=== PATIENT | male | born 1970 | race Hispanic/Latino ===

== ENCOUNTER 2017-08-26 13:50 | Inpatient (IN) | payer MEDICAID, OTHER ==
[2017-08-26 13:50] VITALS: BMI 36.1
--- NOTE | 2017-08-26 16:06 | ED PDOC ---
HPI: General Adult Time Seen by Provider: 08/26/17 15:09 Chief Complaint (Nursing): Flu-like Symptoms Chief Complaint (Provider): Flu-like Symptoms History Per: Patient Onset/Duration Of Symptoms: Other (X 2 weeks) Additional Complaint(s): Panfilo is a 46 year old male who presents to the Emergency Department complaining of non-productive cough for the past 2 weeks. Patient states he developed a tactile fever yesterday. Patient states over the several days, he developed right sided chest pain associated with shortness of breath. Reports worse at night. Denies radiation of pain, nausea, vomiting, diarrhea, hemoptysis , trauma, history of DVT or PE and leg pain. PMD: Harry Gutierrez Past Medical History Reviewed: Historical Data, Nursing Documentation, Vital Signs Vital Signs: Last Vital Signs Temp 98.2 F 08/26/17 20:13 Pulse 99 H 08/26/17 21:05 Resp 20 08/26/17 21:05 BP 101/62 08/26/17 21:05 Pulse Ox 96 08/26/17 22:37 - Medical History PMH: CHF, HTN Denies: Deep Vein Thrombosis, Pulmonary Embolism - Family History Family History: States: No Known Family Hx - Social History Current smoker - smoking cessation education provided: No Alcohol: None Drugs: Denies - Home Medications Home Medications: Ambulatory Orders Medication Instructions Recorded Aspirin [Aspirin EC] 81 mg PO DAILY 12/21/14 Carvedilol [Coreg] 6.25 mg PO Q12H 12/21/14 Enalapril Maleate 5 mg PO DAILY 12/21/14 Famotidine [Pepcid] 20 mg PO DAILY 12/21/14 Furosemide [Lasix] 20 mg PO BID 12/21/14 Cholecalciferol [Vitamin D 1000 IU] 1,000 unit PO DAILY 08/26/17 Multivit-Min/Folic/Vit K/Lycop 1 tab PO DAILY 08/26/17 [One-A-Day Men's Tablet] Multivitamin [Daily Mary] 1 tab PO DAILY 08/26/17 - Allergies Allergies/Adverse Reactions: Allergies Allergy/AdvReac Type Severity Reaction Status Date / Time No Known Allergies Allergy Verified 12/21/14 13:08 Review of Systems ROS Statement: Except As Marked, All Systems Reviewed And Found Negative Constitutional: Positive for: Fever Cardiovascular: Positive for: Chest Pain Respiratory: Positive for: Cough (non-productive), Shortness of Breath. Negative for: Hemoptysis Gastrointestinal: Negative for: Nausea, Vomiting, Diarrhea Musculoskeletal: Negative for: Leg Pain, Other (trauma and radiation of pain) Physical Exam - Reviewed Nursing Documentation Reviewed: Yes Vital Signs Reviewed: Yes - Physical Exam Appears: Positive for: Well, Non-toxic, No Acute Distress Head Exam: Positive for: ATRAUMATIC, NORMAL INSPECTION, NORMOCEPHALIC Skin: Positive for: Normal Color, Warm, DRY Eye Exam: Positive for: EOMI, Normal appearance, PERRL ENT: Positive for: Normal ENT Inspection Neck: Positive for: Normal, Supple Cardiovascular/Chest: Positive for: Regular Rate, Rhythm, Other (Right Sided Anterior Chest Wall Tenderness). Negative for: Chest Non Tender Respiratory: Positive for: Normal Breath Sounds. Negative for: Respiratory Distress Gastrointestinal/Abdominal: Positive for: Normal Exam, Soft. Negative for: Tenderness Back: Positive for: Normal Inspection Extremity: Positive for: Normal ROM. Negative for: Pedal Edema Neurologic/Psych: Positive for: Alert, Oriented - Laboratory Results Result Diagrams: 08/26/17 16:00 08/26/17 16:00 - ECG O2 Sat by Pulse Oximetry: 96 (RA) Pulse Ox Interpretation: Normal - Radiology X-Ray: Interpreted by Me (CXR) X-Ray Interpretation: Other (RLL infiltrate) Medical Decision Making Medical Decision Making: Time: 15:19 Plan: - EKG - B-Type Natriuretic Peptide - CMP - Troponin I - CBC - D-Dimer - Chest X-Ray - Blood Culture - Urinalysis Time: 15:47 - Urine Culture Time: 16:13 Chest X-Ray FINDINGS: LUNGS: Moderate right lower lobe opacity compatible with pleural effusion and consolidation. Mild pulmonary venous congestion. No definite pneumothorax. Please note that chest x-ray has limited sensitivity for the detection of pulmonary masses. CARDIOVASCULAR: Marked cardiomegaly. OSSEOUS STRUCTURES: Degenerative changes of the spine. VISUALIZED UPPER ABDOMEN: Unremarkable. OTHER FINDINGS: None. IMPRESSION: Moderate right lower lobe opacity compatible with pleural effusion and consolidation. Mild pulmonary venous congestion. Marked cardiomegaly. 1625 D-Dimer elevated. CTA chest w/ IV contrast ordered. 1815 Case d/w Dr. Gutierrez and arrangements made for admission. Requests pt. be given Levaquin 750mg IV daily and lasix 20mg IV daily. CTA chest w/ IV contrast: no PE, RLL infiltrate, small pleural effusion Scribe Attestation: Documented by Wilfredo Ro, acting as a scribe for Miguel Roe PA-C Provider Scribe Attestation: All medical record entries made by the Scribe were at my direction and personally dictated by me. I have reviewed the chart and agree that the record accurately reflects my personal performance of the history, physical exam, medical decision making, and the department course for this patient. I have also personally directed, reviewed, and agree with the discharge instructions and disposition. Disposition - Clinical Impression Clinical Impression: Pneumonia, CHF exacerbation - Patient ED Disposition Is Patient to be Admitted: No - Disposition Disposition Time: 18:15 Condition: STABLE
[2017-08-26 16:13] LABS: BASO # 0.1 K/uL (0.0-0.2); BASO % 0.6 % (0.0-2.0); EOS # 0.1 K/uL (0.0-0.7); EOS % 0.7 % (0.0-4.0); HEMATOCRIT 37.9 % (35.0-51.0); LYMPH # 0.9 K/uL (1.0-4.3); MEAN CELL VOLUME 82.3 fl (80.0-94.0); MEAN CORPUSCULAR HEMOGLOBIN 26.6 pg (27.0-31.0); MEAN CORPUSCULAR HGB CONC 32.3 g/dL (33.0-37.0); MEAN PLATELET VOLUME 8.8 fl (7.2-11.7); MONO # 0.9 K/uL (0.0-0.8); MONO % 8.7 % (0.0-10.0); NEUT # 8.2 K/uL (1.8-7.0); PLATELET COUNT 198 K/uL (130-400); RED CELL DISTRIBUTION WIDTH 14.6 % (11.5-14.5); WHITE BLOOD COUNT 10.1 K/uL (4.8-10.8)
[2017-08-26 16:13] LABS: RBC URINE 17 /hpf (0-3); URINE BACTERIA RARE (<OCC); URINE BILIRUBIN NEGATIVE (NEGATIVE); URINE BLOOD LARGE (NEGATIVE); URINE COLOR AMBER (YELLOW); URINE GLUCOSE (UA) NEG (Normal); URINE KETONE NEGATIVE (NEGATIVE); URINE LEUKOCYTE ESTERASE SMALL Leu/uL (Negative); URINE PROTEIN 100 mg/dL (NEGATIVE); WBC URINE 11 /hpf (0-5)
[2017-08-26 16:37] LABS: ALB/GLOB RATIO 1.1 (1.0-2.1); ALKALINE PHOSPHATASE 59 U/L (38-126); ALT/SGPT 43 U/L (21-72); AST/SGOT 32 U/L (17-59); BILIRUBIN,TOTAL 1.7 mg/dl (0.2-1.3); BLOOD UREA NITROGEN 13 mg/dl (9-20); CALCIUM 8.6 mg/dL (8.4-10.2); CARBON DIOXIDE 27 mmol/L (22-30); CHLORIDE 99 mmol/L (98-107); GFR AFRICAN-AMERICAN > 60; GLUCOSE,RANDOM 104 mg/dL (75-110); POTASSIUM 4.1 MMOL/L (3.6-5.0); SODIUM 135 mmol/l (132-148); TOTAL PROTEIN 7.3 G/DL (6.3-8.2)
[2017-08-26] MEDS ORDERED: Sodium Chloride 0.9% 50 ML IV ONE (16:37)
[2017-08-26] MEDS ORDERED: Iodixanol 320 MG/ML 100 ML BOTTLE IV ONE (16:37)
--- NOTE | 2017-08-26 16:37 | RAD ---
HISTORY: cough COMPARISON: Chest x-ray performed 12/21/14 TECHNIQUE: Chest PA and lateral FINDINGS: LUNGS: Moderate right lower lobe opacity compatible with pleural effusion and consolidation. Mild pulmonary venous congestion. No definite pneumothorax. Please note that chest x-ray has limited sensitivity for the detection of pulmonary masses. CARDIOVASCULAR: Marked cardiomegaly. OSSEOUS STRUCTURES: Degenerative changes of the spine. VISUALIZED UPPER ABDOMEN: Unremarkable. OTHER FINDINGS: None. IMPRESSION: Moderate right lower lobe opacity compatible with pleural effusion and consolidation. Mild pulmonary venous congestion. Marked cardiomegaly.
[2017-08-26] MEDS ORDERED: levoFLOXacin 500 mg in D5W 500 MG/100 ML BAG IVPB STA (16:42)
[2017-08-26 17:06] LABS: NEUTROPHIL 89 % (42-75); TOTAL CELLS COUNTED 100
--- NOTE | 2017-08-26 18:02 | CT ---
PROCEDURE: CT Chest with contrast (Pulmonary Angiogram) HISTORY: R sided chest pain, SOB, elevated D-Dimer COMPARISON: None available. TECHNIQUE: Axial computed tomography images were obtained of the chest in the pulmonary arterial phase of enhancement. Coronal and sagittal reformatted images were created and reviewed. Intravenous contrast dose: 95 cc Visipaque 320 Mean Hounsfield unit values in the main pulmonary artery: 310.32 Radiation dose: Total exam DLP = 508.10 mGy-cm. This CT exam was performed using one or more of the following dose reduction techniques: Automated exposure control, adjustment of the mA and/or kV according to patient size, and/or use of iterative reconstruction technique. FINDINGS: PULMONARY ARTERIES: Unremarkable. No pulmonary embolism. AORTA: No acute findings. No thoracic aortic aneurysm. LUNGS: Consolidative changes primarily affecting the right lower lobe including multiple segments. PLEURAL SPACES: Small, associated right pleural effusion. HEART: Cardiomegaly. No evidence of acute, significant cardiovascular disease. LYMPH NODES: Small mediastinal lymph node is of uncertain etiology and significance. BONES, CHEST WALL: Unremarkable. No fracture or destructive lesion OTHER FINDINGS: Unremarkable. IMPRESSION: No evidence of pulmonary embolism. Right lower lobe infiltrate, small right pleural effusion.
[2017-08-26] MEDS ORDERED: levoFLOXacin 500 mg in D5W 500 MG/100 ML BAG IVPB ONE (18:31)
[2017-08-27] MEDS ORDERED: Pneumococcal 23-Valent Vaccine IM ONE (09:00)
[2017-08-27] MEDS ORDERED: Patient's Own Med (Multivitamin [Daily Vite] 1 TAB) PO SCH (09:00)
[2017-08-27] MEDS: levoFLOXacin 750 mg in D5W 750 MG/150 ML BAG IVPB SCH (09:22)
[2017-08-27] MEDS: Enoxaparin 40 mg Syringe SC SCH (09:23)
--- NOTE | 2017-08-27 11:39 | CARD ---
APPROVED REPORT EKG Measurement Heart [id number] <Conclusion> Sinus rhythm with 1st degree AV block Left atrial enlargement Left bundle branch block Abnormal ECG
[2017-08-27] MEDS: Multivitamin With Minerals Tab PO SCH (13:19)
--- NOTE | 2017-08-27 13:42 | IP.NPCORE ---
Heart Failure Core Measure - Heart Failure Ejection Fraction: Less Than 40 % PRESTON Inhibitor Prescribed: Yes Beta-Adrián Prescribed: Metoprolol Succinate - Follow up Will be discharged to: Home
--- NOTE | 2017-08-27 17:47 | CARD ---
APPROVED REPORT EXAM: Two-dimensional and M-mode echocardiogram with Doppler and color Doppler. Other Information Quality : GoodRhythm : NSR INDICATION Congestive Heart Failure 2D DIMENSIONS IVSd0.75 (0.7-1.1cm)LVDd7.94 (3.9-5.9cm) LVOT Diameter2.83 (1.8-2.4cm)PWd0.99 (0.7-1.1cm) IVSs1.09 (0.8-1.2cm)LVDs7.11 (2.5-4.0cm) FS (%) 10.5 %PWs1.09 (0.8-1.2cm) M-Mode DIMENSIONS Left Atrium (MM)5.59 (2.5-4.0cm)IVSd0.56 (0.7-1.1cm) Aortic Root4.09 (2.2-3.7cm)LVDd8.24 (4.0-5.6cm) Aortic Cusp Exc.2.58 (1.5-2.0cm)PWd0.84 (0.7-1.1cm) IVSs0.94 cmFS (%) 14 % LVDs7.09 (2.0-3.8cm)PWs1.05 cm Mitral Valve E/A ratio0.0 TDI E/Lateral E'0.0E/Medial E'0.0 LEFT VENTRICLE The Left Ventricle is severely dilated. There is normal left ventricular wall thickness. Left ventricle systolic function is severely impaired. The Ejection Fraction is - 10-15%. The is global severe LV hypokinesia. Transmitral Doppler flow pattern is abnormal. No left ventricle thrombus noted on this study. There is no ventricular septal defect visualized. There is no left ventricular aneurysm. There is no mass noted in the left ventricle. RIGHT VENTRICLE The right ventricle is normal size. There is normal right ventricular wall thickness. The right ventricular systolic function is normal. ATRIA The left atrium appears - moderately dilated on the 2D study. The right atrium size is normal. The interatrial septum is intact with no evidence for an atrial septal defect. AORTIC VALVE The aortic valve is normal in structure. No aortic regurgitation is present. There is no aortic valvular stenosis. MITRAL VALVE The mitral valve is normal in structure. There is no evidence of mitral valve prolapse. There is no mitral valve stenosis. Mitral regurgitation is moderate to severe. TRICUSPID VALVE The tricuspid valve is normal in structure. There is mild tricuspid regurgitation. There is no tricuspid valve prolapse or vegetation. There is no tricuspid valve stenosis. PULMONIC VALVE The pulmonary valve is normal in structure. There is no pulmonic valvular regurgitation. GREAT VESSELS The aortic root is mildly enlarged. The IVC collapses <50% with inspiration. PERICARDIAL EFFUSION The pericardium appears normal. There is no pleural effusion. <Conclusion> The Left Ventricle is severely dilated. There is normal left ventricular wall thickness. Left ventricle systolic function is severely impaired. The Ejection Fraction is - 10-15%. The left atrium appears - moderately dilated on the 2D study. The mitral, aortic and tricuspid valves appear normal. There is moderate to severe mitral regurgitation and mild tricuspid regurgitation. Note: The left ventricular systolic function is the same as the December 2014 study.
--- NOTE | 2017-08-27 22:12 | CP.PCM.CON ---
History of Present Illness - History of Present Illness History of Present Illness: patient seen/examined. full consult to follow. Patient has acute on chronic systolic dysfunction. Has severe dilated cardiomyopathy and LBBB. Patient would benefit from BiVAICD for management of heart failure. Patient now agreeable. will schedule EP consult. Past Patient History - Past Medical History & Family History Past Medical History?: Yes - Past Social History Alcohol: None Drugs: Denies - CARDIAC Hx Congestive Heart Failure: Yes Hx Hypertension: Yes - PULMONARY Hx Pulmonary Embolism: No - NEUROLOGICAL Hx Neurological Disorder: Yes HX Cerebrovascular Accident: Yes - MUSCULOSKELETAL/RHEUMATOLOGICAL Hx Falls: No - PSYCHIATRIC Hx Substance Use: No - SURGICAL HISTORY Hx Surgeries: No - ANESTHESIA Hx Anesthesia: No Hx Anesthesia Reactions: No Meds Allergies/Adverse Reactions: Allergies Allergy/AdvReac Type Severity Reaction Status Date / Time No Known Allergies Allergy Verified 12/21/14 13:08 - Medications Medications: Current Medications Acetaminophen (Tylenol 325mg Tab) 650 mg PO Q6 PRN PRN Reason: Fever >100.4 F Last Admin: 08/27/17 17:00 Dose: 650 mg Aspirin (Ecotrin) 81 mg PO DAILY [facility] Last Admin: 08/27/17 09:21 Dose: 81 mg Carvedilol (Coreg) 6.25 mg PO Q12H [facility] Last Admin: 08/27/17 13:19 Dose: Not Given Cholecalciferol (Vitamin D) 1,000 iu PO DAILY [facility] Last Admin: 08/27/17 09:25 Dose: 1,000 iu Enalapril Maleate (Vasotec) 2.5 mg PO DAILY [facility] Last Admin: 08/27/17 09:25 Dose: 2.5 mg Enoxaparin Sodium (Lovenox) 40 mg SC DAILY [facility] PRN Reason: Protocol Last Admin: 08/27/17 09:23 Dose: 40 mg Famotidine (Pepcid) 20 mg PO DAILY [facility] Last Admin: 08/27/17 09:24 Dose: 20 mg Furosemide (Lasix) 20 mg IVP DAILY [facility] Last Admin: 08/27/17 09:21 Dose: 20 mg Levofloxacin/Dextrose (Levaquin 750mg) 750 mg in 150 mls @ 100 mls/hr IVPB DAILY [facility] PRN Reason: Protocol Last Admin: 08/27/17 09:22 Dose: 100 mls/hr Multivitamins/Minerals (Therapeutic-M Tab) 1 tab PO DAILY [facility] Last Admin: 08/27/17 13:19 Dose: 1 tab Results - Vital Signs Recent Vital Signs: Last Vital Signs Temp 100.1 F H 08/27/17 19:28 Pulse 101 H 08/27/17 20:52 Resp 20 08/27/17 19:28 BP 99/66 L 08/27/17 19:28 Pulse Ox 95 08/27/17 19:28 - Labs Result Diagrams: 08/26/17 16:00 08/26/17 16:00
--- NOTE | 2017-08-27 22:13 | CP.PCM.CON ---
Past Patient History - Past Medical History & Family History Past Medical History?: Yes - Past Social History Alcohol: None Drugs: Denies - CARDIAC Hx Congestive Heart Failure: Yes Hx Hypertension: Yes - PULMONARY Hx Pulmonary Embolism: No - NEUROLOGICAL Hx Neurological Disorder: Yes HX Cerebrovascular Accident: Yes - MUSCULOSKELETAL/RHEUMATOLOGICAL Hx Falls: No - PSYCHIATRIC Hx Substance Use: No - SURGICAL HISTORY Hx Surgeries: No - ANESTHESIA Hx Anesthesia: No Hx Anesthesia Reactions: No Meds Allergies/Adverse Reactions: Allergies Allergy/AdvReac Type Severity Reaction Status Date / Time No Known Allergies Allergy Verified 12/21/14 13:08 - Medications Medications: Current Medications Acetaminophen (Tylenol 325mg Tab) 650 mg PO Q6 PRN PRN Reason: Fever >100.4 F Last Admin: 08/27/17 17:00 Dose: 650 mg Aspirin (Ecotrin) 81 mg PO DAILY [facility] Last Admin: 08/27/17 09:21 Dose: 81 mg Carvedilol (Coreg) 6.25 mg PO Q12H [facility] Last Admin: 08/27/17 13:19 Dose: Not Given Cholecalciferol (Vitamin D) 1,000 iu PO DAILY [facility] Last Admin: 08/27/17 09:25 Dose: 1,000 iu Enalapril Maleate (Vasotec) 2.5 mg PO DAILY [facility] Last Admin: 08/27/17 09:25 Dose: 2.5 mg Enoxaparin Sodium (Lovenox) 40 mg SC DAILY [facility] PRN Reason: Protocol Last Admin: 08/27/17 09:23 Dose: 40 mg Famotidine (Pepcid) 20 mg PO DAILY [facility] Last Admin: 08/27/17 09:24 Dose: 20 mg Furosemide (Lasix) 20 mg IVP DAILY [facility] Last Admin: 08/27/17 09:21 Dose: 20 mg Levofloxacin/Dextrose (Levaquin 750mg) 750 mg in 150 mls @ 100 mls/hr IVPB DAILY [facility] PRN Reason: Protocol Last Admin: 08/27/17 09:22 Dose: 100 mls/hr Multivitamins/Minerals (Therapeutic-M Tab) 1 tab PO DAILY [facility] Last Admin: 08/27/17 13:19 Dose: 1 tab Results - Vital Signs Recent Vital Signs: Last Vital Signs Temp 100.1 F H 08/27/17 19:28 Pulse 101 H 08/27/17 20:52 Resp 20 08/27/17 19:28 BP 99/66 L 08/27/17 19:28 Pulse Ox 95 08/27/17 19:28 - Labs Result Diagrams: 08/26/17 16:00 08/26/17 16:00
[2017-08-28] MEDS: levoFLOXacin 750 mg in D5W 750 MG/150 ML BAG IVPB SCH (09:08)
[2017-08-28] MEDS: Enoxaparin 40 mg Syringe SC SCH (09:09)
[2017-08-28] MEDS: Multivitamin With Minerals Tab PO SCH (09:10)
--- NOTE | 2017-08-28 18:06 | CP.PCM.PN ---
Subjective - Date & Time of Evaluation Date of Evaluation: 08/28/17 Time of Evaluation: 17:45 - Subjective Subjective: patient has no curretn chest pain. has less dyspnea Objective - Vital Signs/Intake and Output Vital Signs (last 24 hours): Temp Pulse Resp BP Pulse Ox 99.3 F 98 H 20 97/61 L 95 08/28/17 15:51 08/28/17 15:51 08/28/17 15:51 08/28/17 15:51 08/28/17 15:51 Intake and Output: 08/28/17 08/28/17 06:59 18:59 Intake Total 1000 1200 Output Total 1800 1400 Balance -800 -200 - Medications Medications: Current Medications Acetaminophen (Tylenol 325mg Tab) 650 mg PO Q6 PRN PRN Reason: Fever >100.4 F Last Admin: 08/27/17 17:00 Dose: 650 mg Aspirin (Ecotrin) 81 mg PO DAILY [facility] Last Admin: 08/28/17 09:07 Dose: 81 mg Carvedilol (Coreg) 6.25 mg PO Q12H [facility] Last Admin: 08/28/17 11:54 Dose: 6.25 mg Cholecalciferol (Vitamin D) 1,000 iu PO DAILY [facility] Last Admin: 08/28/17 09:11 Dose: 1,000 iu Enalapril Maleate (Vasotec) 2.5 mg PO DAILY [facility] Last Admin: 08/28/17 09:11 Dose: 2.5 mg Enoxaparin Sodium (Lovenox) 40 mg SC DAILY [facility] PRN Reason: Protocol Last Admin: 08/28/17 09:09 Dose: 40 mg Furosemide (Lasix) 20 mg IVP DAILY [facility] Last Admin: 08/28/17 09:08 Dose: 20 mg Levofloxacin/Dextrose (Levaquin 750mg) 750 mg in 150 mls @ 100 mls/hr IVPB DAILY [facility] PRN Reason: Protocol Last Admin: 08/28/17 09:08 Dose: 100 mls/hr Multivitamins/Minerals (Therapeutic-M Tab) 1 tab PO DAILY [facility] Last Admin: 08/28/17 09:10 Dose: 1 tab - Labs Labs: 08/26/17 16:00 08/26/17 16:00 - Constitutional Appears: Non-toxic - Head Exam Head Exam: NORMAL INSPECTION - Eye Exam Eye Exam: Normal appearance - ENT Exam ENT Exam: Mucous Membranes Moist - Neck Exam Neck Exam: Full ROM - Respiratory Exam Respiratory Exam: Decreased Breath Sounds - Cardiovascular Exam Cardiovascular Exam: REGULAR RHYTHM - GI/Abdominal Exam GI & Abdominal Exam: Normal Bowel Sounds - Rectal Exam Rectal Exam: Deferred - Extremities Exam Extremities Exam: absent: Pedal Edema - Back Exam Back Exam: NORMAL INSPECTION - Neurological Exam Neurological Exam: Alert - Psychiatric Exam Psychiatric exam: Normal Affect - Skin Skin Exam: Normal Color Assessment and Plan (1) CHF exacerbation Assessment & Plan: acute on chronic systolic dysfunction. continue diuresis,. medical therapy Status: Acute (2) Chronic systolic dysfunction of left ventricle Assessment & Plan: I discussed BiVAICD placement with the patient. to be seen by EP. Status: Acute
--- NOTE | 2017-08-28 22:00 | PN ---
DATE: 08/28/2017 SUBJECTIVE: The patient is seen today 08/28/2017. He is less short of breath and less upper back pain. PHYSICAL EXAMINATION: VITAL SIGNS: Blood pressure 97/61, temperature 99.3, respiratory rate 20 and pulse 98. HEENT: Pupils equal and reactive to light. Normal-appearing mucosa of the conjunctivae, oropharynx and nasal membrane mucosa. NECK: Supple. No JVD. No carotid bruit. No lymph node. No thyromegaly. CHEST/LUNGS: Bilateral symmetrical expansion. Good air exchange. No rales, no rhonchi. CARDIOVASCULAR SYSTEM: PMI not localized. S1, S2. No additional sounds. ABDOMEN: Normoactive bowel sounds. No tenderness. No organomegaly. No masses. EXTREMITIES: No cyanosis, clubbing, no edema. TELEGRAPH SERVICE RATER: Alert, awake, oriented x3. No neurological deficit could be appreciated. ASSESSMENT: 1. Exacerbation of congestive heart failure, acute on top of chronic systolic heart failure. 2. Pneumonia. 3. Dilated cardiomyopathy. PLAN: Continue current antibiotics and diuretics, monitor electrolytes. [facility] MD Matt
[2017-08-29 06:29] LABS: HEMATOCRIT 35.8 % (35.0-51.0); MEAN CELL VOLUME 80.9 fl (80.0-94.0); MEAN CORPUSCULAR HGB CONC 32.2 g/dL (33.0-37.0); RED CELL DISTRIBUTION WIDTH 14.7 % (11.5-14.5); WHITE BLOOD COUNT 7.7 K/uL (4.8-10.8)
[2017-08-29 07:06] LABS: BLOOD UREA NITROGEN 14 mg/dl (9-20); CALCIUM 8.6 mg/dL (8.4-10.2); CARBON DIOXIDE 28 mmol/L (22-30); CHLORIDE 101 mmol/L (98-107); GFR AFRICAN-AMERICAN > 60; GLUCOSE,RANDOM 119 mg/dL (75-110); POTASSIUM 3.7 MMOL/L (3.6-5.0); SODIUM 138 mmol/l (132-148)
--- NOTE | 2017-08-29 08:46 | HP ---
HISTORY OF PRESENT ILLNESS: The patient is a 46-year-old male with history of dilated cardiomyopathy, rejected having an AICD. The patient presented to my office on the day of admission with symptoms of shortness of breath and back pain, increased with breathing. The patient was evaluated initially in my office and he was referred to emergency room where he was found to have proBNP of more than 3000 and also the patient had a chest x-ray and CAT scan of the chest that showed right lower lobe infiltrate with small right pleural effusion. The patient was started on Levaquin and admitted for further management of exacerbation of congestive heart failure secondary to pneumonia. OTHER REVIEW OF SYSTEM: Negative. ALLERGIES: NO KNOWN ALLERGY. HOME MEDICATIONS: Include Coreg twice a day, multivitamin once a day, furosemide 20 mg twice a day, Pepcid 20 mg daily, and enalapril 5 mg daily. PAST MEDICAL HISTORY: Dilated cardiomyopathy, congestive heart failure. SOCIAL HISTORY: No history of smoking, EtOH, or substance abuse. FAMILY HISTORY: Not contributory. PHYSICAL EXAMINATION GENERAL: The patient is in bed, in mild distress due to shortness of breath. VITAL SIGNS: Blood pressure is 99/66, temperature 100.1, respiratory rate 20, and pulse is 101. HEENT: Pupils equal, reactive to light. Normal-appearing mucosa of the conjunctivae, oropharynx, and nasal membrane mucosa. NECK: Supple. No JVD. No carotid bruit. No lymph nodes. No thyromegaly. CHEST AND LUNGS: Bilateral symmetrical expansion. Good air exchange. Bilateral basilar rales. CARDIOVASCULAR SYSTEM: PMI not localized. S1, S2. No additional sounds. ABDOMEN: Normoactive bowel sounds. No tenderness. No organomegaly. No masses. EXTREMITIES: No cyanosis. No clubbing. A +1 edema of both lower extremities. ASSESSMENT: 1. Exacerbation of congestive heart failure, both systolic and diastolic, acute on top of chronic. 2. Right lower lobe pneumonia. PLAN: Continue current antibiotics and we will do cardiology consult and echocardiogram. Continue diuretics and we will reintroduce his medications as would be tolerated by the blood pressure. Harry Gutierrez MD
[2017-08-29] MEDS: Multivitamin With Minerals Tab PO SCH (09:17)
[2017-08-29] MEDS: Enoxaparin 40 mg Syringe SC SCH (09:17)
[2017-08-29] MEDS: levoFLOXacin 750 mg in D5W 750 MG/150 ML BAG IVPB SCH (09:20)
[2017-08-29 12:29] VITALS: O2SAT 98
[2017-08-29 15:36] VITALS: BP 110/74; PULSE 91; RESP 20; TEMP 98.8
--- NOTE | 2017-08-30 08:31 | CON ---
DATE: 08/29/2017 INPATIENT ELECTROPHYSIOLOGY CONSULTATION REASON FOR EVALUATION: 1. Dilated cardiomyopathy. 2. Systolic heart failure. 3. Right lower lobe pneumonia. HISTORY OF PRESENT ILLNESS: Mr. Panfilo Kate is a 46-year-old male with past medical history significant for dilated cardiomyopathy, hypertension, obesity, who presents with worsening shortness of breath, found to be in decompensated heart failure. The patient initially had been seen at his primary's office, Dr. Gutierrez at which point he was referred for admission. On intake, the patient was found to have evidence of volume overload. Chest x-ray consistent congestive heart failure. BNP greater than 3000 as well as a right lower lobe infiltrate. The patient was initiated on antibiotics in the form of Levaquin for treatment of community-acquired pneumonia as well as optimize from a volume status standpoint. The patient was seen in consultation by Dr. Ming Martinez. I was asked to see him in regards to possible AICD implantation. The patient had undergone ischemic workup in the form of left heart catheterization some 2 to 3 years ago, at that point with documented heart failure, left bundle-branch block and nonischemic cardiomyopathy. The patient was offered an AICD in the past. I have been asked to see him in regards to rediscussing options. The patient is alert, awake and appears appropriate. He claims compliance with medications and diet and is very surprised that he had decompensated heart failure. He denies any chest pain, palpitations, dizziness or syncope. ALLERGIES: NO KNOWN DRUG ALLERGIES. HOME MEDICATIONS: Include carvedilol 6.25 mg twice a day, Lasix 20 mg b.i.d., Pepcid 20 mg daily, enalapril 5 mg daily. PAST MEDICAL HISTORY: As mentioned in the history of present illness. FAMILY HISTORY: Negative for premature coronary artery disease or sudden cardiac . SOCIAL HISTORY: Negative for tobacco, EtOH or drug abuse. Echocardiogram dictated 08/27/2017 shows left ventricle with dilated chamber size, EF of 10-15%, severe LV hypokinesia, RV is of normal size. Left atrium appears moderately dilated. Aortic valve is within normal limit. Mitral valve is normal in structure. No evidence of mitral valve prolapse. Tricuspid valve is normal in structure. There is moderate to severe mitral regurgitation. There is mild tricuspid regurgitation. PHYSICAL EXAMINATION: VITAL SIGNS: Blood pressure is 100/72, heart rate of 94, temperature of 98.1, respirations of 18. GENERAL: He is a pleasant obese male, in no acute distress, able to speak in complete sentences. HEENT: Examination of his head is normocephalic and atraumatic. There is no kai facial asymmetry. He does have poor dentition. Mucous membranes appear moist. NECK: Supple. No jugular venous distention. No carotid bruit. CHEST: Clear to auscultation bilaterally, upper and lower lung sommer. CARDIOVASCULAR: Regular rate and rhythm. S1 and S2. No S3 or S4. There is a II/ holosystolic murmur heard best at the left sternal border. ABDOMEN: Soft, obese, nontender, nondistended. Positive bowel sounds. EXTREMITIES: No cyanosis, clubbing or edema. Peripheral pulses are 2+ and symmetric again upper and lower extremities. LABORATORY DATA: On review of relevant lab work, the patient has a white count of 10.0, H and H of 12.2 and 37.9, platelets of 198. D-dimer is 734. Sodium of 135, potassium is 4.1, BUN and creatinine are 13 and 1.0. AST, ALT are 32 and 43, alk phos is 59. BNP is 3360, this was done on 08/26/2017. EKG, which was done on 08/26/2017 shows normal sinus rhythm at 86 beats per minute. Normal P-wave morphology. AL interval is 242 milliseconds. There is left axis deviation secondary to left bundle-branch block with a QRS duration of 132 milliseconds. There are nonspecific ST-T wave changes that are noted. ASSESSMENT AND PLAN: 1. Dilated cardiomyopathy, which at this point appears to be longstanding. The patient is on reasonable medical therapy use, felt to be a candidate for a biventricular automatic implantable cardioverter-defibrillator to improve heart failure type symptoms as well as possibly improve left ventricular ejection fraction. These options have been discussed with the patient in prior years. At this point, the patient would like to continue considering a biventricular automatic implantable cardioverter-defibrillator. Therefore, no plans will be made for automatic implantable cardioverter-defibrillator implantation during this hospitalization. The option of a LifeVest was also discussed with him for permanent prevention of sudden cardiac . I did tell him that the LifeVest would not provide him with pacing modalities that can improve his heart failure type symptoms. At this point, even the LifeVest he is not considering LifeVest placement at this point. 2. Systolic heart failure. The patient has significant left ventricular dysfunction and prior to being admitted had significant shortness of breath as well. We will continue to optimize heart failure type symptoms. 3. Right lower lobe pneumonia for which he is receiving antibiotic therapy. 4. Moderate to severe mitral regurgitation. It is unclear whether his valvular status is worse causing geometric changes in the left ventricle and therefore worsening heart failure. The patient is strongly advised to follow up with Dr. Martinez for routine general cardiology care. If he does change his mind and if he is agreeable for a defibrillator, certainly I can be contacted at any time. Thank you for allowing me to participate in the care of your patient. Please do not hesitate to call if you have any questions in regards to his care. Yours sincerely, Fabián Jefferson MD
--- NOTE | 2017-08-30 21:55 | DS ---
REASON FOR ADMISSION: This is a 46-year-old male who recently regained his health insurance and presented to my office since the day of admission with symptoms of upper back pain increased with breathing associated with respiratory symptoms. COURSE OF HOSPITALIZATION: The patient was admitted to medical floor and he had Dr. Martinez and Dr. Jefferson for cardiology consult. Patient's symptoms remarkably improved. There is a need to repeat the chest x-ray for any complicated pneumonia and he signed against medical advice. FINAL DIAGNOSES: Pneumonia, congestive heart failure, dilated cardiomyopathy. [facility] MD Matt
== END 2017-08-29 18:35 | disposition left against medical advice (07) | DRG 544 ==
LOC: H.ER 13:50 → H.ERHOLD 18:24 → H.TEL 21:55
PROVIDERS: ADMIT Internal Medicine; ATTEND Internal Medicine
PROC: 3E0234Z Introduction of Serum, Toxoid and Vaccine into Muscle, Percutaneous Approach (ICD-10-PCS; principal; 2017-08-27)
DX: I11.0 Hypertensive heart disease with heart failure (principal); J18.9 Pneumonia, unspecified organism; I42.0 Dilated cardiomyopathy; I08.1 Rheumatic disorders of both mitral and tricuspid valves; I50.23 Acute on chronic systolic (congestive) heart failure; I44.7 Left bundle-branch block, unspecified; Z23 Encounter for immunization; E66.9 Obesity, unspecified; Z68.36 Body mass index [BMI] 36.0-36.9, adult; Z86.73 Personal history of transient ischemic attack (TIA), and cerebral infarction without residual deficits

== ENCOUNTER 2017-10-09 13:14 | Inpatient (IN) | payer MEDICAID, OTHER ==
--- NOTE | 2017-10-09 14:39 | ED PDOC ---
HPI: SOB/CHF/COPD <Ly Medellin - Last Filed: 10/09/17 16:56> Chief Complaint (Provider): "im in pronounced heart failure" History Per: Patient History/Exam Limitations: no limitations Onset/Duration Of Symptoms: Days Current Symptoms Are (Timing): Still Present Initiating Event: Other (uncertain triggering etiology ) Exacerbating Factor(s): Exertion, Laying Flat, Coughing Current Respiratory Medications: Diuretic, PRESTON Inhibitor Severity: Mild Pain Scale Rating Of: 2 Associated Symptoms: Fever (intermittent ), Ankle/Leg Swelling. denies: Chills , Sweating, Chest Pain, Productive Cough, Heart Racing, Dizziness, Light- headedness, Anxiety, Tingling In Hands Or Face <Fox Malloy - Last Filed: 10/09/17 17:10> Time Seen by Provider: 10/09/17 13:54 Chief Complaint (Nursing): Shortness Of Breath Additional Complaint(s): 47 y/o male with hx of HTN and recent diagnosis of "severe HF" presents with a 2 day history of worsening SOB. Pt denies any triggering/inciting event, and reports he is chronically short of breath, but two days ago it got out of control. He reports episodic fever, post nasal drip, worsening exercise intolerance, orthopnea, nonproductive cough, nocturnal dyspnea, and worsening b/ l pedal edema. He reports he is compliant with his CHF meds. Denies recent illness. Reports CHF was discovered in august 2017 when he was admitted for pneumonia. He reports is to undergo implantation of Biventricular pacemaker on Saturday but does not think he would make it to the appointment. Denies any chills, headaches, changes in vision, lightheadedness, CP/Palpitations, diaphoresis, N/V/D, urinary symptoms, numbness/tingling. PMD: Matt Cardio: Juan (Fox Malloy) Supervising Attending Note - Supervising Attending Note The Documented history was done by the: Physician Scrap Drop Operator The documented physical exam was done by the: Physician Scrap Drop Operator The documented procedures were done by the: Physician Scrap Drop Operator - Attestation: I have personally seen and examined this patient.: Yes I have fully participated in the care of the patient.: Yes I have reviewed all pertinent clinical information, including history, physical exam and plan: Yes <Ly Medellin - Last Filed: 10/09/17 16:56> <Fox Malloy - Last Filed: 10/09/17 17:10> - Notes: Notes:: Case d/w Dr. Augustin regarding elevated troponin. After reviewing information, he does not feel that urgent cardiac cath is indicated in patient who is already scheduled for AICD next week. Information relayed to Dr. Boland. Patient accepted to the ICU. Dr. Gutierrez is aware and accepts care. (Ly Medellin) Past Medical History <Ly Medellin - Last Filed: 10/09/17 16:56> Reviewed: Historical Data, Nursing Documentation, Vital Signs - Medical History PMH: CHF, HTN Denies: Deep Vein Thrombosis, Pulmonary Embolism - Family History Family History: States: No Known Family Hx - Living Arrangements Living Arrangements: With Friends/Others - Social History Current smoker - smoking cessation education provided: No Ex-Smoker (has not smoked in the last 12 months): No Alcohol: None Drugs: Denies - Immunization History Hx Influenza Vaccination: No Hx Pneumococcal Vaccination: Yes <Fox Malloy - Last Filed: 10/09/17 17:10> Vital Signs: Last Vital Signs Temp 100.1 F H 10/09/17 13:29 Pulse 113 H 10/09/17 13:29 Resp 16 10/09/17 13:29 BP 121/61 10/09/17 15:37 Pulse Ox 93 L 10/09/17 16:55 - Home Medications Home Medications: Ambulatory Orders Medication Instructions Recorded Aspirin [Aspirin EC] 81 mg PO DAILY 12/21/14 Carvedilol [Coreg] 6.25 mg PO Q12H 12/21/14 Enalapril Maleate 5 mg PO DAILY 12/21/14 Famotidine [Pepcid] 20 mg PO DAILY 12/21/14 Furosemide [Lasix] 20 mg PO BID 12/21/14 Cholecalciferol [Vitamin D 1000 IU] 1,000 unit PO DAILY 08/26/17 Multivitamin [Daily Mary] 1 tab PO DAILY 08/26/17 Aspirin [Aspirin] 650 mg PO DAILY PRN 10/09/17 Spironolactone [Aldactone] 25 mg PO DAILY 10/09/17 - Allergies Allergies/Adverse Reactions: Allergies Allergy/AdvReac Type Severity Reaction Status Date / Time No Known Allergies Allergy Verified 10/09/17 13:29 Wells Criteria for PE - Wells Criteria for Pulmonary Embolism Clinical Signs and Symptoms of DVT: No Total Score: 0 <Fox Malloy - Last Filed: 10/09/17 17:10> Review of Systems ROS Statement: Except As Marked, All Systems Reviewed And Found Negative <Fox Malloy - Last Filed: 10/09/17 17:10> Physical Exam - Physical Exam Appears: Positive for: Non-toxic, Uncomfortable Head Exam: Positive for: ATRAUMATIC Skin: Positive for: Warm, Dry. Negative for: Diaphoresis, Pallor Eye Exam: Positive for: EOMI, PERRL. Negative for: Conjunctival injection Neck: Positive for: Painless ROM, Supple Cardiovascular/Chest: Positive for: Regular Rate, Rhythm, Chest Non Tender, Tachycardia. Negative for: Gallop, JVD, Murmur Respiratory: Positive for: Decreased Breath Sounds, Accessory Muscle Use, Rales (scattered b/l). Negative for: Wheezing, Respiratory Distress Pulses-Carotid (L): 2+ Pulses-Carotid (R): 2+ Pulses-Dorsalis Pedis (L): 2+ Pulses-Dorsalis Pedis (R): 2+ Pulses-Radial (L): 2+ Pulses-Radial (R): 2+ Gastrointestinal/Abdominal: Positive for: Soft, Other (truncal obesity ). Negative for: Tenderness, Distended, Guarding, Asicites Extremity: Positive for: Pedal Edema (b/l +1 pitting edema ), Capillary Refill ( <2s). Negative for: Tenderness, Calf Tenderness Neurologic/Psych: Positive for: Alert, hemodialysis technician II-XII, Oriented. Negative for: Motor/Sensory Deficits <Fox Malloy - Last Filed: 10/09/17 17:10> - Laboratory Results Result Diagrams: 10/09/17 14:50 10/09/17 15:12 - Critical Care Total Time (In Min): 30 <Ly Medellin - Last Filed: 10/09/17 16:56> - Laboratory Results Result Diagrams: 10/09/17 14:50 10/09/17 15:12 - ECG O2 Sat by Pulse Oximetry: 93 <Fox Malloy - Last Filed: 10/09/17 17:10> - Progress ED Course And Treament: suspected CHF exacerbation/pneumonia Labs: -CBC -CMP -P-BNP -Troponin -CK-MB -Blood cx -coags -VBG shock panel Imaging: -CXR -EKG -I/Os Meds: IV Lasix 20mg IVP O2 via NC 2L discussed case with Interventional cardio, Dr. Augustin, whom does not believe urgent cardiac catheterization is required at the moment. Based on history and scheduled AICD implantation, he believes elevation in troponin is noncardiac in nature. (Fox Malloy) Disposition - Patient ED Disposition Is Patient to be Admitted: Yes Doctor Will See Patient In The: Hospital - Disposition Disposition Time: 16:58 - Pt Status Changed To: Hospital Disposition Of: Inpatient - Admit Certification Admit to Inpatient:: After my assessment, the patient will require hospitalization for at least two midnights. This is because of the severity of symptoms shown, intensity of services needed, and/or the medical risk in this patient being treated as an outpatient. - POA Present On Arrival: None <Ly Medellin - Last Filed: 10/09/17 16:56> - Patient ED Disposition Is Patient to be Admitted: Yes Doctor Will See Patient In The: Hospital - Pt Status Changed To: Hospital Disposition Of: Inpatient - Admit Certification Admit to Inpatient:: After my assessment, the patient will require hospitalization for at least two midnights. This is because of the severity of symptoms shown, intensity of services needed, and/or the medical risk in this patient being treated as an outpatient. - POA Present On Arrival: None <Fox Malloy - Last Filed: 10/09/17 17:10> - Clinical Impression Clinical Impression: CHF (congestive heart failure) - Disposition Condition: STABLE Forms: [employer] (Croatian)
[2017-10-09 15:30] LABS: PARTIAL THROMBOPLASTIN TIME 37.1 Seconds (25.6-37.1); PROTHROMBIN TIME 22.6 Seconds (9.8-13.1)
[2017-10-09 15:30] LABS: BASO % 0.1 % (0.0-2.0); HEMOGLOBIN 11.8 g/dL (12.0-18.0); LYMPH # 0.7 K/uL (1.0-4.3); LYMPH % 2.9 % (20.0-40.0); MEAN CELL VOLUME 75.2 fl (80.0-94.0); MEAN CORPUSCULAR HEMOGLOBIN 23.6 pg (27.0-31.0); MEAN CORPUSCULAR HGB CONC 31.3 g/dL (33.0-37.0); MONO # 1.7 K/uL (0.0-0.8); MONO % 7.1 % (0.0-10.0); NEUT # 21.4 K/uL (1.8-7.0); NEUT % 89.9 % (50.0-75.0); NRBC % 0.1 % (0.0-0.0); PLATELET COUNT 454 K/uL (130-400); RBC 5.01 Mil/uL (4.40-5.90); RED CELL DISTRIBUTION WIDTH 17.4 % (11.5-14.5); WHITE BLOOD COUNT 23.8 K/uL (4.8-10.8)
--- NOTE | 2017-10-09 15:40 | RAD ---
HISTORY: SOB COMPARISON: 08/26/2017 TECHNIQUE: Chest PA and lateral FINDINGS: LUNGS: No definite infiltrate. Probable subsegmental atelectasis at left base. Cannot rule out consolidation at right base due to superimposed opacity of pleural effusion. PLEURA: Small right pleural effusion. No evidence of left pleural effusion. No pneumothorax. CARDIOVASCULAR: Cardiomegaly. OSSEOUS STRUCTURES: No significant abnormalities. VISUALIZED UPPER ABDOMEN: Normal. OTHER FINDINGS: None. IMPRESSION: Small right pleural effusion. Left basilar subsegmental atelectasis. Cardiomegaly.
[2017-10-09] MEDS ORDERED: Azithromycin 500 MG in Sodium Chloride 0.9% 250 ML IVPB STA (15:42)
[2017-10-09 15:43] LABS: ALB/GLOB RATIO 0.8 (1.0-2.1); ALBUMIN 3.5 g/dL (3.5-5.0); ALT/SGPT 28 U/L (21-72); AST/SGOT 34 U/L (17-59); BLOOD UREA NITROGEN 13 mg/dl (9-20); CALCIUM 9.5 mg/dL (8.4-10.2); GFR AFRICAN-AMERICAN > 60; GFR NON-AFRICAN AMERICAN > 60
[2017-10-09 16:16] LABS: B-TYPE NATRIURETIC PEPTIDE 7040 pg/ml (0-450)
[2017-10-09 17:04] LABS: ABG ALLEN TEST YES; ARTERIAL BLOOD GAS O2 SAT 96.8 % (95-98); ARTERIAL BLOOD GAS PCO2 37 mm/Hg (35-45); ARTERIAL BLOOD GAS PH 7.48 (7.35-7.45); ARTERIAL BLOOD GAS PO2 69 mm/Hg (80-100); ARTERIAL BLOOD GAS TCO2 28.7 mmol/L (22-28)
[2017-10-09] MEDS ORDERED: Azithromycin 500 MG IV IVPB ONE (17:15)
[2017-10-09 17:25] LABS: ANISOCYTOSIS SLIGHT; BANDS 4 % (0-2); HYPOCHROMIC SLIGHT; LARGE PLATELETS PRESENT; LYMPHOCYTE 5 % (20-50); MICROCYTOSIS MODERATE; MONOCYTE 7 % (0-10); NEUTROPHIL 83 % (42-75); PLATELET ESTIMATE SLIGHTLY INCREASED (NORMAL); POIKILOCYTOSIS SLIGHT; REACTIVE LYMPHOCYTES 1 % (0-0); SCHISTOCYTES SLIGHT; TEARDROP CELLS SLIGHT; TOTAL CELLS COUNTED 100
--- NOTE | 2017-10-09 18:45 | CP.CCUPN ---
CCU Subjective - Physician Review Subjective (Free Text): 47M admitted for acute on chronic CHF decompensation, c/o + AKINS, +PND, + Orthopnea, + increased leg edema, but denies CP, N/V, palpitations; states he has been compliant with meds and had been routinely scheduled for biventricular AICD at [facility] next week. He denies any cough, but had fevers, and chills, and rhinorrhea. Denies any headaches, nasal or facial pain. Has diuresed approx. 600 ml from initial Lasix 20mg IVP; + fever to 101F now, has recd dose of Azithromycin only so far as of this writing. He is awake and alert, conversant with marked labored speech and respirations, SPO2 93% on nasal 2 LPM oxygen. He is exhibiting sharp pleural pain over R mid anterior rib area. He denies any recent falls or trauma to the area. Other vitals and I/O's reviewed. Allergies: NKDA Meds: ASA, Coreg, Vit D, Enalpril, Pepcid, Lasix bid, MVI ROS: No other pertinent negs or positives on + system review obtainable. PMSFH: + CVA 2012, no residual deficits, denies smoking or chronic ETOH use, + family hx of Lymphoma. All other Nursing and physician documentation reviewed to date; no new pertinent info noted relevant to current medical problems. CXR: ( my interp): infiltrate behind left heart with air b-grams, R effusion and R basilar atelectasis. EKG: sinus tachy, LBBB, and AWMI with poor R wave progression. IMPRESSION / MAJOR PROBLEMS NOW: 1. Acute on Chronic CHF / Cardiomyopathy ( etiology of Cardiomyopathy unknown to patient, no hx of CAD as per last cath 2014), r/o ACS Acute - Subacute [facility] 2. Acute resp Insuff with LLL Pneumonia, old RLL pneumonia last treated and hospitalized Aug 2017. 3. Morbid Obesity PLAN: 1. Home meds reviewed: on ASA only with Coreg, ACEi, Aldactoner /Lasix combo, but no BB no statin, and is anticoagulated as per coag tests ( unless lab error) . Repeat serial Trops / EKG, get Interventional Cardio eval for appropriateness of Cardiac Cath. Consider Clopidogrel loading. 2. More Lasix IVP now. 3. Supplemental oxygen, will try HFNC; no apparent need for emergent assisted breathing support yet. 4. Empiric abx coverage: started with Azithro and Ceftriaxone in ER. Consider Vanco / Cefepime, and CT Chest. 5. Aware that D-dimer ordered in ER, low suspicion for acute PTE, but elevation may be 2 to his heart disease. To completely r/o other entities, may be obligated to get CT Chest Angio study and LE Venous Doppler US studies. 6. No Advance Directives, full Code, patient states I want to live! CCU Objective - Vital Signs / Intake & Output Vital Signs (Last 4 hours): Vital Signs Pulse Resp BP Pulse Ox 10/09/17 17:32 97/69 L 10/09/17 17:31 114 H 20 97/69 L 96 10/09/17 17:10 93 L 10/09/17 15:37 121/61 Intake and Output (Last 8hrs): Intake & Output 10/09/17 10/09/17 10/09/17 06:59 14:59 22:59 Weight 246 lb - Physical Exam Head: Positive for: Normocephalic Pupils: Positive for: PERRL Extroacular Muscles: Positive for: EOMI Conjunctiva: Positive for: Normal. Negative for: Icteric Mouth: Positive for: Moist Mucous Membranes Neck: Positive for: JVD. Negative for: Lymphadenopathy Respiratory/Chest: Positive for: Decreased Breath Sounds, Rales (bi basilar) Cardiovascular: Positive for: Regular Rate and Rhythm, Tachycardic Abdomen: Positive for: Normal Bowel Sounds. Negative for: Tenderness, Distention, Mass/Organomegaly Lower Extremity: Positive for: Edema (+2), NORMAL PULSES. Negative for: CALF TENDERNESS, Cyanosis, Erythema, Temperature Abnormalties Neurological: Positive for: GCS=15, Motor Func Grossly Intact, Normal Sensory Function Skin: Positive for: Warm, Dry. Negative for: Rashes Psychiatric: Positive for: Alert, Oriented x 3 - Medications Active Medications: Active Medications Generic Name Dose Route Start Last Admin Trade Name Freq PRN Reason Stop Dose Admin Acetaminophen 650 mg 10/09/17 18:07 Tylenol 325mg Tab PO Q6 PRN Fever >100.4 F Carvedilol 6.25 mg 10/09/17 21:00 Coreg PO Q12 SONJA Enalapril Maleate 5 mg 10/10/17 09:00 Vasotec PO DAILY SONJA Furosemide 40 mg 10/09/17 16:45 10/09/17 17:32 Lasix IV Not Given DAILY [facility] Cefepime HCl 1 gm/ Sodium 100 mls @ 100 mls/hr 10/09/17 18:15 Chloride IVPB Q8 SONJA Protocol Vancomycin HCl 1 gm/ Sodium 250 mls @ 125 mls/hr 10/09/17 18:15 Chloride IVPB DAILY SONJA Protocol Morphine Sulfate 2 mg 10/09/17 18:36 Morphine IVP Q4 PRN Pain, severe (8-10) Pantoprazole Sodium 40 mg 10/09/17 18:15 Protonix Ec Tab PO DAILY [facility] Spironolactone 25 mg 10/10/17 09:00 Aldactone PO DAILY [facility] - Patient Studies Lab Studies: Lab Studies 10/09/17 10/09/17 10/09/17 Range/Units 17:05 16:52 15:40 WBC (4.8-10.8) K/uL RBC (4.40-5.90) Mil/uL Hgb (12.0-18.0) g/dL Hct (35.0-51.0) % MCV (80.0-94.0) fl MCH (27.0-31.0) pg MCHC (33.0-37.0) g/dL RDW (11.5-14.5) % Plt Count (130-400) K/uL MPV (7.2-11.7) fl Neut % (Auto) (50.0-75.0) % Lymph % (Auto) (20.0-40.0) % [place] % (Auto) (0.0-10.0) % Eos % (Auto) (0.0-4.0) % Baso % (Auto) (0.0-2.0) % Neut # (1.8-7.0) K/uL Lymph # (1.0-4.3) K/uL [place] # (0.0-0.8) K/uL Eos # (0.0-0.7) K/uL Baso # (0.0-0.2) K/uL Neutrophils % (Manual) (42-75) % Band Neutrophils % (0-2) % Lymphocytes % (Manual) (20-50) % Reactive Lymphs % (0-0) % Monocytes % (Manual) (0-10) % Platelet Estimate (NORMAL) Large Platelets Hypochromasia (manual) Poikilocytosis (manual Anisocytosis (manual) Microcytosis (manual) Tear Drop Cells Schistocytes PT (9.8-13.1) Seconds INR (0.9-1.2) APTT (25.6-37.1) Seconds pCO2 37 (35-45) mm/Hg pO2 69 L (80-100) mm/Hg HCO3 28.0 (21-28) mmol/L ABG pH 7.48 H (7.35-7.45) ABG Total CO2 28.7 H (22-28) mmol/L ABG O2 Saturation 96.8 (95-98) % ABG Base Excess 4.0 H (-2.0-3.0) mmol/L Marko Test Yes ABG Potassium 4.4 (3.6-5.2) mmol/L A-a O2 Difference 113.0 mm/Hg Glucose 123 H (75-110) mg/dL Lactate 1.0 (0.7-2.1) mmol/L FiO2 32.0 % Sodium 129.0 L (132-148) mmol/l Potassium (3.6-5.0) MMOL/L Chloride 96.0 L (98-107) mmol/L Carbon Dioxide (22-30) mmol/L Anion Gap (10-20) BUN (9-20) mg/dl Creatinine (0.8-1.5) mg/dl Est GFR ( Amer) Est GFR (Non-Af Amer) Random Glucose (75-110) mg/dL Lactic Acid 1.6 (0.7-2.1) MMOL/L Calcium (8.4-10.2) mg/dL Total Bilirubin (0.2-1.3) mg/dl AST (17-59) U/L ALT (21-72) U/L Alkaline Phosphatase (38-126) U/L CK-MB (Mass) (0.0-3.38) ng/mL Troponin I (0.00-0.120) ng/mL NT-Pro-B Natriuret Pep (0-450) pg/ml Total Protein (6.3-8.2) G/DL Albumin (3.5-5.0) g/dL Globulin (2.2-3.9) gm/dL Albumin/Globulin Ratio (1.0-2.1) Arterial Blood Potassium 4.4 (3.6-5.2) mmol/L Influenza Typ A,B (EIA) Negative for flu a/b (NEGATIVE) 10/09/17 10/09/17 10/09/17 Range/Units 15:12 15:12 14:50 WBC 23.8 H D (4.8-10.8) K/uL RBC 5.01 (4.40-5.90) Mil/uL Hgb 11.8 L (12.0-18.0) g/dL Hct 37.7 (35.0-51.0) % MCV 75.2 L D (80.0-94.0) fl MCH 23.6 L (27.0-31.0) pg MCHC 31.3 L (33.0-37.0) g/dL RDW 17.4 H (11.5-14.5) % Plt Count 454 H D (130-400) K/uL MPV 8.0 (7.2-11.7) fl Neut % (Auto) 89.9 H (50.0-75.0) % Lymph % (Auto) 2.9 L (20.0-40.0) % [place] % (Auto) 7.1 (0.0-10.0) % Eos % (Auto) 0.0 (0.0-4.0) % Baso % (Auto) 0.1 (0.0-2.0) % Neut # 21.4 H (1.8-7.0) K/uL Lymph # 0.7 L (1.0-4.3) K/uL [place] # 1.7 H (0.0-0.8) K/uL Eos # 0.0 (0.0-0.7) K/uL Baso # 0.0 (0.0-0.2) K/uL Neutrophils % (Manual) 83 H (42-75) % Band Neutrophils % 4 H (0-2) % Lymphocytes % (Manual) 5 L (20-50) % Reactive Lymphs % 1 H (0-0) % Monocytes % (Manual) 7 (0-10) % Platelet Estimate Slightly increased H (NORMAL) Large Platelets Present Hypochromasia (manual) Slight Poikilocytosis (manual Slight Anisocytosis (manual) Slight Microcytosis (manual) Moderate Tear Drop Cells Slight Schistocytes Slight PT 22.6 H (9.8-13.1) Seconds INR 2.0 H (0.9-1.2) APTT 37.1 (25.6-37.1) Seconds pCO2 (35-45) mm/Hg pO2 (80-100) mm/Hg HCO3 (21-28) mmol/L ABG pH (7.35-7.45) ABG Total CO2 (22-28) mmol/L ABG O2 Saturation (95-98) % ABG Base Excess (-2.0-3.0) mmol/L Marko Test ABG Potassium (3.6-5.2) mmol/L A-a O2 Difference mm/Hg Glucose (75-110) mg/dL Lactate (0.7-2.1) mmol/L FiO2 % Sodium 133 (132-148) mmol/l Potassium 4.8 (3.6-5.0) MMOL/L Chloride 95 L (98-107) mmol/L Carbon Dioxide 28 (22-30) mmol/L Anion Gap 15 (10-20) BUN 13 (9-20) mg/dl Creatinine 1.0 (0.8-1.5) mg/dl Est GFR ( Amer) > 60 Est GFR (Non-Af Amer) > 60 Random Glucose 121 H (75-110) mg/dL Lactic Acid (0.7-2.1) MMOL/L Calcium 9.5 (8.4-10.2) mg/dL Total Bilirubin 1.4 H (0.2-1.3) mg/dl AST 34 (17-59) U/L ALT 28 (21-72) U/L Alkaline Phosphatase 74 (38-126) U/L CK-MB (Mass) 2.20 (0.0-3.38) ng/mL Troponin I 1.6700 H* (0.00-0.120) ng/mL NT-Pro-B Natriuret Pep 7040 H (0-450) pg/ml Total Protein 7.9 (6.3-8.2) G/DL Albumin 3.5 (3.5-5.0) g/dL Globulin 4.4 H (2.2-3.9) gm/dL Albumin/Globulin Ratio 0.8 L (1.0-2.1) Arterial Blood Potassium (3.6-5.2) mmol/L Influenza Typ A,B (EIA) (NEGATIVE) Laboratory Results - last 24 hr 10/09/17 10/09/17 10/09/17 14:50 15:12 15:12 WBC 23.8 H D RBC 5.01 Hgb 11.8 L Hct 37.7 MCV 75.2 L D MCH 23.6 L MCHC 31.3 L RDW 17.4 H Plt Count 454 H D MPV 8.0 Neut % (Auto) 89.9 H Lymph % (Auto) 2.9 L [place] % (Auto) 7.1 Eos % (Auto) 0.0 Baso % (Auto) 0.1 Neut # 21.4 H Lymph # 0.7 L [place] # 1.7 H Eos # 0.0 Baso # 0.0 Neutrophils % (Manual) 83 H Band Neutrophils % 4 H Lymphocytes % (Manual) 5 L Reactive Lymphs % 1 H Monocytes % (Manual) 7 Platelet Estimate Slightly increased H Large Platelets Present Hypochromasia (manual) Slight Poikilocytosis (manual Slight Anisocytosis (manual) Slight Microcytosis (manual) Moderate Tear Drop Cells Slight Schistocytes Slight PT 22.6 H INR 2.0 H APTT 37.1 pCO2 pO2 HCO3 ABG pH ABG Total CO2 ABG O2 Saturation ABG Base Excess Marko Test ABG Potassium A-a O2 Difference Glucose Lactate FiO2 Sodium 133 Potassium 4.8 Chloride 95 L Carbon Dioxide 28 Anion Gap 15 BUN 13 Creatinine 1.0 Est GFR ( Amer) > 60 Est GFR (Non-Af Amer) > 60 Random Glucose 121 H Lactic Acid Calcium 9.5 Total Bilirubin 1.4 H AST 34 ALT 28 Alkaline Phosphatase 74 CK-MB (Mass) 2.20 Troponin I 1.6700 H* NT-Pro-B Natriuret Pep 7040 H Total Protein 7.9 Albumin 3.5 Globulin 4.4 H Albumin/Globulin Ratio 0.8 L Arterial Blood Potassium Influenza Typ A,B (EIA) 10/09/17 10/09/17 10/09/17 15:40 16:52 17:05 WBC RBC Hgb Hct MCV MCH MCHC RDW Plt Count MPV Neut % (Auto) Lymph % (Auto) [place] % (Auto) Eos % (Auto) Baso % (Auto) Neut # Lymph # [place] # Eos # Baso # Neutrophils % (Manual) Band Neutrophils % Lymphocytes % (Manual) Reactive Lymphs % Monocytes % (Manual) Platelet Estimate Large Platelets Hypochromasia (manual) Poikilocytosis (manual Anisocytosis (manual) Microcytosis (manual) Tear Drop Cells Schistocytes PT INR APTT pCO2 37 pO2 69 L HCO3 28.0 ABG pH 7.48 H ABG Total CO2 28.7 H ABG O2 Saturation 96.8 ABG Base Excess 4.0 H Marko Test Yes ABG Potassium 4.4 A-a O2 Difference 113.0 Glucose 123 H Lactate 1.0 FiO2 32.0 Sodium 129.0 L Potassium Chloride 96.0 L Carbon Dioxide Anion Gap BUN Creatinine Est GFR ( Amer) Est GFR (Non-Af Amer) Random Glucose Lactic Acid 1.6 Calcium Total Bilirubin AST ALT Alkaline Phosphatase CK-MB (Mass) Troponin I NT-Pro-B Natriuret Pep Total Protein Albumin Globulin Albumin/Globulin Ratio Arterial Blood Potassium 4.4 Influenza Typ A,B (EIA) Negative for flu a/b Radiology Interpretations (Free Text): see above EKG/Cardiology Studies: see above Review of Systems - Review of Systems All systems: reviewed and no additional remarkable complaints except (as above) Critical Care Progress Note - Extremities/Vascular Does the Patient have a Central Venous Catheter?: No Does the Patient need a Central Venous Catheter?: No Does the Patient have a Vargas Catheter?: No Does the Patient need a Vargas Catheter?: No - Prophylaxis GI Prophylaxis GI: PPI - Prophylaxis DVT Prophylaxis DVT: Lovenox - Nutrition Nutrition: Nutrition Category Date Time Status Heart Healthy Diet [DIET] Diets 10/09/17 Breakfast Active
[2017-10-09] MEDS ORDERED: Enoxaparin 40 mg Syringe SC SCH (19:00)
[2017-10-09] MEDS: Cefepime 1 GM in Sodium Chloride 0.9% 100 ML IVPB SCH (19:43)
[2017-10-09] MEDS: Pantoprazole 40 mg EC Tab PO SCH (19:57)
[2017-10-10 00:03] VITALS: BMI 35.9
[2017-10-10] MEDS ORDERED: DOPamine 400mg/250ml D5W 400 MG/250 ML BAG IV ONE (00:29)
[2017-10-10] MEDS ORDERED: Heparin 25,000units in D5W 25,000 UNITS/250 ML BAG IV SCH (01:00)
[2017-10-10] MEDS: Cefepime 1 GM in Sodium Chloride 0.9% 100 ML IVPB SCH ×3 (01:18→16:10)
[2017-10-10] MEDS: Heparin 25,000units in D5W 25,000 UNITS/250 ML BAG IV SCH ×2 (01:20→23:52)
[2017-10-10 01:22] LABS: HEMOGLOBIN 10.7 g/dL (12.0-18.0); MEAN CELL VOLUME 75.4 fl (80.0-94.0); MEAN CORPUSCULAR HGB CONC 31.8 g/dL (33.0-37.0); RBC 4.47 Mil/uL (4.40-5.90); RED CELL DISTRIBUTION WIDTH 17.2 % (11.5-14.5)
[2017-10-10 05:15] LABS: HEMOGLOBIN 10.8 g/dL (12.0-18.0); MEAN CELL VOLUME 74.8 fl (80.0-94.0); MEAN CORPUSCULAR HEMOGLOBIN 23.6 pg (27.0-31.0); MEAN CORPUSCULAR HGB CONC 31.5 g/dL (33.0-37.0); RBC 4.59 Mil/uL (4.40-5.90); WHITE BLOOD COUNT 19.7 K/uL (4.8-10.8)
[2017-10-10 05:51] LABS: BLOOD UREA NITROGEN 17 mg/dl (9-20); GFR AFRICAN-AMERICAN > 60; GFR NON-AFRICAN AMERICAN > 60
[2017-10-10 06:16] LABS: BARBITURATES, UR NEGATIVE (NEGATIVE); BENZODIAZEPINES, UR NEGATIVE (NEGATIVE); OPIATES, UR NEGATIVE (NEGATIVE); PHENCYCLIDINE, UR NEGATIVE (NEGATIVE)
[2017-10-10] MEDS: Pantoprazole 40 mg EC Tab PO SCH (08:25)
[2017-10-10] MEDS: DOBUTamine 500mg/250ml D5W 500 MG/250 ML BAG IV SCH (11:30)
--- NOTE | 2017-10-10 12:38 | CP.PCM.CON ---
History of Present Illness - History of Present Illness History of Present Illness: I was asked to see patient by Dr Gutierrez. Patient is a 47 year old male with a PMH chronic systolic dysfunction, LBBB who presents with acute on chronic systolic dysfunction. Patient had a previous cardiac cath in 2016, and was found to have no significant CAD, severe LV dysfunction. The patient refused AICD at that time and was lost to follow up. He presented in August with pneumonia and CHF. Repeat echocardiogram revealed severe LV dysfunction, at which time he stated he would consider AICD. The patient was seen in the office this week and agreed for AICD. He was to be scheduled for implant next week at [facility] as outpatient, however he presents now with dyspnea and heart failure. CXR consistent with pneumonia. He was admitted to ICU, with elevated troponin. Heparin drip ws started and patient has now been started on dobutamine. He has less dyspnea. Review of Systems - Constitutional Constitutional: Weakness - EENT Eyes: absent: As Per HPI, Blind Spots, Blurred Vision, Change in Vision, Decreased Night Vision, Diplopia, Discharge, Dry Eye, Exophthalmos, Floaters, Irritation, Itchy Eyes, Loss of Peripheral Vision, Pain, Photophobia, Requires Corrective Lenses, Sees Flashes, Spots in Vision, Tunnel Vision, Other Visual Disturbances, Loss of Vision, Other Ears: absent: As Per HPI, Decreased Hearing, Ear Discharge, Ear Pain, Tinnitus, Abnormal Hearing, Disequilibrium, Dizziness, Other Nose/Mouth/Throat: absent: As Per HPI, Epistaxis, Nasal Congestion, Nasal Discharge, Nasal Obstruction, Nasal Trauma, Nose Pain, Post Nasal Drip, Sinus Pain, Sinus Pressure, Bleeding Gums, Change in Voice, Dental Pain, Dry Mouth, Dysphagia, Halitosis, Hoarsness, Lip Swelling, Mouth Lesions, Mouth Pain, Odynophagia, Sore Throat, Throat Swelling, Tongue Swelling, Facial Pain, Neck Pain, Neck Mass, Other - Cardiovascular Cardiovascular: Dyspnea, Edema, Orthopnea, Paroxysmal Nocturnal Dyspnea - Respiratory Respiratory: Dyspnea - Gastrointestinal Gastrointestinal: absent: As Per HPI, Abdominal Pain, Belching, Bloating, Change in Bowel Habits, Change in Stool Character, Coffee Ground Emesis, Constipation, Cramping, Diarrhea, Dyspepsia, Dysphagia, Early Satiety, Excessive Flatus, Fecal Incontinence, Heartburn, Hematemesis, Hematochezia, Loose Stools, Melena, Nausea, Odynophagia, Temesmus, Vomiting, Other - Genitourinary Genitourinary: absent: As Per HPI, Change in Urinary Stream, Difficulty Urinating, Dysuria, Flank Pain, Hematuria, Pyuria, Nocturia, Urinary Incontinence, Urinary Frequency, Urinary Hesitance, Urinary Urgency, Voiding Freq/Small Amts, Freq UTI, Hx Renal/Bladder Calculi, Hx /Renal Surgery, Bladder Distension, Other - Musculoskeletal Musculoskeletal: absent: As Per HPI, Abnormal Gait, Arthralgias, Atrophy, Back Pain, Deformity, Joint Swelling, Limited Range of Motion, Loss of Height, Muscle Cramps, Muscle Weakness, Myalgias, Neck Pain, Numbness, Radiating Pain into Limb, Stiffness, Tingling, Other - Integumentary Integumentary: absent: As Per HPI, Acne, Alopecia, Bleeding Lesions, Change in Hair, Change in Nails, Change in Pigmentation, Changing Lesions, Dry Skin, Erythema, Furuncle, Hirsutism, Lesions, New Lesions, Non-Healing Lesions, Photosensitivity, Pruritus, Rash, Skin Pain, Skin Ulcer, Sores, Striae, Swelling , Unusual Bruising, Wounds, Jaundice, Other - Neurological Neurological: absent: As Per HPI, Abnormal Gait, Abnormal Hearing, Abnormal Movements, Abnormal Speech, Behavioral Changes, Burning Sensations, Confusion, Convulsions, Disequilibrium, Dizziness, Numbness, Focal Weakness, Frequent Falls , Headaches, Lack of Coordination, Loss of Vision, Memory Loss, Paresthesias, Radicular Pain, Restless Legs, Sensory Deficit, Syncope, Tingling, Tremor, Vertigo, Weakness, Other Visual Disturbances, Other - Psychiatric Psychiatric: absent: As Per HPI, Abnormal Sleep Pattern, Anhedonia, Anxiety, Auditory Hallucinations, Behavioral Changes, Change in Appetite, Change in Libido, Confusion, Depression, Difficulty Concentrating, Hallucinations, Homicidal Ideation, Hopelessness, Irritability, Memory Loss, Mood Swings, Panic Attacks, Paranoia, Suicidal Ideation, Visual Hallucinations, Tactile Hallucinations, Other - Endocrine Endocrine: absent: As Per HPI, Change in Body Appearance, Change in Libido, Cold Intolorance, Deepening of Voice, Excessive Sweating, Fatigue, Flushing, Heat Intolorance, Increase in Ring/Shoe/Hat Size, Palpitations, Polydipsia, Polyphagia, Polyuria, Other - Hematologic/Lymphatic Hematologic: absent: As Per HPI, Easy Bleeding, Easy Bruising, Lymphadenopathy, Other Past Patient History - Past Medical History & Family History Past Medical History?: Yes - Past Social History Smoking Status: Never Smoked - CARDIAC Hx Congestive Heart Failure: Yes (04/2013) Hx Hypertension: Yes - PULMONARY Hx Pulmonary Embolism: No - NEUROLOGICAL Hx Neurological Disorder: Yes HX Cerebrovascular Accident: Yes (04/2012) - MUSCULOSKELETAL/RHEUMATOLOGICAL Hx Falls: No - PSYCHIATRIC Hx Substance Use: No - SURGICAL HISTORY Hx Surgeries: No Hx Cardiac Catheterization: Yes - ANESTHESIA Hx Anesthesia: No Hx Anesthesia Reactions: No Meds Allergies/Adverse Reactions: Allergies Allergy/AdvReac Type Severity Reaction Status Date / Time No Known Allergies Allergy Verified 10/09/17 13:29 - Medications Medications: Current Medications Acetaminophen (Tylenol 325mg Tab) 650 mg PO Q6 PRN PRN Reason: Fever >100.4 F Last Admin: 10/09/17 18:35 Dose: 650 mg Carvedilol (Coreg) 6.25 mg PO Q12 [facility] Last Admin: 10/10/17 08:24 Dose: 6.25 mg Clopidogrel Bisulfate (Plavix) 75 mg PO DAILY [facility] Last Admin: 10/10/17 08:25 Dose: 75 mg Enalapril Maleate (Vasotec) 5 mg PO DAILY [facility] Last Admin: 10/10/17 08:26 Dose: 5 mg Furosemide (Lasix) 40 mg IV DAILY [facility] Last Admin: 10/10/17 08:25 Dose: 40 mg Cefepime HCl 1 gm/ Sodium (Chloride) 100 mls @ 100 mls/hr IVPB Q8 [facility] PRN Reason: Protocol Last Admin: 10/10/17 08:27 Dose: 100 mls/hr Vancomycin HCl 1 gm/ Sodium (Chloride) 250 mls @ 125 mls/hr IVPB DAILY [facility] PRN Reason: Protocol Last Admin: 10/10/17 08:25 Dose: 125 mls/hr Heparin Sodium/Dextrose (Heparin 25,000 Units/250ml In D5w) 25,000 units in 250 mls @ 10 mls/hr IV .Q24H SONJA PRN Reason: Protocol Last Titration: 10/10/17 11:46 Dose: 12 mls/hr Dobutamine HCl/Dextrose (Dobutamine/Dextrose 5% 500mg/250ml) 500 mg in 250 mls @ 16.533 mls/hr IV .Q15H8M SONJA; 5 MCG/KG/MIN PRN Reason: Protocol Last Admin: 10/10/17 11:30 Dose: 2.5 mcg/kg/min, 8.267 mls/hr Ibuprofen (Motrin Tab) 600 mg PO Q6 PRN PRN Reason: Pain, moderate (4-7) Last Admin: 10/10/17 04:53 Dose: 600 mg Morphine Sulfate (Morphine) 2 mg IVP Q4 PRN PRN Reason: Pain, severe (8-10) Pantoprazole Sodium (Protonix Ec Tab) 40 mg PO DAILY [facility] Last Admin: 10/10/17 08:25 Dose: 40 mg Spironolactone (Aldactone) 25 mg PO DAILY [facility] Last Admin: 10/10/17 08:24 Dose: 25 mg Physical Exam - Constitutional Appears: Non-toxic - Head Exam Head Exam: NORMAL INSPECTION - Eye Exam Eye Exam: Normal appearance - ENT Exam ENT Exam: Mucous Membranes Moist - Neck Exam Neck exam: Positive for: Full Rom - Respiratory Exam Respiratory Exam: Decreased Breath Sounds - Cardiovascular Exam Cardiovascular Exam: REGULAR RHYTHM - GI/Abdominal Exam GI & Abdominal Exam: Normal Bowel Sounds - Rectal Exam Rectal Exam: Deferred - Extremities Exam Extremities exam: Positive for: pedal edema - Back Exam Back exam: NORMAL INSPECTION - Neurological Exam Neurological exam: Alert, Oriented x3 - Psychiatric Exam Psychiatric exam: Normal Affect - Skin Skin Exam: Normal Color Results - Vital Signs Recent Vital Signs: Last Vital Signs Temp 97.9 F 10/10/17 08:00 Pulse 95 H 10/10/17 11:00 Resp 23 10/10/17 11:00 BP 98/23 L 10/10/17 11:00 Pulse Ox 95 10/10/17 11:00 - Labs Result Diagrams: 10/10/17 05:06 10/10/17 05:06 Labs: Laboratory Results - last 24 hr 10/09/17 10/09/17 10/09/17 14:50 15:12 15:12 WBC 23.8 H D RBC 5.01 Hgb 11.8 L Hct 37.7 MCV 75.2 L D MCH 23.6 L MCHC 31.3 L RDW 17.4 H Plt Count 454 H D MPV 8.0 Neut % (Auto) 89.9 H Lymph % (Auto) 2.9 L [place] % (Auto) 7.1 Eos % (Auto) 0.0 Baso % (Auto) 0.1 Neut # 21.4 H Lymph # 0.7 L [place] # 1.7 H Eos # 0.0 Baso # 0.0 Neutrophils % (Manual) 83 H Band Neutrophils % 4 H Lymphocytes % (Manual) 5 L Reactive Lymphs % 1 H Monocytes % (Manual) 7 Platelet Estimate Slightly increased H Large Platelets Present Hypochromasia (manual) Slight Poikilocytosis (manual Slight Anisocytosis (manual) Slight Microcytosis (manual) Moderate Tear Drop Cells Slight Schistocytes Slight PT 22.6 H INR 2.0 H APTT 37.1 pCO2 pO2 HCO3 ABG pH ABG Total CO2 ABG O2 Saturation ABG Base Excess Marko Test ABG Potassium A-a O2 Difference Glucose Lactate FiO2 Sodium 133 Potassium 4.8 Chloride 95 L Carbon Dioxide 28 Anion Gap 15 BUN 13 Creatinine 1.0 Est GFR ( Amer) > 60 Est GFR (Non-Af Amer) > 60 Random Glucose 121 H Lactic Acid Calcium 9.5 Total Bilirubin 1.4 H AST 34 ALT 28 Alkaline Phosphatase 74 CK-MB (Mass) 2.20 Troponin I 1.6700 H* NT-Pro-B Natriuret Pep 7040 H Total Protein 7.9 Albumin 3.5 Globulin 4.4 H Albumin/Globulin Ratio 0.8 L Arterial Blood Potassium Urine Opiates Screen Urine Methadone Screen Ur Barbiturates Screen Ur Phencyclidine Scrn Ur Amphetamines Screen U Benzodiazepines Scrn U Oth Cocaine Metabols U Cannabinoids Screen Influenza Typ A,B (EIA) 10/09/17 10/09/17 10/09/17 15:40 16:52 17:05 WBC RBC Hgb Hct MCV MCH MCHC RDW Plt Count MPV Neut % (Auto) Lymph % (Auto) [place] % (Auto) Eos % (Auto) Baso % (Auto) Neut # Lymph # [place] # Eos # Baso # Neutrophils % (Manual) Band Neutrophils % Lymphocytes % (Manual) Reactive Lymphs % Monocytes % (Manual) Platelet Estimate Large Platelets Hypochromasia (manual) Poikilocytosis (manual Anisocytosis (manual) Microcytosis (manual) Tear Drop Cells Schistocytes PT INR APTT pCO2 37 pO2 69 L HCO3 28.0 ABG pH 7.48 H ABG Total CO2 28.7 H ABG O2 Saturation 96.8 ABG Base Excess 4.0 H Marko Test Yes ABG Potassium 4.4 A-a O2 Difference 113.0 Glucose 123 H Lactate 1.0 FiO2 32.0 Sodium 129.0 L Potassium Chloride 96.0 L Carbon Dioxide Anion Gap BUN Creatinine Est GFR ( Amer) Est GFR (Non-Af Amer) Random Glucose Lactic Acid 1.6 Calcium Total Bilirubin AST ALT Alkaline Phosphatase CK-MB (Mass) Troponin I NT-Pro-B Natriuret Pep Total Protein Albumin Globulin Albumin/Globulin Ratio Arterial Blood Potassium 4.4 Urine Opiates Screen Urine Methadone Screen Ur Barbiturates Screen Ur Phencyclidine Scrn Ur Amphetamines Screen U Benzodiazepines Scrn U Oth Cocaine Metabols U Cannabinoids Screen Influenza Typ A,B (EIA) Negative for flu a/b 10/09/17 10/10/17 10/10/17 23:45 01:00 01:00 WBC 21.0 H RBC 4.47 Hgb 10.7 L Hct 33.7 L MCV 75.4 L MCH 24.0 L MCHC 31.8 L RDW 17.2 H Plt Count 381 MPV Neut % (Auto) Lymph % (Auto) [place] % (Auto) Eos % (Auto) Baso % (Auto) Neut # Lymph # [place] # Eos # Baso # Neutrophils % (Manual) Band Neutrophils % Lymphocytes % (Manual) Reactive Lymphs % Monocytes % (Manual) Platelet Estimate Large Platelets Hypochromasia (manual) Poikilocytosis (manual Anisocytosis (manual) Microcytosis (manual) Tear Drop Cells Schistocytes PT INR APTT 38.1 H pCO2 pO2 HCO3 ABG pH ABG Total CO2 ABG O2 Saturation ABG Base Excess Marko Test ABG Potassium A-a O2 Difference Glucose Lactate FiO2 Sodium Potassium Chloride Carbon Dioxide Anion Gap BUN Creatinine Est GFR ( Amer) Est GFR (Non-Af Amer) Random Glucose Lactic Acid Calcium Total Bilirubin AST ALT Alkaline Phosphatase CK-MB (Mass) Troponin I 1.3600 H* NT-Pro-B Natriuret Pep Total Protein Albumin Globulin Albumin/Globulin Ratio Arterial Blood Potassium Urine Opiates Screen Urine Methadone Screen Ur Barbiturates Screen Ur Phencyclidine Scrn Ur Amphetamines Screen U Benzodiazepines Scrn U Oth Cocaine Metabols U Cannabinoids Screen Influenza Typ A,B (EIA) 0110/10/17 10/10/17 05:06 05:06 05:06 WBC 19.7 H RBC 4.59 Hgb 10.8 L Hct 34.4 L MCV 74.8 L MCH 23.6 L MCHC 31.5 L RDW 17.0 H Plt Count 396 MPV Neut % (Auto) Lymph % (Auto) [place] % (Auto) Eos % (Auto) Baso % (Auto) Neut # Lymph # [place] # Eos # Baso # Neutrophils % (Manual) Band Neutrophils % Lymphocytes % (Manual) Reactive Lymphs % Monocytes % (Manual) Platelet Estimate Large Platelets Hypochromasia (manual) Poikilocytosis (manual Anisocytosis (manual) Microcytosis (manual) Tear Drop Cells Schistocytes PT INR APTT pCO2 pO2 HCO3 ABG pH ABG Total CO2 ABG O2 Saturation ABG Base Excess Marko Test ABG Potassium A-a O2 Difference Glucose Lactate FiO2 Sodium 135 Potassium 4.1 Chloride 98 Carbon Dioxide 28 Anion Gap 13 BUN 17 Creatinine 1.0 Est GFR ( Amer) > 60 Est GFR (Non-Af Amer) > 60 Random Glucose 156 H Lactic Acid Calcium 9.0 Total Bilirubin AST ALT Alkaline Phosphatase CK-MB (Mass) Troponin I 1.1200 H* NT-Pro-B Natriuret Pep Total Protein Albumin Globulin Albumin/Globulin Ratio Arterial Blood Potassium Urine Opiates Screen Urine Methadone Screen Ur Barbiturates Screen Ur Phencyclidine Scrn Ur Amphetamines Screen U Benzodiazepines Scrn U Oth Cocaine Metabols U Cannabinoids Screen Influenza Typ A,B (EIA) 10/10/17 10/10/17 10/10/17 05:06 05:30 10:49 WBC RBC Hgb Hct MCV MCH MCHC RDW Plt Count MPV Neut % (Auto) Lymph % (Auto) [place] % (Auto) Eos % (Auto) Baso % (Auto) Neut # Lymph # [place] # Eos # Baso # Neutrophils % (Manual) Band Neutrophils % Lymphocytes % (Manual) Reactive Lymphs % Monocytes % (Manual) Platelet Estimate Large Platelets Hypochromasia (manual) Poikilocytosis (manual Anisocytosis (manual) Microcytosis (manual) Tear Drop Cells Schistocytes PT INR APTT 50.8 H D 42.8 H D pCO2 pO2 HCO3 ABG pH ABG Total CO2 ABG O2 Saturation ABG Base Excess Marko Test ABG Potassium A-a O2 Difference Glucose Lactate FiO2 Sodium Potassium Chloride Carbon Dioxide Anion Gap BUN Creatinine Est GFR ( Amer) Est GFR (Non-Af Amer) Random Glucose Lactic Acid Calcium Total Bilirubin AST ALT Alkaline Phosphatase CK-MB (Mass) Troponin I NT-Pro-B Natriuret Pep Total Protein Albumin Globulin Albumin/Globulin Ratio Arterial Blood Potassium Urine Opiates Screen Negative Urine Methadone Screen Negative Ur Barbiturates Screen Negative Ur Phencyclidine Scrn Negative Ur Amphetamines Screen Negative U Benzodiazepines Scrn Negative U Oth Cocaine Metabols Negative U Cannabinoids Screen Negative Influenza Typ A,B (EIA) - EKG Data EKG Interpreted by: Myself EKG shows normal: Sinus rhythm - EKG Data EKG Specific Queries Waldo/QRS: LBBB Assessment & Plan (1) Systolic dysfunction with acute on chronic heart failure Assessment and Plan: will conitnue ICU . diuresis. start dobutamine Status: Acute (2) CHF (NYHA class III, ACC/AHA stage C) Assessment and Plan: will eventually need resynchronization therapy with BiVAICD Status: Acute (3) NSTEMI (non-ST elevated myocardial infarction) Assessment and Plan: will continue heparin drip. troponin likely due to heart failure Status: Acute
--- NOTE | 2017-10-10 14:17 | CARD ---
APPROVED REPORT EKG Measurement Heart [id number] <Conclusion> Sinus rhythm with 1st degree AV block Possible Left atrial enlargement Left bundle branch block Abnormal ECG
--- NOTE | 2017-10-10 14:31 | CARD ---
APPROVED REPORT EKG Measurement Heart [id number] <Conclusion> Sinus tachycardia Left atrial enlargement Left axis deviation LBBB Abnormal ECG
--- NOTE | 2017-10-10 16:39 | CP.CCUPN ---
<DykesTamy garcia - Last Filed: 10/10/17 16:36> CCU Subjective - Physician Review Subjective (Free Text): 10/10/17 16:36 Patient sitting upright in bed, no apparent distress. Breathing comfortably on High flow O2 at 40% with O2 sat of 99%. He feels much better this morning. Able to speak in full sentences, continues to have lateral chest pain on the right side, no abdominal pain. Minimal leg edema. Last BM was days ago, but admits he has not eaten very much these past few days. Overnight, patient became hypotensive, started on dopamine and Heparin drip for NSTEMI. Vital signs reviewed. Labs reviewed: WBC: 21, H.7, MCV 75. Blood work form 10/09/17: Bands : 4 Troponins positive x 3, BNP elevated. 47 year old male with PMH of severe heart failure presented with history of worsening dyspnea with associated fevers and cough. Pt is in acute exacerbation of chronic systolic heart failure 2 to his cardiomyopathy of unknown etiology with NSTEMI. He has acute respiratory insufficiency 2 to bilateral pneumonia, currently on high flow O2. He is also morbidly obese, no lipid panel/hga1c from recent admission. Will check in AM. Likely needs statin therapy given hx of cardiomyopathy and hx of stroke. Neuro: Alert and oriented. Cardiovascular: Acute Exacerbation of Chronic CHF / Cardiomyopathy / NSTEMI : + troponins x 3. patient now hypotensive. Initially started on dopamine, however d/c and now on dobutamine. Heparin drip for NSTEMI. Cardiology is following. Follow up lipid panel in AM. start Atorvastatin Respiratory: Acute Respiratory Insufficiency 2 to bilateral lower lobe pneumonia thought to be 2 to HCAP and CHF exacerbation. Cefepime/ Vanco Day # 2. Cultures neg to date. Remains on high flow O2. repeat CXR in AM GI: Protonix Renal /: i/Os reviewed. Renal function WNL and stable. Endocrine: f/u hga1c in AM, TSH WNL Code Status: Full code Case discussed with Dr. Boland. 10/10/17 16:40 CCU Objective - Vital Signs / Intake & Output Vital Signs (Last 4 hours): Vital Signs Temp Pulse Resp BP Pulse Ox 10/10/17 16:00 99.2 F 101 H 22 79/41 L 95 10/10/17 14:53 104 H 25 H 87/45 L 96 10/10/17 14:00 102 H 24 81/49 L 96 10/10/17 12:51 103 H 35 H 90/51 L 97 Intake and Output (Last 8hrs): Intake & Output 10/10/17 10/10/17 10/10/17 06:59 14:59 22:59 Intake Total 186 1650 150 Output Total 575 800 200 Balance -389 850 -50 Weight 243 lb Intake: IV 86 0 Intake, Piggyback 100 350 Oral 1300 150 Output: Urine 575 800 200 Urine, Voided 575 800 200 - Physical Exam Head: Positive for: Normocephalic Pupils: Positive for: PERRL Extroacular Muscles: Positive for: EOMI Conjunctiva: Positive for: Normal. Negative for: Icteric Mouth: Positive for: Moist Mucous Membranes Neck: Negative for: Lymphadenopathy Respiratory/Chest: Positive for: Respiratory Distress, Decreased Breath Sounds, Rales (bilaterally up to mid lung sommer), Tachypneic. Negative for: Tender to Palpation Cardiovascular: Positive for: Regular Rate and Rhythm, Tachycardic, Other ( distant heart sounds) Abdomen: Positive for: Normal Bowel Sounds. Negative for: Tenderness, Distention, Mass/Organomegaly Upper Extremity: Positive for: Normal Inspection. Negative for: Edema Lower Extremity: Positive for: Normal Inspection, Edema (+1 right side, trace left side). Negative for: Cyanosis, Erythema, Temperature Abnormalties Neurological: Positive for: GCS=15, Motor Func Grossly Intact, Normal Sensory Function Skin: Positive for: Warm, Dry. Negative for: Rashes Psychiatric: Positive for: Alert, Oriented x 3 - Medications Active Medications: Active Medications Generic Name Dose Route Start Last Admin Trade Name Freq PRN Reason Stop Dose Admin Acetaminophen 650 mg 10/09/17 18:07 10/09/17 18:35 Tylenol 325mg Tab PO 650 mg Q6 PRN Administration Fever >100.4 F Carvedilol 6.25 mg 10/09/17 21:00 10/10/17 08:24 Coreg PO 6.25 mg Q12 SONJA Administration Clopidogrel Bisulfate 75 mg 10/10/17 09:00 10/10/17 08:25 Plavix PO 75 mg DAILY SONJA Administration Enalapril Maleate 5 mg 10/10/17 09:00 10/10/17 08:26 Vasotec PO 5 mg DAILY SONJA Administration Furosemide 40 mg 10/10/17 07:33 10/10/17 08:25 Lasix IV 40 mg DAILY SONJA Administration Cefepime HCl 1 gm/ Sodium 100 mls @ 100 mls/hr 10/09/17 18:15 10/10/17 16:10 Chloride IVPB 100 mls/hr Q8 SONJA Administration Protocol Vancomycin HCl 1 gm/ Sodium 250 mls @ 125 mls/hr 10/09/17 18:15 10/10/17 08: 25 Chloride IVPB 125 mls/hr DAILY SONJA Administration Protocol Heparin Sodium/Dextrose 25,000 units in 250 mls @ 10 mls/hr 10/10/17 01:15 11:46 Heparin 25,000 Units/250ml In D5w IV 12 mls/hr .Q24H SONJA Titration Protocol Dobutamine HCl/Dextrose 500 mg in 250 mls @ 16.533 mls/hr 10/10/17 11:00 11:30 Dobutamine/Dextrose 5% 500mg/250ml IV 2.5 mcg/kg/min .Q15H8M SONJA 8.267 mls/hr Protocol Administration 5 MCG/KG/MIN Ibuprofen 600 mg 10/09/17 21:47 10/10/17 16:11 Motrin Tab PO 600 mg Q6 PRN Administration Pain, moderate (4-7) Morphine Sulfate 2 mg 10/09/17 19:15 Morphine IVP Q4 PRN Pain, severe (8-10) Pantoprazole Sodium 40 mg 10/09/17 18:15 10/10/17 08:25 Protonix Ec Tab PO 40 mg DAILY SONJA Administration Spironolactone 25 mg 10/10/17 09:00 10/10/17 08:24 Aldactone PO 25 mg DAILY SONJA Administration - Patient Studies Lab Studies: Microbiology Studies 10/09/17 15:12 Blood Culture - Preliminary Blood-Venous NO GROWTH AFTER 24 HOURS Lab Studies 10/10/17 10/10/17 10/10/17 Range/Units 10:49 05:30 05:06 WBC (4.8-10.8) K/uL RBC (4.40-5.90) Mil/uL Hgb (12.0-18.0) g/dL Hct (35.0-51.0) % MCV (80.0-94.0) fl MCH (27.0-31.0) pg MCHC (33.0-37.0) g/dL RDW (11.5-14.5) % Plt Count (130-400) K/uL Neutrophils % (Manual) (42-75) % Band Neutrophils % (0-2) % Lymphocytes % (Manual) (20-50) % Reactive Lymphs % (0-0) % Monocytes % (Manual) (0-10) % Platelet Estimate (NORMAL) Large Platelets Hypochromasia (manual) Poikilocytosis (manual Anisocytosis (manual) Microcytosis (manual) Tear Drop Cells Schistocytes APTT 42.8 H D 50.8 H D (25.6-37.1) Seconds pCO2 (35-45) mm/Hg pO2 (80-100) mm/Hg HCO3 (21-28) mmol/L ABG pH (7.35-7.45) ABG Total CO2 (22-28) mmol/L ABG O2 Saturation (95-98) % ABG Base Excess (-2.0-3.0) mmol/L Marko Test ABG Potassium (3.6-5.2) mmol/L A-a O2 Difference mm/Hg Sodium (132-148) mmol/L Chloride (98-107) mmol/L Glucose (75-110) mg/dL Lactate (0.7-2.1) mmol/L FiO2 % Potassium (3.6-5.0) MMOL/L Carbon Dioxide (22-30) mmol/L Anion Gap (10-20) BUN (9-20) mg/dl Creatinine (0.8-1.5) mg/dl Est GFR ( Amer) Est GFR (Non-Af Amer) Random Glucose (75-110) mg/dL Lactic Acid (0.7-2.1) MMOL/L Calcium (8.4-10.2) mg/dL Troponin I (0.00-0.120) ng/mL Arterial Blood Potassium (3.6-5.2) mmol/L Urine Opiates Screen Negative (NEGATIVE) Urine Methadone Screen Negative (NEGATIVE) Ur Barbiturates Screen Negative (NEGATIVE) Ur Phencyclidine Scrn Negative (NEGATIVE) Ur Amphetamines Screen Negative (NEGATIVE) U Benzodiazepines Scrn Negative (NEGATIVE) U Oth Cocaine Metabols Negative (NEGATIVE) U Cannabinoids Screen Negative (NEGATIVE) Influenza Typ A,B (EIA) (NEGATIVE) 10/10/17 10/10/17 10/10/17 Range/Units 05:06 05:06 05:06 WBC 19.7 H (4.8-10.8) K/uL RBC 4.59 (4.40-5.90) Mil/uL Hgb 10.8 L (12.0-18.0) g/dL Hct 34.4 L (35.0-51.0) % MCV 74.8 L (80.0-94.0) fl MCH 23.6 L (27.0-31.0) pg MCHC 31.5 L (33.0-37.0) g/dL RDW 17.0 H (11.5-14.5) % Plt Count 396 (130-400) K/uL Neutrophils % (Manual) (42-75) % Band Neutrophils % (0-2) % Lymphocytes % (Manual) (20-50) % Reactive Lymphs % (0-0) % Monocytes % (Manual) (0-10) % Platelet Estimate (NORMAL) Large Platelets Hypochromasia (manual) Poikilocytosis (manual Anisocytosis (manual) Microcytosis (manual) Tear Drop Cells Schistocytes APTT (25.6-37.1) Seconds pCO2 (35-45) mm/Hg pO2 (80-100) mm/Hg HCO3 (21-28) mmol/L ABG pH (7.35-7.45) ABG Total CO2 (22-28) mmol/L ABG O2 Saturation (95-98) % ABG Base Excess (-2.0-3.0) mmol/L Marko Test ABG Potassium (3.6-5.2) mmol/L A-a O2 Difference mm/Hg Sodium 135 (132-148) mmol/L Chloride 98 (98-107) mmol/L Glucose (75-110) mg/dL Lactate (0.7-2.1) mmol/L FiO2 % Potassium 4.1 (3.6-5.0) MMOL/L Carbon Dioxide 28 (22-30) mmol/L Anion Gap 13 (10-20) BUN 17 (9-20) mg/dl Creatinine 1.0 (0.8-1.5) mg/dl Est GFR ( Amer) > 60 Est GFR (Non-Af Amer) > 60 Random Glucose 156 H (75-110) mg/dL Lactic Acid (0.7-2.1) MMOL/L Calcium 9.0 (8.4-10.2) mg/dL Troponin I 1.1200 H* (0.00-0.120) ng/mL Arterial Blood Potassium (3.6-5.2) mmol/L Urine Opiates Screen (NEGATIVE) Urine Methadone Screen (NEGATIVE) Ur Barbiturates Screen (NEGATIVE) Ur Phencyclidine Scrn (NEGATIVE) Ur Amphetamines Screen (NEGATIVE) U Benzodiazepines Scrn (NEGATIVE) U Oth Cocaine Metabols (NEGATIVE) U Cannabinoids Screen (NEGATIVE) Influenza Typ A,B (EIA) (NEGATIVE) 10/10/17 10/10/17 10/09/17 Range/Units 01:00 01:00 23:45 WBC 21.0 H (4.8-10.8) K/uL RBC 4.47 (4.40-5.90) Mil/uL Hgb 10.7 L (12.0-18.0) g/dL Hct 33.7 L (35.0-51.0) % MCV 75.4 L (80.0-94.0) fl MCH 24.0 L (27.0-31.0) pg MCHC 31.8 L (33.0-37.0) g/dL RDW 17.2 H (11.5-14.5) % Plt Count 381 (130-400) K/uL Neutrophils % (Manual) (42-75) % Band Neutrophils % (0-2) % Lymphocytes % (Manual) (20-50) % Reactive Lymphs % (0-0) % Monocytes % (Manual) (0-10) % Platelet Estimate (NORMAL) Large Platelets Hypochromasia (manual) Poikilocytosis (manual Anisocytosis (manual) Microcytosis (manual) Tear Drop Cells Schistocytes APTT 38.1 H (25.6-37.1) Seconds pCO2 (35-45) mm/Hg pO2 (80-100) mm/Hg HCO3 (21-28) mmol/L ABG pH (7.35-7.45) ABG Total CO2 (22-28) mmol/L ABG O2 Saturation (95-98) % ABG Base Excess (-2.0-3.0) mmol/L Marko Test ABG Potassium (3.6-5.2) mmol/L A-a O2 Difference mm/Hg Sodium (132-148) mmol/L Chloride (98-107) mmol/L Glucose (75-110) mg/dL Lactate (0.7-2.1) mmol/L FiO2 % Potassium (3.6-5.0) MMOL/L Carbon Dioxide (22-30) mmol/L Anion Gap (10-20) BUN (9-20) mg/dl Creatinine (0.8-1.5) mg/dl Est GFR ( Amer) Est GFR (Non-Af Amer) Random Glucose (75-110) mg/dL Lactic Acid (0.7-2.1) MMOL/L Calcium (8.4-10.2) mg/dL Troponin I 1.3600 H* (0.00-0.120) ng/mL Arterial Blood Potassium (3.6-5.2) mmol/L Urine Opiates Screen (NEGATIVE) Urine Methadone Screen (NEGATIVE) Ur Barbiturates Screen (NEGATIVE) Ur Phencyclidine Scrn (NEGATIVE) Ur Amphetamines Screen (NEGATIVE) U Benzodiazepines Scrn (NEGATIVE) U Oth Cocaine Metabols (NEGATIVE) U Cannabinoids Screen (NEGATIVE) Influenza Typ A,B (EIA) (NEGATIVE) 10/09/17 10/09/17 10/09/17 Range/Units 17:05 16:52 15:40 WBC (4.8-10.8) K/uL RBC (4.40-5.90) Mil/uL Hgb (12.0-18.0) g/dL Hct (35.0-51.0) % MCV (80.0-94.0) fl MCH (27.0-31.0) pg MCHC (33.0-37.0) g/dL RDW (11.5-14.5) % Plt Count (130-400) K/uL Neutrophils % (Manual) (42-75) % Band Neutrophils % (0-2) % Lymphocytes % (Manual) (20-50) % Reactive Lymphs % (0-0) % Monocytes % (Manual) (0-10) % Platelet Estimate (NORMAL) Large Platelets Hypochromasia (manual) Poikilocytosis (manual Anisocytosis (manual) Microcytosis (manual) Tear Drop Cells Schistocytes APTT (25.6-37.1) Seconds pCO2 37 (35-45) mm/Hg pO2 69 L (80-100) mm/Hg HCO3 28.0 (21-28) mmol/L ABG pH 7.48 H (7.35-7.45) ABG Total CO2 28.7 H (22-28) mmol/L ABG O2 Saturation 96.8 (95-98) % ABG Base Excess 4.0 H (-2.0-3.0) mmol/L Marko Test Yes ABG Potassium 4.4 (3.6-5.2) mmol/L A-a O2 Difference 113.0 mm/Hg Sodium 129.0 L (132-148) mmol/L Chloride 96.0 L (98-107) mmol/L Glucose 123 H (75-110) mg/dL Lactate 1.0 (0.7-2.1) mmol/L FiO2 32.0 % Potassium (3.6-5.0) MMOL/L Carbon Dioxide (22-30) mmol/L Anion Gap (10-20) BUN (9-20) mg/dl Creatinine (0.8-1.5) mg/dl Est GFR ( Amer) Est GFR (Non-Af Amer) Random Glucose (75-110) mg/dL Lactic Acid 1.6 (0.7-2.1) MMOL/L Calcium (8.4-10.2) mg/dL Troponin I (0.00-0.120) ng/mL Arterial Blood Potassium 4.4 (3.6-5.2) mmol/L Urine Opiates Screen (NEGATIVE) Urine Methadone Screen (NEGATIVE) Ur Barbiturates Screen (NEGATIVE) Ur Phencyclidine Scrn (NEGATIVE) Ur Amphetamines Screen (NEGATIVE) U Benzodiazepines Scrn (NEGATIVE) U Oth Cocaine Metabols (NEGATIVE) U Cannabinoids Screen (NEGATIVE) Influenza Typ A,B (EIA) Negative for flu a/b (NEGATIVE) 10/09/17 Range/Units 14:50 WBC (4.8-10.8) K/uL RBC (4.40-5.90) Mil/uL Hgb (12.0-18.0) g/dL Hct (35.0-51.0) % MCV (80.0-94.0) fl MCH (27.0-31.0) pg MCHC (33.0-37.0) g/dL RDW (11.5-14.5) % Plt Count (130-400) K/uL Neutrophils % (Manual) 83 H (42-75) % Band Neutrophils % 4 H (0-2) % Lymphocytes % (Manual) 5 L (20-50) % Reactive Lymphs % 1 H (0-0) % Monocytes % (Manual) 7 (0-10) % Platelet Estimate Slightly increased H (NORMAL) Large Platelets Present Hypochromasia (manual) Slight Poikilocytosis (manual Slight Anisocytosis (manual) Slight Microcytosis (manual) Moderate Tear Drop Cells Slight Schistocytes Slight APTT (25.6-37.1) Seconds pCO2 (35-45) mm/Hg pO2 (80-100) mm/Hg HCO3 (21-28) mmol/L ABG pH (7.35-7.45) ABG Total CO2 (22-28) mmol/L ABG O2 Saturation (95-98) % ABG Base Excess (-2.0-3.0) mmol/L Marko Test ABG Potassium (3.6-5.2) mmol/L A-a O2 Difference mm/Hg Sodium (132-148) mmol/L Chloride (98-107) mmol/L Glucose (75-110) mg/dL Lactate (0.7-2.1) mmol/L FiO2 % Potassium (3.6-5.0) MMOL/L Carbon Dioxide (22-30) mmol/L Anion Gap (10-20) BUN (9-20) mg/dl Creatinine (0.8-1.5) mg/dl Est GFR ( Amer) Est GFR (Non-Af Amer) Random Glucose (75-110) mg/dL Lactic Acid (0.7-2.1) MMOL/L Calcium (8.4-10.2) mg/dL Troponin I (0.00-0.120) ng/mL Arterial Blood Potassium (3.6-5.2) mmol/L Urine Opiates Screen (NEGATIVE) Urine Methadone Screen (NEGATIVE) Ur Barbiturates Screen (NEGATIVE) Ur Phencyclidine Scrn (NEGATIVE) Ur Amphetamines Screen (NEGATIVE) U Benzodiazepines Scrn (NEGATIVE) U Oth Cocaine Metabols (NEGATIVE) U Cannabinoids Screen (NEGATIVE) Influenza Typ A,B (EIA) (NEGATIVE) Laboratory Results - last 24 hr 10/09/17 10/09/17 10/09/17 14:50 15:40 16:52 WBC RBC Hgb Hct MCV MCH MCHC RDW Plt Count Neutrophils % (Manual) 83 H Band Neutrophils % 4 H Lymphocytes % (Manual) 5 L Reactive Lymphs % 1 H Monocytes % (Manual) 7 Platelet Estimate Slightly increased H Large Platelets Present Hypochromasia (manual) Slight Poikilocytosis (manual Slight Anisocytosis (manual) Slight Microcytosis (manual) Moderate Tear Drop Cells Slight Schistocytes Slight APTT pCO2 37 pO2 69 L HCO3 28.0 ABG pH 7.48 H ABG Total CO2 28.7 H ABG O2 Saturation 96.8 ABG Base Excess 4.0 H Marko Test Yes ABG Potassium 4.4 A-a O2 Difference 113.0 Sodium 129.0 L Chloride 96.0 L Glucose 123 H Lactate 1.0 FiO2 32.0 Potassium Carbon Dioxide Anion Gap BUN Creatinine Est GFR ( Amer) Est GFR (Non-Af Amer) Random Glucose Lactic Acid Calcium Troponin I Arterial Blood Potassium 4.4 Urine Opiates Screen Urine Methadone Screen Ur Barbiturates Screen Ur Phencyclidine Scrn Ur Amphetamines Screen U Benzodiazepines Scrn U Oth Cocaine Metabols U Cannabinoids Screen Influenza Typ A,B (EIA) Negative for flu a/b 10/09/17 10/09/17 10/10/17 17:05 23:45 01:00 WBC 21.0 H RBC 4.47 Hgb 10.7 L Hct 33.7 L MCV 75.4 L MCH 24.0 L MCHC 31.8 L RDW 17.2 H Plt Count 381 Neutrophils % (Manual) Band Neutrophils % Lymphocytes % (Manual) Reactive Lymphs % Monocytes % (Manual) Platelet Estimate Large Platelets Hypochromasia (manual) Poikilocytosis (manual Anisocytosis (manual) Microcytosis (manual) Tear Drop Cells Schistocytes APTT pCO2 pO2 HCO3 ABG pH ABG Total CO2 ABG O2 Saturation ABG Base Excess Marko Test ABG Potassium A-a O2 Difference Sodium Chloride Glucose Lactate FiO2 Potassium Carbon Dioxide Anion Gap BUN Creatinine Est GFR ( Amer) Est GFR (Non-Af Amer) Random Glucose Lactic Acid 1.6 Calcium Troponin I 1.3600 H* Arterial Blood Potassium Urine Opiates Screen Urine Methadone Screen Ur Barbiturates Screen Ur Phencyclidine Scrn Ur Amphetamines Screen U Benzodiazepines Scrn U Oth Cocaine Metabols U Cannabinoids Screen Influenza Typ A,B (EIA) 10/10/17 10/10/17 10/10/17 01:00 05:06 05:06 WBC 19.7 H RBC 4.59 Hgb 10.8 L Hct 34.4 L MCV 74.8 L MCH 23.6 L MCHC 31.5 L RDW 17.0 H Plt Count 396 Neutrophils % (Manual) Band Neutrophils % Lymphocytes % (Manual) Reactive Lymphs % Monocytes % (Manual) Platelet Estimate Large Platelets Hypochromasia (manual) Poikilocytosis (manual Anisocytosis (manual) Microcytosis (manual) Tear Drop Cells Schistocytes APTT 38.1 H pCO2 pO2 HCO3 ABG pH ABG Total CO2 ABG O2 Saturation ABG Base Excess Marko Test ABG Potassium A-a O2 Difference Sodium 135 Chloride 98 Glucose Lactate FiO2 Potassium 4.1 Carbon Dioxide 28 Anion Gap 13 BUN 17 Creatinine 1.0 Est GFR ( Amer) > 60 Est GFR (Non-Af Amer) > 60 Random Glucose 156 H Lactic Acid Calcium 9.0 Troponin I Arterial Blood Potassium Urine Opiates Screen Urine Methadone Screen Ur Barbiturates Screen Ur Phencyclidine Scrn Ur Amphetamines Screen U Benzodiazepines Scrn U Oth Cocaine Metabols U Cannabinoids Screen Influenza Typ A,B (EIA) 10/10/17 10/10/17 10/10/17 05:06 05:06 05:30 WBC RBC Hgb Hct MCV MCH MCHC RDW Plt Count Neutrophils % (Manual) Band Neutrophils % Lymphocytes % (Manual) Reactive Lymphs % Monocytes % (Manual) Platelet Estimate Large Platelets Hypochromasia (manual) Poikilocytosis (manual Anisocytosis (manual) Microcytosis (manual) Tear Drop Cells Schistocytes APTT 50.8 H D pCO2 pO2 HCO3 ABG pH ABG Total CO2 ABG O2 Saturation ABG Base Excess Marko Test ABG Potassium A-a O2 Difference Sodium Chloride Glucose Lactate FiO2 Potassium Carbon Dioxide Anion Gap BUN Creatinine Est GFR ( Amer) Est GFR (Non-Af Amer) Random Glucose Lactic Acid Calcium Troponin I 1.1200 H* Arterial Blood Potassium Urine Opiates Screen Negative Urine Methadone Screen Negative Ur Barbiturates Screen Negative Ur Phencyclidine Scrn Negative Ur Amphetamines Screen Negative U Benzodiazepines Scrn Negative U Oth Cocaine Metabols Negative U Cannabinoids Screen Negative Influenza Typ A,B (EIA) 10/10/17 10:49 WBC RBC Hgb Hct MCV MCH MCHC RDW Plt Count Neutrophils % (Manual) Band Neutrophils % Lymphocytes % (Manual) Reactive Lymphs % Monocytes % (Manual) Platelet Estimate Large Platelets Hypochromasia (manual) Poikilocytosis (manual Anisocytosis (manual) Microcytosis (manual) Tear Drop Cells Schistocytes APTT 42.8 H D pCO2 pO2 HCO3 ABG pH ABG Total CO2 ABG O2 Saturation ABG Base Excess Marko Test ABG Potassium A-a O2 Difference Sodium Chloride Glucose Lactate FiO2 Potassium Carbon Dioxide Anion Gap BUN Creatinine Est GFR ( Amer) Est GFR (Non-Af Amer) Random Glucose Lactic Acid Calcium Troponin I Arterial Blood Potassium Urine Opiates Screen Urine Methadone Screen Ur Barbiturates Screen Ur Phencyclidine Scrn Ur Amphetamines Screen U Benzodiazepines Scrn U Oth Cocaine Metabols U Cannabinoids Screen Influenza Typ A,B (EIA) EKG/Cardiology Studies: Cardiology / EKG Studies 10/10/17 07:00 EKG [ELECTROCARDIOGRAM] Routine Comment: Mode Of Transportation: PORTABLE Reason For Exam: [email or web address] Critical Care Progress Note - Nutrition Nutrition: Nutrition Category Date Time Status Heart Healthy Diet [DIET] Diets 10/09/17 Breakfast Active <Kenny Boland Hanna - Last Filed: 10/10/17 17:22> CCU Subjective - Physician Review Subjective (Free Text): Attestation: Patient seen and examined at the bedside with Resident Dr. Brendan Dykes; and I agree with her outline of plans and management documented above as discussed on AM rounds reflecting my review of all applicable clinical data, and participation in the care of the patient throughout the day in ICU; October 10, 2017.
[2017-10-10] MEDS: POLYETHYLENE GLYCOL 3350 17 GM/Dose PACKET PO SCH ×2 (19:00→23:47)
[2017-10-11] MEDS: Heparin 25,000units in D5W 25,000 UNITS/250 ML BAG IV SCH (01:53)
[2017-10-11] MEDS: Cefepime 1 GM in Sodium Chloride 0.9% 100 ML IVPB SCH ×3 (02:00→16:05)
[2017-10-11] MEDS: DOBUTamine 500mg/250ml D5W 500 MG/250 ML BAG IV SCH ×2 (02:07→17:09)
[2017-10-11 06:26] LABS: BASO % 0.2 % (0.0-2.0); EOS # 0.2 K/uL (0.0-0.7); EOS % 1.9 % (0.0-4.0); HEMOGLOBIN 10.2 g/dL (12.0-18.0); LYMPH # 0.8 K/uL (1.0-4.3); LYMPH % 6.8 % (20.0-40.0); MEAN CELL VOLUME 74.4 fl (80.0-94.0); MEAN CORPUSCULAR HEMOGLOBIN 23.7 pg (27.0-31.0); MEAN CORPUSCULAR HGB CONC 31.9 g/dL (33.0-37.0); MEAN PLATELET VOLUME 7.8 fl (7.2-11.7); MONO % 8.5 % (0.0-10.0); NEUT # 10.1 K/uL (1.8-7.0); NEUT % 82.6 % (50.0-75.0); RBC 4.3 Mil/uL (4.40-5.90); RED CELL DISTRIBUTION WIDTH 17.6 % (11.5-14.5); WHITE BLOOD COUNT 12.3 K/uL (4.8-10.8)
[2017-10-11 06:28] LABS: BLOOD UREA NITROGEN 14 mg/dl (9-20); CALCIUM 8.6 mg/dL (8.4-10.2); GFR AFRICAN-AMERICAN > 60; GFR NON-AFRICAN AMERICAN > 60; HDL CHOLESTEROL 14 MG/DL (30-70)
--- NOTE | 2017-10-11 06:36 | HP ---
HISTORY OF PRESENT ILLNESS: This is a 47-year-old male with history of congestive heart failure, both systolic and diastolic with left bundle branch block, who presents with acute on chronic systolic failure. Patient had previous cardiac catheterization in 2016 and was found to have no significant coronary artery disease with severe left ventricular dilatation and systolic dysfunction. Patient refused ICD at that time and was not compliant with cardiology followup. The patient was admitted on August for pneumonia and CHF and he signed against medical advice. Repeat echocardiogram revealed severe left ventricular dysfunction in August also. Patient was seen in the office of Dr. Alford, the week prior to this admission and he agreed for AICD. Patient presented to emergency room with severe dyspnea and heart failure and chest x-ray consistent with left lower lobe infiltration. Patient was admitted to Intensive Care Unit and since the troponin also was elevated, heparin drip was started and the patient has been started on dobutamine and his shortness of breath was less. Other review of system is negative. ALLERGIES: NO KNOWN ALLERGY. HOME MEDICATION: As per MAR. PAST MEDICAL HISTORY: As above. SOCIAL HISTORY: No history of smoking, EtOH or substance abuse. PHYSICAL EXAMINATION: GENERAL: Patient is in bed, in mild respiratory distress. VITAL SIGNS: Blood pressure 89/52, temperature 98.2, respiratory rate 24 and pulse of 100. HEENT: Pupils equal, reactive to light. Normal-appearing mucosa of the conjunctivae, oropharynx and nasal membrane mucosa. NECK: Supple. No JVD. No carotid bruit. No lymph node. No thyromegaly. CHEST AND LUNGS: Bilateral symmetrical expansion. Good air exchange. There are bilateral basilar rales, left more than right. CARDIOVASCULAR SYSTEM: PMI not localized, S1 and S2. No additional sounds. ABDOMEN: Normoactive bowel sounds. No tenderness. No organomegaly. No masses. EXTREMITIES: No cyanosis, no clubbing, no edema. CENTRAL NERVOUS SYSTEM: Alert, awake, oriented x3. No neurological deficit could be appreciated. ASSESSMENT: 1. Exacerbation of congestive heart failure, acute on chronic, systolic heart failure. 2. [id number] myocardial infarction with elevated troponins. PLAN: Continue current medications and follow recommendations of millwork estimator including heparin as well as dobutamine that was started. Continue current antibiotics, treating possible left lower lobe pneumonia. [facility] MD [facility] # [id number]
[2017-10-11 06:39] LABS: LDL CHOLESTEROL < 30 mg/dL (0-129)
[2017-10-11 06:52] LABS: INR 1.6 (0.9-1.2); PARTIAL THROMBOPLASTIN TIME 49.1 Seconds (25.6-37.1); PROTHROMBIN TIME 17.4 Seconds (9.8-13.1)
[2017-10-11 07:43] LABS: IRON 11 ug/dL (49-181)
[2017-10-11 07:53] LABS: TOTAL IRON BINDING CAPACITY 272 ug/dL (250-450)
[2017-10-11 07:59] LABS: % IRON SATURATION 4 % (20-55)
[2017-10-11] MEDS: POLYETHYLENE GLYCOL 3350 17 GM/Dose PACKET PO SCH (08:22)
[2017-10-11] MEDS: Pantoprazole 40 mg EC Tab PO SCH (08:23)
--- NOTE | 2017-10-11 10:23 | CP.CCUPN ---
<DykesTamy garcia - Last Filed: 10/11/17 10:21> CCU Subjective - Physician Review Subjective (Free Text): Patient sitting upright in bed, eating breakfast. Breathing comfortably. However continues to have some lateral chest pain on the right side. Vital signs reviewed. Sinus tachycardia 100s, BP 100s systolic. On highflow O2 , Oxygen sat: 98% Labs reviewed: WBC 12.1, Hg/Hct: 10.2/32. Lipid panel: T, Total Chol: 73, LDL: <30, HDL: 14. HGA1C: Pending. CXR reviewed by me: slightly worsened right lower lobe consolidation/effusion. Report pending. 47 year old male with PMH of severe heart failure presented with history of worsening dyspnea with associated fevers and cough. Pt is in acute exacerbation of chronic systolic heart failure 2 to his cardiomyopathy of unknown etiology with NSTEMI. He has acute respiratory insufficiency 2 to bilateral pneumonia, currently on high flow O2. He is also morbidly obese, lipid panel is within normal limits, HGa1C is pending. Increase IV Lasix. Follow up final report of CXR. Neuro: Alert and oriented. Cardiovascular: Acute Exacerbation of Chronic CHF / Cardiomyopathy / NSTEMI, Heparin drip for NSTEMI. Continues to require dobutamine to maintain his BP. Will increase Lasix to improve diuresis, monitor BP. Cardiology is following, recs appreciated. Respiratory: Acute Respiratory Insufficiency 2 to bilateral lower lobe pneumonia thought to be 2 to HCAP and CHF exacerbation. Leukocytosis has improved on Cefepime/ Vanco Day #3. Cultures neg to date. Remains on high flow O2. Pending report of CXR. Consider Pulmonary consult. GI: Protonix, miralax for constipation Renal /: i/Os reviewed. Renal function stable, monitor urine output and daily weights. Endocrine: pending HgA1c Code Status: Full code Case discussed with Dr. Boland. CCU Objective - Vital Signs / Intake & Output Vital Signs (Last 4 hours): Vital Signs Temp Pulse Resp BP Pulse Ox 10/11/17 08:22 96 H 101/60 10/11/17 08:21 20 10/11/17 08:00 99.7 F H 94 H 101/60 98 10/11/17 07:00 95 H 35 H 104/64 97 Intake and Output (Last 8hrs): Intake & Output 10/10/17 10/11/17 10/11/17 22:59 06:59 14:59 Intake Total 822 386 100 Output Total 300 550 Balance 522 -164 100 Weight 242 lb 1.6 oz Intake: IV 0 352 Intake, Piggyback 72 34 Oral 750 100 Output: Urine 300 550 Urine, Voided 300 550 - Physical Exam Head: Positive for: Normocephalic Pupils: Positive for: PERRL Extroacular Muscles: Positive for: EOMI Conjunctiva: Positive for: Normal. Negative for: Icteric Mouth: Positive for: Moist Mucous Membranes Neck: Negative for: Lymphadenopathy Respiratory/Chest: Positive for: Respiratory Distress, Decreased Breath Sounds, Rales (bilateral bases). Negative for: Tender to Palpation Cardiovascular: Positive for: Regular Rate and Rhythm, Tachycardic, Other ( distant heart sounds) Abdomen: Positive for: Normal Bowel Sounds. Negative for: Tenderness, Distention, Mass/Organomegaly Upper Extremity: Positive for: Normal Inspection. Negative for: Edema Lower Extremity: Positive for: Normal Inspection, Edema (+1 right side, trace left side). Negative for: Cyanosis, Erythema, Temperature Abnormalties Neurological: Positive for: GCS=15, Motor Func Grossly Intact, Normal Sensory Function Skin: Positive for: Warm, Dry. Negative for: Rashes Psychiatric: Positive for: Alert, Oriented x 3 - Medications Active Medications: Active Medications Generic Name Dose Route Start Last Admin Trade Name Freq PRN Reason Stop Dose Admin Acetaminophen 650 mg 10/09/17 18:07 10/09/17 18:35 Tylenol 325mg Tab PO 650 mg Q6 PRN Administration Fever >100.4 F Carvedilol 6.25 mg 10/09/17 21:00 10/11/17 08:22 Coreg PO 6.25 mg Q12 SONJA Administration Clopidogrel Bisulfate 75 mg 10/10/17 09:00 10/11/17 08:23 Plavix PO 75 mg DAILY SONJA Administration Enalapril Maleate 5 mg 10/10/17 09:00 10/11/17 08:23 Vasotec PO 5 mg DAILY SONJA Administration Ferrous Gluconate 324 mg 10/11/17 09:00 Fergon PO DAILY SONJA Furosemide 40 mg 10/11/17 09:00 10/11/17 09:08 Lasix IVP Not Given BID [facility] Cefepime HCl 1 gm/ Sodium 100 mls @ 100 mls/hr 10/09/17 18:15 10/11/17 08:24 Chloride IVPB 100 mls/hr Q8 SONJA Administration Protocol Vancomycin HCl 1 gm/ Sodium 250 mls @ 125 mls/hr 10/09/17 18:15 10/11/17 08: 24 Chloride IVPB 125 mls/hr DAILY SONJA Administration Protocol Heparin Sodium/Dextrose 25,000 units in 250 mls @ 10 mls/hr 10/10/17 01:15 01:53 Heparin 25,000 Units/250ml In D5w IV Not Given .Q24H SONJA Protocol Dobutamine HCl/Dextrose 500 mg in 250 mls @ 16.533 mls/hr 10/10/17 11:00 02:07 Dobutamine/Dextrose 5% 500mg/250ml IV Not Given .Q15H8M SONJA Protocol 5 MCG/KG/MIN Morphine Sulfate 2 mg 10/09/17 19:15 Morphine IVP Q4 PRN Pain, severe (8-10) Pantoprazole Sodium 40 mg 10/09/17 18:15 10/11/17 08:23 Protonix Ec Tab PO 40 mg DAILY SONJA Administration Polyethylene Glycol 17 gm 10/10/17 17:00 10/11/17 08:22 Miralax PO 17 gm DAILY SONJA Administration Spironolactone 25 mg 10/10/17 09:00 10/11/17 08:21 Aldactone PO 25 mg DAILY SONJA Administration - Patient Studies Lab Studies: Microbiology Studies 10/09/17 15:12 Blood Culture - Preliminary Blood-Venous NO GROWTH AFTER 24 HOURS Lab Studies 10/11/17 10/11/17 10/11/17 Range/Units 05:40 05:40 05:40 WBC (4.8-10.8) K/uL RBC (4.40-5.90) Mil/uL Hgb (12.0-18.0) g/dL Hct (35.0-51.0) % MCV (80.0-94.0) fl MCH (27.0-31.0) pg MCHC (33.0-37.0) g/dL RDW (11.5-14.5) % Plt Count (130-400) K/uL MPV (7.2-11.7) fl Neut % (Auto) (50.0-75.0) % Lymph % (Auto) (20.0-40.0) % [place] % (Auto) (0.0-10.0) % Eos % (Auto) (0.0-4.0) % Baso % (Auto) (0.0-2.0) % Neut # (1.8-7.0) K/uL Lymph # (1.0-4.3) K/uL [place] # (0.0-0.8) K/uL Eos # (0.0-0.7) K/uL Baso # (0.0-0.2) K/uL PT 17.4 H D (9.8-13.1) Seconds INR 1.6 H (0.9-1.2) APTT 49.1 H D (25.6-37.1) Seconds Sodium 137 (132-148) mmol/l Potassium 3.9 (3.6-5.0) MMOL/L Chloride 98 (98-107) mmol/L Carbon Dioxide 30 (22-30) mmol/L Anion Gap 13 (10-20) BUN 14 (9-20) mg/dl Creatinine 0.9 (0.8-1.5) mg/dl Est GFR ( Amer) > 60 Est GFR (Non-Af Amer) > 60 Random Glucose 130 H (75-110) mg/dL Calcium 8.6 (8.4-10.2) mg/dL Iron 11 L (49-181) ug/dL TIBC 272 (250-450) ug/dL % Saturation 4 L (20-55) % Ferritin 348.0 (17.9-464) ng/Ml Triglycerides 64 (0-149) mg/DL Cholesterol 73 (0-199) mg/dL LDL Cholesterol Direct < 30 (0-129) mg/dL HDL Cholesterol 14 L (30-70) MG/DL 10/11/17 10/10/17 10/10/17 Range/Units 05:40 23:39 17:00 WBC 12.3 H (4.8-10.8) K/uL RBC 4.30 L (4.40-5.90) Mil/uL Hgb 10.2 L (12.0-18.0) g/dL Hct 32.0 L (35.0-51.0) % MCV 74.4 L (80.0-94.0) fl MCH 23.7 L (27.0-31.0) pg MCHC 31.9 L (33.0-37.0) g/dL RDW 17.6 H (11.5-14.5) % Plt Count 414 H (130-400) K/uL MPV 7.8 (7.2-11.7) fl Neut % (Auto) 82.6 H (50.0-75.0) % Lymph % (Auto) 6.8 L (20.0-40.0) % [place] % (Auto) 8.5 (0.0-10.0) % Eos % (Auto) 1.9 (0.0-4.0) % Baso % (Auto) 0.2 (0.0-2.0) % Neut # 10.1 H (1.8-7.0) K/uL Lymph # 0.8 L (1.0-4.3) K/uL [place] # 1.0 H (0.0-0.8) K/uL Eos # 0.2 (0.0-0.7) K/uL Baso # 0.0 (0.0-0.2) K/uL PT (9.8-13.1) Seconds INR (0.9-1.2) APTT 65.3 H D 43.8 H (25.6-37.1) Seconds Sodium (132-148) mmol/l Potassium (3.6-5.0) MMOL/L Chloride (98-107) mmol/L Carbon Dioxide (22-30) mmol/L Anion Gap (10-20) BUN (9-20) mg/dl Creatinine (0.8-1.5) mg/dl Est GFR ( Amer) Est GFR (Non-Af Amer) Random Glucose (75-110) mg/dL Calcium (8.4-10.2) mg/dL Iron (49-181) ug/dL TIBC (250-450) ug/dL % Saturation (20-55) % Ferritin (17.9-464) ng/Ml Triglycerides (0-149) mg/DL Cholesterol (0-199) mg/dL LDL Cholesterol Direct (0-129) mg/dL HDL Cholesterol (30-70) MG/DL 10/10/17 Range/Units 10:49 WBC (4.8-10.8) K/uL RBC (4.40-5.90) Mil/uL Hgb (12.0-18.0) g/dL Hct (35.0-51.0) % MCV (80.0-94.0) fl MCH (27.0-31.0) pg MCHC (33.0-37.0) g/dL RDW (11.5-14.5) % Plt Count (130-400) K/uL MPV (7.2-11.7) fl Neut % (Auto) (50.0-75.0) % Lymph % (Auto) (20.0-40.0) % [place] % (Auto) (0.0-10.0) % Eos % (Auto) (0.0-4.0) % Baso % (Auto) (0.0-2.0) % Neut # (1.8-7.0) K/uL Lymph # (1.0-4.3) K/uL [place] # (0.0-0.8) K/uL Eos # (0.0-0.7) K/uL Baso # (0.0-0.2) K/uL PT (9.8-13.1) Seconds INR (0.9-1.2) APTT 42.8 H D (25.6-37.1) Seconds Sodium (132-148) mmol/l Potassium (3.6-5.0) MMOL/L Chloride (98-107) mmol/L Carbon Dioxide (22-30) mmol/L Anion Gap (10-20) BUN (9-20) mg/dl Creatinine (0.8-1.5) mg/dl Est GFR ( Amer) Est GFR (Non-Af Amer) Random Glucose (75-110) mg/dL Calcium (8.4-10.2) mg/dL Iron (49-181) ug/dL TIBC (250-450) ug/dL % Saturation (20-55) % Ferritin (17.9-464) ng/Ml Triglycerides (0-149) mg/DL Cholesterol (0-199) mg/dL LDL Cholesterol Direct (0-129) mg/dL HDL Cholesterol (30-70) MG/DL Laboratory Results - last 24 hr 10/10/17 10/10/17 10/10/17 10:49 17:00 23:39 WBC RBC Hgb Hct MCV MCH MCHC RDW Plt Count MPV Neut % (Auto) Lymph % (Auto) [place] % (Auto) Eos % (Auto) Baso % (Auto) Neut # Lymph # [place] # Eos # Baso # PT INR APTT 42.8 H D 43.8 H 65.3 H D Sodium Potassium Chloride Carbon Dioxide Anion Gap BUN Creatinine Est GFR ( Amer) Est GFR (Non-Af Amer) Random Glucose Calcium Iron TIBC % Saturation Ferritin Triglycerides Cholesterol LDL Cholesterol Direct HDL Cholesterol 10/11/17 10/11/17 10/11/17 05:40 05:40 05:40 WBC 12.3 H RBC 4.30 L Hgb 10.2 L Hct 32.0 L MCV 74.4 L MCH 23.7 L MCHC 31.9 L RDW 17.6 H Plt Count 414 H MPV 7.8 Neut % (Auto) 82.6 H Lymph % (Auto) 6.8 L [place] % (Auto) 8.5 Eos % (Auto) 1.9 Baso % (Auto) 0.2 Neut # 10.1 H Lymph # 0.8 L [place] # 1.0 H Eos # 0.2 Baso # 0.0 PT 17.4 H D INR 1.6 H APTT 49.1 H D Sodium 137 Potassium 3.9 Chloride 98 Carbon Dioxide 30 Anion Gap 13 BUN 14 Creatinine 0.9 Est GFR ( Amer) > 60 Est GFR (Non-Af Amer) > 60 Random Glucose 130 H Calcium 8.6 Iron TIBC % Saturation Ferritin 348.0 Triglycerides 64 Cholesterol 73 LDL Cholesterol Direct < 30 HDL Cholesterol 14 L 10/11/17 05:40 WBC RBC Hgb Hct MCV MCH MCHC RDW Plt Count MPV Neut % (Auto) Lymph % (Auto) [place] % (Auto) Eos % (Auto) Baso % (Auto) Neut # Lymph # [place] # Eos # Baso # PT INR APTT Sodium Potassium Chloride Carbon Dioxide Anion Gap BUN Creatinine Est GFR ( Amer) Est GFR (Non-Af Amer) Random Glucose Calcium Iron 11 L TIBC 272 % Saturation 4 L Ferritin Triglycerides Cholesterol LDL Cholesterol Direct HDL Cholesterol Critical Care Progress Note - Nutrition Nutrition: Nutrition Category Date Time Status Heart Healthy Diet [DIET] Diets 10/09/17 Breakfast Active <KrystianKenny Hanna - Last Filed: 10/11/17 17:42> CCU Subjective - Physician Review Subjective (Free Text): Attestation: Patient seen and examined at the bedside with Resident Dr. Brendan Dykes; and I agree with her outline of plans and management documented above as discussed on AM rounds reflecting my review of all applicable clinical data, and participation in the care of the patient throughout the day in ICU; October 11, 2017.
--- NOTE | 2017-10-11 11:14 | RAD ---
HISTORY: assess b/l effusions/PNA COMPARISON: 10/09/2017 FINDINGS: LUNGS: Increasing opacity at right lung base. Possible developing pneumonia versus increasing pleural effusion. . Probable subsegmental atelectasis at left base. PLEURA: Small right pleural effusion, possibly mildly increased from prior. . No left pleural effusion. No pneumothorax. CARDIOVASCULAR: Mild cardiomegaly. OSSEOUS STRUCTURES: No significant abnormalities. VISUALIZED UPPER ABDOMEN: Normal. OTHER FINDINGS: None. IMPRESSION: Increasing opacity at right base may be due to possible developing pneumonia or increasing pleural effusion. Left basilar subsegmental atelectasis.
--- NOTE | 2017-10-11 14:45 | US ---
PROCEDURE: Bilateral lower extremity venous duplex Doppler. HISTORY: bilat edema, Dimer; r/o DVT COMPARISON: None available. TECHNIQUE: Bilateral common femoral, superficial femoral, popliteal and posterior tibial veins were evaluated. Flow was assessed with color Doppler, compressibility, assessment of phasic flow and augmentation response. FINDINGS: COMMON FEMORAL VEIN: Right CFV: Unremarkable. Left CFV: Unremarkable. SUPERFICIAL FEMORAL VEIN: Right SFV: Unremarkable. Left SFV: Unremarkable. POPLITEAL VEIN: Right Popliteal: Unremarkable. Left Popliteal: Unremarkable. POSTERIOR TIBIAL VEIN: Right PTV: Unremarkable. Left PTV: Unremarkable. OTHER FINDINGS: None. IMPRESSION: No evidence of deep venous thrombosis.
--- NOTE | 2017-10-11 19:04 | CP.PCM.PN ---
Subjective - Date & Time of Evaluation Date of Evaluation: 10/11/17 Time of Evaluation: 18:45 - Subjective Subjective: patient had fever today. He still has cough. Objective - Vital Signs/Intake and Output Vital Signs (last 24 hours): Temp Pulse Resp BP Pulse Ox 99.7 F H 104 H 26 H 111/76 96 10/11/17 16:00 10/11/17 18:00 10/11/17 18:00 10/11/17 18:00 10/11/17 18:00 Intake and Output: 10/11/17 10/12/17 18:59 06:59 Intake Total 2450 Output Total 1200 Balance 1250 - Medications Medications: Current Medications Acetaminophen (Tylenol 325mg Tab) 650 mg PO Q6 PRN PRN Reason: Fever >100.4 F Last Admin: 10/11/17 11:50 Dose: 650 mg Carvedilol (Coreg) 6.25 mg PO Q12 [facility] Last Admin: 10/11/17 08:22 Dose: 6.25 mg Clopidogrel Bisulfate (Plavix) 75 mg PO DAILY [facility] Last Admin: 10/11/17 08:23 Dose: 75 mg Enalapril Maleate (Vasotec) 5 mg PO DAILY [facility] Last Admin: 10/11/17 08:23 Dose: 5 mg Ferrous Gluconate (Fergon) 324 mg PO DAILY [facility] Last Admin: 10/11/17 16:04 Dose: 324 mg Furosemide (Lasix) 40 mg IVP BID [facility] Last Admin: 10/11/17 16:04 Dose: 40 mg Cefepime HCl 1 gm/ Sodium (Chloride) 100 mls @ 100 mls/hr IVPB Q8 [facility] PRN Reason: Protocol Last Admin: 10/11/17 16:05 Dose: 100 mls/hr Vancomycin HCl 1 gm/ Sodium (Chloride) 250 mls @ 125 mls/hr IVPB DAILY [facility] PRN Reason: Protocol Last Admin: 10/11/17 08:24 Dose: 125 mls/hr Heparin Sodium/Dextrose (Heparin 25,000 Units/250ml In D5w) 25,000 units in 250 mls @ 10 mls/hr IV .Q24H SONJA PRN Reason: Protocol Last Titration: 10/11/17 13:26 Dose: 14 mls/hr Dobutamine HCl/Dextrose (Dobutamine/Dextrose 5% 500mg/250ml) 500 mg in 250 mls @ 16.533 mls/hr IV .Q15H8M SONJA; 5 MCG/KG/MIN PRN Reason: Protocol Last Admin: 10/11/17 17:09 Dose: 2.5 mcg/kg/min, 8.267 mls/hr Morphine Sulfate (Morphine) 2 mg IVP Q4 PRN PRN Reason: Pain, severe (8-10) Pantoprazole Sodium (Protonix Ec Tab) 40 mg PO DAILY [facility] Last Admin: 10/11/17 08:23 Dose: 40 mg Polyethylene Glycol (Miralax) 17 gm PO DAILY [facility] Last Admin: 10/11/17 08:22 Dose: 17 gm Spironolactone (Aldactone) 25 mg PO DAILY [facility] Last Admin: 10/11/17 08:21 Dose: 25 mg - Labs Labs: 10/11/17 05:40 10/11/17 05:40 PT 17.4 Seconds (9.8-13.1) H D 10/11/17 05:40 INR 1.6 (0.9-1.2) H 10/11/17 05:40 APTT 42.5 Seconds (25.6-37.1) H D 10/11/17 12:20 - Constitutional Appears: Toxic - Head Exam Head Exam: NORMAL INSPECTION - Eye Exam Eye Exam: Normal appearance - ENT Exam ENT Exam: Mucous Membranes Moist - Neck Exam Neck Exam: Full ROM. absent: Lymphadenopathy - Respiratory Exam Respiratory Exam: Decreased Breath Sounds, Rales, Rhonchi - Cardiovascular Exam Cardiovascular Exam: Tachycardia, REGULAR RHYTHM - GI/Abdominal Exam GI & Abdominal Exam: Normal Bowel Sounds - Rectal Exam Rectal Exam: Deferred - Extremities Exam Extremities Exam: Pedal Edema - Back Exam Back Exam: NORMAL INSPECTION - Neurological Exam Neurological Exam: Alert - Psychiatric Exam Psychiatric exam: Normal Affect - Skin Skin Exam: Normal Color Assessment and Plan (1) Systolic dysfunction with acute on chronic heart failure Assessment & Plan: will maintain dobutamine at 2.5 mcg. continue lasix Status: Acute (2) CHF (NYHA class III, ACC/AHA stage C) Assessment & Plan: as above Status: Acute (3) NSTEMI (non-ST elevated myocardial infarction) Assessment & Plan: likely due to CHF. will d/c heparin Status: Acute
[2017-10-12] MEDS: Cefepime 1 GM in Sodium Chloride 0.9% 100 ML IVPB SCH ×2 (01:00→08:37)
[2017-10-12] MEDS: Morphine 4 MG/ML VIAL IVP PRN ×3 (02:35→23:10)
[2017-10-12 05:53] LABS: BASO # 0.1 K/uL (0.0-0.2); BASO % 0.8 % (0.0-2.0); EOS # 0.2 K/uL (0.0-0.7); EOS % 2.2 % (0.0-4.0); HEMOGLOBIN 10.2 g/dL (12.0-18.0); LYMPH # 0.9 K/uL (1.0-4.3); LYMPH % 9.5 % (20.0-40.0); MEAN CELL VOLUME 73.8 fl (80.0-94.0); MEAN CORPUSCULAR HEMOGLOBIN 23.7 pg (27.0-31.0); MEAN CORPUSCULAR HGB CONC 32.1 g/dL (33.0-37.0); MEAN PLATELET VOLUME 7.2 fl (7.2-11.7); MONO # 1.2 K/uL (0.0-0.8); MONO % 12.6 % (0.0-10.0); NEUT # 7.1 K/uL (1.8-7.0); NEUT % 74.9 % (50.0-75.0); NRBC % 0.1 % (0.0-0.0); RBC 4.31 Mil/uL (4.40-5.90); RED CELL DISTRIBUTION WIDTH 17.5 % (11.5-14.5); WHITE BLOOD COUNT 9.5 K/uL (4.8-10.8)
[2017-10-12 06:11] LABS: BLOOD UREA NITROGEN 11 mg/dl (9-20); CALCIUM 8.7 mg/dL (8.4-10.2); GFR AFRICAN-AMERICAN > 60; GFR NON-AFRICAN AMERICAN > 60
--- NOTE | 2017-10-12 08:08 | CP.CCUPN ---
CCU Subjective - Physician Review Events Since Last Encounter (Free Text): 10/12/17 08:05 Sitting on chair, looks comfortable, not in any distress but says he continue to have rt lower chest discomfort, he has this since admission. BP is stable, 116/67 on low dose dobutamine , Diuresisng well , on lasix. CCU Objective - Vital Signs / Intake & Output Vital Signs (Last 4 hours): Vital Signs Temp Pulse Resp BP Pulse Ox 10/12/17 07:06 26 H 10/12/17 07:00 116/74 10/12/17 06:00 99.9 F H 98 H 24 113/53 L 96 10/12/17 05:02 28 H 10/12/17 05:00 89 26 H 106/79 97 Intake and Output (Last 8hrs): Intake & Output 10/11/17 10/12/17 10/12/17 22:59 06:59 14:59 Intake Total 1102 164 16 Output Total 500 400 100 Balance 602 -236 -84 Weight 241 lb Intake: IV 282 64 16 Intake, Piggyback 100 100 Oral 720 Output: Urine 500 400 100 Urine, Voided 500 400 100 Other: # Voids Urine, Voided 1 1 - Physical Exam Narrative Physical Exam (Free Text): 10/12/17 08:07 P/E Neck: No JVD Lungs: decreased breath sound, rt base Heart: N gallop Ext: +2 edema Neuro: no focal signs Head: Positive for: Normocephalic Pupils: Positive for: PERRL Extroacular Muscles: Positive for: EOMI Conjunctiva: Positive for: Normal. Negative for: Icteric Mouth: Positive for: Moist Mucous Membranes Neck: Negative for: Lymphadenopathy Respiratory/Chest: Positive for: Respiratory Distress, Decreased Breath Sounds, Rales (bilateral bases). Negative for: Tender to Palpation Cardiovascular: Positive for: Regular Rate and Rhythm, Tachycardic, Other ( distant heart sounds) Abdomen: Positive for: Normal Bowel Sounds. Negative for: Tenderness, Distention, Mass/Organomegaly Upper Extremity: Positive for: Normal Inspection. Negative for: Edema Lower Extremity: Positive for: Normal Inspection, Edema (+1 right side, trace left side). Negative for: Cyanosis, Erythema, Temperature Abnormalties Neurological: Positive for: GCS=15, Motor Func Grossly Intact, Normal Sensory Function Skin: Positive for: Warm, Dry. Negative for: Rashes Psychiatric: Positive for: Alert, Oriented x 3 - Medications Active Medications: Active Medications Generic Name Dose Route Start Last Admin Trade Name Freq PRN Reason Stop Dose Admin Acetaminophen 650 mg 10/09/17 18:07 10/11/17 21:26 Tylenol 325mg Tab PO 650 mg Q6 PRN Administration Fever >100.4 F Carvedilol 6.25 mg 10/09/17 21:00 10/11/17 21:26 Coreg PO 6.25 mg Q12 SONJA Administration Clopidogrel Bisulfate 75 mg 10/10/17 09:00 10/11/17 08:23 Plavix PO 75 mg DAILY SONJA Administration Enalapril Maleate 5 mg 10/10/17 09:00 10/11/17 08:23 Vasotec PO 5 mg DAILY SONJA Administration Ferrous Gluconate 324 mg 10/11/17 09:00 10/11/17 16:04 Fergon PO 324 mg DAILY SONJA Administration Furosemide 40 mg 10/11/17 09:00 10/11/17 16:04 Lasix IVP 40 mg BID SONJA Administration Cefepime HCl 1 gm/ Sodium 100 mls @ 100 mls/hr 10/09/17 18:15 10/12/17 01:00 Chloride IVPB 100 mls/hr Q8 SONJA Administration Protocol Vancomycin HCl 1 gm/ Sodium 250 mls @ 125 mls/hr 10/09/17 18:15 10/11/17 08: 24 Chloride IVPB 125 mls/hr DAILY SONJA Administration Protocol Dobutamine HCl/Dextrose 500 mg in 250 mls @ 16.533 mls/hr 10/10/17 11:00 17:09 Dobutamine/Dextrose 5% 500mg/250ml IV 2.5 mcg/kg/min .Q15H8M SONJA 8.267 mls/hr Protocol Administration 5 MCG/KG/MIN Morphine Sulfate 2 mg 10/09/17 19:15 10/12/17 02:35 Morphine IVP 2 mg Q4 PRN Administration Pain, severe (8-10) Pantoprazole Sodium 40 mg 10/09/17 18:15 10/11/17 08:23 Protonix Ec Tab PO 40 mg DAILY SONJA Administration Polyethylene Glycol 17 gm 10/10/17 17:00 10/11/17 08:22 Miralax PO 17 gm DAILY SONJA Administration Spironolactone 25 mg 10/10/17 09:00 10/11/17 08:21 Aldactone PO 25 mg DAILY SONJA Administration - Patient Studies Lab Studies: Microbiology Studies 10/09/17 15:12 Blood Culture - Preliminary Blood-Venous NO GROWTH AFTER 48 HOURS 10/09/17 03:00 MRSA Culture (Admit) - Final Naris MRSA NOT DETECTED Lab Studies 10/12/17 10/12/17 10/11/17 Range/Units 05:38 05:38 18:55 WBC 9.5 (4.8-10.8) K/uL RBC 4.31 L (4.40-5.90) Mil/uL Hgb 10.2 L (12.0-18.0) g/dL Hct 31.8 L (35.0-51.0) % MCV 73.8 L (80.0-94.0) fl MCH 23.7 L (27.0-31.0) pg MCHC 32.1 L (33.0-37.0) g/dL RDW 17.5 H (11.5-14.5) % Plt Count 439 H (130-400) K/uL MPV 7.2 (7.2-11.7) fl Neut % (Auto) 74.9 (50.0-75.0) % Lymph % (Auto) 9.5 L (20.0-40.0) % [place] % (Auto) 12.6 H (0.0-10.0) % Eos % (Auto) 2.2 (0.0-4.0) % Baso % (Auto) 0.8 (0.0-2.0) % Neut # 7.1 H (1.8-7.0) K/uL Lymph # 0.9 L (1.0-4.3) K/uL [place] # 1.2 H (0.0-0.8) K/uL Eos # 0.2 (0.0-0.7) K/uL Baso # 0.1 (0.0-0.2) K/uL APTT 52.6 H D (25.6-37.1) Seconds Sodium 138 (132-148) mmol/l Potassium 4.1 (3.6-5.0) MMOL/L Chloride 97 L (98-107) mmol/L Carbon Dioxide 33 H (22-30) mmol/L Anion Gap 12 (10-20) BUN 11 (9-20) mg/dl Creatinine 0.8 (0.8-1.5) mg/dl Est GFR ( Amer) > 60 Est GFR (Non-Af Amer) > 60 Random Glucose 141 H (75-110) mg/dL Hemoglobin A1c (4.2-6.5) % Calcium 8.7 (8.4-10.2) mg/dL 10/11/17 10/11/17 Range/Units 12:20 05:40 WBC (4.8-10.8) K/uL RBC (4.40-5.90) Mil/uL Hgb (12.0-18.0) g/dL Hct (35.0-51.0) % MCV (80.0-94.0) fl MCH (27.0-31.0) pg MCHC (33.0-37.0) g/dL RDW (11.5-14.5) % Plt Count (130-400) K/uL MPV (7.2-11.7) fl Neut % (Auto) (50.0-75.0) % Lymph % (Auto) (20.0-40.0) % [place] % (Auto) (0.0-10.0) % Eos % (Auto) (0.0-4.0) % Baso % (Auto) (0.0-2.0) % Neut # (1.8-7.0) K/uL Lymph # (1.0-4.3) K/uL [place] # (0.0-0.8) K/uL Eos # (0.0-0.7) K/uL Baso # (0.0-0.2) K/uL APTT 42.5 H D (25.6-37.1) Seconds Sodium (132-148) mmol/l Potassium (3.6-5.0) MMOL/L Chloride (98-107) mmol/L Carbon Dioxide (22-30) mmol/L Anion Gap (10-20) BUN (9-20) mg/dl Creatinine (0.8-1.5) mg/dl Est GFR ( Amer) Est GFR (Non-Af Amer) Random Glucose (75-110) mg/dL Hemoglobin A1c 7.1 H D (4.2-6.5) % Calcium (8.4-10.2) mg/dL Laboratory Results - last 24 hr 10/11/17 10/11/17 10/11/17 05:40 12:20 18:55 WBC RBC Hgb Hct MCV MCH MCHC RDW Plt Count MPV Neut % (Auto) Lymph % (Auto) [place] % (Auto) Eos % (Auto) Baso % (Auto) Neut # Lymph # [place] # Eos # Baso # APTT 42.5 H D 52.6 H D Sodium Potassium Chloride Carbon Dioxide Anion Gap BUN Creatinine Est GFR ( Amer) Est GFR (Non-Af Amer) Random Glucose Hemoglobin A1c 7.1 H D Calcium 10/12/17 10/12/17 05:38 05:38 WBC 9.5 RBC 4.31 L Hgb 10.2 L Hct 31.8 L MCV 73.8 L MCH 23.7 L MCHC 32.1 L RDW 17.5 H Plt Count 439 H MPV 7.2 Neut % (Auto) 74.9 Lymph % (Auto) 9.5 L [place] % (Auto) 12.6 H Eos % (Auto) 2.2 Baso % (Auto) 0.8 Neut # 7.1 H Lymph # 0.9 L [place] # 1.2 H Eos # 0.2 Baso # 0.1 APTT Sodium 138 Potassium 4.1 Chloride 97 L Carbon Dioxide 33 H Anion Gap 12 BUN 11 Creatinine 0.8 Est GFR ( Amer) > 60 Est GFR (Non-Af Amer) > 60 Random Glucose 141 H Hemoglobin A1c Calcium 8.7 Critical Care Progress Note - Nutrition Nutrition: Nutrition Category Date Time Status Heart Healthy Diet [DIET] Diets 10/09/17 Breakfast Active Assessment/Plan - Assessment and Plan (Free Text) Assessment: 47 year old male with PMH of severe heart failure admitted with SOB with associated fevers and cough. Pt is in acute exacerbation of chronic systolic heart failure 2 to his cardiomyopathy of unknown etiology with NSTEMI. He has acute respiratory insufficiency 2 to bilateral pneumonia, currently on high flow O2. CHF exacerbation: On dobuatmine and Lasix 40 mg IV q 12H: continue PNA: On cefipime and Vanco Hypotension: had episode yesterday: now stable Metabolic alalosis: mild , due to diuretics, if worsened , will as acetozolamide GI: Protonix, miralax for constipation Renal /: i/Os reviewed. Renal function stable, monitor urine output and daily weights. Endocrine: Hb A1c 7.1, will start metformin Code Status: Full code
[2017-10-12] MEDS: Pantoprazole 40 mg EC Tab PO SCH (08:38)
[2017-10-12] MEDS: guaiFENesin DM 200 mg-20 mg/10 ml UD PO PRN ×2 (14:21→20:48)
--- NOTE | 2017-10-12 14:41 | PN ---
DATE: 10/11/2017 DAILY PROGRESS NOTE SUBJECTIVE: The patient was seen on 10/11/2017. He was still in mild respiratory distress and he was on high-flow oxygen. PHYSICAL EXAMINATION: VITAL SIGNS: Blood pressure was 111/76, temperature 100.8, respiratory rate 26 and pulse 104. HEENT: Pupils equal, reactive to light. Normal-appearing mucosa of the conjunctivae, oropharyngeal and nasal membrane mucosa. NECK: Supple. No JVD. No carotid bruit. No lymph node. No thyromegaly. CHEST AND LUNGS: Bilateral basal rales. CARDIOVASCULAR SYSTEM: PMI not localized. S1 and S2. No additional sounds. ABDOMEN: Normoactive bowel sounds. No tenderness. No organomegaly. No masses. EXTREMITIES: No cyanosis. No clubbing. No edema. CENTRAL NERVOUS SYSTEM: Alert, awake, oriented x3. No neurological deficit could be appreciated. ASSESSMENT: 1. Exacerbation of congestive heart failure, acute on chronic systolic heart failure. 2. Bilateral lower lobe pneumonia. PLAN: Continue current antibiotics as well as high-flow oxygen, diuretics and dobutamine. Discussed the patient's condition with Dr. Martinez. Harry Gutierrez MD
--- NOTE | 2017-10-12 14:45 | PN ---
DATE: 10/12/2017 DAILY PROGRESS NOTE SUBJECTIVE: The patient is seen today, 10/12/2017. He is still in mild respiratory distress with high-flow oxygen. PHYSICAL EXAMINATION: VITAL SIGNS: Respiratory rate 38, temperature 99.8, pulse 103, blood pressure 116/74. HEENT: Pupils equal, reactive to light. Normal-appearing mucosa of the conjunctivae, oropharyngeal and nasal membrane mucosa. NECK: Supple. Positive JVD. CHEST AND LUNGS: Bilateral symmetrical expansion. Bilateral basal rales. CARDIOVASCULAR SYSTEM: PMI not localized. S1 and S2. No additional sounds. ABDOMEN: Normoactive bowel sounds. No tenderness. No organomegaly. No masses. EXTREMITIES: No cyanosis. No clubbing. No edema. CENTRAL NERVOUS SYSTEM: Alert, awake, oriented x2. No neurological deficits could be appreciated. ASSESSMENT: Bilateral pneumonia, exacerbation of congestive heart failure, acute on chronic systolic heart failure. PLAN: Continue current antibiotics as well as dobutamine and diuretics. We will do also Pulmonary consult. Harry Gutierrez MD
[2017-10-12] MEDS: Cefepime 1 GM in Sodium Chloride 0.9% 50 ML IVPB SCH (16:09)
--- NOTE | 2017-10-12 16:18 | CP.PCM.PN ---
Subjective - Date & Time of Evaluation Date of Evaluation: 10/12/17 Time of Evaluation: 16:15 - Subjective Subjective: patient feels a bit better today. breathing is improved. Objective - Vital Signs/Intake and Output Vital Signs (last 24 hours): Temp Pulse Resp BP Pulse Ox 102 F H 108 H 17 105/71 95 10/12/17 16:00 10/12/17 16:00 10/12/17 16:00 10/12/17 16:00 10/12/17 16:00 Intake and Output: 10/12/17 10/12/17 06:59 18:59 Intake Total 316 1134 Output Total 600 1850 Balance -284 -716 - Medications Medications: Current Medications Acetaminophen (Tylenol 325mg Tab) 650 mg PO Q6 PRN PRN Reason: Fever >100.4 F Last Admin: 10/11/17 21:26 Dose: 650 mg Acetaminophen (Tylenol 325mg Tab) 650 mg PO Q6 PRN PRN Reason: Fever >100.4 F Carvedilol (Coreg) 6.25 mg PO Q12 [facility] Last Admin: 10/12/17 08:36 Dose: 6.25 mg Clopidogrel Bisulfate (Plavix) 75 mg PO DAILY [facility] Last Admin: 10/12/17 09:33 Dose: 75 mg Enalapril Maleate (Vasotec) 5 mg PO DAILY [facility] Last Admin: 10/12/17 08:39 Dose: 5 mg Ferrous Gluconate (Fergon) 324 mg PO DAILY [facility] Last Admin: 10/12/17 08:36 Dose: 324 mg Furosemide (Lasix) 40 mg IVP BID [facility] Last Admin: 10/12/17 08:37 Dose: 40 mg Guaifenesin/Dextromethorphan (Robitussin Dm) 10 ml PO Q4 PRN PRN Reason: Cough Last Admin: 10/12/17 14:21 Dose: 10 ml Vancomycin HCl 1 gm/ Sodium (Chloride) 250 mls @ 125 mls/hr IVPB DAILY [facility] PRN Reason: Protocol Last Admin: 10/12/17 08:38 Dose: 125 mls/hr Dobutamine HCl/Dextrose (Dobutamine/Dextrose 5% 500mg/250ml) 500 mg in 250 mls @ 16.533 mls/hr IV .Q15H8M SONJA; 5 MCG/KG/MIN PRN Reason: Protocol Last Admin: 10/11/17 17:09 Dose: 2.5 mcg/kg/min, 8.267 mls/hr Cefepime HCl 1 gm/ Sodium (Chloride) 50 mls @ 50 mls/hr IVPB Q8 SONJA PRN Reason: Protocol Azithromycin 500 mg/ Sodium (Chloride) 250 mls @ 250 mls/hr IVPB DAILY SONJA PRN Reason: Protocol Stop: 10/17/17 16:01 Morphine Sulfate (Morphine) 2 mg IVP Q4 PRN PRN Reason: Pain, severe (8-10) Last Admin: 10/12/17 10:42 Dose: 2 mg Pantoprazole Sodium (Protonix Ec Tab) 40 mg PO DAILY [facility] Last Admin: 10/12/17 08:38 Dose: 40 mg Polyethylene Glycol (Miralax) 17 gm PO DAILY [facility] Last Admin: 10/11/17 08:22 Dose: 17 gm Spironolactone (Aldactone) 25 mg PO DAILY [facility] Last Admin: 10/12/17 08:36 Dose: 25 mg - Labs Labs: 10/12/17 05:38 10/12/17 05:38 PT 17.4 Seconds (9.8-13.1) H D 10/11/17 05:40 INR 1.6 (0.9-1.2) H 10/11/17 05:40 APTT 52.6 Seconds (25.6-37.1) H D 10/11/17 18:55 - Constitutional Appears: Non-toxic - Head Exam Head Exam: NORMAL INSPECTION - Eye Exam Eye Exam: Normal appearance - ENT Exam ENT Exam: Mucous Membranes Moist - Neck Exam Neck Exam: Full ROM - Respiratory Exam Respiratory Exam: Decreased Breath Sounds - Cardiovascular Exam Cardiovascular Exam: REGULAR RHYTHM - GI/Abdominal Exam GI & Abdominal Exam: Normal Bowel Sounds - Rectal Exam Rectal Exam: Deferred - Extremities Exam Extremities Exam: Pedal Edema - Back Exam Back Exam: NORMAL INSPECTION - Neurological Exam Neurological Exam: Alert - Psychiatric Exam Psychiatric exam: Normal Affect - Skin Skin Exam: Normal Color Assessment and Plan (1) Systolic dysfunction with acute on chronic heart failure Assessment & Plan: slow improvement. maintain dobutamine at current dose Status: Acute (2) CHF (NYHA class III, ACC/AHA stage C) Assessment & Plan: continue dobutamine, lasix Status: Acute (3) NSTEMI (non-ST elevated myocardial infarction) Assessment & Plan: off heparin. recommend aspirin 81 mg daily Status: Acute
[2017-10-12] MEDS: POLYETHYLENE GLYCOL 3350 17 GM/Dose PACKET PO SCH (18:00)
[2017-10-12] MEDS: Azithromycin 500 MG in Sodium Chloride 0.9% 250 ML IVPB SCH (18:31)
[2017-10-13] MEDS: Cefepime 1 GM in Sodium Chloride 0.9% 50 ML IVPB SCH ×4 (00:14→16:23)
[2017-10-13] MEDS: guaiFENesin DM 200 mg-20 mg/10 ml UD PO PRN ×4 (01:21→21:51)
[2017-10-13 05:53] LABS: HEMOGLOBIN 10.3 g/dL (12.0-18.0); MEAN CELL VOLUME 74.5 fl (80.0-94.0); MEAN CORPUSCULAR HEMOGLOBIN 23.3 pg (27.0-31.0); MEAN CORPUSCULAR HGB CONC 31.3 g/dL (33.0-37.0); RBC 4.41 Mil/uL (4.40-5.90); RED CELL DISTRIBUTION WIDTH 17.9 % (11.5-14.5); WHITE BLOOD COUNT 8.3 K/uL (4.8-10.8)
[2017-10-13 06:08] LABS: BLOOD UREA NITROGEN 10 mg/dl (9-20); CALCIUM 8.9 mg/dL (8.4-10.2); GFR AFRICAN-AMERICAN > 60; GFR NON-AFRICAN AMERICAN > 60
[2017-10-13] MEDS: POLYETHYLENE GLYCOL 3350 17 GM/Dose PACKET PO SCH ×2 (08:50→13:21)
[2017-10-13] MEDS: Pantoprazole 40 mg EC Tab PO SCH (08:51)
[2017-10-13] MEDS: Azithromycin 500 MG in Sodium Chloride 0.9% 250 ML IVPB SCH (08:52)
--- NOTE | 2017-10-13 09:23 | CP.CCUPN ---
CCU Subjective - Physician Review Events Since Last Encounter (Free Text): 10/13/17 09:20 alert and oriented, no sob, but still spikes fever at times, Azithromycin was added yesterday, BP has been stable and good urine output, on lasix and on low dose dobutamine. Renal function and electrolytes stable, except mild metabolic alkalosis, due to lasix. CCU Objective - Vital Signs / Intake & Output Vital Signs (Last 4 hours): Vital Signs Temp Pulse Resp BP Pulse Ox 10/13/17 08:48 104 H 137/78 10/13/17 08:39 99.7 F H 106 H 22 137/88 98 10/13/17 08:26 99.7 F H 10/13/17 08:00 100.1 F H 111 H 97 H 126/73 16 L 10/13/17 07:53 99 H 22 126/73 99 10/13/17 07:26 101.2 F H 10/13/17 06:00 94 H 28 H 101/67 99 Intake and Output (Last 8hrs): Intake & Output 10/12/17 10/13/17 10/13/17 22:59 06:59 14:59 Intake Total 824 200 17 Output Total 750 450 Balance 74 -250 17 Weight 241 lb Intake: IV 34 17 Intake, Piggyback 350 100 Oral 440 100 Output: Urine 750 450 Urine, Voided 750 450 Other: # Bowel Movements 0 - Physical Exam Narrative Physical Exam (Free Text): 10/13/17 09:23 P/E Neck: No javd Lungs bilateral coarse crackles Abdomen: soft, no tender Ext:+1 edema Heart: No gallop Head: Positive for: Normocephalic Pupils: Positive for: PERRL Extroacular Muscles: Positive for: EOMI Conjunctiva: Positive for: Normal. Negative for: Icteric Mouth: Positive for: Moist Mucous Membranes Neck: Negative for: Lymphadenopathy Respiratory/Chest: Positive for: Respiratory Distress, Decreased Breath Sounds, Rales (bilateral bases). Negative for: Tender to Palpation Cardiovascular: Positive for: Regular Rate and Rhythm, Tachycardic, Other ( distant heart sounds) Abdomen: Positive for: Normal Bowel Sounds. Negative for: Tenderness, Distention, Mass/Organomegaly Upper Extremity: Positive for: Normal Inspection. Negative for: Edema Lower Extremity: Positive for: Normal Inspection, Edema (+1 right side, trace left side). Negative for: Cyanosis, Erythema, Temperature Abnormalties Neurological: Positive for: GCS=15, Motor Func Grossly Intact, Normal Sensory Function Skin: Positive for: Warm, Dry. Negative for: Rashes Psychiatric: Positive for: Alert, Oriented x 3 - Medications Active Medications: Active Medications Generic Name Dose Route Start Last Admin Trade Name Freq PRN Reason Stop Dose Admin Acetaminophen 650 mg 10/09/17 18:07 10/13/17 07:26 Tylenol 325mg Tab PO 650 mg Q6 PRN Administration Fever >100.4 F Acetaminophen 650 mg 10/12/17 15:47 Tylenol 325mg Tab PO Q6 PRN Fever >100.4 F Carvedilol 6.25 mg 10/09/17 21:00 10/13/17 08:48 Coreg PO 6.25 mg Q12 SONJA Administration Clopidogrel Bisulfate 75 mg 10/10/17 09:00 10/13/17 08:51 Plavix PO 75 mg DAILY SONJA Administration Enalapril Maleate 5 mg 10/10/17 09:00 10/12/17 08:39 Vasotec PO 5 mg DAILY SONJA Administration Ferrous Gluconate 324 mg 10/11/17 09:00 10/13/17 08:48 Fergon PO 324 mg DAILY SONJA Administration Furosemide 40 mg 10/11/17 09:00 10/13/17 08:48 Lasix IVP 40 mg BID SONJA Administration Guaifenesin/Dextromethorphan 10 ml 10/12/17 14:07 10/13/17 05:35 Robitussin Dm PO 10 ml Q4 PRN Administration Cough Vancomycin HCl 1 gm/ Sodium 250 mls @ 125 mls/hr 10/09/17 18:15 10/12/17 08: 38 Chloride IVPB 125 mls/hr DAILY SONJA Administration Protocol Dobutamine HCl/Dextrose 500 mg in 250 mls @ 16.533 mls/hr 10/10/17 11:00 17:09 Dobutamine/Dextrose 5% 500mg/250ml IV 2.5 mcg/kg/min .Q15H8M SONJA 8.267 mls/hr Protocol Administration 5 MCG/KG/MIN Cefepime HCl 1 gm/ Sodium 50 mls @ 50 mls/hr 10/12/17 17:00 10/13/17 08:49 Chloride IVPB Not Given Q8 SONJA Protocol Azithromycin 500 mg/ Sodium 250 mls @ 250 mls/hr 10/12/17 16:00 10/13/17 08: 52 Chloride IVPB 10/17/17 16:01 250 mls/hr DAILY SONJA Administration Protocol Morphine Sulfate 2 mg 10/09/17 19:15 10/12/17 23:10 Morphine IVP 2 mg Q4 PRN Administration Pain, severe (8-10) Pantoprazole Sodium 40 mg 10/09/17 18:15 10/13/17 08:51 Protonix Ec Tab PO 40 mg DAILY SONJA Administration Polyethylene Glycol 17 gm 10/10/17 17:00 10/13/17 08:50 Miralax PO 17 gm DAILY SONJA Administration Spironolactone 25 mg 10/10/17 09:00 10/13/17 08:47 Aldactone PO 25 mg DAILY SONJA Administration - Patient Studies Lab Studies: Microbiology Studies 10/09/17 15:12 Blood Culture - Preliminary Blood-Venous NO GROWTH AFTER 3 DAYS Lab Studies 10/13/17 10/13/17 Range/Units 05:31 05:31 WBC 8.3 (4.8-10.8) K/uL RBC 4.41 (4.40-5.90) Mil/uL Hgb 10.3 L (12.0-18.0) g/dL Hct 32.8 L (35.0-51.0) % MCV 74.5 L (80.0-94.0) fl MCH 23.3 L (27.0-31.0) pg MCHC 31.3 L (33.0-37.0) g/dL RDW 17.9 H (11.5-14.5) % Plt Count 421 H (130-400) K/uL Sodium 136 (132-148) mmol/l Potassium 3.9 (3.6-5.0) MMOL/L Chloride 93 L (98-107) mmol/L Carbon Dioxide 35 H (22-30) mmol/L Anion Gap 12 (10-20) BUN 10 (9-20) mg/dl Creatinine 0.8 (0.8-1.5) mg/dl Est GFR ( Amer) > 60 Est GFR (Non-Af Amer) > 60 Random Glucose 159 H (75-110) mg/dL Calcium 8.9 (8.4-10.2) mg/dL Laboratory Results - last 24 hr 10/13/17 10/13/17 05:31 05:31 WBC 8.3 RBC 4.41 Hgb 10.3 L Hct 32.8 L MCV 74.5 L MCH 23.3 L MCHC 31.3 L RDW 17.9 H Plt Count 421 H Sodium 136 Potassium 3.9 Chloride 93 L Carbon Dioxide 35 H Anion Gap 12 BUN 10 Creatinine 0.8 Est GFR ( Amer) > 60 Est GFR (Non-Af Amer) > 60 Random Glucose 159 H Calcium 8.9 Critical Care Progress Note - Nutrition Nutrition: Nutrition Category Date Time Status Heart Healthy Diet [DIET] Diets 10/09/17 Breakfast Active Assessment/Plan - Assessment and Plan (Free Text) Assessment: 47 year old male with PMH of severe heart failure admitted with SOB with associated fevers and cough. Pt is in acute exacerbation of chronic systolic heart failure 2 to his cardiomyopathy of unknown etiology with NSTEMI. He has acute respiratory insufficiency 2 to bilateral pneumonia, currently on high flow O2. CHF exacerbation: On dobuatmine and Lasix 40 mg IV q 12H: continue PNA: On cefipime and Vanco, azithromycin was added yesterday Hypotension: had episode yesterday: now stable Metabolic alkalosis: mild , due to diuretics, if worsened , will as acetozolamide GI: Protonix, miralax for constipation Renal /: i/Os reviewed. Renal function stable, monitor urine output and daily weights. Code Status: Full code
[2017-10-14] MEDS: Cefepime 1 GM in Sodium Chloride 0.9% 50 ML IVPB SCH ×3 (00:30→16:19)
--- NOTE | 2017-10-14 01:38 | PN ---
DATE: 10/13/2017 SUBJECTIVE: Patient is seen today, 10/13/2017.. He is still having mild shortness of breath. PHYSIAL EXAMINATION: VITAL SIGNS: Blood pressure 118/75, temperature is 99.7, respiratory rate 20, and pulse of 100. HEENT: Pupils equal, reactive to light. Normal-appearing mucosa of the conjunctivae, oropharynx, and nasal membrane mucosa. NECK: Supple. No JVD. No carotid bruit. No lymph node. No thyromegaly. CHEST AND LUNGS: Bilateral symmetrical expansion. Good air exchange. Bilateral basilar rales. CARDIOVASCULAR SYSTEM: PMI not localized. S1, S2. No additional sounds. ABDOMEN: Normoactive bowel sounds. No tenderness. No organomegaly. No masses. EXTREMITIES: No cyanosis, no clubbing, no edema. CENTRAL NERVOUS SYSTEM: Alert, awake, oriented x3. No neurological deficit could be appreciated. ASSESSMENT: 1. Acute exacerbation of systolic heart failure. 2. Bilateral pneumonia. 3. Ischemic cardiomyopathy. 4. Type 2 diabetes mellitus. PLAN: Continue current medications and follow Cardiology recommendations. Continue current antibiotics. Guarded prognosis. [facility] MD Matt
[2017-10-14 05:27] LABS: HEMOGLOBIN 10.3 g/dL (12.0-18.0); MEAN CELL VOLUME 73.9 fl (80.0-94.0); MEAN CORPUSCULAR HEMOGLOBIN 23.5 pg (27.0-31.0); MEAN CORPUSCULAR HGB CONC 31.8 g/dL (33.0-37.0); RBC 4.37 Mil/uL (4.40-5.90); WHITE BLOOD COUNT 8.3 K/uL (4.8-10.8)
[2017-10-14 05:34] LABS: BLOOD UREA NITROGEN 11 mg/dl (9-20); GFR AFRICAN-AMERICAN > 60; GFR NON-AFRICAN AMERICAN > 60
[2017-10-14] MEDS ORDERED: DOBUTamine 500mg/250ml D5W 500 MG/250 ML BAG IV SCH (06:00)
[2017-10-14] MEDS: POLYETHYLENE GLYCOL 3350 17 GM/Dose PACKET PO SCH (08:52)
[2017-10-14] MEDS: Pantoprazole 40 mg EC Tab PO SCH (08:53)
[2017-10-14] MEDS: Azithromycin 500 MG in Sodium Chloride 0.9% 250 ML IVPB SCH (10:13)
--- NOTE | 2017-10-14 10:29 | CP.CCUPN ---
CCU Subjective - Physician Review Events Since Last Encounter (Free Text): 10/14/17 17:55 The patient was Seen/interviewed and examined by me at the bedside during ICU round, Medical records reviewed and Management issues were discussed and formulated with the house staff. Events reviewed 47 Years old Male with PMHx of severe heart failure and Sleep apnea presenting with worsening SOB with associated fevers and cough. admitted to ICU with acute exacerbation of chronic systolic heart failure sec to NSTEMI and pneumonia. This morning he feels well and denies any chest pain, SOB or Palpitations Afebrile, NSR on the monitor Afebrile, azithromycin was added to IV Vanco and Cefapime BP has been stable and good urine output, on lasix, Aldactone and low dose dobutamine. This morning labs revewed, Renal function and electrolytes stable, except mild metabolic alkalosis due to lasix. CCU Objective - Vital Signs / Intake & Output Vital Signs (Last 4 hours): Vital Signs Temp Pulse Resp BP Pulse Ox 10/14/17 08:51 103 H 110/73 10/14/17 08:00 99.5 F 95 H 17 97/74 L 99 10/14/17 07:28 22 Intake and Output (Last 8hrs): Intake & Output 10/13/17 10/14/17 10/14/17 22:59 06:59 14:59 Intake Total 458 100 Output Total 700 350 Balance -242 -250 Intake: IV 8 Intake, Piggyback 50 Oral 400 100 Output: Urine 700 350 Urine, Voided 700 350 - Physical Exam Head: Positive for: Normocephalic Pupils: Positive for: PERRL Extroacular Muscles: Positive for: EOMI Conjunctiva: Positive for: Normal. Negative for: Icteric Mouth: Positive for: Moist Mucous Membranes Neck: Negative for: Lymphadenopathy Respiratory/Chest: Positive for: Respiratory Distress, Decreased Breath Sounds, Rales (bilateral bases). Negative for: Tender to Palpation Cardiovascular: Positive for: Regular Rate and Rhythm, Tachycardic, Other ( distant heart sounds) Abdomen: Positive for: Normal Bowel Sounds. Negative for: Tenderness, Distention, Mass/Organomegaly Upper Extremity: Positive for: Normal Inspection. Negative for: Edema Lower Extremity: Positive for: Normal Inspection, Edema (+1 right side, trace left side). Negative for: Cyanosis, Erythema, Temperature Abnormalties Neurological: Positive for: GCS=15, Motor Func Grossly Intact, Normal Sensory Function Skin: Positive for: Warm, Dry. Negative for: Rashes Psychiatric: Positive for: Alert, Oriented x 3 - Medications Active Medications: Active Medications Generic Name Dose Route Start Last Admin Trade Name Freq PRN Reason Stop Dose Admin Acetaminophen 650 mg 10/09/17 18:07 10/13/17 07:26 Tylenol 325mg Tab PO 650 mg Q6 PRN Administration Fever >100.4 F Acetaminophen 650 mg 10/12/17 15:47 Tylenol 325mg Tab PO Q6 PRN Fever >100.4 F Carvedilol 6.25 mg 10/09/17 21:00 10/14/17 08:51 Coreg PO 6.25 mg Q12 SONJA Administration Clopidogrel Bisulfate 75 mg 10/10/17 09:00 10/14/17 08:53 Plavix PO 75 mg DAILY SONJA Administration Enalapril Maleate 5 mg 10/10/17 09:00 10/14/17 08:54 Vasotec PO 5 mg DAILY SONJA Administration Ferrous Gluconate 324 mg 10/11/17 09:00 10/14/17 08:51 Fergon PO 324 mg DAILY SONJA Administration Furosemide 40 mg 10/11/17 09:00 10/14/17 08:51 Lasix IVP 40 mg BID SONJA Administration Guaifenesin/Dextromethorphan 10 ml 10/12/17 14:07 10/13/17 21:51 Robitussin Dm PO 10 ml Q4 PRN Administration Cough Cefepime HCl 1 gm/ Sodium 50 mls @ 50 mls/hr 10/12/17 17:00 10/14/17 08:51 Chloride IVPB 50 mls/hr Q8 SONJA Administration Protocol Azithromycin 500 mg/ Sodium 250 mls @ 250 mls/hr 10/12/17 16:00 10/14/17 10: 13 Chloride IVPB 10/17/17 16:01 250 mls/hr DAILY SONJA Administration Protocol Vancomycin HCl 1 gm/ Sodium 250 mls @ 125 mls/hr 10/13/17 13:00 10/13/17 16: 25 Chloride IVPB 125 mls/hr DAILY@1200 SONJA Administration Protocol Dobutamine HCl/Dextrose 500 mg in 250 mls @ 8.199 mls/hr 10/14/17 06:16 Dobutamine/Dextrose 5% 500mg/250ml IV .Q24H SONJA Protocol 2.5 MCG/KG/MIN Pantoprazole Sodium 40 mg 10/09/17 18:15 10/14/17 08:53 Protonix Ec Tab PO 40 mg DAILY SONJA Administration Polyethylene Glycol 17 gm 10/10/17 17:00 10/14/17 08:52 Miralax PO 17 gm DAILY SONJA Administration Spironolactone 25 mg 10/10/17 09:00 10/14/17 08:51 Aldactone PO 25 mg DAILY SONJA Administration - Patient Studies Lab Studies: Microbiology Studies 10/09/17 15:12 Blood Culture - Preliminary Blood-Venous NO GROWTH AFTER 4 DAYS Lab Studies 10/14/17 10/14/17 Range/Units 04:40 04:40 WBC 8.3 (4.8-10.8) K/uL RBC 4.37 L (4.40-5.90) Mil/uL Hgb 10.3 L (12.0-18.0) g/dL Hct 32.3 L (35.0-51.0) % MCV 73.9 L (80.0-94.0) fl MCH 23.5 L (27.0-31.0) pg MCHC 31.8 L (33.0-37.0) g/dL RDW 18.0 H (11.5-14.5) % Plt Count 447 H (130-400) K/uL Sodium 137 (132-148) mmol/l Potassium 3.9 (3.6-5.0) MMOL/L Chloride 94 L (98-107) mmol/L Carbon Dioxide 33 H (22-30) mmol/L Anion Gap 14 (10-20) BUN 11 (9-20) mg/dl Creatinine 0.8 (0.8-1.5) mg/dl Est GFR ( Amer) > 60 Est GFR (Non-Af Amer) > 60 Random Glucose 142 H (75-110) mg/dL Calcium 9.0 (8.4-10.2) mg/dL Laboratory Results - last 24 hr 10/14/17 10/14/17 04:40 04:40 WBC 8.3 RBC 4.37 L Hgb 10.3 L Hct 32.3 L MCV 73.9 L MCH 23.5 L MCHC 31.8 L RDW 18.0 H Plt Count 447 H Sodium 137 Potassium 3.9 Chloride 94 L Carbon Dioxide 33 H Anion Gap 14 BUN 11 Creatinine 0.8 Est GFR ( Amer) > 60 Est GFR (Non-Af Amer) > 60 Random Glucose 142 H Calcium 9.0 Critical Care Progress Note - Nutrition Nutrition: Nutrition Category Date Time Status Heart Healthy Diet [DIET] Diets 10/09/17 Breakfast Active Assessment/Plan (1) Systolic dysfunction with acute on chronic heart failure Current Visit: No Status: Acute Comment: Continue with dobuatmine, Aldactone, Plavix and Lasix 40 mg IV q 12H Strict I&Os Monitor urine output and daily weights. (2) CHF (NYHA class III, ACC/AHA stage C) Current Visit: Yes Status: Acute (3) NSTEMI (non-ST elevated myocardial infarction) Current Visit: Yes Status: Acute (4) Pneumonia Current Visit: No Status: Acute Comment: Continue cefipime and Vanco, azithromycin was added (5) Ventricular dysfunction of heart Current Visit: No Status: Acute Comment: Pt will follow up with Dr. Martinez for defribrilator inplantation as outpatient (6) Metabolic alkalosis Current Visit: Yes Status: Acute Comment: Metabolic alkalosis: mild, due to diuretics, if worsened, will as acetozolamide (7) Sleep apnea Current Visit: No Status: Chronic Priority: Medium
[2017-10-14] MEDS: guaiFENesin DM 200 mg-20 mg/10 ml UD PO PRN ×2 (12:02→23:46)
--- NOTE | 2017-10-14 12:46 | CP.PCM.CON ---
History of Present Illness - History of Present Illness History of Present Illness: Infectious Disease Consultation Note- asked to see this patient at the request of for persistent fever and pneumonia. HPI- patient is a 47 year old male with decompensated CHF with low EF of 10% who was supposed to have biventricular AICD palcment next week but since his symptoms of dyspnea, sob were worsening he came to ED for further evaluation and treatment. He states he was recently d/c from here for pneumonia and was inpatient 3 days and received iv antibiotics and d/c on home oral antibiotics. He states he has been complaint with ll his meds including his CHF meds but continues to be very sob and also states since this admission he has also been febrile almost once a day . pt. has been in ICu this admission and remains on oxygen and has been on iv cefepime and vanco for pneumonis and zithromax was just added today as per med records. I'm asked to evaluate the patient because he continues to have fever spikes despite being on antibiotics. Allergies: NKDA Meds: ASA, Coreg, Vit D, Enalpril, Pepcid, Lasix bid, MVI ROS: No other pertinent negs or positives on system review obtainable. PMSFH: + CVA 2012, no residual deficits, denies smoking or chronic ETOH use, + family hx of Lymphoma. All other Nursing and physician documentation reviewed to date; no new pertinent info noted relevant to current medical problems. CXR: ( my interp): infiltrate behind left heart with air b-grams, R effusion and R basilar atelectasis. Review of Systems - Review of Systems Review of Systems: ROS- + fever since admission, + cough but dry , + sob and orhtopnea and dyspnea, denies anyc hest pain, denies any abd. pain, denies any n/v, denies any dysurea , denies any diarrhea denies any recent travel denies any sick contacts Past Patient History - Past Medical History & Family History Past Medical History?: Yes - Past Social History Smoking Status: Never Smoked Alcohol: None Drugs: Denies Home Situation {Lives}: Alone - CARDIAC Hx Congestive Heart Failure: Yes (04/2013) Hx Hypertension: Yes - NEUROLOGICAL Hx Neurological Disorder: Yes HX Cerebrovascular Accident: Yes (04/2012) - MUSCULOSKELETAL/RHEUMATOLOGICAL Hx Falls: No - PSYCHIATRIC Hx Substance Use: No - SURGICAL HISTORY Hx Surgeries: No Hx Cardiac Catheterization: Yes - ANESTHESIA Hx Anesthesia: No Hx Anesthesia Reactions: No Meds Allergies/Adverse Reactions: Allergies Allergy/AdvReac Type Severity Reaction Status Date / Time No Known Allergies Allergy Verified 10/09/17 13:29 - Medications Medications: Current Medications Acetaminophen (Tylenol 325mg Tab) 650 mg PO Q6 PRN PRN Reason: Fever >100.4 F Last Admin: 10/14/17 12:01 Dose: 650 mg Acetaminophen (Tylenol 325mg Tab) 650 mg PO Q6 PRN PRN Reason: Fever >100.4 F Carvedilol (Coreg) 6.25 mg PO Q12 [facility] Last Admin: 10/14/17 08:51 Dose: 6.25 mg Clopidogrel Bisulfate (Plavix) 75 mg PO DAILY [facility] Last Admin: 10/14/17 08:53 Dose: 75 mg Enalapril Maleate (Vasotec) 5 mg PO DAILY [facility] Last Admin: 10/14/17 08:54 Dose: 5 mg Ferrous Gluconate (Fergon) 324 mg PO DAILY [facility] Last Admin: 10/14/17 08:51 Dose: 324 mg Furosemide (Lasix) 40 mg IVP BID [facility] Last Admin: 10/14/17 08:51 Dose: 40 mg Guaifenesin/Dextromethorphan (Robitussin Dm) 10 ml PO Q4 PRN PRN Reason: Cough Last Admin: 10/14/17 12:02 Dose: 10 ml Cefepime HCl 1 gm/ Sodium (Chloride) 50 mls @ 50 mls/hr IVPB Q8 [facility] PRN Reason: Protocol Last Admin: 10/14/17 08:51 Dose: 50 mls/hr Azithromycin 500 mg/ Sodium (Chloride) 250 mls @ 250 mls/hr IVPB DAILY [facility] PRN Reason: Protocol Stop: 10/17/17 16:01 Last Admin: 10/14/17 10:13 Dose: 250 mls/hr Vancomycin HCl 1 gm/ Sodium (Chloride) 250 mls @ 125 mls/hr IVPB DAILY@1200 [facility] PRN Reason: Protocol Last Admin: 10/13/17 16:25 Dose: 125 mls/hr Dobutamine HCl/Dextrose (Dobutamine/Dextrose 5% 500mg/250ml) 500 mg in 250 mls @ 8.199 mls/hr IV .Q24H SONJA; 2.5 MCG/KG/MIN PRN Reason: Protocol Pantoprazole Sodium (Protonix Ec Tab) 40 mg PO DAILY [facility] Last Admin: 10/14/17 08:53 Dose: 40 mg Polyethylene Glycol (Miralax) 17 gm PO DAILY [facility] Last Admin: 10/14/17 08:52 Dose: 17 gm Spironolactone (Aldactone) 25 mg PO DAILY [facility] Last Admin: 10/14/17 08:51 Dose: 25 mg Physical Exam - Constitutional Appears: No Acute Distress, Chronically Ill - Head Exam Head Exam: ATRAUMATIC - Eye Exam Eye Exam: EOMI - ENT Exam ENT Exam: Normal Oropharynx - Neck Exam Neck exam: Positive for: Full Rom - Respiratory Exam Additional comments: slightly tachypneic no wheezing bibasilar crackles heard 1/3 way up - Cardiovascular Exam Cardiovascular Exam: Tachycardia, +S1, +S2 - GI/Abdominal Exam GI & Abdominal Exam: Normal Bowel Sounds, Soft Additional comments: NT, ND - Extremities Exam Additional comments: trace LE edema B/L - Neurological Exam Neurological exam: Alert, Oriented x3 Results - Vital Signs Recent Vital Signs: Last Vital Signs Temp 100.4 F H 10/14/17 12:01 Pulse 107 H 10/14/17 12:00 Resp 16 10/14/17 12:00 BP 89/52 L 10/14/17 12:00 Pulse Ox 98 10/14/17 12:00 - Labs Result Diagrams: 10/14/17 04:40 10/14/17 04:40 Labs: Laboratory Results - last 24 hr 10/14/17 10/14/17 04:40 04:40 WBC 8.3 RBC 4.37 L Hgb 10.3 L Hct 32.3 L MCV 73.9 L MCH 23.5 L MCHC 31.8 L RDW 18.0 H Plt Count 447 H Sodium 137 Potassium 3.9 Chloride 94 L Carbon Dioxide 33 H Anion Gap 14 BUN 11 Creatinine 0.8 Est GFR ( Amer) > 60 Est GFR (Non-Af Amer) > 60 Random Glucose 142 H Calcium 9.0 Laboratory Results - last 72 hr 10/11/17 10/12/17 10/12/17 18:55 05:38 05:38 WBC 9.5 RBC 4.31 L Hgb 10.2 L Hct 31.8 L MCV 73.8 L MCH 23.7 L MCHC 32.1 L RDW 17.5 H Plt Count 439 H MPV 7.2 Neut % (Auto) 74.9 Lymph % (Auto) 9.5 L [place] % (Auto) 12.6 H Eos % (Auto) 2.2 Baso % (Auto) 0.8 Neut # 7.1 H Lymph # 0.9 L [place] # 1.2 H Eos # 0.2 Baso # 0.1 APTT 52.6 H D Sodium 138 Potassium 4.1 Chloride 97 L Carbon Dioxide 33 H Anion Gap 12 BUN 11 Creatinine 0.8 Est GFR ( Amer) > 60 Est GFR (Non-Af Amer) > 60 Random Glucose 141 H Calcium 8.7 HIV 1&2 Ag/Ab, 4th Gen 10/12/17 10/13/17 10/13/17 10:02 05:31 05:31 WBC 8.3 RBC 4.41 Hgb 10.3 L Hct 32.8 L MCV 74.5 L MCH 23.3 L MCHC 31.3 L RDW 17.9 H Plt Count 421 H MPV Neut % (Auto) Lymph % (Auto) [place] % (Auto) Eos % (Auto) Baso % (Auto) Neut # Lymph # [place] # Eos # Baso # APTT Sodium 136 Potassium 3.9 Chloride 93 L Carbon Dioxide 35 H Anion Gap 12 BUN 10 Creatinine 0.8 Est GFR ( Amer) > 60 Est GFR (Non-Af Amer) > 60 Random Glucose 159 H Calcium 8.9 HIV 1&2 Ag/Ab, 4th Gen Nonreactive 10/14/17 10/14/17 04:40 04:40 WBC 8.3 RBC 4.37 L Hgb 10.3 L Hct 32.3 L MCV 73.9 L MCH 23.5 L MCHC 31.8 L RDW 18.0 H Plt Count 447 H MPV Neut % (Auto) Lymph % (Auto) [place] % (Auto) Eos % (Auto) Baso % (Auto) Neut # Lymph # [place] # Eos # Baso # APTT Sodium 137 Potassium 3.9 Chloride 94 L Carbon Dioxide 33 H Anion Gap 14 BUN 11 Creatinine 0.8 Est GFR ( Amer) > 60 Est GFR (Non-Af Amer) > 60 Random Glucose 142 H Calcium 9.0 HIV 1&2 Ag/Ab, 4th Gen Microbiology 10/09/17 15:12 Blood-Venous Blood Culture - Final NO GROWTH AFTER 5 DAYS 10/09/17 15:12 Blood-Venous Gram Stain - Final TEST NOT PERFORMED 10/09/17 03:00 Naris MRSA Culture (Admit) - Final MRSA NOT DETECTED Accession No. : [id number] Patient Name / ID : JACOB WONG / [id number] Exam Date : 10/11/2017 04:41:22 ( Approved ) Study Comment : Sex / Age : M / 47Y Creator : Wagner Whiteside MD Dictator : Wagner Whiteside MD Commercial Litigation Associate : Can Dryer : Wagner Whiteside MD Approver2 : Report Date : 10/11/2017 11:07:47 My Comment : HISTORY: assess b/l effusions/PNA COMPARISON: 10/09/2017 FINDINGS: LUNGS: Increasing opacity at right lung base. Possible developing pneumonia versus increasing pleural effusion. . Probable subsegmental atelectasis at left base. PLEURA: Small right pleural effusion, possibly mildly increased from prior. . No left pleural effusion. No pneumothorax. CARDIOVASCULAR: Mild cardiomegaly. OSSEOUS STRUCTURES: No significant abnormalities. VISUALIZED UPPER ABDOMEN: Normal. OTHER FINDINGS: None. IMPRESSION: Increasing opacity at right base may be due to possible developing pneumonia or increasing pleural effusion. Left basilar subsegmental atelectasis. Assessment & Plan (1) CHF (NYHA class III, ACC/AHA stage C) Status: Acute (2) CHF (congestive heart failure) Status: Acute (3) CHF exacerbation Status: Acute (4) Pneumonia Status: Acute (5) Fever Status: Acute (6) Pleural effusion Status: Acute - Assessment and Plan (Free Text) Assessment: A/P- 47 year old male with decompensated CHF admitted with worsening sob and found to have pneumonia and Right pleural effiosn and fever. febrile daily cxr report noted blood cx- neg x 1 influenza- neg HIV ab- neg leukocytosis has resolved. plan- check 2 more blood cx. check UA and urine cx. check urine legionella AG. check mycoplasma serology. check sputum cx. if no resolution of fever on abx may need CT of chest with perhaps thoracentheis if needed. advise to continue with curernt antibiotics of zithromax and cefepime and vanco to cover for both HAP and atypical pathogens. await cx results. All above d/w patient at length and all his questions were answered and he verbalizes full understadning of all above. thank you for allowing me to take part in the care of this patient. ICU time 60 minutes.
--- NOTE | 2017-10-14 17:20 | CP.PCM.PN ---
Subjective - Date & Time of Evaluation Date of Evaluation: 10/14/17 Time of Evaluation: 17:15 - Subjective Subjective: patient had fever, but feels better. He has less dyspnea. Objective - Vital Signs/Intake and Output Vital Signs (last 24 hours): Temp Pulse Resp BP Pulse Ox 99.3 F 98 H 13 103/73 100 10/14/17 16:00 10/14/17 17:00 10/14/17 17:00 10/14/17 17:00 10/14/17 17:00 Intake and Output: 10/14/17 10/14/17 06:59 18:59 Intake Total 150 1300 Output Total 550 1100 Balance -400 200 - Medications Medications: Current Medications Acetaminophen (Tylenol 325mg Tab) 650 mg PO Q6 PRN PRN Reason: Fever >100.4 F Last Admin: 10/14/17 12:01 Dose: 650 mg Acetaminophen (Tylenol 325mg Tab) 650 mg PO Q6 PRN PRN Reason: Fever >100.4 F Carvedilol (Coreg) 6.25 mg PO Q12 [facility] Last Admin: 10/14/17 08:51 Dose: 6.25 mg Clopidogrel Bisulfate (Plavix) 75 mg PO DAILY [facility] Last Admin: 10/14/17 08:53 Dose: 75 mg Enalapril Maleate (Vasotec) 5 mg PO DAILY [facility] Last Admin: 10/14/17 08:54 Dose: 5 mg Ferrous Gluconate (Fergon) 324 mg PO DAILY [facility] Last Admin: 10/14/17 08:51 Dose: 324 mg Furosemide (Lasix) 40 mg IVP BID [facility] Last Admin: 10/14/17 16:18 Dose: 40 mg Guaifenesin/Dextromethorphan (Robitussin Dm) 10 ml PO Q4 PRN PRN Reason: Cough Last Admin: 10/14/17 12:02 Dose: 10 ml Cefepime HCl 1 gm/ Sodium (Chloride) 50 mls @ 50 mls/hr IVPB Q8 [facility] PRN Reason: Protocol Last Admin: 10/14/17 16:19 Dose: 50 mls/hr Azithromycin 500 mg/ Sodium (Chloride) 250 mls @ 250 mls/hr IVPB DAILY [facility] PRN Reason: Protocol Stop: 10/17/17 16:01 Last Admin: 10/14/17 10:13 Dose: 250 mls/hr Vancomycin HCl 1 gm/ Sodium (Chloride) 250 mls @ 125 mls/hr IVPB DAILY@1200 [facility] PRN Reason: Protocol Last Admin: 10/14/17 14:15 Dose: 125 mls/hr Dobutamine HCl/Dextrose (Dobutamine/Dextrose 5% 500mg/250ml) 500 mg in 250 mls @ 8.199 mls/hr IV .Q24H [facility]; 2.5 MCG/KG/MIN PRN Reason: Protocol Pantoprazole Sodium (Protonix Ec Tab) 40 mg PO DAILY [facility] Last Admin: 10/14/17 08:53 Dose: 40 mg Polyethylene Glycol (Miralax) 17 gm PO DAILY [facility] Last Admin: 10/14/17 08:52 Dose: 17 gm Spironolactone (Aldactone) 25 mg PO DAILY [facility] Last Admin: 10/14/17 08:51 Dose: 25 mg - Labs Labs: 10/14/17 04:40 10/14/17 04:40 PT 17.4 Seconds (9.8-13.1) H D 10/11/17 05:40 INR 1.6 (0.9-1.2) H 10/11/17 05:40 APTT 52.6 Seconds (25.6-37.1) H D 10/11/17 18:55 - Constitutional Appears: Non-toxic - Head Exam Head Exam: NORMAL INSPECTION - Eye Exam Eye Exam: Normal appearance - ENT Exam ENT Exam: Mucous Membranes Moist - Neck Exam Neck Exam: Full ROM - Respiratory Exam Respiratory Exam: Decreased Breath Sounds - Cardiovascular Exam Cardiovascular Exam: REGULAR RHYTHM - GI/Abdominal Exam GI & Abdominal Exam: Normal Bowel Sounds - Rectal Exam Rectal Exam: Deferred - Back Exam Back Exam: NORMAL INSPECTION - Neurological Exam Neurological Exam: Alert - Psychiatric Exam Psychiatric exam: Normal Affect - Skin Skin Exam: Normal Color Assessment and Plan (1) Systolic dysfunction with acute on chronic heart failure Assessment & Plan: imrpoving. I will maintain dobutamine. diuresisng well. Status: Acute (2) CHF (NYHA class III, ACC/AHA stage C) Assessment & Plan: as above. Status: Acute
[2017-10-14 22:17] LABS: SQUAMOUS EPITHIAL < 1 /hpf (0-5); URINE BACTERIA RARE (<OCC); URINE BILIRUBIN NEGATIVE (NEGATIVE); URINE BLOOD MODERATE (NEGATIVE); URINE CLARITY SLIGHTY-CLOUDY (Clear); URINE COLOR YELLOW (YELLOW); URINE GLUCOSE (UA) NEG (Normal); URINE LEUKOCYTE ESTERASE NEG Leu/uL (Negative); URINE NITRATE NEGATIVE (NEGATIVE); URINE PROTEIN 30 mg/dL (NEGATIVE); URINE UROBILINOGEN 0.2-1.0 mg/dL (0.2-1.0)
--- NOTE | 2017-10-15 00:44 | PN ---
DATE: 10/14/2017 SUBJECTIVE: He still has shortness of breath. OBJECTIVE: VITAL SIGNS: Blood pressure is 105/67, temperature 99.3, respiratory rate 20, and pulse 90. HEENT: Pupils equal, reactive to light. Normal-appearing mucosa of the conjunctivae, oropharynx and nasal membrane mucosa. NECK: Supple. No JVD. No carotid bruit. No lymph node. No thyromegaly. CHEST/LUNGS: Bilateral symmetrical expansion. Good air exchange. Bilateral basilar rales. CARDIOVASCULAR: PMI not localized. S1, S2. No additional sounds. ABDOMEN: Normoactive bowel sounds. No tenderness. No organomegaly. No masses. EXTREMITIES: No cyanosis, no clubbing, no edema. W[employer] MILL ROVER: Alert, awake, oriented x3. No neurological deficit could be appreciated. ASSESSMENT: 1. Exacerbation of congestive heart failure, acute on top of chronic systolic heart failure. 2. Pneumonia. 3. Anemia of chronic disease. PLAN: Continue current antibiotics, dobutamine, IV diuretics. Due to persistent fever in spite of the current antibiotics, we will also consult Infectious Disease. We will follow Cardiology recommendations. Harry Gutierrez MD
[2017-10-15] MEDS: Cefepime 1 GM in Sodium Chloride 0.9% 50 ML IVPB SCH ×3 (01:00→17:35)
[2017-10-15 05:53] LABS: HEMOGLOBIN 10.4 g/dL (12.0-18.0); MEAN CELL VOLUME 73.3 fl (80.0-94.0); MEAN CORPUSCULAR HEMOGLOBIN 23.1 pg (27.0-31.0); MEAN CORPUSCULAR HGB CONC 31.6 g/dL (33.0-37.0); RBC 4.5 Mil/uL (4.40-5.90); RED CELL DISTRIBUTION WIDTH 18.1 % (11.5-14.5); WHITE BLOOD COUNT 7.5 K/uL (4.8-10.8)
[2017-10-15 06:20] LABS: ALB/GLOB RATIO 0.7 (1.0-2.1); ALBUMIN 3.2 g/dL (3.5-5.0); ALT/SGPT 43 U/L (21-72); AST/SGOT 52 U/L (17-59); BLOOD UREA NITROGEN 12 mg/dl (9-20); CALCIUM 9.2 mg/dL (8.4-10.2); GFR AFRICAN-AMERICAN > 60; GFR NON-AFRICAN AMERICAN > 60
[2017-10-15] MEDS: POLYETHYLENE GLYCOL 3350 17 GM/Dose PACKET PO SCH (09:02)
[2017-10-15] MEDS: Pantoprazole 40 mg EC Tab PO SCH (09:02)
[2017-10-15] MEDS: Azithromycin 500 MG in Sodium Chloride 0.9% 250 ML IVPB SCH (09:06)
--- NOTE | 2017-10-15 11:38 | CP.PCM.PN ---
Subjective - Date & Time of Evaluation Date of Evaluation: 10/15/17 Time of Evaluation: 14:00 - Subjective Subjective: ID note- Pt. seen and examined today in ICU. Patient states earlier this morning he was not feeling well but is feeling somewhat betetr now. sitting in chair. states felt fever this am. denies any diarrhea. Objective - Vital Signs/Intake and Output Vital Signs (last 24 hours): Temp Pulse Resp BP Pulse Ox 98.8 F 101 H 20 103/72 98 10/15/17 08:00 10/15/17 10:00 10/15/17 11:10 10/15/17 10:00 10/15/17 10:00 Intake and Output: 10/15/17 10/15/17 06:59 18:59 Intake Total 316 450 Output Total 600 1500 Balance -284 -1050 - Medications Medications: Current Medications Acetaminophen (Tylenol 325mg Tab) 650 mg PO Q6 PRN PRN Reason: Fever >100.4 F Last Admin: 10/15/17 07:01 Dose: 650 mg Acetaminophen (Tylenol 325mg Tab) 650 mg PO Q6 PRN PRN Reason: Fever >100.4 F Carvedilol (Coreg) 6.25 mg PO Q12 [facility] Last Admin: 10/15/17 09:02 Dose: 6.25 mg Clopidogrel Bisulfate (Plavix) 75 mg PO DAILY [facility] Last Admin: 10/15/17 09:02 Dose: 75 mg Enalapril Maleate (Vasotec) 5 mg PO DAILY [facility] Last Admin: 10/15/17 09:03 Dose: 5 mg Ferrous Gluconate (Fergon) 324 mg PO DAILY [facility] Last Admin: 10/15/17 09:02 Dose: 324 mg Furosemide (Lasix) 40 mg IVP BID [facility] Last Admin: 10/15/17 09:02 Dose: 40 mg Guaifenesin/Dextromethorphan (Robitussin Dm) 10 ml PO Q4 PRN PRN Reason: Cough Last Admin: 10/14/17 23:46 Dose: 10 ml Cefepime HCl 1 gm/ Sodium (Chloride) 50 mls @ 50 mls/hr IVPB Q8 [facility] PRN Reason: Protocol Last Admin: 10/15/17 11:31 Dose: 50 mls/hr Azithromycin 500 mg/ Sodium (Chloride) 250 mls @ 250 mls/hr IVPB DAILY [facility] PRN Reason: Protocol Stop: 10/17/17 16:01 Last Admin: 10/15/17 09:06 Dose: 250 mls/hr Vancomycin HCl 1 gm/ Sodium (Chloride) 250 mls @ 125 mls/hr IVPB DAILY@1200 [facility] PRN Reason: Protocol Last Admin: 10/14/17 14:15 Dose: 125 mls/hr Dobutamine HCl/Dextrose (Dobutamine/Dextrose 5% 500mg/250ml) 500 mg in 250 mls @ 8.199 mls/hr IV .Q24H [facility]; 2.5 MCG/KG/MIN PRN Reason: Protocol Pantoprazole Sodium (Protonix Ec Tab) 40 mg PO DAILY [facility] Last Admin: 10/15/17 09:02 Dose: 40 mg Polyethylene Glycol (Miralax) 17 gm PO DAILY [facility] Last Admin: 10/14/17 08:52 Dose: 17 gm Spironolactone (Aldactone) 25 mg PO DAILY [facility] Last Admin: 10/15/17 09:01 Dose: 25 mg - Labs Labs: - Additional Findings Additional findings: - Constitutional Appears: No Acute Distress, Chronically Ill - Head Exam Head Exam: ATRAUMATIC - Eye Exam Eye Exam: EOMI - ENT Exam ENT Exam: Normal Oropharynx - Neck Exam Neck exam: Positive for: Full Rom - Respiratory Exam Additional comments: slightly tachypneic no wheezing bibasilar crackles heard 1/[address] up - Cardiovascular Exam Cardiovascular Exam: Tachycardia, +S1, +S2 - GI/Abdominal Exam GI & Abdominal Exam: Normal Bowel Sounds, Soft Additional comments: NT, ND - Extremities Exam Additional comments: trace LE edema B/L - Neurological Exam Neurological exam: Alert, Oriented x 3 Laboratory Results - last 72 hr 10/12/17 10/13/17 10/13/17 10:02 05:31 05:31 WBC 8.3 RBC 4.41 Hgb 10.3 L Hct 32.8 L MCV 74.5 L MCH 23.3 L MCHC 31.3 L RDW 17.9 H Plt Count 421 H Sodium 136 Potassium 3.9 Chloride 93 L Carbon Dioxide 35 H Anion Gap 12 BUN 10 Creatinine 0.8 Est GFR ( Amer) > 60 Est GFR (Non-Af Amer) > 60 Random Glucose 159 H Calcium 8.9 Total Bilirubin AST ALT Alkaline Phosphatase Total Protein Albumin Globulin Albumin/Globulin Ratio Urine Color Urine Clarity Urine pH Ur Specific [place] Urine Protein Urine Glucose (UA) Urine Ketones Urine Blood Urine Nitrate Urine Bilirubin Urine Urobilinogen Ur Leukocyte Esterase Urine RBC (Auto) Urine Microscopic WBC Ur Squamous Epith Cells Urine Bacteria HIV 1&2 Ag/Ab, 4th Gen Nonreactive Influenza Typ A,B (EIA) 10/14/17 10/14/17 10/14/17 04:40 04:40 21:23 WBC 8.3 RBC 4.37 L Hgb 10.3 L Hct 32.3 L MCV 73.9 L MCH 23.5 L MCHC 31.8 L RDW 18.0 H Plt Count 447 H Sodium 137 Potassium 3.9 Chloride 94 L Carbon Dioxide 33 H Anion Gap 14 BUN 11 Creatinine 0.8 Est GFR ( Amer) > 60 Est GFR (Non-Af Amer) > 60 Random Glucose 142 H Calcium 9.0 Total Bilirubin AST ALT Alkaline Phosphatase Total Protein Albumin Globulin Albumin/Globulin Ratio Urine Color Yellow Urine Clarity Slighty-cloudy Urine pH 5.0 Ur Specific [place] 1.026 Urine Protein 30 Urine Glucose (UA) Neg Urine Ketones Negative Urine Blood Moderate Urine Nitrate Negative Urine Bilirubin Negative Urine Urobilinogen 0.2-1.0 Ur Leukocyte Esterase Neg Urine RBC (Auto) 44 H Urine Microscopic WBC 4 Ur Squamous Epith Cells < 1 Urine Bacteria Rare HIV 1&2 Ag/Ab, 4th Gen Influenza Typ A,B (EIA) 10/15/17 10/15/17 10/15/17 04:55 04:55 18:50 WBC 7.5 RBC 4.50 Hgb 10.4 L Hct 33.0 L MCV 73.3 L MCH 23.1 L MCHC 31.6 L RDW 18.1 H Plt Count 492 H Sodium 137 Potassium 3.8 Chloride 94 L Carbon Dioxide 33 H Anion Gap 14 BUN 12 Creatinine 0.8 Est GFR ( Amer) > 60 Est GFR (Non-Af Amer) > 60 Random Glucose 147 H Calcium 9.2 Total Bilirubin 0.7 AST 52 ALT 43 Alkaline Phosphatase 76 Total Protein 7.8 Albumin 3.2 L Globulin 4.6 H Albumin/Globulin Ratio 0.7 L Urine Color Urine Clarity Urine pH Ur Specific [place] Urine Protein Urine Glucose (UA) Urine Ketones Urine Blood Urine Nitrate Urine Bilirubin Urine Urobilinogen Ur Leukocyte Esterase Urine RBC (Auto) Urine Microscopic WBC Ur Squamous Epith Cells Urine Bacteria HIV 1&2 Ag/Ab, 4th Gen Influenza Typ A,B (EIA) Negative for flu a/b Microbiology 10/14/17 09:09 Sputum Gram Stain - Preliminary 10/09/17 15:12 Blood-Venous Blood Culture - Final NO GROWTH AFTER 5 DAYS 10/09/17 15:12 Blood-Venous Gram Stain - Final TEST NOT PERFORMED 10/09/17 03:00 Naris MRSA Culture (Admit) - Final MRSA NOT DETECTED Accession No. : [id number] Patient Name / ID : JACOB WONG / [id number] Exam Date : 10/15/2017 16:11:00 ( Approved ) Study Comment : Sex / Age : M / 47Y Creator : Chano Logan MD Dictator : Chano Logan MD Aviation Support Equipment Repairer : [employer] Panels Deburrer : Chano Logan MD Approver2 : Report Date : 10/15/2017 16:55:41 My Comment : PROCEDURE: CT Chest without contrast HISTORY: Assess effusions and pneumonia. COMPARISON: 08/26/2017 CT thorax TECHNIQUE: Contiguous axial images were obtained through the chest without intravenous contrast enhancement. Sagittal and coronal reconstructions were performed. Radiation dose (DLP): 346.78 mGy-cm. This CT exam was performed using one or more of the following dose reduction techniques: Automated exposure control, adjustment of the mA and/or kV according to patient size, and/or use of iterative reconstruction technique. FINDINGS: LUNGS: Greater degree of confluence of infiltrates in the right lower lobe with virtual absence of normal aerated right lower lobe. Consolidative changes also progressive in the right middle lobe. Progressive consolidative changes primarily affecting left lower lobe. MEDIASTINUM: Unremarkable thoracic aorta. No aneurysm. Cardiomegaly. No evidence of acute, significant cardiovascular disease. Trace pericardial effusion persistent, stable mediastinal lymphadenopathy. PLEURA: Approximately stable right pleural effusion. BONES: No fracture. No destructive lesion. UPPER ABDOMEN: Grossly unremarkable. OTHER FINDINGS: None. IMPRESSION: Progressive consolidative changes right lower lobe, right middle lobe without endobronchial or extrinsic abnormality. Progressive consolidative changes left lower lobe. Assessment and Plan (1) CHF (NYHA class III, ACC/AHA stage C) Status: Acute (2) CHF (congestive heart failure) Status: Acute (3) CHF exacerbation Status: Acute (4) Pneumonia Status: Acute (5) Fever Status: Acute (6) Pleural effusion Status: Acute - Assessment and Plan (Free Text) Assessment: A/P- 47 year old male with decompensated CHF admitted with worsening sob and found to have pneumonia and Right pleural effusion and fever. febrile today but temp trending down cxr report noted blood cx- neg x 2 influenza- neg x 2 HIV ab- neg leukocytosis has resolved. chest ct report noted. plan- await urine legionella AG. await mycoplasma serology. check sputum cx advise to continue with current antibiotics of zithromax and and vanco to cover for both HAP and atypical pathogens. will d/c cefepime and start meropnem for broader coverage. check LE dopplers r/o DVT as part fever work up. ICU time spent 45 minutes.
--- NOTE | 2017-10-15 14:27 | PQF GENQUE ---
Dr. Gutierrez, 1. Please specify type of pneumonia in the progress notes: i.e. (Note: CAP, HAP, and HCAP indicate where the pneumonia was acquired, not a specific type) Aspiration pneumonia Please document specific aspirate (food, liquids, etc.) Please indicate if this is postprocedural Bacterial (specify organism) Bronchopneumonia (specify organism) Interstitual pneumonia Organizing pneumonia/BOOP Pneumonia with influenza, edwige flu, or H1N1 flu RSV pneumonia Tuberculosis, pulmonary Viral pneumonia Other pneumonia (specify organism or type) OR Clinically unable to determine OR Unknown 2. . Please specify the organism causing the pneumonia: if known after the work up is completed 10/11 CXR: Impression: Increasing opacity at right base may be due to possible developing pneumonia or increasing pleural effusion. Left basilar subsegmental atelectasis. Influenza A,B: negative Sputum culture: pending Blood culture: negative CT Chest: ordered on 10/15 IVAB'S: Zithromax, Vancomycin, Rocephin, Maxipime H and P: The patient was admitted on August for pneumonia and CHF and he signed against medical advice. Assessment: 1. Exacerbation of congestive heart failure, acute on chronic, systolic heart failure. 2. [id number] myocardial infarction with elevated troponins. 10/11 Critical Care Note: Acute Respiratory Insufficiency 2 to bilateral lower lobe pneumonia thought to be 2 to HCAP and CHF exacerbation; on high flow O2. 10/14 ID note: asked to see this patient for persistent fever and pneumonia. He states he was recently d/c from here for pneumonia and was inpatient 3 days and received iv antibiotics and d/c on home oral antibiotics. This form is a permanent part of the medical record Clarification of your documentation is requested to better reflect the severity of illness and intensity of treatment of your patient. Indicators present [] Specify: [] [] Specify: [] [] Specify: [] [] Specify: [] Location in the medical record that reflects the above clinical findings: [] Treatment Provided: [] PHYSICIAN'S RESPONSE Based on your medical judgment of the clinical indicators outlined above please clarify the following: [] Practitioner response [] If unable to determine, please check the box, sign and date. Present On Admission (POA) Indicator: [] Present at the time of admission [] Not present at the time of admission [] Clinically Undetermined In responding to this query, please exercise your independent professional judgment. The fact that a question is asked does not imply that any particular answer is desired or expected. Thank you for your clarification on this documentation. If you have any questions please call. * Thank you, Rhiannon Rodriguez RN ext. #[phone] MTDD
[2017-10-15] MEDS: DOBUTamine 500mg/250ml D5W 500 MG/250 ML BAG IV SCH (15:26)
--- NOTE | 2017-10-15 16:57 | CT ---
PROCEDURE: CT Chest without contrast HISTORY: Assess effusions and pneumonia. COMPARISON: 08/26/2017 CT thorax TECHNIQUE: Contiguous axial images were obtained through the chest without intravenous contrast enhancement. Sagittal and coronal reconstructions were performed. Radiation dose (DLP): 346.78 mGy-cm. This CT exam was performed using one or more of the following dose reduction techniques: Automated exposure control, adjustment of the mA and/or kV according to patient size, and/or use of iterative reconstruction technique. FINDINGS: LUNGS: Greater degree of confluence of infiltrates in the right lower lobe with virtual absence of normal aerated right lower lobe. Consolidative changes also progressive in the right middle lobe. Progressive consolidative changes primarily affecting left lower lobe. MEDIASTINUM: Unremarkable thoracic aorta. No aneurysm. Cardiomegaly. No evidence of acute, significant cardiovascular disease. Trace pericardial effusion persistent, stable mediastinal lymphadenopathy. PLEURA: Approximately stable right pleural effusion. BONES: No fracture. No destructive lesion. UPPER ABDOMEN: Grossly unremarkable. OTHER FINDINGS: None. IMPRESSION: Progressive consolidative changes right lower lobe, right middle lobe without endobronchial or extrinsic abnormality. Progressive consolidative changes left lower lobe.
--- NOTE | 2017-10-15 18:52 | CP.CCUPN ---
CCU Subjective - Physician Review Events Since Last Encounter (Free Text): 10/15/17 The patient was Seen/interviewed and examined by me at the bedside, Medical records reviewed and Management issues were discussed and formulated with the house staff. Events reviewed 47 Years old Male with PMHx of severe heart failure and Sleep apnea presenting with worsening SOB with associated fevers and cough. admitted to ICU with acute exacerbation of chronic systolic heart failure sec to NSTEMI and pneumonia. This morning he feels well and denies any chest pain, SOB or Palpitations Only complaint of mild dyspnea on exertion and intermittent dry cough Afebrile, NSR on the monitor Good O2 Saturation on HFNC 20L/M, 40% FiO2. Last 24H I&O 1835/1880 Afebrile, azithromycin was added to IV Vanco and Cefapime BP has been stable and good urine output, on lasix, Aldactone and low dose dobutamine. This morning labs reviewed, Renal function (12/0.8) and electrolytes stable Scheduled for Chest CT scan to evaluate Lung parnchyma and pleural effusion ( then will possible need thoracocentesis Vs chest tube) CCU Objective - Vital Signs / Intake & Output Vital Signs (Last 4 hours): Vital Signs Temp Pulse Resp BP Pulse Ox 10/15/17 18:00 105 H 21 118/76 96 10/15/17 17:35 118/76 10/15/17 17:00 106 H 15 104/45 L 97 10/15/17 16:00 99.7 F H 107 H 25 H 104/45 L 95 10/15/17 14:59 20 Intake and Output (Last 8hrs): Intake & Output 10/15/17 10/15/17 10/15/17 06:59 14:59 22:59 Intake Total 284 900 340 Output Total 350 2200 1000 Balance -66 -1300 -660 Intake: IV 64 Intake, Piggyback 100 500 100 Oral 120 400 240 Output: Urine 350 2200 1000 Urine, Voided 350 2200 1000 Other: # Voids Urine, Voided 1 - Physical Exam Head: Positive for: Normocephalic Pupils: Positive for: PERRL Extroacular Muscles: Positive for: EOMI Conjunctiva: Positive for: Normal. Negative for: Icteric Mouth: Positive for: Moist Mucous Membranes Neck: Positive for: Normal Range of Motion, Trachea Midline Respiratory/Chest: Positive for: Respiratory Distress, Decreased Breath Sounds, Rales (bilateral bases). Negative for: Tender to Palpation Cardiovascular: Positive for: Regular Rate and Rhythm, Tachycardic, Other ( distant heart sounds) Abdomen: Positive for: Normal Bowel Sounds. Negative for: Tenderness, Distention, Mass/Organomegaly Upper Extremity: Positive for: Normal Inspection. Negative for: Edema Lower Extremity: Positive for: Normal Inspection, Edema (+1 right side, trace left side). Negative for: Cyanosis, Erythema, Temperature Abnormalties Neurological: Positive for: GCS=15, CN II-XII Intact, Speech Normal, Motor Func Grossly Intact, Normal Sensory Function Skin: Positive for: Warm, Dry. Negative for: Rashes Psychiatric: Positive for: Alert, Oriented x 3 - Medications Active Medications: Active Medications Generic Name Dose Route Start Last Admin Trade Name Freq PRN Reason Stop Dose Admin Acetaminophen 650 mg 10/09/17 18:07 10/15/17 07:01 Tylenol 325mg Tab PO 650 mg Q6 PRN Administration Fever >100.4 F Acetaminophen 650 mg 10/12/17 15:47 Tylenol 325mg Tab PO Q6 PRN Fever >100.4 F Carvedilol 6.25 mg 10/09/17 21:00 10/15/17 09:02 Coreg PO 6.25 mg Q12 SONJA Administration Clopidogrel Bisulfate 75 mg 10/10/17 09:00 10/15/17 09:02 Plavix PO 75 mg DAILY SONJA Administration Enalapril Maleate 5 mg 10/10/17 09:00 10/15/17 09:03 Vasotec PO 5 mg DAILY SONJA Administration Ferrous Gluconate 324 mg 10/11/17 09:00 10/15/17 09:02 Fergon PO 324 mg DAILY SONJA Administration Furosemide 40 mg 10/11/17 09:00 10/15/17 17:35 Lasix IVP 40 mg BID SONJA Administration Guaifenesin/Dextromethorphan 10 ml 10/12/17 14:07 10/14/17 23:46 Robitussin Dm PO 10 ml Q4 PRN Administration Cough Cefepime HCl 1 gm/ Sodium 50 mls @ 50 mls/hr 10/12/17 17:00 10/15/17 17:35 Chloride IVPB 50 mls/hr Q8 SONJA Administration Protocol Azithromycin 500 mg/ Sodium 250 mls @ 250 mls/hr 10/12/17 16:00 10/15/17 09: 06 Chloride IVPB 10/17/17 16:01 250 mls/hr DAILY SONJA Administration Protocol Vancomycin HCl 1 gm/ Sodium 250 mls @ 125 mls/hr 10/13/17 13:00 10/15/17 13: 00 Chloride IVPB 125 mls/hr DAILY@1200 SONJA Administration Protocol Dobutamine HCl/Dextrose 500 mg in 250 mls @ 8.199 mls/hr 10/14/17 06:16 10/15 15:26 Dobutamine/Dextrose 5% 500mg/250ml IV 2.5 mcg/kg/min .Q24H SONJA 8.199 mls/hr Protocol Administration 2.5 MCG/KG/MIN Pantoprazole Sodium 40 mg 10/09/17 18:15 10/15/17 09:02 Protonix Ec Tab PO 40 mg DAILY SONJA Administration Polyethylene Glycol 17 gm 10/10/17 17:00 10/15/17 09:02 Miralax PO Not Given DAILY SONJA Spironolactone 25 mg 10/10/17 09:00 10/15/17 09:01 Aldactone PO 25 mg DAILY SONJA Administration - Patient Studies Lab Studies: Microbiology Studies 10/14/17 09:09 Gram Stain - Preliminary Sputum 10/09/17 15:12 Blood Culture - Final Blood-Venous NO GROWTH AFTER 5 DAYS Gram Stain - Final TEST NOT PERFORMED Lab Studies 10/15/17 10/15/17 10/14/17 Range/Units 04:55 04:55 21:23 WBC 7.5 (4.8-10.8) K/uL RBC 4.50 (4.40-5.90) Mil/uL Hgb 10.4 L (12.0-18.0) g/dL Hct 33.0 L (35.0-51.0) % MCV 73.3 L (80.0-94.0) fl MCH 23.1 L (27.0-31.0) pg MCHC 31.6 L (33.0-37.0) g/dL RDW 18.1 H (11.5-14.5) % Plt Count 492 H (130-400) K/uL Sodium 137 (132-148) mmol/l Potassium 3.8 (3.6-5.0) MMOL/L Chloride 94 L (98-107) mmol/L Carbon Dioxide 33 H (22-30) mmol/L Anion Gap 14 (10-20) BUN 12 (9-20) mg/dl Creatinine 0.8 (0.8-1.5) mg/dl Est GFR ( Amer) > 60 Est GFR (Non-Af Amer) > 60 Random Glucose 147 H (75-110) mg/dL Calcium 9.2 (8.4-10.2) mg/dL Total Bilirubin 0.7 (0.2-1.3) mg/dl AST 52 (17-59) U/L ALT 43 (21-72) U/L Alkaline Phosphatase 76 (38-126) U/L Total Protein 7.8 (6.3-8.2) G/DL Albumin 3.2 L (3.5-5.0) g/dL Globulin 4.6 H (2.2-3.9) gm/dL Albumin/Globulin Ratio 0.7 L (1.0-2.1) Urine Color Yellow (YELLOW) Urine Clarity Slighty-cloudy (Clear) Urine pH 5.0 (5.0-8.0) Ur Specific [place] 1.026 (1.003-1.030) Urine Protein 30 (NEGATIVE) mg/dL Urine Glucose (UA) Neg (Normal) mg/dL Urine Ketones Negative (NEGATIVE) mg/dL Urine Blood Moderate (NEGATIVE) Urine Nitrate Negative (NEGATIVE) Urine Bilirubin Negative (NEGATIVE) Urine Urobilinogen 0.2-1.0 (0.2-1.0) mg/dL Ur Leukocyte Esterase Neg (Negative) Efrem/uL Urine RBC (Auto) 44 H (0-3) /hpf Urine Microscopic WBC 4 (0-5) /hpf Ur Squamous Epith Cells < 1 (0-5) /hpf Urine Bacteria Rare (<OCC) Laboratory Results - last 24 hr 10/14/17 10/15/17 10/15/17 21:23 04:55 04:55 WBC 7.5 RBC 4.50 Hgb 10.4 L Hct 33.0 L MCV 73.3 L MCH 23.1 L MCHC 31.6 L RDW 18.1 H Plt Count 492 H Sodium 137 Potassium 3.8 Chloride 94 L Carbon Dioxide 33 H Anion Gap 14 BUN 12 Creatinine 0.8 Est GFR ( Amer) > 60 Est GFR (Non-Af Amer) > 60 Random Glucose 147 H Calcium 9.2 Total Bilirubin 0.7 AST 52 ALT 43 Alkaline Phosphatase 76 Total Protein 7.8 Albumin 3.2 L Globulin 4.6 H Albumin/Globulin Ratio 0.7 L Urine Color Yellow Urine Clarity Slighty-cloudy Urine pH 5.0 Ur Specific [place] 1.026 Urine Protein 30 Urine Glucose (UA) Neg Urine Ketones Negative Urine Blood Moderate Urine Nitrate Negative Urine Bilirubin Negative Urine Urobilinogen 0.2-1.0 Ur Leukocyte Esterase Neg Urine RBC (Auto) 44 H Urine Microscopic WBC 4 Ur Squamous Epith Cells < 1 Urine Bacteria Rare Review of Systems - Cardiovascular Cardiovascular: absent: Chest Pain, Chest Pain at Rest, Chest Pain with Activity , Claudication, Diaphoresis - Respiratory Respiratory: Dyspnea on Exertion. absent: Cough, Dyspnea, Wheezing, Snoring Critical Care Progress Note - Extremities/Vascular Does the Patient have a Central Venous Catheter?: No Does the Patient need a Central Venous Catheter?: No Does the Patient have a Vargas Catheter?: No Does the Patient need a Vargas Catheter?: No - Nutrition Nutrition: Nutrition Category Date Time Status Heart Healthy Diet [DIET] Diets 10/09/17 Breakfast Active Assessment/Plan (1) Systolic dysfunction with acute on chronic heart failure Current Visit: No Status: Acute Comment: Continue with dobuatmine, Aldactone, Plavix and Lasix 40 mg IV q 12H Strict I&Os Monitor urine output and daily weights. (2) CHF (NYHA class III, ACC/AHA stage C) Current Visit: Yes Status: Acute (3) NSTEMI (non-ST elevated myocardial infarction) Current Visit: Yes Status: Acute (4) Pneumonia Current Visit: No Status: Acute Comment: Continue cefipime and Vanco, azithromycin was added Scheduled for Chest CT scan to evaluate Lung parnchyma and pleural effusion ( then will possible need thoracocentesis Vs chest tube) (5) Ventricular dysfunction of heart Current Visit: No Status: Acute Comment: Pt will follow up with Dr. Martinez for defribrilator inplantation as outpatient (6) Metabolic alkalosis Current Visit: Yes Status: Acute Comment: Metabolic alkalosis: mild, due to diuretics, if worsened, will as acetozolamide (7) Sleep apnea Current Visit: No Status: Chronic Priority: Medium
[2017-10-15] MEDS: guaiFENesin DM 200 mg-20 mg/10 ml UD PO PRN (20:38)
--- NOTE | 2017-10-15 22:14 | PN ---
DATE: 10/15/2017 SUBJECTIVE: The patient is seen today, 10/15/2017. He still has low-grade fever. PHYSICAL EXAMINATION: VITAL SIGNS: Blood pressure is 115/62, temperature 100.8, respiratory rate 24, pulse 103. HEENT: Pupils equal, reactive to light. Normal-appearing mucosa of the conjunctivae, oropharynx, and nasal membrane mucosa. NECK: Supple. No JVD. No carotid bruit. No lymph node. No thyromegaly. CHEST AND LUNGS: Bilateral symmetrical expansion. Good air exchange. No rales. No rhonchi. CARDIOVASCULAR SYSTEM: PMI not localized. S1, S2. No additional sounds. ABDOMEN: Normoactive bowel sounds. No tenderness. No organomegaly. No masses. EXTREMITIES: No cyanosis. No clubbing. No edema. CENTRAL NERVOUS SYSTEM: Alert, awake, oriented x2. No neurological deficits could be appreciated. DIAGNOSTIC DATA: CAT scan of the chest was done and showed progressive consolidative changes, right lower lobe and right middle lobe without endobronchial or extrinsic abnormality. ASSESSMENT: 1. Acute exacerbation of congestive heart failure, acute on chronic. 2. Bilateral pneumonia, which are not resolving in spite of multiple IV antibiotics. PLAN: We will do pulmonary consult. Continue current diuretics and ionotropic agents. Discussed the patient's condition with shoulder boner. Harry Gutierrez MD
[2017-10-16] MEDS: Meropenem 1 GM in Sodium Chloride 0.9% 100 ML IVPB SCH ×3 (00:48→16:10)
[2017-10-16 05:40] LABS: HEMOGLOBIN 10.7 g/dL (12.0-18.0); MEAN CELL VOLUME 73.2 fl (80.0-94.0); MEAN CORPUSCULAR HEMOGLOBIN 23.2 pg (27.0-31.0); MEAN CORPUSCULAR HGB CONC 31.7 g/dL (33.0-37.0); RBC 4.59 Mil/uL (4.40-5.90); RED CELL DISTRIBUTION WIDTH 17.7 % (11.5-14.5); WHITE BLOOD COUNT 5.3 K/uL (4.8-10.8)
[2017-10-16 06:01] LABS: BLOOD UREA NITROGEN 13 mg/dl (9-20); CALCIUM 9.2 mg/dL (8.4-10.2); GFR AFRICAN-AMERICAN > 60; GFR NON-AFRICAN AMERICAN > 60
[2017-10-16 06:07] LABS: B-TYPE NATRIURETIC PEPTIDE 3660 pg/ml (0-450)
[2017-10-16] MEDS: Pantoprazole 40 mg EC Tab PO SCH (08:43)
[2017-10-16] MEDS: Azithromycin 500 MG in Sodium Chloride 0.9% 250 ML IVPB SCH (09:17)
[2017-10-16] MEDS: POLYETHYLENE GLYCOL 3350 17 GM/Dose PACKET PO SCH (10:27)
--- NOTE | 2017-10-16 15:27 | CP.CCUPN ---
CCU Subjective - Physician Review Subjective (Free Text): Less dyspnea on exertion, has been sitting OOB, remains on HFNC 40% at 20 LPM. Other vitals and I/O's reviewed. Systolic BPs remain 90-109, HR 90-100 in sinus rhythm, on fixed dose Dobutamine therapy. Coughing less, denies any chills, no increase in R-sided achy chest discomfort, diaphoresis, [id number], dizziness, nor any increase in generalized weakness. ROS: No other pertinent negs or positives on 10+ system review obtainable. PMSFH: + CVA 2012, no residual deficits, denies smoking or chronic ETOH use, + family hx of Lymphoma. All other Nursing and physician documentation reviewed to date; no new pertinent info noted relevant to current medical problems. CXR: ( my interp): CT chest reviewed- small R effusion with underlying infiltrate and compressive atelectasis. IMPRESSION / MAJOR PROBLEMS NOW: 1. Acute on Chronic CHF / Cardiomyopathy ( etiology of Cardiomyopathy unknown to patient, no hx of CAD as per last cath 2014), r/o ACS Acute - Subacute ID 2. Acute resp Insuff with LLL Pneumonia, old RLL pneumonia last treated and hospitalized Aug 2017. 3. Chronic Disease Anemia PLAN: 1. Off Heparin Drip. 2. Monitor resp status for any need for MV support beyond current support on HFNC. 3. Pulm eval / IR eval for consensus opinion of need for thoracentesis. 4. Empiric Abx coverage on Jarad / Vanco/ Azithro. So far, all cultures negative. CCU Objective - Vital Signs / Intake & Output Vital Signs (Last 4 hours): Vital Signs Temp Pulse Resp BP Pulse Ox 10/16/17 15:00 109 H 28 H 90/65 L 98 10/16/17 14:00 98 H 16 109/65 98 10/16/17 13:00 102 H 28 H 96/61 L 98 10/16/17 12:30 98.9 F 100 H 20 93/64 L 99 10/16/17 11:47 22 Intake and Output (Last 8hrs): Intake & Output 10/16/17 10/16/17 10/16/17 06:59 14:59 22:59 Intake Total 192 1440 Output Total 450 1200 Balance -258 240 Weight 232 lb Intake: IV 192 Intake, Piggyback 600 Oral 840 Output: Urine 450 1200 Urine, Voided 450 1200 - Physical Exam Head: Positive for: Normocephalic Pupils: Positive for: PERRL Extroacular Muscles: Positive for: EOMI Conjunctiva: Positive for: Normal. Negative for: Icteric Mouth: Positive for: Moist Mucous Membranes Neck: Positive for: Normal Range of Motion, Trachea Midline Respiratory/Chest: Positive for: Decreased Breath Sounds, Rales (bilateral bases ). Negative for: Accessory Muscle Use, Wheezes, Tender to Palpation Cardiovascular: Positive for: Regular Rate and Rhythm, Tachycardic, Other ( distant heart sounds) Abdomen: Positive for: Normal Bowel Sounds. Negative for: Tenderness, Distention, Mass/Organomegaly Upper Extremity: Positive for: Normal Inspection. Negative for: Edema Lower Extremity: Positive for: Normal Inspection, Edema (+1 right side, trace left side). Negative for: Cyanosis, Erythema, Temperature Abnormalties Neurological: Positive for: GCS=15, CN II-XII Intact, Motor Func Grossly Intact Skin: Positive for: Warm, Dry. Negative for: Rashes Psychiatric: Positive for: Alert, Oriented x 3 - Medications Active Medications: Active Medications Generic Name Dose Route Start Last Admin Trade Name Freq PRN Reason Stop Dose Admin Acetaminophen 650 mg 10/09/17 18:07 10/15/17 07:01 Tylenol 325mg Tab PO 650 mg Q6 PRN Administration Fever >100.4 F Acetaminophen 650 mg 10/12/17 15:47 10/15/17 20:42 Tylenol 325mg Tab PO 650 mg Q6 PRN Administration Fever >100.4 F Carvedilol 6.25 mg 10/09/17 21:00 10/16/17 08:39 Coreg PO 6.25 mg Q12 SONJA Administration Clopidogrel Bisulfate 75 mg 10/10/17 09:00 10/16/17 08:43 Plavix PO 75 mg DAILY SONJA Administration Enalapril Maleate 5 mg 10/10/17 09:00 10/16/17 08:39 Vasotec PO 5 mg DAILY SONJA Administration Ferrous Gluconate 324 mg 10/11/17 09:00 10/16/17 08:39 Fergon PO 324 mg DAILY SONJA Administration Furosemide 40 mg 10/11/17 09:00 10/16/17 09:17 Lasix IVP 40 mg BID SONJA Administration Guaifenesin/Dextromethorphan 10 ml 10/12/17 14:07 10/15/17 20:38 Robitussin Dm PO 10 ml Q4 PRN Administration Cough Azithromycin 500 mg/ Sodium 250 mls @ 250 mls/hr 10/12/17 16:00 10/16/17 09: 17 Chloride IVPB 10/17/17 16:01 250 mls/hr DAILY SONJA Administration Protocol Vancomycin HCl 1 gm/ Sodium 250 mls @ 125 mls/hr 10/13/17 13:00 10/16/17 11: 56 Chloride IVPB 125 mls/hr DAILY@1200 SONJA Administration Protocol Dobutamine HCl/Dextrose 500 mg in 250 mls @ 8.199 mls/hr 10/14/17 06:16 10/15 19:51 Dobutamine/Dextrose 5% 500mg/250ml IV 2.5 mcg/kg/min .Q24H SONJA 8.199 mls/hr Protocol Titration 2.5 MCG/KG/MIN Meropenem 1 gm/ Sodium 100 mls @ 100 mls/hr 10/16/17 01:00 10/16/17 08:41 Chloride IVPB 100 mls/hr Q8 SONJA Administration Protocol Pantoprazole Sodium 40 mg 10/09/17 18:15 10/16/17 08:43 Protonix Ec Tab PO 40 mg DAILY SONJA Administration Polyethylene Glycol 17 gm 10/10/17 17:00 10/16/17 10:27 Miralax PO Not Given DAILY SONJA Spironolactone 25 mg 10/10/17 09:00 10/16/17 08:41 Aldactone PO 25 mg DAILY SNOJA Administration - Patient Studies Lab Studies: Microbiology Studies 10/14/17 21:23 Urine Culture - Final Urine No Growth (<1,000 CFU/ML) 10/14/17 09:09 Gram Stain - Preliminary Sputum Lab Studies 10/16/17 10/16/17 10/16/17 Range/Units 07:16 04:40 04:40 WBC 5.3 (4.8-10.8) K/uL RBC 4.59 (4.40-5.90) Mil/uL Hgb 10.7 L (12.0-18.0) g/dL Hct 33.6 L (35.0-51.0) % MCV 73.2 L (80.0-94.0) fl MCH 23.2 L (27.0-31.0) pg MCHC 31.7 L (33.0-37.0) g/dL RDW 17.7 H (11.5-14.5) % Plt Count 477 H (130-400) K/uL Sodium 138 (132-148) mmol/l Potassium 3.9 (3.6-5.0) MMOL/L Chloride 93 L (98-107) mmol/L Carbon Dioxide 35 H (22-30) mmol/L Anion Gap 14 (10-20) BUN 13 (9-20) mg/dl Creatinine 0.8 (0.8-1.5) mg/dl Est GFR ( Amer) > 60 Est GFR (Non-Af Amer) > 60 Random Glucose 138 H (75-110) mg/dL Calcium 9.2 (8.4-10.2) mg/dL Troponin I 0.0830 (0.00-0.120) ng/mL NT-Pro-B Natriuret Pep 3660 H (0-450) pg/ml HIV-1 Ab Rapid Screen Non reactive (NON REAC) Influenza Typ A,B (EIA) (NEGATIVE) Mycoplasma pneumon IgG (<=0.90) 10/15/17 10/14/17 Range/Units 18:50 17:07 WBC (4.8-10.8) K/uL RBC (4.40-5.90) Mil/uL Hgb (12.0-18.0) g/dL Hct (35.0-51.0) % MCV (80.0-94.0) fl MCH (27.0-31.0) pg MCHC (33.0-37.0) g/dL RDW (11.5-14.5) % Plt Count (130-400) K/uL Sodium (132-148) mmol/l Potassium (3.6-5.0) MMOL/L Chloride (98-107) mmol/L Carbon Dioxide (22-30) mmol/L Anion Gap (10-20) BUN (9-20) mg/dl Creatinine (0.8-1.5) mg/dl Est GFR ( Amer) Est GFR (Non-Af Amer) Random Glucose (75-110) mg/dL Calcium (8.4-10.2) mg/dL Troponin I (0.00-0.120) ng/mL NT-Pro-B Natriuret Pep (0-450) pg/ml HIV-1 Ab Rapid Screen (NON REAC) Influenza Typ A,B (EIA) Negative for flu a/b (NEGATIVE) Mycoplasma pneumon IgG 3.50 H (<=0.90) Laboratory Results - last 24 hr 10/14/17 10/15/17 10/16/17 17:07 18:50 04:40 WBC 5.3 RBC 4.59 Hgb 10.7 L Hct 33.6 L MCV 73.2 L MCH 23.2 L MCHC 31.7 L RDW 17.7 H Plt Count 477 H Sodium Potassium Chloride Carbon Dioxide Anion Gap BUN Creatinine Est GFR ( Amer) Est GFR (Non-Af Amer) Random Glucose Calcium Troponin I NT-Pro-B Natriuret Pep HIV-1 Ab Rapid Screen Influenza Typ A,B (EIA) Negative for flu a/b Mycoplasma pneumon IgG 3.50 H 10/16/17 10/16/17 04:40 07:16 WBC RBC Hgb Hct MCV MCH MCHC RDW Plt Count Sodium 138 Potassium 3.9 Chloride 93 L Carbon Dioxide 35 H Anion Gap 14 BUN 13 Creatinine 0.8 Est GFR ( Amer) > 60 Est GFR (Non-Af Amer) > 60 Random Glucose 138 H Calcium 9.2 Troponin I 0.0830 NT-Pro-B Natriuret Pep 3660 H HIV-1 Ab Rapid Screen Non reactive Influenza Typ A,B (EIA) Mycoplasma pneumon IgG
--- NOTE | 2017-10-16 18:48 | CP.PCM.PN ---
Subjective - Date & Time of Evaluation Date of Evaluation: 10/16/17 Time of Evaluation: 18:40 - Subjective Subjective: patient is still coughing, but improved. Objective - Vital Signs/Intake and Output Vital Signs (last 24 hours): Temp Pulse Resp BP Pulse Ox 99.5 F 105 H 15 117/74 98 10/16/17 16:00 10/16/17 18:00 10/16/17 18:00 10/16/17 18:00 10/16/17 18:00 Intake and Output: 10/16/17 10/16/17 06:59 18:59 Intake Total 538 1900 Output Total 950 2100 Balance -412 -200 - Medications Medications: Current Medications Acetaminophen (Tylenol 325mg Tab) 650 mg PO Q6 PRN PRN Reason: Fever >100.4 F Last Admin: 10/15/17 07:01 Dose: 650 mg Acetaminophen (Tylenol 325mg Tab) 650 mg PO Q6 PRN PRN Reason: Fever >100.4 F Last Admin: 10/15/17 20:42 Dose: 650 mg Carvedilol (Coreg) 6.25 mg PO Q12 [facility] Last Admin: 10/16/17 08:39 Dose: 6.25 mg Clopidogrel Bisulfate (Plavix) 75 mg PO DAILY [facility] Last Admin: 10/16/17 08:43 Dose: 75 mg Enalapril Maleate (Vasotec) 5 mg PO DAILY [facility] Last Admin: 10/16/17 08:39 Dose: 5 mg Ferrous Gluconate (Fergon) 324 mg PO DAILY [facility] Last Admin: 10/16/17 08:39 Dose: 324 mg Furosemide (Lasix) 40 mg IVP BID [facility] Last Admin: 10/16/17 16:12 Dose: 40 mg Guaifenesin/Dextromethorphan (Robitussin Dm) 10 ml PO Q4 PRN PRN Reason: Cough Last Admin: 10/15/17 20:38 Dose: 10 ml Azithromycin 500 mg/ Sodium (Chloride) 250 mls @ 250 mls/hr IVPB DAILY [facility] PRN Reason: Protocol Stop: 10/17/17 16:01 Last Admin: 10/16/17 09:17 Dose: 250 mls/hr Vancomycin HCl 1 gm/ Sodium (Chloride) 250 mls @ 125 mls/hr IVPB DAILY@1200 SONJA PRN Reason: Protocol Last Admin: 10/16/17 11:56 Dose: 125 mls/hr Dobutamine HCl/Dextrose (Dobutamine/Dextrose 5% 500mg/250ml) 500 mg in 250 mls @ 8.199 mls/hr IV .Q24H SONJA; 2.5 MCG/KG/MIN PRN Reason: Protocol Last Titration: 10/15/17 19:51 Dose: 2.5 mcg/kg/min, 8.199 mls/hr Meropenem 1 gm/ Sodium (Chloride) 100 mls @ 100 mls/hr IVPB Q8 [facility] PRN Reason: Protocol Last Admin: 10/16/17 16:10 Dose: 100 mls/hr Pantoprazole Sodium (Protonix Ec Tab) 40 mg PO DAILY [facility] Last Admin: 10/16/17 08:43 Dose: 40 mg Polyethylene Glycol (Miralax) 17 gm PO DAILY [facility] Last Admin: 10/16/17 10:27 Dose: Not Given Spironolactone (Aldactone) 25 mg PO DAILY [facility] Last Admin: 10/16/17 08:41 Dose: 25 mg - Labs Labs: 10/16/17 04:40 10/16/17 04:40 PT 17.4 Seconds (9.8-13.1) H D 10/11/17 05:40 INR 1.6 (0.9-1.2) H 10/11/17 05:40 APTT 52.6 Seconds (25.6-37.1) H D 10/11/17 18:55 - Constitutional Appears: Non-toxic - Head Exam Head Exam: NORMAL INSPECTION - Eye Exam Eye Exam: Normal appearance - ENT Exam ENT Exam: Mucous Membranes Moist - Neck Exam Neck Exam: Full ROM - Respiratory Exam Respiratory Exam: Decreased Breath Sounds - Cardiovascular Exam Cardiovascular Exam: REGULAR RHYTHM - GI/Abdominal Exam GI & Abdominal Exam: Normal Bowel Sounds - Rectal Exam Rectal Exam: Deferred - Extremities Exam Extremities Exam: absent: Pedal Edema - Back Exam Back Exam: NORMAL INSPECTION - Neurological Exam Neurological Exam: Alert - Psychiatric Exam Psychiatric exam: Normal Affect - Skin Skin Exam: Normal Color Assessment and Plan (1) Systolic dysfunction with acute on chronic heart failure Assessment & Plan: will maintain dobutamine Status: Acute (2) CHF (NYHA class III, ACC/AHA stage C) Assessment & Plan: will eventually need BiVAICD, will schedule outpatient. Status: Acute
[2017-10-17] MEDS: DOBUTamine 500mg/250ml D5W 500 MG/250 ML BAG IV SCH (00:03)
[2017-10-17] MEDS: guaiFENesin DM 200 mg-20 mg/10 ml UD PO PRN (00:08)
[2017-10-17] MEDS: Meropenem 1 GM in Sodium Chloride 0.9% 100 ML IVPB SCH ×3 (01:38→17:20)
--- NOTE | 2017-10-17 02:16 | PN ---
DATE: 10/16/2017 SUBJECTIVE: The patient is seen today, October 16, 2017. He is still running fever and he suffers exertional shortness of breath. OBJECTIVE: VITAL SIGNS: Blood pressure 105/65, respiratory rate 18, pulse 99, and temperature 98.8. HEENT: Pupils equal, reactive to light. Normal-appearing mucosa of the conjunctivae, oropharynx and nasal membrane mucosa. NECK: Supple. No JVD. No carotid bruit. No lymph node. No thyromegaly. CHEST/LUNGS: Bilateral symmetrical expansion. Good air exchange. No rales, no rhonchi. CARDIOVASCULAR: PMI not localized. S1, S2. No additional sounds. ABDOMEN: Normoactive bowel sounds. No tenderness. No organomegaly. No masses. EXTREMITIES: No cyanosis, no clubbing, no edema. SHEET ROCK LAYER: Alert, awake, oriented x2. No neurological deficit could be appreciated. ASSESSMENT: 1. Bilateral pneumonia. 2. Exacerbation of congestive heart failure - acute on chronic, systolic. 3. Type-2 diabetes mellitus. PLAN: Pulmonary consult. Follow up recommendations of Infectious Disease and Cardiology. Continue current medications. Harry Gutierrez MD
[2017-10-17 06:00] LABS: BASO # 0.2 K/uL (0.0-0.2); BASO % 2.2 % (0.0-2.0); EOS # 0.3 K/uL (0.0-0.7); EOS % 4.1 % (0.0-4.0); LYMPH # 1.1 K/uL (1.0-4.3); LYMPH % 14.6 % (20.0-40.0); MEAN CELL VOLUME 73.2 fl (80.0-94.0); MEAN CORPUSCULAR HEMOGLOBIN 23.4 pg (27.0-31.0); MEAN PLATELET VOLUME 7.1 fl (7.2-11.7); MONO # 0.7 K/uL (0.0-0.8); MONO % 9.6 % (0.0-10.0); NEUT # 5.3 K/uL (1.8-7.0); NEUT % 69.5 % (50.0-75.0); RBC 4.71 Mil/uL (4.40-5.90); RED CELL DISTRIBUTION WIDTH 18.3 % (11.5-14.5); WHITE BLOOD COUNT 7.7 K/uL (4.8-10.8)
[2017-10-17 06:14] LABS: BLOOD UREA NITROGEN 17 mg/dl (9-20); CALCIUM 9.5 mg/dL (8.4-10.2); GFR AFRICAN-AMERICAN > 60; GFR NON-AFRICAN AMERICAN > 60
[2017-10-17] MEDS: Pantoprazole 40 mg EC Tab PO SCH (08:20)
[2017-10-17] MEDS: POLYETHYLENE GLYCOL 3350 17 GM/Dose PACKET PO SCH (08:21)
--- NOTE | 2017-10-17 09:21 | CON ---
DATE: HISTORY OF PRESENT ILLNESS: Mr. Kate is a 47-year-old male who is referred for pulmonary evaluation by Dr. Gutierrez because of shortness of breath, exercise intolerance and requiring high-flow oxygen for adequate oxygenation. The patient has been in the hospital for the past several days because of shortness of breath and what appears to be the compensated congestive heart failure with superimposed pneumonia. He indicated that symptoms started since August and he has a past medical history of congestive heart failure, status post cardiac catheterization in 2016 and status post cerebrovascular accident. He denies drug or alcohol use, but admits to questionable compliance issues with medications because of lack of insurance in the beginning, but indicates that he has been pretty compliant with medications recently. FAMILY HISTORY: Unrevealing. PHYSICAL EXAMINATION: GENERAL: The patient is alert, oriented, still has shortness of breath at rest and with mild exertion. VITAL SIGNS: Blood pressure 105/42 with a pulse of 109, respiratory rate between 18 and 20 per minute, up to 25. He is afebrile and is presently on well put high-flow oxygen with O2 saturation 98%. SKIN: Shows fair turgor. HEENT: Pupils equal, reactive to light and accommodation. Mouth shows fair hygiene. NECK: JVP flat. LUNGS: Fair aeration with bilateral coarse rales. HEART: S1 and S2. ABDOMEN: Soft, nontender. No organomegaly. EXTREMITIES: Show no edema or cyanosis. CENTRAL NERVOUS SYSTEM: Grossly intact. LABORATORY DATA: Remarkable for WBC of 7.7, hemoglobin 11.0, platelet count 523,000. Sodium 136, potassium 4.5, BUN 17, creatinine 0.9, proBNP 3660, troponin 0.083. Chest x-ray and CT scan of the chest compatible with congestive heart failure with consolidative changes in the right lower lobe, right middle lobe. EKG sinus rhythm with first-degree AV block. Possible left atrial enlargement, left bundle-branch block. Sputum culture so far no growth. IMPRESSION: In this 47-year-old male with respiratory distress and abnormal chest x-ray is compatible with congestive cardiomyopathy with superimposed pneumonia. PLAN: The patient is presently on antibiotic therapy and there is cardiology evaluation in progress. Sputum has already been sent for cultures. I agree with present therapy. Continue high-flow oxygen. Monitor serial ABGs and serial chest x-rays. We will continue therapy as ordered. We will follow with you. Ward Salinas MD
--- NOTE | 2017-10-17 09:52 | RAD ---
PROCEDURE: CHEST RADIOGRAPH, 1 VIEW HISTORY: chf/pneumonia COMPARISON: 10/11/2017 FINDINGS: LUNGS: No definite infiltrate. Opacity at right base likely pleural effusion cannot rule out superimposed consolidation. PLEURA: Small right pleural effusion. No left pleural effusion. No pneumothorax. CARDIOVASCULAR: Mild cardiomegaly. No congestive change. OSSEOUS STRUCTURES: No significant abnormalities. VISUALIZED UPPER ABDOMEN: Normal. OTHER FINDINGS: None. IMPRESSION: Small right pleural effusion, grossly unchanged. No left pleural effusion. Cannot rule out right basilar consolidation.
[2017-10-17] MEDS: Azithromycin 500 MG in Sodium Chloride 0.9% 250 ML IVPB SCH (10:09)
--- NOTE | 2017-10-17 12:27 | CP.CCUPN ---
CCU Subjective - Physician Review Subjective (Free Text): Awake, alert, nondistressed, sitting up at the side of the bed and using laptop , on HFNC 40% at 20 LPM. No fever spikes seen since last one at 100.8F yesterday evening, denies any chills then or now, coughing spells have nearly resolved and he is subjectively admits AKINS has lessened significantly. Systolic BPs remain 90-109, HR 100 in sinus rhythm, on fixed dose Dobutamine therapy. ROS: No other pertinent negs or positives on 10+ system review obtainable. PMSFH: + CVA 2012, no residual deficits, denies smoking or chronic ETOH use, + family hx of Lymphoma. All other Nursing and physician documentation reviewed to date; no new pertinent info noted relevant to current medical problems. CXR: ( my interp): R effusion slightly less, as compared to 10/11 film. IMPRESSION / MAJOR PROBLEMS NOW: 1. Acute on Chronic CHF / Cardiomyopathy ( etiology of Cardiomyopathy unknown to patient, no hx of CAD as per last cath 2014), r/o ACS Acute - Subacute TN 2. Acute resp Insuff with LLL Pneumonia, old RLL pneumonia last treated and hospitalized Aug 2017. 3. Chronic Disease Anemia PLAN: 1. Ongoing Dobutamine support unless directed otherwise by Cardio. 2. Empiric abx coverage, no new organism isolates. 3. Taper fiO2 as tolerated, try regular flow nasal cannula. 4. Stable for further mgmt. on Telemetry floor bed, despite fixed dose Dobutamine. CCU Objective - Vital Signs / Intake & Output Vital Signs (Last 4 hours): Vital Signs Pulse Resp BP Pulse Ox 10/17/17 11:31 24 10/17/17 11:00 102 H 23 99/60 L 100 10/17/17 10:00 99 H 24 108/66 100 10/17/17 09:00 103 H 22 97/73 L 100 Intake and Output (Last 8hrs): Intake & Output 10/16/17 10/17/17 10/17/17 22:59 06:59 14:59 Intake Total 706 164 272 Output Total 1400 150 300 Balance -694 14 -28 Weight 231 lb 8 oz 231 lb 8 oz Intake: IV 246 64 Intake, Piggyback 100 100 32 Oral 360 240 Output: Urine 1400 150 300 Urine, Voided 1400 150 300 - Physical Exam Head: Positive for: Normocephalic Pupils: Positive for: PERRL Extroacular Muscles: Positive for: EOMI Conjunctiva: Positive for: Normal. Negative for: Icteric Mouth: Positive for: Moist Mucous Membranes Neck: Positive for: Normal Range of Motion, Trachea Midline Respiratory/Chest: Positive for: Decreased Breath Sounds, Rales (bilateral bases ). Negative for: Accessory Muscle Use, Wheezes, Tender to Palpation Cardiovascular: Positive for: Regular Rate and Rhythm, Tachycardic, Other ( distant heart sounds) Abdomen: Positive for: Normal Bowel Sounds. Negative for: Tenderness, Distention, Mass/Organomegaly Upper Extremity: Positive for: Normal Inspection. Negative for: Edema Lower Extremity: Positive for: Normal Inspection, Edema (+1 right side, trace left side). Negative for: Cyanosis, Erythema, Temperature Abnormalties Neurological: Positive for: GCS=15, CN II-XII Intact, Motor Func Grossly Intact Skin: Positive for: Warm, Dry. Negative for: Rashes Psychiatric: Positive for: Alert, Oriented x 3 - Medications Active Medications: Active Medications Generic Name Dose Route Start Last Admin Trade Name Freq PRN Reason Stop Dose Admin Acetaminophen 650 mg 10/09/17 18:07 10/15/17 07:01 Tylenol 325mg Tab PO 650 mg Q6 PRN Administration Fever >100.4 F Acetaminophen 650 mg 10/12/17 15:47 10/15/17 20:42 Tylenol 325mg Tab PO 650 mg Q6 PRN Administration Fever >100.4 F Carvedilol 6.25 mg 10/09/17 21:00 10/17/17 08:19 Coreg PO 6.25 mg Q12 SONJA Administration Clopidogrel Bisulfate 75 mg 10/10/17 09:00 10/17/17 08:20 Plavix PO 75 mg DAILY [facility] Administration Enalapril Maleate 5 mg 10/10/17 09:00 10/17/17 08:20 Vasotec PO 5 mg DAILY [facility] Administration Ferrous Gluconate 324 mg 10/11/17 09:00 10/17/17 08:19 Fergon PO 324 mg DAILY [facility] Administration Furosemide 40 mg 10/11/17 09:00 10/17/17 08:19 Lasix IVP 40 mg BID [facility]ON[facility] Administration Guaifenesin/Dextromethorphan 10 ml 10/12/17 14:07 10/17/17 00:08 Robitussin Dm PO 10 ml Q4 PRN Administration Cough Azithromycin 500 mg/ Sodium 250 mls @ 250 mls/hr 10/12/17 16:00 10/17/17 10: 09 Chloride IVPB 10/17/17 16:01 250 mls/hr DAILY SONJA Administration Protocol Vancomycin HCl 1 gm/ Sodium 250 mls @ 125 mls/hr 10/13/17 13:00 10/16/17 11: 56 Chloride IVPB 125 mls/hr DAILY@1200 SONJA Administration Protocol Dobutamine HCl/Dextrose 500 mg in 250 mls @ 8.199 mls/hr 10/14/17 06:16 10/17 00:03 Dobutamine/Dextrose 5% 500mg/250ml IV 2.5 mcg/kg/min .Q24H SONJA 8.199 mls/hr Protocol Administration 2.5 MCG/KG/MIN Meropenem 1 gm/ Sodium 100 mls @ 100 mls/hr 10/16/17 01:00 10/17/17 08:20 Chloride IVPB 100 mls/hr Q8 SONJA Administration Protocol Pantoprazole Sodium 40 mg 10/09/17 18:15 10/17/17 08:20 Protonix Ec Tab PO 40 mg DAILY [facility] Administration Polyethylene Glycol 17 gm 10/10/17 17:00 10/17/17 08:21 Miralax PO Not Given DAILY [facility] Spironolactone 25 mg 10/10/17 09:00 10/17/17 08:19 Aldactone PO 25 mg DAILY [facility] Administration - Patient Studies Lab Studies: Microbiology Studies 10/14/17 09:09 Gram Stain - Final Sputum Sputum Culture - Final NORMAL ORAL CALLUM 10/14/17 21:23 Urine Culture - Final Urine No Growth (<1,000 CFU/ML) Lab Studies 10/17/17 10/17/17 10/14/17 Range/Units 04:50 04:50 17:07 WBC 7.7 (4.8-10.8) K/uL RBC 4.71 (4.40-5.90) Mil/uL Hgb 11.0 L (12.0-18.0) g/dL Hct 34.5 L (35.0-51.0) % MCV 73.2 L (80.0-94.0) fl MCH 23.4 L (27.0-31.0) pg MCHC 32.0 L (33.0-37.0) g/dL RDW 18.3 H (11.5-14.5) % Plt Count 523 H (130-400) K/uL MPV 7.1 L (7.2-11.7) fl Neut % (Auto) 69.5 (50.0-75.0) % Lymph % (Auto) 14.6 L (20.0-40.0) % Sampson % (Auto) 9.6 (0.0-10.0) % Eos % (Auto) 4.1 H (0.0-4.0) % Baso % (Auto) 2.2 H (0.0-2.0) % Neut # 5.3 (1.8-7.0) K/uL Lymph # 1.1 (1.0-4.3) K/uL Sampson # 0.7 (0.0-0.8) K/uL Eos # 0.3 (0.0-0.7) K/uL Baso # 0.2 (0.0-0.2) K/uL Sodium 136 (132-148) mmol/l Potassium 4.5 (3.6-5.0) MMOL/L Chloride 93 L (98-107) mmol/L Carbon Dioxide 35 H (22-30) mmol/L Anion Gap 13 (10-20) BUN 17 (9-20) mg/dl Creatinine 0.9 (0.8-1.5) mg/dl Est GFR ( Amer) > 60 Est GFR (Non-Af Amer) > 60 Random Glucose 177 H (75-110) mg/dL Calcium 9.5 (8.4-10.2) mg/dL Mycoplasma pneumon IgG 3.50 H (<=0.90) Mycoplasma pneumon IgM 490 (<770) U/mL Laboratory Results - last 24 hr 10/14/17 10/17/17 10/17/17 17:07 04:50 04:50 WBC 7.7 RBC 4.71 Hgb 11.0 L Hct 34.5 L MCV 73.2 L MCH 23.4 L MCHC 32.0 L RDW 18.3 H Plt Count 523 H MPV 7.1 L Neut % (Auto) 69.5 Lymph % (Auto) 14.6 L Sampson % (Auto) 9.6 Eos % (Auto) 4.1 H Baso % (Auto) 2.2 H Neut # 5.3 Lymph # 1.1 Sampson # 0.7 Eos # 0.3 Baso # 0.2 Sodium 136 Potassium 4.5 Chloride 93 L Carbon Dioxide 35 H Anion Gap 13 BUN 17 Creatinine 0.9 Est GFR ( Amer) > 60 Est GFR (Non-Af Amer) > 60 Random Glucose 177 H Calcium 9.5 Mycoplasma pneumon IgG 3.50 H Mycoplasma pneumon IgM 490 Review of Systems - Review of Systems All systems: reviewed and no additional remarkable complaints except (as above) Critical Care Progress Note - Nutrition Nutrition: Nutrition Category Date Time Status Heart Healthy Diet [DIET] Diets 10/09/17 Breakfast Active
--- NOTE | 2017-10-17 16:02 | CP.PCM.PN ---
Subjective - Date & Time of Evaluation Date of Evaluation: 10/17/17 Time of Evaluation: 16:02 - Subjective Subjective: ID Note- Pt. seen and examined today in ICU. pt. states he feels better today and has been w/o fever for 24 hours. Objective - Vital Signs/Intake and Output Vital Signs (last 24 hours): Temp Pulse Resp BP Pulse Ox 98.9 F 101 H 29 H 92/59 L 100 10/17/17 12:00 10/17/17 12:00 10/17/17 12:00 10/17/17 12:00 10/17/17 12:00 Intake and Output: 10/17/17 10/17/17 06:59 18:59 Intake Total 410 1322 Output Total 650 300 Balance -240 1022 - Medications Medications: Current Medications Acetaminophen (Tylenol 325mg Tab) 650 mg PO Q6 PRN PRN Reason: Fever >100.4 F Last Admin: 10/15/17 07:01 Dose: 650 mg Acetaminophen (Tylenol 325mg Tab) 650 mg PO Q6 PRN PRN Reason: Fever >100.4 F Last Admin: 10/15/17 20:42 Dose: 650 mg Carvedilol (Coreg) 6.25 mg PO Q12 [facility] Last Admin: 10/17/17 08:19 Dose: 6.25 mg Clopidogrel Bisulfate (Plavix) 75 mg PO DAILY [facility] Last Admin: 10/17/17 08:20 Dose: 75 mg Enalapril Maleate (Vasotec) 5 mg PO DAILY [facility] Last Admin: 10/17/17 08:20 Dose: 5 mg Ferrous Gluconate (Fergon) 324 mg PO DAILY [facility] Last Admin: 10/17/17 08:19 Dose: 324 mg Furosemide (Lasix) 40 mg IVP BID [facility] Last Admin: 10/17/17 08:19 Dose: 40 mg Guaifenesin/Dextromethorphan (Robitussin Dm) 10 ml PO Q4 PRN PRN Reason: Cough Last Admin: 10/17/17 00:08 Dose: 10 ml Vancomycin HCl 1 gm/ Sodium (Chloride) 250 mls @ 125 mls/hr IVPB DAILY@1200 [facility] PRN Reason: Protocol Last Admin: 10/17/17 12:35 Dose: 125 mls/hr Dobutamine HCl/Dextrose (Dobutamine/Dextrose 5% 500mg/250ml) 500 mg in 250 mls @ 8.199 mls/hr IV .Q24H SONJA; 2.5 MCG/KG/MIN PRN Reason: Protocol Last Admin: 10/17/17 00:03 Dose: 2.5 mcg/kg/min, 8.199 mls/hr Meropenem 1 gm/ Sodium (Chloride) 100 mls @ 100 mls/hr IVPB Q8 [facility] PRN Reason: Protocol Last Admin: 10/17/17 08:20 Dose: 100 mls/hr Pantoprazole Sodium (Protonix Ec Tab) 40 mg PO DAILY [facility] Last Admin: 10/17/17 08:20 Dose: 40 mg Polyethylene Glycol (Miralax) 17 gm PO DAILY [facility] Last Admin: 10/17/17 08:21 Dose: Not Given Spironolactone (Aldactone) 25 mg PO DAILY [facility] Last Admin: 10/17/17 08:19 Dose: 25 mg - Labs Labs: - Additional Findings Additional findings: - Constitutional Appears: No Acute Distress, Chronically Ill - Head Exam Head Exam: ATRAUMATIC - Eye Exam Eye Exam: EOMI - ENT Exam ENT Exam: Normal Oropharynx - Neck Exam Neck exam: Positive for: Full Rom - Respiratory Exam Additional comments: slightly tachypneic but less than before no wheezing - Cardiovascular Exam Cardiovascular Exam: Tachycardia, +S1, +S2 - GI/Abdominal Exam GI & Abdominal Exam: Normal Bowel Sounds, Soft Additional comments: NT, ND - Extremities Exam Additional comments: trace LE edema B/L - Neurological Exam Neurological exam: Alert, Oriented x 3 Laboratory Results - last 72 hr 10/14/17 10/14/17 10/15/17 17:07 21:23 04:55 WBC 7.5 RBC 4.50 Hgb 10.4 L Hct 33.0 L MCV 73.3 L MCH 23.1 L MCHC 31.6 L RDW 18.1 H Plt Count 492 H MPV Neut % (Auto) Lymph % (Auto) [place] % (Auto) Eos % (Auto) Baso % (Auto) Neut # Lymph # [place] # Eos # Baso # Sodium Potassium Chloride Carbon Dioxide Anion Gap BUN Creatinine Est GFR ( Amer) Est GFR (Non-Af Amer) Random Glucose Calcium Total Bilirubin AST ALT Alkaline Phosphatase Troponin I NT-Pro-B Natriuret Pep Total Protein Albumin Globulin Albumin/Globulin Ratio Urine Color Yellow Urine Clarity Slighty-cloudy Urine pH 5.0 Ur Specific Comstock 1.026 Urine Protein 30 Urine Glucose (UA) Neg Urine Ketones Negative Urine Blood Moderate Urine Nitrate Negative Urine Bilirubin Negative Urine Urobilinogen 0.2-1.0 Ur Leukocyte Esterase Neg Urine RBC (Auto) 44 H Urine Microscopic WBC 4 Ur Squamous Epith Cells < 1 Urine Bacteria Rare HIV-1 Ab Rapid Screen Influenza Typ A,B (EIA) Mycoplasma pneumon IgG 3.50 H Mycoplasma pneumon IgM 490 10/15/17 10/15/17 10/16/17 04:55 18:50 04:40 WBC 5.3 RBC 4.59 Hgb 10.7 L Hct 33.6 L MCV 73.2 L MCH 23.2 L MCHC 31.7 L RDW 17.7 H Plt Count 477 H MPV Neut % (Auto) Lymph % (Auto) [place] % (Auto) Eos % (Auto) Baso % (Auto) Neut # Lymph # [place] # Eos # Baso # Sodium 137 Potassium 3.8 Chloride 94 L Carbon Dioxide 33 H Anion Gap 14 BUN 12 Creatinine 0.8 Est GFR ( Amer) > 60 Est GFR (Non-Af Amer) > 60 Random Glucose 147 H Calcium 9.2 Total Bilirubin 0.7 AST 52 ALT 43 Alkaline Phosphatase 76 Troponin I NT-Pro-B Natriuret Pep Total Protein 7.8 Albumin 3.2 L Globulin 4.6 H Albumin/Globulin Ratio 0.7 L Urine Color Urine Clarity Urine pH Ur Specific [place] Urine Protein Urine Glucose (UA) Urine Ketones Urine Blood Urine Nitrate Urine Bilirubin Urine Urobilinogen Ur Leukocyte Esterase Urine RBC (Auto) Urine Microscopic WBC Ur Squamous Epith Cells Urine Bacteria HIV-1 Ab Rapid Screen Influenza Typ A,B (EIA) Negative for flu a/b Mycoplasma pneumon IgG Mycoplasma pneumon IgM 10/16/17 10/16/17 10/17/17 04:40 07:16 04:50 WBC 7.7 RBC 4.71 Hgb 11.0 L Hct 34.5 L MCV 73.2 L MCH 23.4 L MCHC 32.0 L RDW 18.3 H Plt Count 523 H MPV 7.1 L Neut % (Auto) 69.5 Lymph % (Auto) 14.6 L [place] % (Auto) 9.6 Eos % (Auto) 4.1 H Baso % (Auto) 2.2 H Neut # 5.3 Lymph # 1.1 Fulton # 0.7 Eos # 0.3 Baso # 0.2 Sodium 138 Potassium 3.9 Chloride 93 L Carbon Dioxide 35 H Anion Gap 14 BUN 13 Creatinine 0.8 Est GFR ( Amer) > 60 Est GFR (Non-Af Amer) > 60 Random Glucose 138 H Calcium 9.2 Total Bilirubin AST ALT Alkaline Phosphatase Troponin I 0.0830 NT-Pro-B Natriuret Pep 3660 H Total Protein Albumin Globulin Albumin/Globulin Ratio Urine Color Urine Clarity Urine pH Ur Specific Comstock Urine Protein Urine Glucose (UA) Urine Ketones Urine Blood Urine Nitrate Urine Bilirubin Urine Urobilinogen Ur Leukocyte Esterase Urine RBC (Auto) Urine Microscopic WBC Ur Squamous Epith Cells Urine Bacteria HIV-1 Ab Rapid Screen Non reactive Influenza Typ A,B (EIA) Mycoplasma pneumon IgG Mycoplasma pneumon IgM 10/17/17 04:50 WBC RBC Hgb Hct MCV MCH MCHC RDW Plt Count MPV Neut % (Auto) Lymph % (Auto) [place] % (Auto) Eos % (Auto) Baso % (Auto) Neut # Lymph # [place] # Eos # Baso # Sodium 136 Potassium 4.5 Chloride 93 L Carbon Dioxide 35 H Anion Gap 13 BUN 17 Creatinine 0.9 Est GFR ( Amer) > 60 Est GFR (Non-Af Amer) > 60 Random Glucose 177 H Calcium 9.5 Total Bilirubin AST ALT Alkaline Phosphatase Troponin I NT-Pro-B Natriuret Pep Total Protein Albumin Globulin Albumin/Globulin Ratio Urine Color Urine Clarity Urine pH Ur Specific Comstock Urine Protein Urine Glucose (UA) Urine Ketones Urine Blood Urine Nitrate Urine Bilirubin Urine Urobilinogen Ur Leukocyte Esterase Urine RBC (Auto) Urine Microscopic WBC Ur Squamous Epith Cells Urine Bacteria HIV-1 Ab Rapid Screen Influenza Typ A,B (EIA) Mycoplasma pneumon IgG Mycoplasma pneumon IgM Microbiology 10/14/17 09:09 Sputum Gram Stain - Final 10/14/17 09:09 Sputum Sputum Culture - Final NORMAL ORAL CALLUM 10/14/17 21:23 Urine Urine Culture - Final No Growth (<1,000 CFU/ML) 10/09/17 15:12 Blood-Venous Blood Culture - Final NO GROWTH AFTER 5 DAYS 10/09/17 15:12 Blood-Venous Gram Stain - Final TEST NOT PERFORMED 10/09/17 03:00 Naris MRSA Culture (Admit) - Final MRSA NOT DETECTED Accession No. : [id number] Patient Name / ID : JACOB WONG / [id number] Exam Date : 10/17/2017 08:35:22 ( Approved ) Study Comment : Sex / Age : M / 47Y Creator : Wagner Whiteside MD Dictator : Wagner Whiteside MD Screen Tender : Production Or Plant Engineer : Wagner Whiteside MD Approver2 : Report Date : 10/17/2017 09:46:01 My Comment : PROCEDURE: CHEST RADIOGRAPH, 1 VIEW HISTORY: chf/pneumonia COMPARISON: 10/11/2017 FINDINGS: LUNGS: No definite infiltrate. Opacity at right base likely pleural effusion cannot rule out superimposed consolidation. PLEURA: Small right pleural effusion. No left pleural effusion. No pneumothorax. CARDIOVASCULAR: Mild cardiomegaly. No congestive change. OSSEOUS STRUCTURES: No significant abnormalities. VISUALIZED UPPER ABDOMEN: Normal. OTHER FINDINGS: None. IMPRESSION: Small right pleural effusion, grossly unchanged. No left pleural effusion. Cannot rule out right basilar consolidation. Assessment and Plan (1) CHF (NYHA class III, ACC/AHA stage C) Status: Acute (2) CHF (congestive heart failure) Status: Acute (3) CHF exacerbation Status: Acute (4) Pneumonia Status: Acute (5) Fever Status: Acute (6) Pleural effusion Status: Acute - Assessment and Plan (Free Text) Assessment: A/P- 47 year old male with decompensated CHF admitted with worsening sob and found to have pneumonia and Right pleural effusion and fever. afebrile past 24 hours. cxr report noted blood cx- neg influenza- neg x 2 HIV ab- neg leukocytosis has resolved. chest ct report noted. sputum cx- neg urine cx- neg plan- advise to continue with current antibiotics of zithromax and and vanco to cover for both HAP and atypical pathogens. keep vanco trough <15. continue with IV meropnem for broader coverage. ICU time spent 45 minutes.
[2017-10-18] MEDS: Meropenem 1 GM in Sodium Chloride 0.9% 100 ML IVPB SCH ×3 (01:00→17:01)
--- NOTE | 2017-10-18 02:48 | PN ---
DATE: 10/17/2017 SUBJECTIVE: The patient is seen today, 10/17/2017. He is in mild shortness of breath. The patient is afebrile today. OBJECTIVE: VITAL SIGNS: Blood pressure 102/68, temperature 99.6, respiratory rate 29, and heart rate is 100. HEENT: Pupils are equal and reactive to light. Normal-appearing mucosa of the conjunctivae, oropharynx, and nasal membrane mucosa. NECK: Supple. No JVD. No carotid bruit. No lymph node. No thyromegaly. CHEST AND LUNGS: Bilateral symmetrical expansion. Good air exchange. There are bilateral basilar rales. CARDIOVASCULAR SYSTEM: PMI not localized. S1 and S2. No additional sounds. ABDOMEN: Normoactive bowel sounds. No tenderness. No organomegaly. No masses. EXTREMITIES: No cyanosis. No clubbing. No edema. CENTRAL NERVOUS SYSTEM: Alert, awake, and oriented x3. No neurological deficit could be appreciated. ASSESSMENT: 1. Exacerbation of congestive heart failure, [id number]. 2. Bilateral pneumonia. 3. Dilated cardiomyopathy. PLAN: Continue current antibiotics as per Infectious Disease. Follow up Pulmonary edi consultant's recommendations and science consultant's recommendations. Harry Gutierrez MD
[2017-10-18 05:23] LABS: HEMOGLOBIN 11.2 g/dL (12.0-18.0); MEAN CELL VOLUME 73.6 fl (80.0-94.0); MEAN CORPUSCULAR HEMOGLOBIN 23.3 pg (27.0-31.0); MEAN CORPUSCULAR HGB CONC 31.7 g/dL (33.0-37.0); RBC 4.78 Mil/uL (4.40-5.90); RED CELL DISTRIBUTION WIDTH 18.4 % (11.5-14.5); WHITE BLOOD COUNT 7.1 K/uL (4.8-10.8)
[2017-10-18 05:46] LABS: ALB/GLOB RATIO 0.7 (1.0-2.1); ALBUMIN 3.5 g/dL (3.5-5.0); ALT/SGPT 65 U/L (21-72); AST/SGOT 75 U/L (17-59); BLOOD UREA NITROGEN 18 mg/dl (9-20); CALCIUM 9.5 mg/dL (8.4-10.2); GFR AFRICAN-AMERICAN > 60; GFR NON-AFRICAN AMERICAN > 60
[2017-10-18] MEDS: Pantoprazole 40 mg EC Tab PO SCH (08:10)
[2017-10-18] MEDS: POLYETHYLENE GLYCOL 3350 17 GM/Dose PACKET PO SCH (08:10)
--- NOTE | 2017-10-18 12:27 | CP.CCUPN ---
CCU Subjective - Physician Review Subjective (Free Text): Has been able to ambulate within the room without AKINS and ambulated around the entire ICU with minimal assistance. Systolic BPs remain 90-low 100's, HR 100 in sinus rhythm, on fixed dose Dobutamine therapy. ROS: No other pertinent negs or positives on 10+ system review obtainable. PMSFH: + CVA 2012, no residual deficits, denies smoking or chronic ETOH use, + family hx of Lymphoma. All other Nursing and physician documentation reviewed to date; no new pertinent info noted relevant to current medical problems. IMPRESSION / MAJOR PROBLEMS NOW: 1. Acute on Chronic CHF / Cardiomyopathy ( etiology of Cardiomyopathy unknown to patient, no hx of CAD as per last cath 2014), r/o ACS Acute - Subacute OK 2. Acute resp Insuff with LLL Pneumonia, old RLL pneumonia last treated and hospitalized Aug 2017. 3. Chronic Disease Anemia PLAN: 1. Ongoing Dobutamine support unless directed otherwise by Cardio. Consider discontinuation. 2. Empiric abx coverage, no new organism isolates. 3. Taper fiO2 as tolerated, OK so far on regular flow nasal cannula t 3 LPM. 4. Stable for further mgmt. on Telemetry floor bed, despite fixed dose Dobutamine. CCU Objective - Vital Signs / Intake & Output Vital Signs (Last 4 hours): Vital Signs Pulse Resp BP Pulse Ox 10/18/17 11:50 14 10/18/17 10:00 96 H 100 H 95/76 L 26 L Intake and Output (Last 8hrs): Intake & Output 10/17/17 10/18/17 10/18/17 22:59 06:59 14:59 Intake Total 404 164 492 Output Total 1200 200 750 Balance -796 -36 -258 Weight 231 lb Intake: IV 32 64 32 Intake, Piggyback 32 100 100 Oral 340 360 Output: Urine 1200 200 750 Urine, Voided 1200 200 750 Other: # Voids Urine, Voided 1 - Physical Exam Head: Positive for: Normocephalic Pupils: Positive for: PERRL Extroacular Muscles: Positive for: EOMI Conjunctiva: Positive for: Normal. Negative for: Icteric Mouth: Positive for: Moist Mucous Membranes Neck: Positive for: Normal Range of Motion, Trachea Midline Respiratory/Chest: Positive for: Decreased Breath Sounds, Rales (bilateral bases ). Negative for: Accessory Muscle Use, Wheezes, Tender to Palpation Cardiovascular: Positive for: Regular Rate and Rhythm, Tachycardic, Other ( distant heart sounds) Abdomen: Positive for: Normal Bowel Sounds. Negative for: Tenderness, Distention, Mass/Organomegaly Upper Extremity: Positive for: Normal Inspection. Negative for: Edema Lower Extremity: Positive for: Normal Inspection, Edema (+1 right side, trace left side). Negative for: Cyanosis, Erythema, Temperature Abnormalties Neurological: Positive for: GCS=15, CN II-XII Intact, Motor Func Grossly Intact Skin: Positive for: Warm, Dry. Negative for: Rashes Psychiatric: Positive for: Alert, Oriented x 3 - Medications Active Medications: Active Medications Generic Name Dose Route Start Last Admin Trade Name Freq PRN Reason Stop Dose Admin Acetaminophen 650 mg 10/09/17 18:07 10/15/17 07:01 Tylenol 325mg Tab PO 650 mg Q6 PRN Administration Fever >100.4 F Acetaminophen 650 mg 10/12/17 15:47 10/15/17 20:42 Tylenol 325mg Tab PO 650 mg Q6 PRN Administration Fever >100.4 F Carvedilol 6.25 mg 10/09/17 21:00 10/18/17 08:08 Coreg PO 6.25 mg Q12 SONJA Administration Clopidogrel Bisulfate 75 mg 10/10/17 09:00 10/18/17 08:10 Plavix PO 75 mg DAILY SONJA Administration Enalapril Maleate 5 mg 10/10/17 09:00 10/18/17 08:10 Vasotec PO 5 mg DAILY SONJA Administration Ferrous Gluconate 324 mg 10/11/17 09:00 10/18/17 08:09 Fergon PO 324 mg DAILY SONJA Administration Furosemide 40 mg 10/11/17 09:00 10/18/17 08:09 Lasix IVP 40 mg BID SONJA Administration Guaifenesin/Dextromethorphan 10 ml 10/12/17 14:07 10/17/17 00:08 Robitussin Dm PO 10 ml Q4 PRN Administration Cough Vancomycin HCl 1 gm/ Sodium 250 mls @ 125 mls/hr 10/13/17 13:00 10/18/17 11: 55 Chloride IVPB 125 mls/hr DAILY@1200 SONJA Administration Protocol Dobutamine HCl/Dextrose 500 mg in 250 mls @ 8.199 mls/hr 10/14/17 06:16 10/17 00:03 Dobutamine/Dextrose 5% 500mg/250ml IV 2.5 mcg/kg/min .Q24H SONJA 8.199 mls/hr Protocol Administration 2.5 MCG/KG/MIN Meropenem 1 gm/ Sodium 100 mls @ 100 mls/hr 10/16/17 01:00 10/18/17 08:09 Chloride IVPB 100 mls/hr Q8 SONJA Administration Protocol Pantoprazole Sodium 40 mg 10/09/17 18:15 10/18/17 08:10 Protonix Ec Tab PO 40 mg DAILY SNOJA Administration Polyethylene Glycol 17 gm 10/10/17 17:00 10/18/17 08:10 Miralax PO Not Given DAILY SONJA Spironolactone 25 mg 10/10/17 09:00 10/18/17 08:08 Aldactone PO 25 mg DAILY SONJA Administration - Patient Studies Lab Studies: Microbiology Studies 10/14/17 09:09 Gram Stain - Final Sputum Sputum Culture - Final NORMAL ORAL CALLUM Lab Studies 10/18/17 10/18/17 10/18/17 Range/Units 04:45 04:45 04:45 WBC 7.1 (4.8-10.8) K/uL RBC 4.78 (4.40-5.90) Mil/uL Hgb 11.2 L (12.0-18.0) g/dL Hct 35.2 (35.0-51.0) % MCV 73.6 L (80.0-94.0) fl MCH 23.3 L (27.0-31.0) pg MCHC 31.7 L (33.0-37.0) g/dL RDW 18.4 H (11.5-14.5) % Plt Count 482 H (130-400) K/uL Sodium 138 (132-148) mmol/l Potassium 4.5 (3.6-5.0) MMOL/L Chloride 92 L (98-107) mmol/L Carbon Dioxide 36 H (22-30) mmol/L Anion Gap 15 (10-20) BUN 18 (9-20) mg/dl Creatinine 0.9 (0.8-1.5) mg/dl Est GFR ( Amer) > 60 Est GFR (Non-Af Amer) > 60 Random Glucose 142 H (75-110) mg/dL Calcium 9.5 (8.4-10.2) mg/dL Total Bilirubin 0.7 (0.2-1.3) mg/dl AST 75 H D (17-59) U/L ALT 65 (21-72) U/L Alkaline Phosphatase 77 (38-126) U/L Total Protein 8.3 H (6.3-8.2) G/DL Albumin 3.5 (3.5-5.0) g/dL Globulin 4.8 H (2.2-3.9) gm/dL Albumin/Globulin Ratio 0.7 L (1.0-2.1) Vancomycin Trough 8.0 (5.0-10.0) ug/mL Laboratory Results - last 24 hr 10/18/17 10/18/17 10/18/17 04:45 04:45 04:45 WBC 7.1 RBC 4.78 Hgb 11.2 L Hct 35.2 MCV 73.6 L MCH 23.3 L MCHC 31.7 L RDW 18.4 H Plt Count 482 H Sodium 138 Potassium 4.5 Chloride 92 L Carbon Dioxide 36 H Anion Gap 15 BUN 18 Creatinine 0.9 Est GFR ( Amer) > 60 Est GFR (Non-Af Amer) > 60 Random Glucose 142 H Calcium 9.5 Total Bilirubin 0.7 AST 75 H D ALT 65 Alkaline Phosphatase 77 Total Protein 8.3 H Albumin 3.5 Globulin 4.8 H Albumin/Globulin Ratio 0.7 L Vancomycin Trough 8.0
[2017-10-18] MEDS: DOBUTamine 500mg/250ml D5W 500 MG/250 ML BAG IV SCH (12:39)
--- NOTE | 2017-10-18 13:20 | CP.PCM.PN ---
Subjective - Date & Time of Evaluation Date of Evaluation: 10/18/17 Time of Evaluation: 13:20 - Subjective Subjective: SOB IMPROVED NO COUGH/CHEST PAINS ON NC O2 NO APPARENT DISTRESS Objective - Vital Signs/Intake and Output Vital Signs (last 24 hours): Temp Pulse Resp BP Pulse Ox 98.8 F 97 H 33 H 96/62 L 99 10/18/17 12:00 10/18/17 12:00 10/18/17 12:00 10/18/17 12:00 10/18/17 12:00 Intake and Output: 10/18/17 10/18/17 06:59 18:59 Intake Total 446 558 Output Total 200 1050 Balance 246 -492 - Medications Medications: Current Medications Acetaminophen (Tylenol 325mg Tab) 650 mg PO Q6 PRN PRN Reason: Fever >100.4 F Last Admin: 10/15/17 07:01 Dose: 650 mg Acetaminophen (Tylenol 325mg Tab) 650 mg PO Q6 PRN PRN Reason: Fever >100.4 F Last Admin: 10/15/17 20:42 Dose: 650 mg Carvedilol (Coreg) 6.25 mg PO Q12 [facility] Last Admin: 10/18/17 08:08 Dose: 6.25 mg Clopidogrel Bisulfate (Plavix) 75 mg PO DAILY [facility] Last Admin: 10/18/17 08:10 Dose: 75 mg Enalapril Maleate (Vasotec) 5 mg PO DAILY [facility] Last Admin: 10/18/17 08:10 Dose: 5 mg Ferrous Gluconate (Fergon) 324 mg PO DAILY [facility] Last Admin: 10/18/17 08:09 Dose: 324 mg Furosemide (Lasix) 40 mg IVP BID [facility] Last Admin: 10/18/17 08:09 Dose: 40 mg Guaifenesin/Dextromethorphan (Robitussin Dm) 10 ml PO Q4 PRN PRN Reason: Cough Last Admin: 10/17/17 00:08 Dose: 10 ml Vancomycin HCl 1 gm/ Sodium (Chloride) 250 mls @ 125 mls/hr IVPB DAILY@1200 SONJA PRN Reason: Protocol Last Admin: 10/18/17 11:55 Dose: 125 mls/hr Dobutamine HCl/Dextrose (Dobutamine/Dextrose 5% 500mg/250ml) 500 mg in 250 mls @ 8.199 mls/hr IV .Q24H SONJA; 2.5 MCG/KG/MIN PRN Reason: Protocol Last Admin: 10/18/17 12:39 Dose: 2.5 mcg/kg/min, 8.199 mls/hr Meropenem 1 gm/ Sodium (Chloride) 100 mls @ 100 mls/hr IVPB Q8 SONJA PRN Reason: Protocol Last Admin: 10/18/17 08:09 Dose: 100 mls/hr Pantoprazole Sodium (Protonix Ec Tab) 40 mg PO DAILY SONJA Last Admin: 10/18/17 08:10 Dose: 40 mg Polyethylene Glycol (Miralax) 17 gm PO DAILY SONJA Last Admin: 10/18/17 08:10 Dose: Not Given Spironolactone (Aldactone) 25 mg PO DAILY [facility] Last Admin: 10/18/17 08:08 Dose: 25 mg - Labs Labs: 10/18/17 04:45 10/18/17 04:45 PT 17.4 Seconds (9.8-13.1) H D 10/11/17 05:40 INR 1.6 (0.9-1.2) H 10/11/17 05:40 APTT 52.6 Seconds (25.6-37.1) H D 10/11/17 18:55 - Constitutional Appears: No Acute Distress - Head Exam Head Exam: ATRAUMATIC, NORMAL INSPECTION, NORMOCEPHALIC - Eye Exam Eye Exam: EOMI, Normal appearance, PERRL Pupil Exam: NORMAL ACCOMODATION, PERRL - ENT Exam ENT Exam: Mucous Membranes Moist, Normal Exam - Neck Exam Neck Exam: Full ROM, Normal Inspection. absent: Lymphadenopathy - Respiratory Exam Respiratory Exam: Decreased Breath Sounds, NORMAL BREATHING PATTERN - Cardiovascular Exam Cardiovascular Exam: REGULAR RHYTHM, +S1, +S2. absent: Murmur - GI/Abdominal Exam GI & Abdominal Exam: Soft, Normal Bowel Sounds. absent: Tenderness - Rectal Exam Rectal Exam: NORMAL INSPECTION - Extremities Exam Extremities Exam: Full ROM, Normal Capillary Refill, Normal Inspection. absent : Joint Swelling, Pedal Edema - Back Exam Back Exam: NORMAL INSPECTION - Neurological Exam Neurological Exam: Alert, Awake, CN II-XII Intact, Normal Gait, Oriented x3 - Psychiatric Exam Psychiatric exam: Normal Affect, Normal Mood - Skin Skin Exam: Dry, Intact, Normal Color, Warm Assessment and Plan - Assessment and Plan (Free Text) Assessment: CARDIOMYOPATHY WITH CHF-IMPROVED PNEUMONIA-CLINICALLY IMPROVED Plan: CONTINUE ANTIBIOTIC AND O2 RX
--- NOTE | 2017-10-18 18:28 | CP.PCM.PN ---
Subjective - Date & Time of Evaluation Date of Evaluation: 10/18/17 Time of Evaluation: 18:00 - Subjective Subjective: patient is doing better. no chest pain or dyspnea. Objective - Vital Signs/Intake and Output Vital Signs (last 24 hours): Temp Pulse Resp BP Pulse Ox 99.3 F 101 H 26 H 124/78 100 10/18/17 16:00 10/18/17 18:00 10/18/17 18:00 10/18/17 18:00 10/18/17 18:00 Intake and Output: 10/18/17 10/18/17 06:59 18:59 Intake Total 446 1436 Output Total 200 1400 Balance 246 36 - Medications Medications: Current Medications Acetaminophen (Tylenol 325mg Tab) 650 mg PO Q6 PRN PRN Reason: Fever >100.4 F Last Admin: 10/15/17 07:01 Dose: 650 mg Acetaminophen (Tylenol 325mg Tab) 650 mg PO Q6 PRN PRN Reason: Fever >100.4 F Last Admin: 10/15/17 20:42 Dose: 650 mg Carvedilol (Coreg) 6.25 mg PO Q12 [facility] Last Admin: 10/18/17 08:08 Dose: 6.25 mg Clopidogrel Bisulfate (Plavix) 75 mg PO DAILY [facility] Last Admin: 10/18/17 08:10 Dose: 75 mg Enalapril Maleate (Vasotec) 5 mg PO DAILY [facility] Last Admin: 10/18/17 08:10 Dose: 5 mg Ferrous Gluconate (Fergon) 324 mg PO DAILY [facility] Last Admin: 10/18/17 08:09 Dose: 324 mg Furosemide (Lasix) 40 mg IV DAILY [facility] Guaifenesin/Dextromethorphan (Robitussin Dm) 10 ml PO Q4 PRN PRN Reason: Cough Last Admin: 10/17/17 00:08 Dose: 10 ml Vancomycin HCl 1 gm/ Sodium (Chloride) 250 mls @ 125 mls/hr IVPB DAILY@1200 SONJA PRN Reason: Protocol Last Admin: 10/18/17 11:55 Dose: 125 mls/hr Meropenem 1 gm/ Sodium (Chloride) 100 mls @ 100 mls/hr IVPB Q8 SONJA PRN Reason: Protocol Last Admin: 10/18/17 17:01 Dose: 100 mls/hr Pantoprazole Sodium (Protonix Ec Tab) 40 mg PO DAILY [facility] Last Admin: 10/18/17 08:10 Dose: 40 mg Polyethylene Glycol (Miralax) 17 gm PO DAILY [facility] Last Admin: 10/18/17 08:10 Dose: Not Given Spironolactone (Aldactone) 25 mg PO DAILY [facility] Last Admin: 10/18/17 08:08 Dose: 25 mg - Labs Labs: 10/18/17 04:45 10/18/17 04:45 PT 17.4 Seconds (9.8-13.1) H D 10/11/17 05:40 INR 1.6 (0.9-1.2) H 10/11/17 05:40 APTT 52.6 Seconds (25.6-37.1) H D 10/11/17 18:55 - Constitutional Appears: Non-toxic - Head Exam Head Exam: NORMAL INSPECTION - Eye Exam Eye Exam: Normal appearance - ENT Exam ENT Exam: Mucous Membranes Moist - Neck Exam Neck Exam: Full ROM - Respiratory Exam Respiratory Exam: NORMAL BREATHING PATTERN - Cardiovascular Exam Cardiovascular Exam: REGULAR RHYTHM - GI/Abdominal Exam GI & Abdominal Exam: Normal Bowel Sounds - Rectal Exam Rectal Exam: Deferred - Extremities Exam Extremities Exam: Normal Inspection - Back Exam Back Exam: NORMAL INSPECTION - Neurological Exam Neurological Exam: Alert - Psychiatric Exam Psychiatric exam: Normal Affect - Skin Skin Exam: Normal Color Assessment and Plan (1) Systolic dysfunction with acute on chronic heart failure Assessment & Plan: will d/c dobutamine. follow volume status Status: Acute (2) CHF (NYHA class III, ACC/AHA stage C) Status: Acute
[2017-10-19] MEDS: Meropenem 1 GM in Sodium Chloride 0.9% 100 ML IVPB SCH ×3 (00:40→16:36)
[2017-10-19 06:27] LABS: HEMOGLOBIN 10.9 g/dL (12.0-18.0); MEAN CELL VOLUME 73.2 fl (80.0-94.0); MEAN CORPUSCULAR HEMOGLOBIN 23.1 pg (27.0-31.0); MEAN CORPUSCULAR HGB CONC 31.6 g/dL (33.0-37.0); RBC 4.73 Mil/uL (4.40-5.90); RED CELL DISTRIBUTION WIDTH 18.3 % (11.5-14.5); WHITE BLOOD COUNT 6.9 K/uL (4.8-10.8)
[2017-10-19 07:04] LABS: ALB/GLOB RATIO 0.7 (1.0-2.1); ALBUMIN 3.4 g/dL (3.5-5.0); ALT/SGPT 66 U/L (21-72); AST/SGOT 74 U/L (17-59); BLOOD UREA NITROGEN 23 mg/dl (9-20); CALCIUM 9.5 mg/dL (8.4-10.2); GFR AFRICAN-AMERICAN > 60; GFR NON-AFRICAN AMERICAN > 60
--- NOTE | 2017-10-19 08:06 | CP.CCUPN ---
CCU Subjective - Physician Review Events Since Last Encounter (Free Text): 10/19/17 08:01 Patient awake, no distress, no fever, on O2 supplement by nasal canula, follow commands, events reviewed CCU Objective - Vital Signs / Intake & Output Vital Signs (Last 4 hours): Vital Signs Pulse Resp BP Pulse Ox 10/19/17 06:00 87 21 91/56 L 93 L Intake and Output (Last 8hrs): Intake & Output 10/18/17 10/19/17 10/19/17 22:59 06:59 14:59 Intake Total 522 100 Output Total 225 Balance 297 100 Intake: IV 32 100 Intake, Piggyback 100 Oral 390 Output: Urine 225 Urine, Voided 225 Other: # Voids Urine, Voided 1 # Bowel Movements 1 - Physical Exam Head: Positive for: Normocephalic Pupils: Positive for: PERRL Extroacular Muscles: Positive for: EOMI Conjunctiva: Positive for: Normal. Negative for: Icteric Mouth: Positive for: Moist Mucous Membranes Neck: Positive for: Normal Range of Motion, Trachea Midline Respiratory/Chest: Positive for: Decreased Breath Sounds, Rales (bilateral bases ). Negative for: Accessory Muscle Use, Wheezes, Tender to Palpation Cardiovascular: Positive for: Regular Rate and Rhythm, Tachycardic, Other ( distant heart sounds) Abdomen: Positive for: Normal Bowel Sounds. Negative for: Tenderness, Distention, Mass/Organomegaly Upper Extremity: Positive for: Normal Inspection. Negative for: Edema Lower Extremity: Positive for: Normal Inspection, Edema (+1 right side, trace left side). Negative for: Cyanosis, Erythema, Temperature Abnormalties Neurological: Positive for: GCS=15, CN II-XII Intact, Motor Func Grossly Intact Skin: Positive for: Warm, Dry. Negative for: Rashes Psychiatric: Positive for: Alert, Oriented x 3 - Medications Active Medications: Active Medications Generic Name Dose Route Start Last Admin Trade Name Freq PRN Reason Stop Dose Admin Acetaminophen 650 mg 10/09/17 18:07 10/15/17 07:01 Tylenol 325mg Tab PO 650 mg Q6 PRN Administration Fever >100.4 F Acetaminophen 650 mg 10/12/17 15:47 10/15/17 20:42 Tylenol 325mg Tab PO 650 mg Q6 PRN Administration Fever >100.4 F Carvedilol 6.25 mg 10/09/17 21:00 10/18/17 20:26 Coreg PO 6.25 mg Q12 SONJA Administration Clopidogrel Bisulfate 75 mg 10/10/17 09:00 10/18/17 08:10 Plavix PO 75 mg DAILY SONJA Administration Enalapril Maleate 5 mg 10/10/17 09:00 10/18/17 08:10 Vasotec PO 5 mg DAILY SONJA Administration Ferrous Gluconate 324 mg 10/11/17 09:00 10/18/17 08:09 Fergon PO 324 mg DAILY SONJA Administration Furosemide 40 mg 10/19/17 09:00 Lasix IV DAILY SONJA Guaifenesin/Dextromethorphan 10 ml 10/12/17 14:07 10/17/17 00:08 Robitussin Dm PO 10 ml Q4 PRN Administration Cough Vancomycin HCl 1 gm/ Sodium 250 mls @ 125 mls/hr 10/13/17 13:00 10/18/17 11: 55 Chloride IVPB 125 mls/hr DAILY@1200 SONJA Administration Protocol Meropenem 1 gm/ Sodium 100 mls @ 100 mls/hr 10/16/17 01:00 10/19/17 00:40 Chloride IVPB 100 mls/hr Q8 SONJA Administration Protocol Pantoprazole Sodium 40 mg 10/09/17 18:15 10/18/17 08:10 Protonix Ec Tab PO 40 mg DAILY SONJA Administration Polyethylene Glycol 17 gm 10/10/17 17:00 10/18/17 08:10 Miralax PO Not Given DAILY SONJA Spironolactone 25 mg 10/10/17 09:00 10/18/17 08:08 Aldactone PO 25 mg DAILY SONJA Administration Tramadol HCl 50 mg 10/19/17 01:48 10/19/17 01:53 Ultram PO 50 mg Q6 PRN Administration MODERATE PAIN (SCALE 4-7) - Patient Studies Lab Studies: Lab Studies 10/19/17 10/19/17 10/16/17 Range/Units 05:30 05:30 08:25 WBC 6.9 (4.8-10.8) K/uL RBC 4.73 (4.40-5.90) Mil/uL Hgb 10.9 L (12.0-18.0) g/dL Hct 34.6 L (35.0-51.0) % MCV 73.2 L (80.0-94.0) fl MCH 23.1 L (27.0-31.0) pg MCHC 31.6 L (33.0-37.0) g/dL RDW 18.3 H (11.5-14.5) % Plt Count 462 H (130-400) K/uL Sodium 138 (132-148) mmol/l Potassium 4.4 (3.6-5.0) MMOL/L Chloride 94 L (98-107) mmol/L Carbon Dioxide 35 H (22-30) mmol/L Anion Gap 13 (10-20) BUN 23 H (9-20) mg/dl Creatinine 1.0 (0.8-1.5) mg/dl Est GFR ( Amer) > 60 Est GFR (Non-Af Amer) > 60 Random Glucose 139 H (75-110) mg/dL Calcium 9.5 (8.4-10.2) mg/dL Total Bilirubin 0.6 (0.2-1.3) mg/dl AST 74 H (17-59) U/L ALT 66 (21-72) U/L Alkaline Phosphatase 75 (38-126) U/L Total Protein 8.3 H (6.3-8.2) G/DL Albumin 3.4 L (3.5-5.0) g/dL Globulin 4.9 H (2.2-3.9) gm/dL Albumin/Globulin Ratio 0.7 L (1.0-2.1) HIV-1 RNA Qnt (RT-PCR) <1.30 not detected (<1.30) Laboratory Results - last 24 hr 10/16/17 10/19/17 10/19/17 08:25 05:30 05:30 WBC 6.9 RBC 4.73 Hgb 10.9 L Hct 34.6 L MCV 73.2 L MCH 23.1 L MCHC 31.6 L RDW 18.3 H Plt Count 462 H Sodium 138 Potassium 4.4 Chloride 94 L Carbon Dioxide 35 H Anion Gap 13 BUN 23 H Creatinine 1.0 Est GFR ( Amer) > 60 Est GFR (Non-Af Amer) > 60 Random Glucose 139 H Calcium 9.5 Total Bilirubin 0.6 AST 74 H ALT 66 Alkaline Phosphatase 75 Total Protein 8.3 H Albumin 3.4 L Globulin 4.9 H Albumin/Globulin Ratio 0.7 L HIV-1 RNA Qnt (RT-PCR) <1.30 not detected Critical Care Progress Note - Nutrition Nutrition: Nutrition Category Date Time Status Heart Healthy Diet [DIET] Diets 10/09/17 Breakfast Active Assessment/Plan - Assessment and Plan (Free Text) Assessment: A/P Respiratory insufficiency, CHF/Cardiomyopathy, pneumonia, NSTEMI, anemia, h/o CVA - Continue meds - O2 supplement - Cardiology follow up - Pulmonary toilets
[2017-10-19] MEDS: Pantoprazole 40 mg EC Tab PO SCH (08:33)
[2017-10-19] MEDS: POLYETHYLENE GLYCOL 3350 17 GM/Dose PACKET PO SCH (12:06)
[2017-10-20] MEDS: Meropenem 1 GM in Sodium Chloride 0.9% 100 ML IVPB SCH ×3 (00:56→16:48)
--- NOTE | 2017-10-20 04:05 | PN ---
DATE: 10/19/2017 SUBJECTIVE: He has less shortness of breath and less cough. OBJECTIVE: VITAL SIGNS: Blood pressure is 99/40, temperature 98.2, respiratory rate 25, pulse 100. HEENT: Pupils equal, reactive to light. Normal-appearing mucosa of the conjunctivae, oropharynx, and nasal membrane mucosa. NECK: Supple. No JVD. No carotid bruit. No lymph node. No thyromegaly. CHEST AND LUNGS: Bilateral symmetrical expansion. Good air exchange. No rales, no rhonchi. CARDIOVASCULAR SYSTEM: PMI not localized. S1, S2. No additional sounds. ABDOMEN: Normoactive bowel sounds. No tenderness, no organomegaly, no masses. EXTREMITIES: No cyanosis, no clubbing, no edema. CENTRAL NERVOUS SYSTEM: Alert, awake, oriented x2. No neurological deficit could be appreciated. ASSESSMENT: 1. Bilateral pneumonia. 2. Exacerbation of congestive heart failure. 3. Acute on chronic systolic heart failure. PLAN: Continue current antibiotics. Follow Pulmonary, Cardiology, and Infectious Diseases recommendations. We will downgrade patient to the telemetry floor as he is off drips. [facility] MD Matt
[2017-10-20] MEDS: POLYETHYLENE GLYCOL 3350 17 GM/Dose PACKET PO SCH (09:33)
[2017-10-20] MEDS: Pantoprazole 40 mg EC Tab PO SCH (09:35)
--- NOTE | 2017-10-20 11:21 | CP.PCM.PN ---
Subjective - Date & Time of Evaluation Date of Evaluation: 10/20/17 Time of Evaluation: 11:21 - Subjective Subjective: TRANSFERRED OUT OF ICU FEELS BETTER SOB IMPROVED NO CHEST PAINS/COUGH ACTIVITY INCREASED Objective - Vital Signs/Intake and Output Vital Signs (last 24 hours): Temp Pulse Resp BP Pulse Ox 98.8 F 102 H 18 105/68 98 10/20/17 08:34 10/20/17 09:34 10/20/17 08:34 10/20/17 09:36 10/20/17 08:34 Intake and Output: 10/20/17 10/20/17 06:59 18:59 Intake Total 300 Output Total 650 Balance -350 - Medications Medications: Current Medications Acetaminophen (Tylenol 325mg Tab) 650 mg PO Q6 PRN PRN Reason: Fever >100.4 F Last Admin: 10/15/17 07:01 Dose: 650 mg Acetaminophen (Tylenol 325mg Tab) 650 mg PO Q6 PRN PRN Reason: Fever >100.4 F Last Admin: 10/15/17 20:42 Dose: 650 mg Carvedilol (Coreg) 6.25 mg PO Q12 [facility] Last Admin: 10/20/17 09:34 Dose: 6.25 mg Clopidogrel Bisulfate (Plavix) 75 mg PO DAILY [facility] Last Admin: 10/20/17 09:33 Dose: 75 mg Enalapril Maleate (Vasotec) 5 mg PO DAILY [facility] Last Admin: 10/20/17 09:35 Dose: 5 mg Ferrous Gluconate (Fergon) 324 mg PO DAILY [facility] Last Admin: 10/20/17 09:34 Dose: 324 mg Furosemide (Lasix) 40 mg IV DAILY [facility] Last Admin: 10/20/17 09:36 Dose: 40 mg Guaifenesin/Dextromethorphan (Robitussin Dm) 10 ml PO Q4 PRN PRN Reason: Cough Last Admin: 10/17/17 00:08 Dose: 10 ml Meropenem 1 gm/ Sodium (Chloride) 100 mls @ 100 mls/hr IVPB Q8 [facility] PRN Reason: Protocol Last Admin: 10/20/17 10:58 Dose: 100 mls/hr Pantoprazole Sodium (Protonix Ec Tab) 40 mg PO DAILY [facility] Last Admin: 10/20/17 09:35 Dose: 40 mg Polyethylene Glycol (Miralax) 17 gm PO DAILY [facility] Last Admin: 10/20/17 09:33 Dose: Not Given Spironolactone (Aldactone) 25 mg PO DAILY [facility] Last Admin: 10/20/17 09:34 Dose: 25 mg Tramadol HCl (Ultram) 50 mg PO Q6 PRN PRN Reason: MODERATE PAIN (SCALE 4-7) Last Admin: 10/19/17 01:53 Dose: 50 mg - Labs Labs: 10/19/17 05:30 10/19/17 05:30 PT 17.4 Seconds (9.8-13.1) H D 10/11/17 05:40 INR 1.6 (0.9-1.2) H 10/11/17 05:40 APTT 52.6 Seconds (25.6-37.1) H D 10/11/17 18:55 - Constitutional Appears: No Acute Distress - Head Exam Head Exam: ATRAUMATIC, NORMAL INSPECTION, NORMOCEPHALIC - Eye Exam Eye Exam: EOMI, Normal appearance, PERRL Pupil Exam: NORMAL ACCOMODATION, PERRL - ENT Exam ENT Exam: Mucous Membranes Moist, Normal Exam - Neck Exam Neck Exam: Full ROM, Normal Inspection. absent: Lymphadenopathy - Respiratory Exam Respiratory Exam: Prolonged Expiratory Phase, NORMAL BREATHING PATTERN - Cardiovascular Exam Cardiovascular Exam: REGULAR RHYTHM, +S1, +S2. absent: Murmur - GI/Abdominal Exam GI & Abdominal Exam: Soft, Normal Bowel Sounds. absent: Tenderness - Rectal Exam Rectal Exam: NORMAL INSPECTION - Extremities Exam Extremities Exam: Full ROM, Normal Capillary Refill, Normal Inspection. absent : Joint Swelling, Pedal Edema - Back Exam Back Exam: NORMAL INSPECTION - Neurological Exam Neurological Exam: Alert, Awake, CN II-XII Intact, Normal Gait, Oriented x3 - Psychiatric Exam Psychiatric exam: Normal Affect, Normal Mood - Skin Skin Exam: Dry, Intact, Normal Color, Warm Assessment and Plan - Assessment and Plan (Free Text) Assessment: CARDIOMYOPATHY WITH CHF--IMPROVED PNEUMONIA-CLINICALLY IMPROVED Plan: REPEAT CXR TODAY CONTINUE CURRENT RX
--- NOTE | 2017-10-20 13:29 | CP.PCM.PN ---
Subjective - Date & Time of Evaluation Date of Evaluation: 10/20/17 Time of Evaluation: 13:15 - Subjective Subjective: patient feels better. no dyspnea. Objective - Vital Signs/Intake and Output Vital Signs (last 24 hours): Temp Pulse Resp BP Pulse Ox 98.7 F 92 H 18 95/64 L 97 10/20/17 12:27 10/20/17 12:27 10/20/17 12:27 10/20/17 12:27 10/20/17 12:27 Intake and Output: 10/20/17 10/20/17 06:59 18:59 Intake Total 300 Output Total 650 Balance -350 - Medications Medications: Current Medications Acetaminophen (Tylenol 325mg Tab) 650 mg PO Q6 PRN PRN Reason: Fever >100.4 F Last Admin: 10/15/17 07:01 Dose: 650 mg Acetaminophen (Tylenol 325mg Tab) 650 mg PO Q6 PRN PRN Reason: Fever >100.4 F Last Admin: 10/15/17 20:42 Dose: 650 mg Carvedilol (Coreg) 6.25 mg PO Q12 [facility] Last Admin: 10/20/17 09:34 Dose: 6.25 mg Clopidogrel Bisulfate (Plavix) 75 mg PO DAILY [facility] Last Admin: 10/20/17 09:33 Dose: 75 mg Enalapril Maleate (Vasotec) 5 mg PO DAILY [facility] Last Admin: 10/20/17 09:35 Dose: 5 mg Ferrous Gluconate (Fergon) 324 mg PO DAILY [facility] Last Admin: 10/20/17 09:34 Dose: 324 mg Furosemide (Lasix) 40 mg IV DAILY [facility] Last Admin: 10/20/17 09:36 Dose: 40 mg Guaifenesin/Dextromethorphan (Robitussin Dm) 10 ml PO Q4 PRN PRN Reason: Cough Last Admin: 10/17/17 00:08 Dose: 10 ml Meropenem 1 gm/ Sodium (Chloride) 100 mls @ 100 mls/hr IVPB Q8 [facility] PRN Reason: Protocol Last Admin: 10/20/17 10:58 Dose: 100 mls/hr Pantoprazole Sodium (Protonix Ec Tab) 40 mg PO DAILY [facility] Last Admin: 10/20/17 09:35 Dose: 40 mg Polyethylene Glycol (Miralax) 17 gm PO DAILY [facility] Last Admin: 10/20/17 09:33 Dose: Not Given Spironolactone (Aldactone) 25 mg PO DAILY [facility] Last Admin: 10/20/17 09:34 Dose: 25 mg Tramadol HCl (Ultram) 50 mg PO Q6 PRN PRN Reason: MODERATE PAIN (SCALE 4-7) Last Admin: 10/19/17 01:53 Dose: 50 mg - Labs Labs: 10/19/17 05:30 10/19/17 05:30 PT 17.4 Seconds (9.8-13.1) H D 10/11/17 05:40 INR 1.6 (0.9-1.2) H 10/11/17 05:40 APTT 52.6 Seconds (25.6-37.1) H D 10/11/17 18:55 - Constitutional Appears: Non-toxic - Head Exam Head Exam: NORMAL INSPECTION - Eye Exam Eye Exam: Normal appearance - ENT Exam ENT Exam: Mucous Membranes Moist - Neck Exam Neck Exam: Full ROM - Respiratory Exam Respiratory Exam: Decreased Breath Sounds - Cardiovascular Exam Cardiovascular Exam: REGULAR RHYTHM - GI/Abdominal Exam GI & Abdominal Exam: Normal Bowel Sounds - Rectal Exam Rectal Exam: Deferred - Extremities Exam Extremities Exam: Pedal Edema - Back Exam Back Exam: NORMAL INSPECTION - Neurological Exam Neurological Exam: Alert - Psychiatric Exam Psychiatric exam: Normal Affect - Skin Skin Exam: Normal Color Assessment and Plan (1) Systolic dysfunction with acute on chronic heart failure Assessment & Plan: improved volume status. currently off dobutamine. Status: Acute (2) CHF (NYHA class III, ACC/AHA stage C) Assessment & Plan: will treat medically. eventual AICD as outpatient Status: Acute
--- NOTE | 2017-10-20 14:17 | RAD ---
HISTORY: CHF/PNEUMONIA COMPARISON: Comparison made with chest radiograph 10/17/2017 TECHNIQUE: Chest PA and lateral FINDINGS: LUNGS: Re- demonstrated is right lower lobe on opacification that probably represent some combination of atelectasis/ infiltrate and moderately large effusion. Suspect mild left basilar atelectasis and vague patchy opacity right anterior upper lung field best seen on lateral projection. PLEURA: No significant pleural effusion identified. No pneumothorax apparent. CARDIOVASCULAR: Marked cardiomegaly. OSSEOUS STRUCTURES: No significant abnormalities. VISUALIZED UPPER ABDOMEN: Normal. OTHER FINDINGS: None. IMPRESSION: Re- demonstrated is right lower lobe on opacification that probably represent some combination of atelectasis/ infiltrate and moderately large effusion. Suspect mild left basilar atelectasis and vague patchy opacity right anterior upper lung field best seen on lateral projection. . Marked cardiomegaly.
[2017-10-21] MEDS: Meropenem 1 GM in Sodium Chloride 0.9% 100 ML IVPB SCH ×3 (00:20→16:12)
--- NOTE | 2017-10-21 09:45 | CP.PCM.PN ---
Subjective - Date & Time of Evaluation Date of Evaluation: 10/21/17 Time of Evaluation: 09:46 - Subjective Subjective: DENIES CHEST PAINS/SOB Objective - Vital Signs/Intake and Output Vital Signs (last 24 hours): Temp Pulse Resp BP Pulse Ox 98.4 F 91 H 18 98/68 L 99 10/21/17 08:08 10/21/17 08:08 10/21/17 08:08 10/21/17 08:08 10/21/17 08:08 - Medications Medications: Current Medications Acetaminophen (Tylenol 325mg Tab) 650 mg PO Q6 PRN PRN Reason: Fever >100.4 F Last Admin: 10/15/17 07:01 Dose: 650 mg Acetaminophen (Tylenol 325mg Tab) 650 mg PO Q6 PRN PRN Reason: Fever >100.4 F Last Admin: 10/15/17 20:42 Dose: 650 mg Carvedilol (Coreg) 6.25 mg PO Q12 [facility] Last Admin: 10/20/17 20:40 Dose: Not Given Clopidogrel Bisulfate (Plavix) 75 mg PO DAILY [facility] Last Admin: 10/20/17 09:33 Dose: 75 mg Enalapril Maleate (Vasotec) 5 mg PO DAILY [facility] Last Admin: 10/20/17 09:35 Dose: 5 mg Ferrous Gluconate (Fergon) 324 mg PO DAILY [facility] Last Admin: 10/20/17 09:34 Dose: 324 mg Furosemide (Lasix) 40 mg IV DAILY [facility] Last Admin: 10/20/17 09:36 Dose: 40 mg Guaifenesin/Dextromethorphan (Robitussin Dm) 10 ml PO Q4 PRN PRN Reason: Cough Last Admin: 10/17/17 00:08 Dose: 10 ml Meropenem 1 gm/ Sodium (Chloride) 100 mls @ 100 mls/hr IVPB Q8 [facility] PRN Reason: Protocol Pantoprazole Sodium (Protonix Ec Tab) 40 mg PO DAILY [facility] Last Admin: 10/20/17 09:35 Dose: 40 mg Polyethylene Glycol (Miralax) 17 gm PO DAILY [facility] Last Admin: 10/20/17 09:33 Dose: Not Given Spironolactone (Aldactone) 25 mg PO DAILY [facility] Last Admin: 10/20/17 09:34 Dose: 25 mg Tramadol HCl (Ultram) 50 mg PO Q6 PRN PRN Reason: MODERATE PAIN (SCALE 4-7) Last Admin: 10/19/17 01:53 Dose: 50 mg - Labs Labs: 10/19/17 05:30 10/19/17 05:30 PT 17.4 Seconds (9.8-13.1) H D 10/11/17 05:40 INR 1.6 (0.9-1.2) H 10/11/17 05:40 APTT 52.6 Seconds (25.6-37.1) H D 10/11/17 18:55 - Constitutional Appears: No Acute Distress - Head Exam Head Exam: ATRAUMATIC, NORMAL INSPECTION, NORMOCEPHALIC - Eye Exam Eye Exam: EOMI, Normal appearance, PERRL Pupil Exam: NORMAL ACCOMODATION, PERRL - ENT Exam ENT Exam: Mucous Membranes Moist, Normal Exam - Neck Exam Neck Exam: Full ROM, Normal Inspection. absent: Lymphadenopathy - Respiratory Exam Respiratory Exam: Decreased Breath Sounds, NORMAL BREATHING PATTERN - Cardiovascular Exam Cardiovascular Exam: REGULAR RHYTHM, +S1, +S2. absent: Murmur - GI/Abdominal Exam GI & Abdominal Exam: Soft, Normal Bowel Sounds. absent: Tenderness - Rectal Exam Rectal Exam: NORMAL INSPECTION - Extremities Exam Extremities Exam: Full ROM, Normal Capillary Refill, Normal Inspection. absent : Joint Swelling, Pedal Edema - Back Exam Back Exam: NORMAL INSPECTION - Neurological Exam Neurological Exam: Alert, Awake, CN II-XII Intact, Normal Gait, Oriented x3 - Psychiatric Exam Psychiatric exam: Normal Affect, Normal Mood - Skin Skin Exam: Dry, Intact, Normal Color, Warm Assessment and Plan - Assessment and Plan (Free Text) Assessment: CARDIOMYOPATHY WITH RESIDUAL EFFUSION/PNEUMONIA Plan: OK TO CONTINUE ANTIBIOTIC RX MAY GO TO SUBACUTE CARE SERIAL WEEKLY CXRS UNTIL PNEUMONIA/EFFUSION IMPROVES OR RESOLVES
[2017-10-21] MEDS: Pantoprazole 40 mg EC Tab PO SCH (09:50)
[2017-10-21] MEDS: POLYETHYLENE GLYCOL 3350 17 GM/Dose PACKET PO SCH (10:01)
--- NOTE | 2017-10-21 12:26 | CP.PCM.PCO ---
Assessment & Plan - Assessment and Plan (Free Text) Assessment: patient doing well this morning- ambulating in room. denies sob, cp, fever chills or cough pt. agreed to NELI for iv abx- pt's labs, xray, vital, antibiotic length discussed with As per , continue Merrem iv for one more day and discontinue vanco and zithromax as per her recommendations Discussed with who plans for discharge to Home tomorrow after Merrem dose
[2017-10-21 12:52] LABS: HEMOGLOBIN 12.2 g/dL (12.0-18.0); MEAN CELL VOLUME 73.2 fl (80.0-94.0); MEAN CORPUSCULAR HEMOGLOBIN 23.6 pg (27.0-31.0); MEAN CORPUSCULAR HGB CONC 32.3 g/dL (33.0-37.0); RBC 5.15 Mil/uL (4.40-5.90); RED CELL DISTRIBUTION WIDTH 18.4 % (11.5-14.5); WHITE BLOOD COUNT 6.7 K/uL (4.8-10.8)
[2017-10-21 13:10] LABS: BLOOD UREA NITROGEN 20 mg/dl (9-20); CALCIUM 9.7 mg/dL (8.4-10.2); GFR AFRICAN-AMERICAN > 60; GFR NON-AFRICAN AMERICAN > 60
--- NOTE | 2017-10-21 14:35 | US ---
PROCEDURE: Bilateral lower extremity venous duplex Doppler. HISTORY: fever COMPARISON: None available. TECHNIQUE: Bilateral common femoral, superficial femoral, popliteal and posterior tibial veins were evaluated. Flow was assessed with color Doppler, compressibility, assessment of phasic flow and augmentation response. FINDINGS: COMMON FEMORAL VEIN: Right CFV: Unremarkable. Left CFV: Unremarkable. SUPERFICIAL FEMORAL VEIN: Right SFV: Unremarkable. Left SFV: Unremarkable. POPLITEAL VEIN: Right Popliteal: Unremarkable. Left Popliteal: Unremarkable. POSTERIOR TIBIAL VEIN: Right PTV: Unremarkable. Left PTV: Unremarkable. OTHER FINDINGS: None. IMPRESSION: No evidence of deep venous thrombosis.
[2017-10-21] MEDS: Azithromycin 500 MG in Sodium Chloride 0.9% 250 ML IVPB SCH (17:12)
[2017-10-22] MEDS: Meropenem 1 GM in Sodium Chloride 0.9% 100 ML IVPB SCH ×2 (00:55→09:54)
[2017-10-22 08:21] VITALS: RESP 20
[2017-10-22] MEDS: Pantoprazole 40 mg EC Tab PO SCH (09:55)
[2017-10-22] MEDS: Azithromycin 500 MG in Sodium Chloride 0.9% 250 ML IVPB SCH (09:56)
[2017-10-22 12:44] VITALS: BP 89/63; PULSE 96; TEMP 98.7; O2SAT 97
--- NOTE | 2017-10-23 02:10 | PN ---
DATE: 10/21/2017 SUBJECTIVE: Patient was seen on 10/21/2017. He was able to ambulate without shortness of breath. Patient was started on IV antibiotics. PHYSICAL EXAMINATION: VITAL SIGNS: Blood pressure was 102/68, temperature 98.3, respiratory rate 20, and pulse 102. HEENT: Pupils equal, reactive to light. Normal-appearing mucosa of the conjunctivae, oropharynx, and nasal membrane mucosa. NECK: Supple. No JVD. No carotid bruit. No lymph node. No thyromegaly. CHEST AND LUNGS: Bilateral symmetrical expansion. Good air exchange. There are bilateral basilar rales. CARDIOVASCULAR SYSTEM: PMI not localized. S1 and S2. No additional sounds. ABDOMEN: Normoactive bowel sounds. No tenderness. No organomegaly. No masses. EXTREMITIES: No cyanosis. No clubbing. No edema. CENTRAL NERVOUS SYSTEM: Alert, awake, oriented x2. No neurological deficit could be appreciated. ASSESSMENT: 1. Exacerbation of congestive heart failure. 2. [id number]-[id number] systolic heart failure. 3. Bilateral pneumonia, which is improving. PLAN: Continue current IV antibiotics and follow IV recommendations and continue anti-failure treatment. Harry Gutierrez MD
--- NOTE | 2017-10-23 18:42 | DS ---
REASON FOR ADMISSION: This is a 47 years old male with history of multiple medical problems, was admitted for exacerbation of congestive heart failure with bilateral pneumonia. COURSE OF HOSPITALIZATION: Patient was initially admitted to Intensive Care Unit and he had a Cardiology consult done by Dr. Martinez, an ID consult done by Dr. Villareal, and a Pulmonary consult done by Dr. Salinas. Patient's symptoms remarkably improved and he was transferred to the floor where he had started physical therapy, and patient was discharged home in a stable condition to continue anti-failure measures and to continue the followup with Cardiology as well as with Electrophysiology for ICD placement. FINAL DIAGNOSES: Exacerbation of congestive heart failure, [id number]; dilated cardiomyopathy; bilateral pneumonia. Debra MD Matt
== END 2017-10-22 21:16 | disposition home health service (06) | DRG 121 ==
LOC: H.ER 13:14 → H.ERHOLD 16:53 → H.ICU/CCU 18:25 → H.TEL 10-20 00:35
PROVIDERS: ADMIT Internal Medicine; ATTEND Internal Medicine
DX: I21.4 Non-ST elevation (NSTEMI) myocardial infarction (principal); I11.0 Hypertensive heart disease with heart failure; I50.43 Acute on chronic combined systolic (congestive) and diastolic (congestive) heart failure; J18.8 Other pneumonia, unspecified organism; E87.3 Alkalosis; I95.9 Hypotension, unspecified; I42.0 Dilated cardiomyopathy; J98.11 Atelectasis; E66.01 Morbid (severe) obesity due to excess calories; E11.9 Type 2 diabetes mellitus without complications; D63.8 Anemia in other chronic diseases classified elsewhere; G47.30 Sleep apnea, unspecified; I25.5 Ischemic cardiomyopathy; I44.7 Left bundle-branch block, unspecified; K59.00 Constipation, unspecified; Z86.73 Personal history of transient ischemic attack (TIA), and cerebral infarction without residual deficits; Z91.14 Patient's other noncompliance with medication regimen; Z95.810 Presence of automatic (implantable) cardiac defibrillator; Z68.32 Body mass index [BMI] 32.0-32.9, adult; Z79.82 Long term (current) use of aspirin

== ENCOUNTER 2018-10-31 15:40 | Inpatient (IN) | payer MEDICAID, OTHER ==
[2018-10-31 15:40] VITALS: BMI 35.9
--- NOTE | 2018-10-31 17:42 | ED PDOC ---
HPI: SOB/CHF/COPD Time Seen by Provider: 10/31/18 17:31 Chief Complaint (Nursing): Shortness Of Breath History Per: Patient Onset/Duration Of Symptoms: Days (3) Current Symptoms Are (Timing): Still Present Exacerbating Factor(s): Exertion Current Respiratory Medications: See Home Med List, Diuretic Severity: Moderate Associated Symptoms: Ankle/Leg Swelling. denies: Chest Pain, Productive Cough, Leg/Calf Pain Additional Complaint(s): Progressive SOB and leg swelling, worse over past 3 days. Denies chest pain, cough or fever. Was able to walk multiple blocks, now less than 1 block. Has also noted 5 lb weight gain over past 3 days. Has taken addl lasix x 2 at home with no improvement. Past Medical History Vital Signs: Last Vital Signs Temp 98.4 F 10/31/18 17:05 Pulse 95 H 10/31/18 17:05 Resp 18 10/31/18 17:05 BP 90/62 L 10/31/18 17:05 Pulse Ox 99 10/31/18 17:05 - Medical History PMH: CHF (04/2013), HTN Denies: Deep Vein Thrombosis, Pulmonary Embolism - Family History Family History: States: Unknown Family Hx - Immunization History Hx Influenza Vaccination: No Hx Pneumococcal Vaccination: Yes - Home Medications Home Medications: Ambulatory Orders Medication Instructions Recorded Aspirin [Aspirin EC] 81 mg PO DAILY 12/21/14 Carvedilol [Coreg] 6.25 mg PO Q12H 12/21/14 Enalapril Maleate 5 mg PO DAILY 12/21/14 Famotidine [Pepcid] 20 mg PO DAILY 12/21/14 Furosemide [Lasix] 20 mg PO BID 12/21/14 Cholecalciferol [Vitamin D 1000 IU] 1,000 unit PO DAILY 08/26/17 Multivitamin [Daily Mary] 1 tab PO DAILY 08/26/17 Aspirin 650 mg PO DAILY PRN 10/09/17 Spironolactone [Aldactone] 25 mg PO DAILY 10/09/17 Clopidogrel [Plavix] 75 mg PO DAILY #30 tab 10/22/17 Ferrous Gluconate [Fergon] 324 mg PO DAILY #30 tab 10/22/17 guaiFENesin/Dextromethorphan 10 ml PO Q4 PRN #20 [facility] 10/22/17 [Robitussin DM] - Allergies Allergies/Adverse Reactions: Allergies Allergy/AdvReac Type Severity Reaction Status Date / Time No Known Allergies Allergy Verified 10/09/17 13:29 Review of Systems ROS Statement: Except As Marked, All Systems Reviewed And Found Negative Respiratory: Positive for: Shortness of Breath, SOB with Exertion. Negative for: Cough, Sputum Musculoskeletal: Negative for: Leg Pain Physical Exam - Reviewed Nursing Documentation Reviewed: Yes Vital Signs Reviewed: Yes - Physical Exam Appears: Positive for: Non-toxic, No Acute Distress Head Exam: Positive for: ATRAUMATIC, NORMAL INSPECTION, NORMOCEPHALIC Skin: Positive for: Normal Color, Warm, DRY Eye Exam: Positive for: EOMI, Normal appearance, PERRL ENT: Positive for: Normal ENT Inspection Neck: Positive for: Normal, Painless ROM Cardiovascular/Chest: Positive for: Regular Rate, Rhythm Respiratory: Positive for: Rales (bases bilat). Negative for: Respiratory Distress Gastrointestinal/Abdominal: Positive for: Normal Exam, Soft Back: Positive for: Normal Inspection Extremity: Positive for: Swelling (2+ pitting edema lower ext bilat. No calf tenderness.) Neurologic/Psych: Positive for: Alert, Oriented - Laboratory Results Result Diagrams: 10/31/18 17:56 10/31/18 17:56 - ECG O2 Sat by Pulse Oximetry: 99 Medical Decision Making Medical Decision Making: Pt appears fluid overloaded and will need diuresis. Blood pressure is low so will diuresis cautiously. Discussed with Disposition - Clinical Impression Clinical Impression: CHF exacerbation - Patient ED Disposition Is Patient to be Admitted: Yes - Disposition Disposition Time: 19:04 Condition: FAIR Forms: [facility] (French) - Pt Status Changed To: Hospital Disposition Of: Observation - POA Present On Arrival: None
[2018-10-31 18:05] LABS: BASO # 0.1 K/uL (0.0-0.2); EOS # 0.2 K/uL (0.0-0.7); EOS % 3.3 % (0.0-4.0); HEMOGLOBIN 12.1 g/dL (12.0-18.0); LYMPH % 19.9 % (20.0-40.0); MEAN CELL VOLUME 76.5 fl (80.0-94.0); MEAN CORPUSCULAR HEMOGLOBIN 23.9 pg (27.0-31.0); MEAN CORPUSCULAR HGB CONC 31.3 g/dL (33.0-37.0); MONO # 0.4 K/uL (0.0-0.8); NEUT # 3.2 K/uL (1.8-7.0); NEUT % 65.8 % (50.0-75.0); RBC 5.05 Mil/uL (4.40-5.90); WHITE BLOOD COUNT 4.9 K/uL (4.8-10.8)
[2018-10-31 18:21] LABS: ALB/GLOB RATIO 0.9 (1.0-2.1); ALBUMIN 3.8 g/dL (3.5-5.0); ALT/SGPT 23 U/L (21-72); AST/SGOT 22 U/L (17-59); BLOOD UREA NITROGEN 26 mg/dl (9-20); CALCIUM 9.3 mg/dL (8.4-10.2); GFR NON-AFRICAN AMERICAN 54
--- NOTE | 2018-10-31 18:27 | RAD ---
Date of service: 10/31/2018 HISTORY: cough COMPARISON: 10/20/2017 FINDINGS: LUNGS: No active pulmonary disease. PLEURA: No significant pleural effusion identified, no pneumothorax apparent. CARDIOVASCULAR: No aortic atherosclerotic calcification present. Cardiomegaly. AICD. No congestive change peer OSSEOUS STRUCTURES: No significant abnormalities. VISUALIZED UPPER ABDOMEN: Normal. OTHER FINDINGS: None. IMPRESSION: Cardiomegaly. No infiltrate. AICD noted.
[2018-10-31 18:32] LABS: B-TYPE NATRIURETIC PEPTIDE 8790 pg/ml (0-450)
[2018-11-01] MEDS ORDERED: Patient's Own Med (Multivitamin [Daily Vite] 1 TAB) PO SCH (09:00)
[2018-11-01] MEDS: Multivitamin With Minerals Tab PO SCH (10:29)
[2018-11-01] MEDS: Cholecalciferol 1,000 INTLU TAB PO SCH (10:30)
--- NOTE | 2018-11-01 21:48 | CARD ---
APPROVED REPORT Date of service: 10/31/2018 EKG Measurement Heart [id number] <Conclusion> AV sequential pacemaker with 1:1 capture. Atrial sensed , Ventricular paced Abnormal ECG
[2018-11-02] MEDS: Multivitamin With Minerals Tab PO SCH (10:04)
[2018-11-02] MEDS: Cholecalciferol 1,000 INTLU TAB PO SCH (10:04)
[2018-11-02] MEDS: guaiFENesin DM 200 mg-20 mg/10 ml UD PO PRN (21:17)
--- NOTE | 2018-11-03 01:09 | HP ---
HISTORY OF PRESENT ILLNESS: This is a 48-year-old male with history of multiple medical problems including dilated cardiomyopathy, status post ICD placement. The patient presented to emergency room with symptoms of progressive shortness of breath over the last 1 week. The patient was using Lasix at home but failed to cause improvement. The patient was evaluated in the emergency room and he was found to have bilateral basilar rales as well as proBNP of 8790. The patient was started on Lasix and admitted for further management. The patient denied to have any cough, fever or expectoration. Other review of systems is negative. ALLERGIES: NO KNOWN ALLERGY. MEDICATIONS: Reviewed as per MAR and ordered. SOCIAL HISTORY: No history of smoking, EtOH or substance abuse. FAMILY HISTORY: Not contributory. PAST MEDICAL HISTORY: Dilated cardiomyopathy, type 2 diabetes mellitus, status post ICD placement. PHYSICAL EXAMINATION: GENERAL: The patient is in bed, not in any cardiopulmonary distress at the time of this examination. VITAL SIGNS: Blood pressure 113/69, temperature 97.9, respiratory rate 18, and pulse 102. HEENT: Pupils equal, reactive to light. Normal-appearing mucosa of the conjunctivae, oropharynx and nasal membrane mucosa. NECK: Supple. No JVD. No carotid bruit. No lymph node. No thyromegaly. CHEST AND LUNGS: Bilateral symmetrical expansion. Good air exchange. No rales, no rhonchi. CARDIOVASCULAR SYSTEM: PMI not localized. S1, S2. No additional sounds. ABDOMEN: Normoactive bowel sounds. No tenderness. No organomegaly. No masses. EXTREMITIES: No cyanosis, no clubbing, no edema. CENTRAL NERVOUS SYSTEM: Alert, awake, oriented x2. No neurological deficit could be appreciated. ASSESSMENT: 1. Acute exacerbation of systolic congestive heart failure. 2. Dilated cardiomyopathy. 3. Status post implantable cardioverter-defibrillator placement. PLAN: Continue Lasix IV every 12 hours, fluid restriction, monitor basic metabolic panel, continue Aldactone 25 mg daily. Harry Gutierrez MD
--- NOTE | 2018-11-03 02:21 | CP.PCM.PCO ---
Addendum Addendum: 11/03/18 02:14 Called by RN at 1254- pt c/o mild shortness of breath; O2 started via NC at 2L. O2 sat was 95%. Reviewed chart- pt here for CHF exacerbation, has been getting diuresed since admission on 10/31; received 20 mg IVP 2x on 11/02/18. Came to assess pt - pt sitting up in bed, with NC on, no acute distress. States that he felt mild SOB while laying down, O2 is helping him, relates that he did not have SOB at the time I was speaking with him and feels the best he has had since coming to ED at this time. PE: Gen: pleasant male, no acute distress, speaking in full sentences without difficulty, wearing NC CV: S1S2, RRR Resp: clear lung sounds bilaterally, no rales auscultated Ext: 1+ pitting edema bilaterally to mid-calves; no calf tenderness, no increased warmth or erythema Advised pt to keep head of bed elevated, keep O2 on and to notify RN if he starts to feel short of breath again. Called back unit at 0210 am - as per RN no further complaints and pt is comfortable. 11/03/18 02:22
[2018-11-03 05:31] LABS: CALCIUM 9.6 mg/dL (8.4-10.2)
[2018-11-03] MEDS: Multivitamin With Minerals Tab PO SCH (08:59)
[2018-11-03] MEDS: Cholecalciferol 1,000 INTLU TAB PO SCH (08:59)
[2018-11-03 11:46] LABS: HEMOGLOBIN 12.1 g/dL (12.0-18.0); MEAN CORPUSCULAR HEMOGLOBIN 23.9 pg (27.0-31.0); MEAN CORPUSCULAR HGB CONC 31.5 g/dL (33.0-37.0); RBC 5.07 Mil/uL (4.40-5.90); RED CELL DISTRIBUTION WIDTH 17.1 % (11.5-14.5); WHITE BLOOD COUNT 5.5 K/uL (4.8-10.8)
--- NOTE | 2018-11-03 18:12 | CP.PCM.CON ---
History of Present Illness - History of Present Illness History of Present Illness: I was asked to see patient by Dr Gutierrez. Patient seen 11/03/181809 Patient is a 48 year old male with dialted cardiomyopathy s/p BiVAICD, chronci systolic dysfunction, who presents with dyspnea. Patient states symptoms began 2 weeks ago, and are described as progressive and occuring with walking one block. The patient has noted progressive LE edema. Review of Systems - Constitutional Constitutional: absent: As Per HPI, Anorexia, Chills, Daytime Sleepiness, E xcessive Sweating, Fatigue, Fever, Frequent Falls, Headache, Increased Appetite, Lethargy, Malaise, Night Sweats, Snoring, Sleep Apnea, Weight Gain, Weight Loss, Weakness, Other - EENT Eyes: absent: As Per HPI, Blind Spots, Blurred Vision, Change in Vision, Dec reased Night Vision, Diplopia, Discharge, Dry Eye, Exophthalmos, Floaters, Irritation, Itchy Eyes, Loss of Peripheral Vision, Pain, Photophobia, Requires Corrective Lenses, Sees Flashes, Spots in Vision, Tunnel Vision, Other Visual Disturbances, Loss of Vision, Other Ears: absent: As Per HPI, Decreased Hearing, Ear Discharge, Ear Pain, Tinnitus, Abnormal Hearing, Disequilibrium, Dizziness, Other Nose/Mouth/Throat: absent: As Per HPI, Epistaxis, Nasal Congestion, Nasal Discharge, Nasal Obstruction, Nasal Trauma, Nose Pain, Post Nasal Drip, Sinus Pain, Sinus Pressure, Bleeding Gums, Change in Voice, Dental Pain, Dry Mouth, Dysphagia, Halitosis, Hoarsness, Lip Swelling, Mouth Lesions, Mouth Pain, Odynophagia, Sore Throat, Throat Swelling, Tongue Swelling, Facial Pain, Neck Pain, Neck Mass, Other - Cardiovascular Cardiovascular: Dyspnea, Orthopnea, Paroxysmal Nocturnal Dyspnea, Pedal Edema - Respiratory Respiratory: Dyspnea - Gastrointestinal Gastrointestinal: absent: As Per HPI, Abdominal Pain, Belching, Bloating, Change in Bowel Habits, Change in Stool Character, Coffee Ground Emesis, Constipation, Cramping, Diarrhea, Dyspepsia, Dysphagia, Early Satiety, Excessive Flatus, Fecal Incontinence, Heartburn, Hematemesis, Hematochezia, Loose Stools, Melena, Nausea, Odynophagia, Temesmus, Vomiting, Other - Genitourinary Genitourinary: absent: As Per HPI, Change in Urinary Stream, Difficulty Urinating, Dysuria, Flank Pain, Hematuria, Pyuria, Nocturia, Urinary Incontinence, Urinary Frequency, Urinary Hesitance, Urinary Urgency, Voiding Freq/Small Amts, Freq UTI, Hx Renal/Bladder Calculi, Hx /Renal Surgery, Bladder Distension, Other - Musculoskeletal Musculoskeletal: absent: As Per HPI, Abnormal Gait, Arthralgias, Atrophy, Back Pain, Deformity, Joint Swelling, Limited Range of Motion, Loss of Height, Muscle Cramps, Muscle Weakness, Myalgias, Neck Pain, Numbness, Radiating Pain into Limb, Stiffness, Tingling, Other - Integumentary Integumentary: absent: As Per HPI, Acne, Alopecia, Bleeding Lesions, Change in Hair, Change in Nails, Change in Pigmentation, Changing Lesions, Dry Skin, Erythema, Furuncle, Hirsutism, Lesions, New Lesions, Non-Healing Lesions, Photosensitivity, Pruritus, Rash, Skin Pain, Skin Ulcer, Sores, Striae, Swelling, Unusual Bruising, Wounds, Jaundice, Other - Neurological Neurological: absent: As Per HPI, Abnormal Gait, Abnormal Hearing, Abnormal Movements, Abnormal Speech, Behavioral Changes, Burning Sensations, Confusion, Convulsions, Disequilibrium, Dizziness, Numbness, Focal Weakness, Frequent Falls, Headaches, Lack of Coordination, Loss of Vision, Memory Loss, Paresthesias, Radicular Pain, Restless Legs, Sensory Deficit, Syncope, Tingling, Tremor, Vertigo, Weakness, Other Visual Disturbances, Other - Psychiatric Psychiatric: absent: As Per HPI, Abnormal Sleep Pattern, Anhedonia, Anxiety, Auditory Hallucinations, Behavioral Changes, Change in Appetite, Change in Libido, Confusion, Depression, Difficulty Concentrating, Hallucinations, Homicidal Ideation, Hopelessness, Irritability, Memory Loss, Mood Swings, Panic Attacks, Paranoia, Suicidal Ideation, Visual Hallucinations, Tactile Hallucinations, Other - Endocrine Endocrine: absent: As Per HPI, Change in Body Appearance, Change in Libido, Cold Intolorance, Deepening of Voice, Excessive Sweating, Fatigue, Flushing, Heat Intolorance, Increase in Ring/Shoe/Hat Size, Palpitations, Polydipsia, Polyphagia, Polyuria, Other - Hematologic/Lymphatic Hematologic: absent: As Per HPI, Easy Bleeding, Easy Bruising, Lymphadenopathy, Other Past Patient History - Past Medical History & Family History Past Medical History?: Yes - Past Social History Smoking Status: Never Smoked - CARDIAC Hx Cardiac Disorders: Yes Hx Congestive Heart Failure: Yes - PULMONARY Hx Respiratory Disorders: No - NEUROLOGICAL Hx Neurological Disorder: Yes HX Cerebrovascular Accident: Yes (2011) - HEENT Hx HEENT Problems: No - RENAL Hx Chronic Kidney Disease: No - ENDOCRINE/METABOLIC Hx Endocrine Disorders: No - HEMATOLOGICAL/ONCOLOGICAL Hx Blood Disorders: No Hx AIDS: No Hx Human Immunodeficiency Virus (HIV): No - INTEGUMENTARY Hx Dermatological Problems: No - MUSCULOSKELETAL/RHEUMATOLOGICAL Hx Musculoskeletal Disorders: No Hx Falls: No - GASTROINTESTINAL Hx Gastrointestinal Disorders: No - GENITOURINARY/GYNECOLOGICAL Hx Genitourinary Disorders: No - PSYCHIATRIC Hx Psychophysiologic Disorder: No Hx Substance Use: No - SURGICAL HISTORY Hx Surgeries: Yes Hx Cardiac Catheterization: Yes - ANESTHESIA Hx Anesthesia: Yes Meds Allergies/Adverse Reactions: Allergies Allergy/AdvReac Type Severity Reaction Status Date / Time No Known Allergies Allergy Verified 10/09/17 13:29 - Medications Medications: Current Medications Acetaminophen (Tylenol 325mg Tab) 650 mg PO Q6 PRN PRN Reason: Pain, Mild (1-3) Last Admin: 11/02/18 21:56 Dose: 650 mg Aspirin (Ecotrin) 81 mg PO DAILY [facility] Last Admin: 11/03/18 08:59 Dose: 81 mg Carvedilol (Coreg) 6.25 mg PO Q12H [facility] Last Admin: 11/03/18 08:59 Dose: 6.25 mg Cholecalciferol (Vitamin D) 1,000 intlu PO DAILY [facility] Last Admin: 11/03/18 08:59 Dose: 1,000 intlu Clopidogrel Bisulfate (Plavix) 75 mg PO DAILY [facility] Last Admin: 11/03/18 08:59 Dose: 75 mg Clotrimazole (Lotrimin 1% Cream) 1 applic TOP BID [facility] Enalapril Maleate (Vasotec) 5 mg PO DAILY [facility] Last Admin: 11/03/18 08:59 Dose: 5 mg Famotidine (Pepcid) 20 mg PO DAILY [facility] Last Admin: 11/03/18 08:59 Dose: 20 mg Furosemide (Lasix) 20 mg IVP DAILY [facility] Last Admin: 11/03/18 09:02 Dose: 20 mg Guaifenesin/Dextromethorphan (Robitussin Dm) 10 ml PO Q4 PRN PRN Reason: Cough Last Admin: 11/02/18 21:17 Dose: 10 ml Multivitamins/Minerals (Therapeutic-M Tab) 1 tab PO DAILY [facility] Last Admin: 11/03/18 08:59 Dose: 1 tab Sitagliptin Phosphate (Januvia) 50 mg PO DAILY [facility] Last Admin: 11/03/18 08:59 Dose: 50 mg Spironolactone (Aldactone) 25 mg PO DAILY [facility] Last Admin: 11/03/18 08:59 Dose: 25 mg Physical Exam - Constitutional Appears: Non-toxic - Head Exam Head Exam: NORMAL INSPECTION - Eye Exam Eye Exam: Normal appearance - ENT Exam ENT Exam: Mucous Membranes Moist - Neck Exam Neck exam: Positive for: Full Rom - Respiratory Exam Respiratory Exam: Decreased Breath Sounds - Cardiovascular Exam Cardiovascular Exam: REGULAR RHYTHM, JVD - GI/Abdominal Exam GI & Abdominal Exam: Normal Bowel Sounds - Rectal Exam Rectal Exam: Deferred - Extremities Exam Extremities exam: Positive for: pedal edema - Back Exam Back exam: NORMAL INSPECTION - Neurological Exam Neurological exam: Alert, Oriented x3 - Psychiatric Exam Psychiatric exam: Normal Affect - Skin Skin Exam: Normal Color Results - Vital Signs Recent Vital Signs: Last Vital Signs Temp 98.8 F 11/03/18 16:00 Pulse 123 H 11/03/18 16:00 Resp 20 11/03/18 16:00 BP 102/69 11/03/18 16:00 Pulse Ox 95 11/03/18 16:00 - Labs Result Diagrams: 11/03/18 11:42 11/03/18 04:35 Labs: Laboratory Results - last 24 hr 11/02/18 11/03/18 11/03/18 21:49 04:35 05:21 WBC RBC Hgb Hct MCV MCH MCHC RDW Plt Count Sodium 133 Potassium 5.4 H Chloride 92 L Carbon Dioxide 28 Anion Gap 18 BUN 31 H Creatinine 1.6 H Est GFR ( Amer) 56 Est GFR (Non-Af Amer) 46 POC Glucose (mg/dL) 125 H 126 H Random Glucose 124 H Calcium 9.6 Phosphorus Magnesium 11/03/18 11/03/18 11/03/18 11:21 11:42 11:42 WBC 5.5 RBC 5.07 Hgb 12.1 Hct 38.6 MCV 76.0 L MCH 23.9 L MCHC 31.5 L RDW 17.1 H Plt Count 215 Sodium Potassium Chloride Carbon Dioxide Anion Gap BUN Creatinine Est GFR ( Amer) Est GFR (Non-Af Amer) POC Glucose (mg/dL) 149 H Random Glucose Calcium Phosphorus 4.0 Magnesium 2.0 11/03/18 15:47 WBC RBC Hgb Hct MCV MCH MCHC RDW Plt Count Sodium Potassium Chloride Carbon Dioxide Anion Gap BUN Creatinine Est GFR ( Amer) Est GFR (Non-Af Amer) POC Glucose (mg/dL) 101 Random Glucose Calcium Phosphorus Magnesium - EKG Data EKG Interpreted by: Myself EKG shows normal: Sinus rhythm Assessment & Plan (1) Systolic dysfunction with acute on chronic heart failure Assessment and Plan: patient will need imrpoved diuresis. recommend d/c aldactone. increase lasizx to 40 mg IV daily. will hole coreg and enalapril for now. recommend Entresto as has proven morality benefit in heart failure patients. Status: Acute (2) AICD (automatic cardioverter/defibrillator) present Assessment and Plan: normal function Status: Acute
--- NOTE | 2018-11-04 00:56 | PN ---
DATE: 11/03/2018 SUBJECTIVE: The patient is seen today, 11/03/2018. He still has exertional shortness of breath and bilateral lower extremity swelling. PHYSICAL EXAMINATION: VITAL SIGNS: Blood pressure is 98/64, temperature 98.5, respiratory rate 20 and pulse 89. HEENT: Pupils equal, reactive to light. Normal-appearing mucosa of the conjunctivae, oropharynx and nasal membrane mucosa. NECK: Supple. No JVD. No carotid bruit. No lymph node. No thyromegaly. CHEST AND LUNGS: Bilateral symmetrical expansion. Good air exchange. Few basilar rales. CARDIOVASCULAR SYSTEM: PMI not localized. S1, S2. No additional sounds. ABDOMEN: Normoactive bowel sounds. No tenderness. No organomegaly or masses. EXTREMITIES: No cyanosis, no clubbing, +2 edema in both lower extremities. CARDIAC REHABILITATION SPECIALIST: Alert, awake, oriented x3. No neurological deficit could be appreciated. ASSESSMENT: 1. Dilated cardiomyopathy with pulmonary hypertension and right-sided failure. 2. Type 2 diabetes mellitus. PLAN: Continue Lasix and hold on Aldactone as serum potassium is elevated, and we will give also the patient one dose of Kayexalate and monitor electrolytes. Harry Gutierrez MD
[2018-11-04 06:05] LABS: ALB/GLOB RATIO 0.9 (1.0-2.1); ALBUMIN 3.8 g/dL (3.5-5.0); ALT/SGPT 33 U/L (21-72); AST/SGOT 28 U/L (17-59); BLOOD UREA NITROGEN 33 mg/dl (9-20); CALCIUM 9.2 mg/dL (8.4-10.2); GFR NON-AFRICAN AMERICAN 50
[2018-11-04] MEDS: Cholecalciferol 1,000 INTLU TAB PO SCH (09:33)
[2018-11-04] MEDS: Multivitamin With Minerals Tab PO SCH (09:33)
--- NOTE | 2018-11-04 13:03 | CP.PCM.PN ---
Subjective - Date & Time of Evaluation Date of Evaluation: 11/04/18 Time of Evaluation: 11:40 - Subjective Subjective: patient feels better. no chest pain Objective - Vital Signs/Intake and Output Vital Signs (last 24 hours): Temp Pulse Resp BP Pulse Ox 97.9 F 100 H 18 98/66 L 93 L 11/04/18 12:36 11/04/18 12:36 11/04/18 12:36 11/04/18 12:36 11/04/18 12:36 Intake and Output: 11/04/18 11/04/18 06:59 18:59 Intake Total 500 Output Total 600 Balance -100 - Medications Medications: Current Medications Acetaminophen (Tylenol 325mg Tab) 650 mg PO Q6 PRN PRN Reason: Pain, Mild (1-3) Last Admin: 11/02/18 21:56 Dose: 650 mg Aspirin (Ecotrin) 81 mg PO DAILY [facility] Last Admin: 11/04/18 09:30 Dose: 81 mg Carvedilol (Coreg) 6.25 mg PO Q12H [facility] Last Admin: 11/04/18 09:27 Dose: Not Given Cholecalciferol (Vitamin D) 1,000 intlu PO DAILY [facility] Last Admin: 11/04/18 09:33 Dose: 1,000 intlu Clopidogrel Bisulfate (Plavix) 75 mg PO DAILY [facility] Last Admin: 11/04/18 09:33 Dose: 75 mg Clotrimazole (Lotrimin Af 1%) 1 applic TOP BID [facility] Last Admin: 11/04/18 09:32 Dose: 1 applic Enalapril Maleate (Vasotec) 5 mg PO DAILY [facility] Last Admin: 11/03/18 08:59 Dose: 5 mg Famotidine (Pepcid) 20 mg PO DAILY [facility] Last Admin: 11/04/18 09:33 Dose: 20 mg Furosemide (Lasix) 40 mg IVP DAILY [facility] Last Admin: 11/04/18 09:32 Dose: Not Given Guaifenesin/Dextromethorphan (Robitussin Dm) 10 ml PO Q4 PRN PRN Reason: Cough Last Admin: 11/02/18 21:17 Dose: 10 ml Multivitamins/Minerals (Therapeutic-M Tab) 1 tab PO DAILY [facility] Last Admin: 11/04/18 09:33 Dose: 1 tab Sitagliptin Phosphate (Januvia) 50 mg PO DAILY [facility] Last Admin: 11/04/18 09:31 Dose: 50 mg - Labs Labs: 11/03/18 11:42 11/04/18 04:25 - Constitutional Appears: Non-toxic - Head Exam Head Exam: NORMAL INSPECTION - Eye Exam Eye Exam: Normal appearance - ENT Exam ENT Exam: Mucous Membranes Moist - Neck Exam Neck Exam: Full ROM - Respiratory Exam Respiratory Exam: Decreased Breath Sounds - Cardiovascular Exam Cardiovascular Exam: REGULAR RHYTHM - GI/Abdominal Exam GI & Abdominal Exam: Normal Bowel Sounds - Rectal Exam Rectal Exam: Deferred - Extremities Exam Extremities Exam: absent: Pedal Edema - Back Exam Back Exam: NORMAL INSPECTION - Neurological Exam Neurological Exam: Alert - Psychiatric Exam Psychiatric exam: Normal Affect - Skin Skin Exam: Normal Color Assessment and Plan (1) Systolic dysfunction with acute on chronic heart failure Assessment & Plan: improving with increased diuresis Status: Acute (2) AICD (automatic cardioverter/defibrillator) present Assessment & Plan: normal function. Status: Acute
--- NOTE | 2018-11-04 14:51 | CP.PCM.PCO ---
Assessment & Plan - Assessment and Plan (Free Text) Assessment: pt. fells better today, reports decreased sob, orthopnea, denies cp, dizziness, c/o LE rash worsening for past few days pt. examined, Bilateral LE and B/L hip with multiple areas of petechia, purpura Denies any hematuria, cbc wnl notified, Held ASA Plavix for heme consult
--- NOTE | 2018-11-04 16:41 | US ---
Date of service: 11/04/2018 PROCEDURE: Bilateral lower extremity venous duplex Doppler. HISTORY: LE edema; r/o dvt COMPARISON: Bilateral lower extremity venous ultrasound 10/21/2017. TECHNIQUE: Bilateral common femoral, superficial femoral, popliteal and posterior tibial veins were evaluated. Flow was assessed with color Doppler, compressibility, assessment of phasic flow and augmentation response. FINDINGS: COMMON FEMORAL VEIN: Right CFV: Unremarkable. Left CFV: Unremarkable. SUPERFICIAL FEMORAL VEIN: Right SFV: Unremarkable. Left SFV: Unremarkable. POPLITEAL VEIN: Right Popliteal: Unremarkable. Left Popliteal: Unremarkable. POSTERIOR TIBIAL VEIN: Right PTV: Unremarkable. Left PTV: Unremarkable. OTHER FINDINGS: None. IMPRESSION: No sonographic evidence of deep venous thrombosis bilateral lower extremities. No definitive significant interval change. Prior bilateral lower extremity venous ultrasound 10/21/2017.
--- NOTE | 2018-11-04 20:01 | PQF ---
PROVIDER RESPONSE TEXT: Hyperkalemia likely secondary to spironolactone REVIEWER QUERY TEXT: Medication Correlation for Diagnosis PN 11/03/18: Serum potassium is elevated will give Kayexalate and monitor electrolytes. I am unable to code " Serum potassium is elevated ". Please document the associated diagnosis for shola vated potassium. Your help is needed in capturing diagnoses for the corresponding medications ordered. Please clarify in the documentation diagnoses for the following medication(s). Medications: Kayexalate The patient's Clinical Indicators include: K 5.4 Kayexalate given Query created by: An Pham on 11/04/2018 11:11 AM Electronically signed by: Harry Gutierrez MD 11/04/2018 7:58 PM
[2018-11-05 05:30] LABS: BASO # 0.2 K/uL (0.0-0.2); BASO % 3.5 % (0.0-2.0); EOS # 0.1 K/uL (0.0-0.7); EOS % 2.4 % (0.0-4.0); HEMOGLOBIN 11.8 g/dL (12.0-18.0); LYMPH # 1.1 K/uL (1.0-4.3); LYMPH % 18.5 % (20.0-40.0); MEAN CELL VOLUME 75.5 fl (80.0-94.0); MEAN CORPUSCULAR HEMOGLOBIN 23.6 pg (27.0-31.0); MEAN CORPUSCULAR HGB CONC 31.2 g/dL (33.0-37.0); MEAN PLATELET VOLUME 8.2 fl (7.2-11.7); MONO # 0.4 K/uL (0.0-0.8); MONO % 7.5 % (0.0-10.0); NEUT # 3.9 K/uL (1.8-7.0); NEUT % 68.1 % (50.0-75.0); NRBC % 0.1 % (0.0-0.0); PLATELET COUNT 186 K/uL (130-400); RED CELL DISTRIBUTION WIDTH 17.3 % (11.5-14.5); WHITE BLOOD COUNT 5.7 K/uL (4.8-10.8)
[2018-11-05 05:46] LABS: BLOOD UREA NITROGEN 32 mg/dl (9-20); CALCIUM 9.4 mg/dL (8.4-10.2); GFR NON-AFRICAN AMERICAN 54
[2018-11-05 05:50] LABS: T4 8.94 ug/dl (5.5-11.0)
[2018-11-05 05:51] LABS: INR 1.7
[2018-11-05 08:05] LABS: ANISOCYTOSIS SLIGHT; BASOPHIL 2 % (0-2); GIANT PLATELETS PRESENT; HYPOCHROMIC SLIGHT; LARGE PLATELETS PRESENT; LYMPHOCYTE 18 % (20-50); METAMYELOCYTE 1 % (0-0); MICROCYTOSIS SLIGHT; MONOCYTE 9 % (0-10); NEUTROPHIL 70 % (42-75); OVALOCYTES SLIGHT; PLATELET ESTIMATE NORMAL (NORMAL); SCHISTOCYTES SLIGHT; TEARDROP CELLS SLIGHT; TOTAL CELLS COUNTED 100
[2018-11-05] MEDS: Cholecalciferol 1,000 INTLU TAB PO SCH (08:52)
[2018-11-05] MEDS: Multivitamin With Minerals Tab PO SCH (08:52)
[2018-11-05] MEDS ORDERED: Enoxaparin 40 mg Syringe SC SCH (09:00)
--- NOTE | 2018-11-05 11:48 | CP.PCM.CON ---
History of Present Illness - History of Present Illness History of Present Illness: This is a 48 yrs old male who was admitted with c/o shortness of breath and swelling of the feet. He was admitted and found to have CHF, was first given Lasix , then he was on aspirin and plavix. He is a diabetic and was started on medications for the same. CBC has been stable as has the platelet count, but he developed a rash part of which was peticheal and a hematologiy consult was called. The rash is raised and not very itchy. A fungal and cortisone cream was given for local application and is better, The rash is only on The only new medication is the diabetic drug.the lower extremity and the buttocks. Past Patient History - Past Medical History & Family History Past Medical History?: Yes - Past Social History Smoking Status: Never Smoked - CARDIAC Hx Cardiac Disorders: Yes Hx Congestive Heart Failure: Yes - PULMONARY Hx Respiratory Disorders: No - NEUROLOGICAL Hx Neurological Disorder: Yes HX Cerebrovascular Accident: Yes (2011) - HEENT Hx HEENT Problems: No - RENAL Hx Chronic Kidney Disease: No - ENDOCRINE/METABOLIC Hx Endocrine Disorders: No - HEMATOLOGICAL/ONCOLOGICAL Hx Blood Disorders: No Hx AIDS: No Hx Human Immunodeficiency Virus (HIV): No - INTEGUMENTARY Hx Dermatological Problems: No - MUSCULOSKELETAL/RHEUMATOLOGICAL Hx Musculoskeletal Disorders: No Hx Falls: No - GASTROINTESTINAL Hx Gastrointestinal Disorders: No - GENITOURINARY/GYNECOLOGICAL Hx Genitourinary Disorders: No - PSYCHIATRIC Hx Psychophysiologic Disorder: No Hx Substance Use: No - SURGICAL HISTORY Hx Surgeries: Yes Hx Cardiac Catheterization: Yes - ANESTHESIA Hx Anesthesia: Yes Meds Allergies/Adverse Reactions: Allergies Allergy/AdvReac Type Severity Reaction Status Date / Time No Known Allergies Allergy Verified 10/09/17 13:29 - Medications Medications: Current Medications Acetaminophen (Tylenol 325mg Tab) 650 mg PO Q6 PRN PRN Reason: Pain, Mild (1-3) Last Admin: 11/02/18 21:56 Dose: 650 mg Aspirin (Ecotrin) 81 mg PO DAILY [facility] Last Admin: 11/04/18 09:30 Dose: 81 mg Carvedilol (Coreg) 6.25 mg PO Q12H [facility] Last Admin: 11/04/18 09:27 Dose: Not Given Cholecalciferol (Vitamin D) 1,000 intlu PO DAILY [facility] Last Admin: 11/05/18 08:52 Dose: 1,000 intlu Clopidogrel Bisulfate (Plavix) 75 mg PO DAILY [facility] Last Admin: 11/04/18 09:33 Dose: 75 mg Clotrimazole (Lotrimin 1% Cream) 1 applic TOP BID [facility] Last Admin: 11/05/18 08:51 Dose: 1 applic Enalapril Maleate (Vasotec) 5 mg PO DAILY [facility] Last Admin: 11/03/18 08:59 Dose: 5 mg Famotidine (Pepcid) 20 mg PO DAILY [facility] Last Admin: 11/05/18 08:51 Dose: 20 mg Furosemide (Lasix) 40 mg IVP DAILY [facility] Last Admin: 11/05/18 09:17 Dose: 40 mg Guaifenesin/Dextromethorphan (Robitussin Dm) 10 ml PO Q4 PRN PRN Reason: Cough Last Admin: 11/02/18 21:17 Dose: 10 ml Hydrocortisone (Cortizone 1% Cream) 1 applic TOP BID [facility] Multivitamins/Minerals (Therapeutic-M Tab) 1 tab PO DAILY [facility] Last Admin: 11/05/18 08:52 Dose: 1 tab Physical Exam - Additional Findings Additional findings: Physical exam; alert,well oriented , in no acute distress. neck supple, in no adenopathy Heart; RSR, Chest; Clear, no rales or rhonchi Abd; soft, no mass, no h/s megaly. Lower extremity;; RAISED peticheal rash on the lower extremity and back of the buttocks only, no ecchymosis Results - Vital Signs Recent Vital Signs: Last Vital Signs Temp 98.8 F 11/05/18 07:44 Pulse 118 H 11/05/18 09:51 Resp 18 11/05/18 07:44 BP 98/68 L 11/05/18 09:17 Pulse Ox 94 L 11/05/18 09:51 - Labs Result Diagrams: 11/05/18 05:05 11/05/18 05:05 Labs: Laboratory Results - last 24 hr 11/04/18 11/05/18 11/05/18 16:11 05:05 05:05 WBC RBC Hgb Hct MCV MCH MCHC RDW Plt Count MPV Neut % (Auto) Lymph % (Auto) [place] % (Auto) Eos % (Auto) Baso % (Auto) Neut # (Auto) Lymph # (Auto) [place] # (Auto) Eos # (Auto) Baso # (Auto) Neutrophils % (Manual) Lymphocytes % (Manual) Monocytes % (Manual) Basophils % (Manual) Metamyelocytes % Platelet Estimate Large Platelets Giant Platelets Hypochromasia (manual) Anisocytosis (manual) Microcytosis (manual) Tear Drop Cells Ovalocytes Schistocytes PT 19.0 H INR 1.7 Sodium 133 Potassium 4.4 Chloride 92 L Carbon Dioxide 28 Anion Gap 17 BUN 32 H Creatinine 1.4 Est GFR ( Amer) > 60 Est GFR (Non-Af Amer) 54 POC Glucose (mg/dL) 96 Random Glucose 116 H Calcium 9.4 Phosphorus 4.1 Magnesium 1.9 Thyroxine (T4) 8.94 T3 Uptake 41.0 TSH 3rd Generation 6.51 H 11/05/18 11/05/18 11/05/18 05:05 05:25 11:27 WBC 5.7 RBC 5.00 Hgb 11.8 L Hct 37.7 MCV 75.5 L MCH 23.6 L MCHC 31.2 L RDW 17.3 H Plt Count 186 MPV 8.2 Neut % (Auto) 68.1 Lymph % (Auto) 18.5 L [place] % (Auto) 7.5 Eos % (Auto) 2.4 Baso % (Auto) 3.5 H Neut # (Auto) 3.9 Lymph # (Auto) 1.1 [place] # (Auto) 0.4 Eos # (Auto) 0.1 Baso # (Auto) 0.2 Neutrophils % (Manual) 70 Lymphocytes % (Manual) 18 L Monocytes % (Manual) 9 Basophils % (Manual) 2 Metamyelocytes % 1 H Platelet Estimate Normal Large Platelets Present Giant Platelets Present Hypochromasia (manual) Slight Anisocytosis (manual) Slight Microcytosis (manual) Slight Tear Drop Cells Slight Ovalocytes Slight Schistocytes Slight PT INR Sodium Potassium Chloride Carbon Dioxide Anion Gap BUN Creatinine Est GFR ( Amer) Est GFR (Non-Af Amer) POC Glucose (mg/dL) 114 H 162 H Random Glucose Calcium Phosphorus Magnesium Thyroxine (T4) T3 Uptake TSH 3rd Generation Assessment & Plan - Assessment and Plan (Free Text) Assessment: Imp; .Raised peticheal rash on the lower extremity and the back of the buttocks. This does not look like a rash from thrombocytopenia. There is no ecchymosis or bleeding. ? urticarial, / autoimmune disease Plan: plan; He is on local steroids and is doing beter will monitor CBC. I do not feel this is a raised petichyal rash is due to platelets. - Date & Time Date: 11/05/18 Time: 12:10
--- NOTE | 2018-11-05 18:34 | CP.PCM.PN ---
Subjective - Date & Time of Evaluation Date of Evaluation: 11/05/18 Time of Evaluation: 17:55 - Subjective Subjective: patient has less dyspnea. Objective - Vital Signs/Intake and Output Vital Signs (last 24 hours): Temp Pulse Resp BP Pulse Ox 98.1 F 115 H 16 117/90 97 11/05/18 16:25 11/05/18 16:25 11/05/18 16:25 11/05/18 16:25 11/05/18 16:25 Intake and Output: 11/05/18 11/05/18 06:59 18:59 Output Total 300 Balance -300 - Medications Medications: Current Medications Acetaminophen (Tylenol 325mg Tab) 650 mg PO Q6 PRN PRN Reason: Pain, Mild (1-3) Last Admin: 11/02/18 21:56 Dose: 650 mg Aspirin (Ecotrin) 81 mg PO DAILY [facility] Last Admin: 11/04/18 09:30 Dose: 81 mg Carvedilol (Coreg) 6.25 mg PO Q12H [facility] Last Admin: 11/04/18 09:27 Dose: Not Given Cholecalciferol (Vitamin D) 1,000 intlu PO DAILY [facility] Last Admin: 11/05/18 08:52 Dose: 1,000 intlu Clopidogrel Bisulfate (Plavix) 75 mg PO DAILY [facility] Last Admin: 11/04/18 09:33 Dose: 75 mg Clotrimazole (Lotrimin 1% Cream) 1 applic TOP BID [facility] Last Admin: 11/05/18 16:52 Dose: Not Given Enalapril Maleate (Vasotec) 5 mg PO DAILY [facility] Last Admin: 11/03/18 08:59 Dose: 5 mg Famotidine (Pepcid) 20 mg PO DAILY [facility] Last Admin: 11/05/18 08:51 Dose: 20 mg Furosemide (Lasix) 40 mg IVP DAILY [facility] Last Admin: 11/05/18 09:17 Dose: 40 mg Guaifenesin/Dextromethorphan (Robitussin Dm) 10 ml PO Q4 PRN PRN Reason: Cough Last Admin: 11/02/18 21:17 Dose: 10 ml Hydrocortisone (Cortizone 1% Cream) 1 applic TOP BID [facility] Last Admin: 11/05/18 16:53 Dose: 1 applic Multivitamins/Minerals (Therapeutic-M Tab) 1 tab PO DAILY [facility] Last Admin: 11/05/18 08:52 Dose: 1 tab - Labs Labs: 11/05/18 05:05 11/05/18 05:05 PT 19.0 Seconds (9.8-13.1) H 11/05/18 05:05 INR 1.7 11/05/18 05:05 - Constitutional Appears: Non-toxic - Head Exam Head Exam: NORMAL INSPECTION - Eye Exam Eye Exam: Normal appearance - ENT Exam ENT Exam: Mucous Membranes Moist - Neck Exam Neck Exam: Full ROM - Respiratory Exam Respiratory Exam: Decreased Breath Sounds - Cardiovascular Exam Cardiovascular Exam: Tachycardia, REGULAR RHYTHM - GI/Abdominal Exam GI & Abdominal Exam: Normal Bowel Sounds - Rectal Exam Rectal Exam: Deferred - Extremities Exam Extremities Exam: Pedal Edema - Back Exam Back Exam: NORMAL INSPECTION - Neurological Exam Neurological Exam: Alert - Psychiatric Exam Psychiatric exam: Normal Affect - Skin Skin Exam: Normal Color Assessment and Plan (1) Systolic dysfunction with acute on chronic heart failure Assessment & Plan: improving. restart Coreg 6.25 mg BID Status: Acute (2) AICD (automatic cardioverter/defibrillator) present Status: Acute
--- NOTE | 2018-11-06 07:46 | PN ---
DATE: 11/05/2018 SUBJECTIVE: The patient was seen on 11/05/2018. He was not in any cardiopulmonary distress, but he still has exertional dyspnea. The patient also developed erythematous rashes in both lower extremities as well as in the back. ALLERGIES: NO KNOWN ALLERGIES. PHYSICAL EXAMINATION: VITAL SIGNS: Blood pressure was 106/76, temperature 98.9, respiratory rate 18, pulse 115. HEENT: Pupils equal and reactive to light. Normal-appearing mucosa of the conjunctivae, oropharynx and nasal membrane mucosa. NECK: Supple. No JVD. No carotid bruit. No lymph node. No thyromegaly. CHEST AND LUNGS: Bilateral symmetrical expansion. Good air exchange. No rales. No rhonchi. CARDIOVASCULAR: PMI not localized. S1, S2. No additional sounds. ABDOMEN: Normoactive bowel sounds. No tenderness. No organomegaly. No masses. EXTREMITIES: Bilateral lower extremity erythematous maculopapular rashes on the back of both lower extremities. BUS BOY: Alert, awake, and oriented x3. No neurological deficits could be appreciated. ASSESSMENT: 1. Acute exacerbation of congestive heart failure, systolic. 2. Type 2 diabetes mellitus. 3. Possible allergic reaction. Only new medication that patient was started on was Januvia. PLAN: 1. We will stop the Januvia and give hydrocortisone cream and continue Lasix. 2. We will resume the Coreg. Harry Gutierrez MD
[2018-11-06] MEDS: Multivitamin With Minerals Tab PO SCH (08:40)
[2018-11-06] MEDS: Cholecalciferol 1,000 INTLU TAB PO SCH (08:40)
--- NOTE | 2018-11-06 09:32 | CP.PCM.PN ---
Subjective - Date & Time of Evaluation Date of Evaluation: 11/06/18 Time of Evaluation: 09:26 - Subjective Subjective: Pt is less short of breath. Is able to walk around the whole floor, without getting short of breath. The rash behind the legs is a little better, but still raised, He is on local steroids cream. Would suggest a small dose of po stgeroid s, to see if he responds to it.The platelet count is still good. Objective - Vital Signs/Intake and Output Vital Signs (last 24 hours): Temp Pulse Resp BP Pulse Ox 98.5 F 117 H 18 113/85 97 11/06/18 08:02 11/06/18 08:02 11/06/18 08:02 11/06/18 08:40 11/06/18 08:02 - Medications Medications: Current Medications Acetaminophen (Tylenol 325mg Tab) 650 mg PO Q6 PRN PRN Reason: Pain, Mild (1-3) Last Admin: 11/02/18 21:56 Dose: 650 mg Aspirin (Ecotrin) 81 mg PO DAILY [facility] Last Admin: 11/04/18 09:30 Dose: 81 mg Carvedilol (Coreg) 6.25 mg PO Q12H [facility] Last Admin: 11/04/18 09:27 Dose: Not Given Cholecalciferol (Vitamin D) 1,000 intlu PO DAILY [facility] Last Admin: 11/06/18 08:40 Dose: 1,000 intlu Clopidogrel Bisulfate (Plavix) 75 mg PO DAILY [facility] Last Admin: 11/04/18 09:33 Dose: 75 mg Clotrimazole (Lotrimin 1% Cream) 1 applic TOP BID [facility] Last Admin: 11/06/18 08:42 Dose: 1 applic Enalapril Maleate (Vasotec) 5 mg PO DAILY [facility] Last Admin: 11/03/18 08:59 Dose: 5 mg Famotidine (Pepcid) 20 mg PO DAILY [facility] Last Admin: 11/06/18 08:40 Dose: 20 mg Furosemide (Lasix) 40 mg IVP DAILY [facility] Last Admin: 11/06/18 08:40 Dose: 40 mg Guaifenesin/Dextromethorphan (Robitussin Dm) 10 ml PO Q4 PRN PRN Reason: Cough Last Admin: 11/02/18 21:17 Dose: 10 ml Hydrocortisone (Cortizone 1% Cream) 1 applic TOP BID [facility] Last Admin: 11/06/18 08:41 Dose: 1 applic Multivitamins/Minerals (Therapeutic-M Tab) 1 tab PO DAILY [facility] Last Admin: 11/06/18 08:40 Dose: 1 tab - Labs Labs: 11/05/18 05:05 11/05/18 05:05 PT 19.0 Seconds (9.8-13.1) H 11/05/18 05:05 INR 1.7 11/05/18 05:05
--- NOTE | 2018-11-06 11:16 | CP.PCM.PN ---
Subjective - Date & Time of Evaluation Date of Evaluation: 11/06/18 Time of Evaluation: 11:00 - Subjective Subjective: patient has less dyspnea Objective - Vital Signs/Intake and Output Vital Signs (last 24 hours): Temp Pulse Resp BP Pulse Ox 98.5 F 117 H 18 113/85 97 11/06/18 08:02 11/06/18 10:08 11/06/18 08:02 11/06/18 10:08 11/06/18 08:02 - Medications Medications: Current Medications Acetaminophen (Tylenol 325mg Tab) 650 mg PO Q6 PRN PRN Reason: Pain, Mild (1-3) Last Admin: 11/02/18 21:56 Dose: 650 mg Aspirin (Ecotrin) 81 mg PO DAILY [facility] Last Admin: 11/04/18 09:30 Dose: 81 mg Carvedilol (Coreg) 6.25 mg PO Q12H [facility] Last Admin: 11/06/18 10:08 Dose: 6.25 mg Cholecalciferol (Vitamin D) 1,000 intlu PO DAILY [facility] Last Admin: 11/06/18 08:40 Dose: 1,000 intlu Clopidogrel Bisulfate (Plavix) 75 mg PO DAILY [facility] Last Admin: 11/04/18 09:33 Dose: 75 mg Clotrimazole (Lotrimin 1% Cream) 1 applic TOP BID [facility] Last Admin: 11/06/18 08:42 Dose: 1 applic Enalapril Maleate (Vasotec) 5 mg PO DAILY [facility] Last Admin: 11/03/18 08:59 Dose: 5 mg Famotidine (Pepcid) 20 mg PO DAILY [facility] Last Admin: 11/06/18 08:40 Dose: 20 mg Furosemide (Lasix) 40 mg IVP DAILY [facility] Last Admin: 11/06/18 08:40 Dose: 40 mg Guaifenesin/Dextromethorphan (Robitussin Dm) 10 ml PO Q4 PRN PRN Reason: Cough Last Admin: 11/02/18 21:17 Dose: 10 ml Hydrocortisone (Cortizone 1% Cream) 1 applic TOP BID [facility] Last Admin: 11/06/18 08:41 Dose: 1 applic Multivitamins/Minerals (Therapeutic-M Tab) 1 tab PO DAILY [facility] Last Admin: 11/06/18 08:40 Dose: 1 tab - Labs Labs: 11/05/18 05:05 11/05/18 05:05 PT 19.0 Seconds (9.8-13.1) H 11/05/18 05:05 INR 1.7 11/05/18 05:05 - Constitutional Appears: Non-toxic - Head Exam Head Exam: NORMAL INSPECTION - Eye Exam Eye Exam: Normal appearance - ENT Exam ENT Exam: Mucous Membranes Moist - Neck Exam Neck Exam: Full ROM - Respiratory Exam Respiratory Exam: Decreased Breath Sounds - Cardiovascular Exam Cardiovascular Exam: Tachycardia, REGULAR RHYTHM - GI/Abdominal Exam GI & Abdominal Exam: Normal Bowel Sounds - Rectal Exam Rectal Exam: Deferred - Extremities Exam Extremities Exam: absent: Pedal Edema - Back Exam Back Exam: NORMAL INSPECTION - Neurological Exam Neurological Exam: Alert - Psychiatric Exam Psychiatric exam: Normal Affect - Skin Skin Exam: Normal Color Assessment and Plan (1) Systolic dysfunction with acute on chronic heart failure Assessment & Plan: imrpoving. restart Coreg. maintain lasix. D/c Aldactone as patient is not benefitting. ideally will attempt to add Entresto as outpatient. Status: Acute (2) AICD (automatic cardioverter/defibrillator) present Assessment & Plan: normal function Status: Acute
--- NOTE | 2018-11-06 12:12 | CP.PCM.PCO ---
Assessment & Plan - Assessment and Plan (Free Text) Assessment: pt. seen and examined, sitting up in bed; reports intermittent cough, + mild sob lungs fine bibasilar crackles, no jvd +2 edema b/l LE urticaria, purpura noted b/L LE d/w , Solumderol 40 mg iv daily started and will switch to po upon d/c ASA/ Plavix resumed, no s/s bleeding, hematuria cont. Lasix IV, will f/u in am
[2018-11-06] MEDS ORDERED: methylPREDNISolone 40 MG in Sodium Chloride 0.9% 50 ML IVPB SCH (12:15)
[2018-11-06] MEDS: guaiFENesin DM 200 mg-20 mg/10 ml UD PO PRN ×2 (13:27→21:01)
[2018-11-06] MEDS: MethylPREDNISolone 40 mg Vial IVP SCH (13:27)
[2018-11-06 14:12] LABS: HEMOGLOBIN 12.3 g/dL (12.0-18.0); MEAN CELL VOLUME 75.3 fl (80.0-94.0); MEAN CORPUSCULAR HEMOGLOBIN 23.6 pg (27.0-31.0); MEAN CORPUSCULAR HGB CONC 31.4 g/dL (33.0-37.0); RBC 5.21 Mil/uL (4.40-5.90); RED CELL DISTRIBUTION WIDTH 17.7 % (11.5-14.5); WHITE BLOOD COUNT 5.5 K/uL (4.8-10.8)
[2018-11-06 14:24] LABS: ALT/SGPT 34 U/L (21-72); AST/SGOT 35 U/L (17-59); BLOOD UREA NITROGEN 28 mg/dl (9-20); CALCIUM 9.6 mg/dL (8.4-10.2); GFR NON-AFRICAN AMERICAN 59
--- NOTE | 2018-11-06 23:32 | PN ---
DATE: 11/06/2018 DAILY PROGRESS NOTE SUBJECTIVE: The patient is seen today, 11/06/2018. He still has bilateral lower extremity rashes. PHYSICAL EXAMINATION: VITAL SIGNS: Blood pressure 112/76, temperature 97.9, respiratory rate 20, and pulse 110. HEENT: Pupils equal and reactive to light. Normal-appearing mucosa of the conjunctivae, oropharynx, and nasal membrane mucosa. NECK: Supple. No JVD. No carotid bruit. No lymph node. No thyromegaly. CHEST AND LUNGS: Bilateral symmetrical expansion. Good air exchange. No rales. No rhonchi. CARDIOVASCULAR SYSTEM: PMI not localized. S1 and S2. No additional sounds. ABDOMEN: Normoactive bowel sounds. No tenderness. No organomegaly. No masses. EXTREMITIES: No cyanosis, no clubbing, no edema. CENTRAL NERVOUS SYSTEM: Alert, awake, oriented x2. No neurological deficit could be appreciated. ASSESSMENT: 1. Exacerbation of systolic congestive heart failure. 2. Generalized maculopapular erythematous rashes, likely drug eruptions. The only medicine that was started new was Januvia. PLAN: Continue current medications. Resume carvedilol as the patient is becoming tachycardic after we stopped it. Start Solu-Medrol 40 mg daily. Harry Gutierrez MD
[2018-11-07 05:54] VITALS: RESP 18
--- NOTE | 2018-11-07 08:53 | CP.PCM.PN ---
Subjective - Date & Time of Evaluation Date of Evaluation: 11/07/18 Time of Evaluation: 08:49 - Subjective Subjective: Patient is feeling much better today. the rash seems to be fainter.(I had started him on some solumedrol yesterday). If he is discharged I have asked him to take the steroids only as long as he has a rash,but no more than 1 week. If it is not better, he should go to his PMD ans get a biopsy of the rash. Objective - Vital Signs/Intake and Output Vital Signs (last 24 hours): Temp Pulse Resp BP Pulse Ox 98.2 F 79 18 108/76 98 11/07/18 08:06 11/07/18 08:06 11/07/18 08:06 11/07/18 08:06 11/07/18 08:06 - Medications Medications: Current Medications Acetaminophen (Tylenol 325mg Tab) 650 mg PO Q6 PRN PRN Reason: Pain, Mild (1-3) Last Admin: 11/02/18 21:56 Dose: 650 mg Aspirin (Ecotrin) 81 mg PO DAILY [facility] Last Admin: 11/04/18 09:30 Dose: 81 mg Carvedilol (Coreg) 6.25 mg PO Q12H [facility] Last Admin: 11/06/18 20:57 Dose: 6.25 mg Cholecalciferol (Vitamin D) 1,000 intlu PO DAILY [facility] Last Admin: 11/06/18 08:40 Dose: 1,000 intlu Clopidogrel Bisulfate (Plavix) 75 mg PO DAILY [facility] Last Admin: 11/04/18 09:33 Dose: 75 mg Clotrimazole (Lotrimin 1% Cream) 1 applic TOP BID [facility] Last Admin: 11/06/18 16:36 Dose: Not Given Enalapril Maleate (Vasotec) 5 mg PO DAILY [facility] Last Admin: 11/03/18 08:59 Dose: 5 mg Famotidine (Pepcid) 20 mg PO DAILY [facility] Last Admin: 11/06/18 08:40 Dose: 20 mg Furosemide (Lasix) 40 mg IVP DAILY [facility] Last Admin: 11/06/18 08:40 Dose: 40 mg Guaifenesin/Dextromethorphan (Robitussin Dm) 10 ml PO Q4 PRN PRN Reason: Cough Last Admin: 02/14/19 21:01 Dose: 10 ml Hydrocortisone (Cortizone 1% Cream) 1 applic TOP BID [facility] Last Admin: 11/06/18 17:26 Dose: 1 applic Methylprednisolone (Solu-Medrol) 40 mg IVP DAILY [facility] Last Admin: 11/06/18 13:27 Dose: 40 mg Multivitamins/Minerals (Therapeutic-M Tab) 1 tab PO DAILY [facility] Last Admin: 11/06/18 08:40 Dose: 1 tab - Labs Labs: 11/06/18 12:55 11/06/18 12:55 PT 19.0 Seconds (9.8-13.1) H 11/05/18 05:05 INR 1.7 11/05/18 05:05
[2018-11-07] MEDS: Multivitamin With Minerals Tab PO SCH (09:02)
[2018-11-07] MEDS: Cholecalciferol 1,000 INTLU TAB PO SCH (09:04)
[2018-11-07] MEDS: MethylPREDNISolone 40 mg Vial IVP SCH (09:04)
--- NOTE | 2018-11-07 11:20 | CP.PCM.PCO ---
Assessment & Plan - Assessment and Plan (Free Text) Assessment: pt. sitting up in bed, feels well this morning, reports decreased LE edema/ sob vss, labs reviewed pt. cleared for d/c to home today by and Med reconciliation completed; pt. instructed to d/c PRESTON enalapril as will start Entresto upon next f/u visit 11/14 in the office pt. to cont. lasix, coreg, asa, plavix Prednisone 5mg po daily rx as per recommendation f/u with PMD in 1 week
[2018-11-07 12:37] VITALS: BP 99/60; PULSE 99; TEMP 98.1; O2SAT 94
--- NOTE | 2018-11-09 03:31 | DS ---
REASON FOR ADMISSION: This is a 48-year-old male with history of dilated cardiomyopathy, status post ICD placement, was admitted for exacerbation of congestive heart failure secondary to noncompliance of fluid and salt restriction. COURSE OF HOSPITALIZATION: The patient was admitted to the telemetry floor and he was started on aggressive diuresis. The patient had a cardiology consultation done by Dr. Martinez. The patient was continued on his medications. The patent was found to have hyperglycemia during this hospitalization and the patient was given Januvia. The patient started to develop bilateral lower extremity rashes, maculopapular, that extended from the lower extremity up to the trunk. These rashes were thought to be due to drug eruption secondary to a newly administered Januvia. The patient was started on both Solu-Medrol as well as topical hydrocortisone cream. The patient was discharged on a Medrol Dosepak and blood pressure medication Coreg was resumed as well as the patient was continued on Lasix and he will follow with Dr. Gutierrez on 11/10/2018 for monitoring electrolytes and repeating blood work and following the skin rashes. Harry Gutierrez MD
== END 2018-11-07 14:50 | disposition home or self-care (01) | DRG 127 ==
LOC: H.ER 15:40 → H.ERHOLD 19:03 → H.TEL 11-01 01:26 → OBSVTOIN 11-02 15:34
PROVIDERS: ADMIT Internal Medicine; ATTEND Internal Medicine
DX: I11.0 Hypertensive heart disease with heart failure (principal); I42.0 Dilated cardiomyopathy; E87.5 Hyperkalemia; E11.65 Type 2 diabetes mellitus with hyperglycemia; I50.23 Acute on chronic systolic (congestive) heart failure; I27.20 Pulmonary hypertension, unspecified; L50.0 Allergic urticaria; L27.1 Localized skin eruption due to drugs and medicaments taken internally; T38.3X5A Adverse effect of insulin and oral hypoglycemic [antidiabetic] drugs, initial encounter; Z91.19 Patient's noncompliance with other medical treatment and regimen; Z95.810 Presence of automatic (implantable) cardiac defibrillator; Z79.84 Long term (current) use of oral hypoglycemic drugs; Z79.02 Long term (current) use of antithrombotics/antiplatelets; Z79.82 Long term (current) use of aspirin; Z86.73 Personal history of transient ischemic attack (TIA), and cerebral infarction without residual deficits

== ENCOUNTER 2018-11-14 13:29 | Inpatient (IN) | payer MEDICAID ==
[2018-11-14 13:30] VITALS: BMI 35.9
--- NOTE | 2018-11-14 14:26 | ED PDOC ---
HPI: SOB/CHF/COPD Chief Complaint (Provider): shortness of breath History Per: Patient History/Exam Limitations: no limitations Onset/Duration Of Symptoms: Persistent Current Symptoms Are (Timing): Still Present Exacerbating Factor(s): Exertion Associated Symptoms: Ankle/Leg Swelling Recently: Hospitalized Additional Complaint(s): 48 yo M with history of dilated cardiomyopathy (EF 10-15%), with AICD in place, diabetes, presenting to ED due to shortness of breath on exertion. Pt saw his shopfitter today who told him he is in advanced heart failure. Pt was recently d/c from hosp on Tuesday 11/07; states that for 2-3 days he felt okay but Saturday started experiencing increased shortness of breath that has been worsening over the past few days; cannot walk 1.5 blocks without stopping 5 times. Does not sleep with more than 2 pillows over the last few years; sleeps on right side. PMD: Dr. Gutierrez Drawer In: Dr. Kandy Martinez <Benita Gonzalez - Last Filed: 11/14/18 16:41> <Lewis Toney - Last Filed: 11/15/18 10:56> Time Seen by Provider: 11/14/18 13:44 Chief Complaint (Nursing): Shortness Of Breath Supervising Attending Note - Supervising Attending Note The Documented history was done by the: Physician Biology Teacher, Attending Physician The documented physical exam was done by the: Physician Biology Teacher, Attending Physician The documented procedures were done by the: Physician Biology Teacher, Attending Physician - Attestation: I have personally seen and examined this patient.: Yes I have fully participated in the care of the patient.: Yes I have reviewed all pertinent clinical information, including history, physical exam and plan: Yes <Lewis Toney - Last Filed: 11/15/18 10:56> Past Medical History Vital Signs: Last Vital Signs Temp 97.4 F L 11/14/18 13:41 Pulse 112 H 11/14/18 14:05 Resp 16 11/14/18 14:05 BP 120/93 H 11/14/18 14:05 Pulse Ox 98 11/14/18 14:05 - Medical History PMH: CHF, HTN Denies: Deep Vein Thrombosis, HIV, Pulmonary Embolism, Chronic Kidney Disease - Surgical History Other surgeries: AICD - Family History Family History: States: Unknown Family Hx - Social History Alcohol: Occasional Drugs: Denies - Immunization History Hx Influenza Vaccination: No Hx Pneumococcal Vaccination: Yes <Benita Gonzalez - Last Filed: 11/14/18 16:41> Reviewed: Historical Data, Nursing Documentation, Vital Signs Vital Signs: Last Vital Signs Temp 98.0 F 11/15/18 08:49 Pulse 98 H 11/15/18 09:00 Resp 18 11/15/18 08:49 BP 109/81 11/15/18 08:49 Pulse Ox 95 11/15/18 08:49 <Lewis Toney - Last Filed: 11/15/18 10:56> - Home Medications Home Medications: Ambulatory Orders Medication Instructions Recorded RX: Aspirin [Aspirin EC] 81 mg PO DAILY 12/21/14 RX: Carvedilol [Coreg] 6.25 mg PO Q12H 12/21/14 RX: Cholecalciferol [Vitamin D 1,000 unit PO DAILY 08/26/17 1000 IU] RX: Multivitamin [Daily Mary] 1 tab PO DAILY 08/26/17 RX: Clopidogrel [Plavix] 75 mg PO DAILY #30 tab 10/22/17 RX: Furosemide [Lasix] 20 mg PO BID #60 tab 11/07/18 RX: Hydrocortisone 1% Cream 1 applic TOP BID #1 tube 11/07/18 [Cortizone 1% Cream] Alogliptin Benzoate [Alogliptin] 12.5 mg PO DAILY 11/14/18 Zolpidem [Ambien] 5 mg PO HS PRN 11/14/18 - Allergies Allergies/Adverse Reactions: Allergies Allergy/AdvReac Type Severity Reaction Status Date / Time No Known Allergies Allergy Verified 11/14/18 13:41 Wells Criteria for PE - Wells Criteria for Pulmonary Embolism Clinical Signs and Symptoms of DVT: No P.E is #1 Diagnosis, or Equally Likely: No Heart Rate >100: Yes Immobilization at least 3 days;Surgery previous 4 weeks: No Previous, objectively diagnosed PE or DVT: No Hemoptysis: No Malignancy w/treatment within 6 months, or palliative: No Total Score: 1.5 <Benita Gonzalez - Last Filed: 11/14/18 16:41> Review of Systems Constitutional: Negative for: Fever, Chills Cardiovascular: Negative for: Chest Pain, Palpitations Respiratory: Positive for: Shortness of Breath, SOB with Exertion Gastrointestinal: Positive for: Constipation. Negative for: Nausea, Vomiting Genitourinary Male: Negative for: Dysuria <Benita Gonzalez - Last Filed: 11/14/18 16:41> ROS Statement: Except As Marked, All Systems Reviewed And Found Negative <Lewis Toney - Last Filed: 11/15/18 10:56> Physical Exam - Reviewed Vital Signs Reviewed: Yes - Physical Exam Head Exam: Positive for: NORMAL INSPECTION Skin: Positive for: Warm, Dry, Rash (legs, abdomen; allergic rxn from last admission) Neck: Positive for: Painless ROM, Supple Cardiovascular/Chest: Positive for: Regular Rate, Rhythm Respiratory: Positive for: Other (good breath sounds bilaterally). Negative fo r: Respiratory Distress Gastrointestinal/Abdominal: Positive for: Bowel Sounds, Soft. Negative for: Tenderness, Distended Back: Positive for: Normal Inspection Extremity: Positive for: Pedal Edema (2+ to knees bilaterally), Swelling. Negative for: Calf Tenderness, Deformity Neurologic/Psych: Positive for: Alert, Oriented <Benita Gonzalez - Last Filed: 11/14/18 16:41> - Reviewed Nursing Documentation Reviewed: Yes - Physical Exam Appears: Positive for: No Acute Distress Head Exam: Positive for: ATRAUMATIC Eye Exam: Positive for: EOMI <Lewis Toney A - Last Filed: 11/15/18 10:56> - Laboratory Results Result Diagrams: 11/14/18 16:18 11/14/18 15:08 - ECG O2 Sat by Pulse Oximetry: 98 <Benita Gonzalez - Last Filed: 11/14/18 16:41> - Laboratory Results Result Diagrams: 11/14/18 16:18 11/14/18 15:08 Lab Results: Troponin I < 0.0120 ng/mL (0.00-0.120) 11/14/18 15:08 NT-Pro-B Natriuret Pep 08100 pg/ml (0-450) H 11/14/18 15:08 <DawnaOllienick Michael - Last Filed: 11/15/18 10:56> Medical Decision Making Medical Decision Makin yo M with advanced congestive heart failure. 1420 -- EKG -- CXR -- BMP -- proBNP - Troponin 1600 - CXR with congestion - proBNP 35046 - Trop neg 1615 20 mg Lasix IVP [address] Gutierrez by Dr. Toney; will admit. Call made to Dr. Martinez by Dr. Toney, agrees with lasmag for now. Recommend ed dobutamine if hypotensive; however pt not hypotensive at this time. All above discussed w/ Dr. Toney. <Benita Gonzalez - Last Filed: 11/14/18 16:41> Disposition - Patient ED Disposition Is Patient to be Admitted: Yes - Disposition Disposition Time: 16:40 <Benita Gonzalez - Last Filed: 11/14/18 16:41> Discussed With Dr.: Harry Gutierrez Doctor Will See Patient In The: Hospital Counseled Patient/Family Regarding: Studies Performed, Diagnosis - Pt Status Changed To: Hospital Disposition Of: Inpatient - Admit Certification Admit to Inpatient:: After my assessment, the patient will require hospita lization for at least two midnights. This is because of the severity of symptoms shown, intensity of services needed, and/or the medical risk in this patient being treated as an outpatient. - POA Present On Arrival: None <Lewis Toney - Last Filed: 11/15/18 10:56> - Clinical Impression Clinical Impression: CHF (congestive heart failure) - Disposition Condition: STABLE
[2018-11-14 15:39] LABS: BLOOD UREA NITROGEN 42 mg/dl (9-20); CALCIUM 9.3 mg/dL (8.4-10.2); GFR NON-AFRICAN AMERICAN > 60
[2018-11-14 15:48] LABS: B-TYPE NATRIURETIC PEPTIDE 12700 pg/ml (0-450)
--- NOTE | 2018-11-14 15:51 | RAD ---
Date of service: 11/14/2018 HISTORY: chf COMPARISON: 10/31/2018. Single-view chest. 08/26/2017 CT pulmonary angiogram. TECHNIQUE: Chest PA and lateral FINDINGS: LUNGS: Pulmonary vascular congestion identified. PLEURA: No significant pleural effusion identified. No pneumothorax apparent. CARDIOVASCULAR: No aortic atherosclerotic calcification present. Cardiomegaly. Position/ configuration of pacemaker Satisfactory. OSSEOUS STRUCTURES: No significant abnormalities. VISUALIZED UPPER ABDOMEN: Normal. OTHER FINDINGS: None. IMPRESSION: Cardiomegaly/mild CHF. These are acute findings not seen on the most recent chest x-ray 10/31/2018.
[2018-11-14 16:23] LABS: MEAN CELL VOLUME 74.4 fl (80.0-94.0); MEAN CORPUSCULAR HEMOGLOBIN 23.2 pg (27.0-31.0); MEAN CORPUSCULAR HGB CONC 31.2 g/dL (33.0-37.0); RBC 5.62 Mil/uL (4.40-5.90); RED CELL DISTRIBUTION WIDTH 17.7 % (11.5-14.5); WHITE BLOOD COUNT 7.9 K/uL (4.8-10.8)
[2018-11-14] MEDS: Insulin Lispro (humaLOG) 100 Units/ml Inj SC SCH (22:40)
[2018-11-15] MEDS: Insulin Lispro (humaLOG) 100 Units/ml Inj SC SCH ×4 (07:53→23:15)
--- NOTE | 2018-11-15 11:30 | CARD ---
APPROVED REPORT Date of service: 11/14/2018 EKG Measurement Heart [id number] <Conclusion> Atrial sense ventricular pacemaker Abnormal ECG
--- NOTE | 2018-11-15 12:35 | CP.PCM.CON ---
History of Present Illness - History of Present Illness History of Present Illness: patient seen/examined. dull consult to follow acute on chronic systolic dysfunction s/p BiVAICD will give IVdiuretic therapy. will consider home inotropic therapy and possible referral to transplant center Past Patient History - Past Medical History & Family History Past Medical History?: Yes - Past Social History Smoking Status: Never Smoked - CARDIAC Hx Cardiac Disorders: Yes - PULMONARY Hx Pulmonary Embolism: No - NEUROLOGICAL Hx Neurological Disorder: Yes HX Cerebrovascular Accident: Yes (2011) - HEENT Hx HEENT Problems: No - RENAL Hx Chronic Kidney Disease: No - ENDOCRINE/METABOLIC Hx Endocrine Disorders: No - HEMATOLOGICAL/ONCOLOGICAL Hx Human Immunodeficiency Virus (HIV): No - INTEGUMENTARY Hx Dermatological Problems: No - MUSCULOSKELETAL/RHEUMATOLOGICAL Hx Musculoskeletal Disorders: No Hx Falls: No - GASTROINTESTINAL Hx Gastrointestinal Disorders: No - GENITOURINARY/GYNECOLOGICAL Hx Genitourinary Disorders: No - PSYCHIATRIC Hx Psychophysiologic Disorder: No Hx Substance Use: No - SURGICAL HISTORY Hx Surgeries: Yes Hx Cardiac Catheterization: Yes Other/Comment: AICD - ANESTHESIA Hx Anesthesia: Yes Hx Anesthesia Reactions: Yes (cough and vomiting) Meds Allergies/Adverse Reactions: Allergies Allergy/AdvReac Type Severity Reaction Status Date / Time No Known Allergies Allergy Verified 11/14/18 13:41 - Medications Medications: Current Medications Aspirin (Aspirin Chewable) 81 mg PO DAILY [facility] Last Admin: 11/15/18 08:43 Dose: 81 mg Carvedilol (Coreg) 3.125 mg PO Q12 [facility] Last Admin: 11/15/18 08:43 Dose: 3.125 mg Furosemide (Lasix) 20 mg IVP BID [facility] Last Admin: 11/15/18 08:49 Dose: 20 mg Heparin Sodium (Porcine) (Heparin) 5,000 units SC Q12 [facility]; Protocol Last Admin: 11/15/18 08:49 Dose: 5,000 units Insulin Human Lispro (Humalog) 0 units SC ACCU-CHECK [facility]; Protocol Last Admin: 11/15/18 07:53 Dose: Not Given Spironolactone (Aldactone) 25 mg PO DAILY [facility] Zolpidem Tartrate (Ambien) 5 mg PO HS PRN PRN Reason: Insomnia Results - Vital Signs Recent Vital Signs: Last Vital Signs Temp 98.0 F 11/15/18 08:49 Pulse 98 H 11/15/18 09:00 Resp 18 11/15/18 08:49 BP 109/81 11/15/18 08:49 Pulse Ox 95 11/15/18 08:49 - Labs Result Diagrams: 11/14/18 16:18 11/14/18 15:08 Labs: Laboratory Results - last 24 hr 11/14/18 11/14/18 11/14/18 15:08 16:18 17:13 WBC 7.9 RBC 5.62 Hgb 13.0 Hct 41.8 MCV 74.4 L MCH 23.2 L MCHC 31.2 L RDW 17.7 H Plt Count 330 D Sodium 134 Potassium 3.9 Chloride 93 L Carbon Dioxide 27 Anion Gap 18 BUN 42 H Creatinine 1.2 Est GFR ( Amer) > 60 Est GFR (Non-Af Amer) > 60 POC Glucose (mg/dL) 149 H Random Glucose 153 H Calcium 9.3 Troponin I < 0.0120 NT-Pro-B Natriuret Pep 48475 H 11/14/18 11/15/18 11/15/18 21:43 05:50 11:16 WBC RBC Hgb Hct MCV MCH MCHC RDW Plt Count Sodium Potassium Chloride Carbon Dioxide Anion Gap BUN Creatinine Est GFR ( Amer) Est GFR (Non-Af Amer) POC Glucose (mg/dL) 148 H 148 H 175 H Random Glucose Calcium Troponin I NT-Pro-B Natriuret Pep
--- NOTE | 2018-11-15 12:35 | CP.PCM.CON ---
History of Present Illness - History of Present Illness History of Present Illness: I have been asked to evaluate patient by Dr Gutierrez. Patient seen 11/15/18 [id number] Patient is a 48 year old male with dilated cardiomyopathy s/p BiVAICD who presents with dyspnea. Patient has had repeated episodes of decompensated heart failure requiring medical therapy. His blood pressure does not toleralte maximal dosages of betablocker therapy or ARB therapy. he presents with progressive dsypnea Review of Systems - Constitutional Constitutional: absent: As Per HPI, Anorexia, Chills, Daytime Sleepiness, Excessive Sweating, Fatigue, Fever, Frequent Falls, Headache, Increased Appetite, Lethargy, Malaise, Night Sweats, Snoring, Sleep Apnea, Weight Gain, Weight Loss, Weakness, Other - EENT Eyes: absent: As Per HPI, Blind Spots, Blurred Vision, Change in Vision, Decreased Night Vision, Diplopia, Discharge, Dry Eye, Exophthalmos, Floaters, Irritation, Itchy Eyes, Loss of Peripheral Vision, Pain, Photophobia, Requires Corrective Lenses, Sees Flashes, Spots in Vision, Tunnel Vision, Other Visual Disturbances, Loss of Vision, Other Ears: absent: As Per HPI, Decreased Hearing, Ear Discharge, Ear Pain, Tinnitus, Abnormal Hearing, Disequilibrium, Dizziness, Other Nose/Mouth/Throat: absent: As Per HPI, Epistaxis, Nasal Congestion, Nasal Discharge, Nasal Obstruction, Nasal Trauma, Nose Pain, Post Nasal Drip, Sinus Pain, Sinus Pressure, Bleeding Gums, Change in Voice, Dental Pain, Dry Mouth, Dysphagia, Halitosis, Hoarsness, Lip Swelling, Mouth Lesions, Mouth Pain, Odyno phagia, Sore Throat, Throat Swelling, Tongue Swelling, Facial Pain, Neck Pain, Neck Mass, Other - Cardiovascular Cardiovascular: Dyspnea - Respiratory Respiratory: absent: As Per HPI, Cough, Dyspnea, Hemoptysis, Dyspnea on Exertion, Wheezing, Snoring, Stridor, Pain on Inspiration, Chest Congestion, Excessive Mucous Production, Change in Mucous Color, Pain with Coughing, Other - Gastrointestinal Gastrointestinal: absent: As Per HPI, Abdominal Pain, Belching, Bloating, Change in Bowel Habits, Change in Stool Character, Coffee Ground Emesis, Constipation, Cramping, Diarrhea, Dyspepsia, Dysphagia, Early Satiety, Excessive Flatus, Fecal Incontinence, Heartburn, Hematemesis, Hematochezia, Loose Stools, Melena, Nausea, Odynophagia, Temesmus, Vomiting, Other - Genitourinary Genitourinary: absent: As Per HPI, Change in Urinary Stream, Difficulty Urinating, Dysuria, Flank Pain, Hematuria, Pyuria, Nocturia, Urinary Incontinence, Urinary Frequency, Urinary Hesitance, Urinary Urgency, Voiding Freq/Small Amts, Freq UTI, Hx Renal/Bladder Calculi, Hx /Renal Surgery, Bladder Distension, Other - Musculoskeletal Musculoskeletal: absent: As Per HPI, Abnormal Gait, Arthralgias, Atrophy, Back Pain, Deformity, Joint Swelling, Limited Range of Motion, Loss of Height, Muscle Cramps, Muscle Weakness, Myalgias, Neck Pain, Numbness, Radiating Pain into Limb, Stiffness, Tingling, Other - Integumentary Integumentary: absent: As Per HPI, Acne, Alopecia, Bleeding Lesions, Change in Hair, Change in Nails, Change in Pigmentation, Changing Lesions, Dry Skin, Erythema, Furuncle, Hirsutism, Lesions, New Lesions, Non-Healing Lesions, Photosensitivity, Pruritus, Rash, Skin Pain, Skin Ulcer, Sores, Striae, Swelling, Unusual Bruising, Wounds, Jaundice, Other - Neurological Neurological: absent: As Per HPI, Abnormal Gait, Abnormal Hearing, Abnormal Movements, Abnormal Speech, Behavioral Changes, Burning Sensations, Confusion, Convulsions, Disequilibrium, Dizziness, Numbness, Focal Weakness, Frequent Falls, Headaches, Lack of Coordination, Loss of Vision, Memory Loss, Paresthesias, Radicular Pain, Restless Legs, Sensory Deficit, Syncope, Tingling, Tremor, Vertigo, Weakness, Other Visual Disturbances, Other - Psychiatric Psychiatric: absent: As Per HPI, Abnormal Sleep Pattern, Anhedonia, Anxiety, Auditory Hallucinations, Behavioral Changes, Change in Appetite, Change in Libido, Confusion, Depression, Difficulty Concentrating, Hallucinations, Homicidal Ideation, Hopelessness, Irritability, Memory Loss, Mood Swings, Panic Attacks, Paranoia, Suicidal Ideation, Visual Hallucinations, Tactile Hallucinations, Other - Endocrine Endocrine: absent: As Per HPI, Change in Body Appearance, Change in Libido, Cold Intolorance, Deepening of Voice, Excessive Sweating, Fatigue, Flushing, Heat Intolorance, Increase in Ring/Shoe/Hat Size, Palpitations, Polydipsia, Polyphagia, Polyuria, Other - Hematologic/Lymphatic Hematologic: absent: As Per HPI, Easy Bleeding, Easy Bruising, Lymphadenopathy, Other Past Patient History - Past Medical History & Family History Past Medical History?: Yes - Past Social History Smoking Status: Never Smoked - CARDIAC Hx Cardiac Disorders: Yes - PULMONARY Hx Pulmonary Embolism: No - NEUROLOGICAL Hx Neurological Disorder: Yes HX Cerebrovascular Accident: Yes (2011) - HEENT Hx HEENT Problems: No - RENAL Hx Chronic Kidney Disease: No - ENDOCRINE/METABOLIC Hx Endocrine Disorders: No - HEMATOLOGICAL/ONCOLOGICAL Hx Human Immunodeficiency Virus (HIV): No - INTEGUMENTARY Hx Dermatological Problems: No - MUSCULOSKELETAL/RHEUMATOLOGICAL Hx Musculoskeletal Disorders: No Hx Falls: No - GASTROINTESTINAL Hx Gastrointestinal Disorders: No - GENITOURINARY/GYNECOLOGICAL Hx Genitourinary Disorders: No - PSYCHIATRIC Hx Psychophysiologic Disorder: No Hx Substance Use: No - SURGICAL HISTORY Hx Surgeries: Yes Hx Cardiac Catheterization: Yes Other/Comment: AICD - ANESTHESIA Hx Anesthesia: Yes Hx Anesthesia Reactions: Yes (cough and vomiting) Meds Allergies/Adverse Reactions: Allergies Allergy/AdvReac Type Severity Reaction Status Date / Time No Known Allergies Allergy Verified 11/14/18 13:41 - Medications Medications: Current Medications Aspirin (Aspirin Chewable) 81 mg PO DAILY [facility] Last Admin: 11/15/18 08:43 Dose: 81 mg Carvedilol (Coreg) 3.125 mg PO Q12 [facility] Last Admin: 11/15/18 08:43 Dose: 3.125 mg Furosemide (Lasix) 20 mg IVP BID [facility] Last Admin: 11/15/18 08:49 Dose: 20 mg Heparin Sodium (Porcine) (Heparin) 5,000 units SC Q12 [facility]; Protocol Last Admin: 11/15/18 08:49 Dose: 5,000 units Insulin Human Lispro (Humalog) 0 units SC ACCU-CHECK [facility]; Protocol Last Admin: 11/15/18 07:53 Dose: Not Given Spironolactone (Aldactone) 25 mg PO DAILY [facility] Zolpidem Tartrate (Ambien) 5 mg PO HS PRN PRN Reason: Insomnia Physical Exam - Constitutional Appears: Non-toxic - Head Exam Head Exam: NORMAL INSPECTION - Eye Exam Eye Exam: Normal appearance - ENT Exam ENT Exam: Mucous Membranes Moist - Neck Exam Neck exam: Positive for: Full Rom - Respiratory Exam Respiratory Exam: Decreased Breath Sounds - Cardiovascular Exam Cardiovascular Exam: REGULAR RHYTHM - GI/Abdominal Exam GI & Abdominal Exam: Normal Bowel Sounds - Rectal Exam Rectal Exam: Deferred - Extremities Exam Extremities exam: Negative for: pedal edema - Back Exam Back exam: NORMAL INSPECTION - Neurological Exam Neurological exam: Alert - Psychiatric Exam Psychiatric exam: Normal Affect - Skin Skin Exam: Normal Color Results - Vital Signs Recent Vital Signs: Last Vital Signs Temp 98.0 F 11/15/18 08:49 Pulse 98 H 11/15/18 09:00 Resp 18 11/15/18 08:49 BP 109/81 11/15/18 08:49 Pulse Ox 95 11/15/18 08:49 - Labs Result Diagrams: 11/14/18 16:18 11/14/18 15:08 Labs: Laboratory Results - last 24 hr 11/14/18 11/14/18 11/14/18 15:08 16:18 17:13 WBC 7.9 RBC 5.62 Hgb 13.0 Hct 41.8 MCV 74.4 L MCH 23.2 L MCHC 31.2 L RDW 17.7 H Plt Count 330 D Sodium 134 Potassium 3.9 Chloride 93 L Carbon Dioxide 27 Anion Gap 18 BUN 42 H Creatinine 1.2 Est GFR ( Amer) > 60 Est GFR (Non-Af Amer) > 60 POC Glucose (mg/dL) 149 H Random Glucose 153 H Calcium 9.3 Troponin I < 0.0120 NT-Pro-B Natriuret Pep 22825 H 11/14/18 11/15/18 11/15/18 21:43 05:50 11:16 WBC RBC Hgb Hct MCV MCH MCHC RDW Plt Count Sodium Potassium Chloride Carbon Dioxide Anion Gap BUN Creatinine Est GFR ( Amer) Est GFR (Non-Af Amer) POC Glucose (mg/dL) 148 H 148 H 175 H Random Glucose Calcium Troponin I NT-Pro-B Natriuret Pep - EKG Data EKG Interpreted by: Myself Assessment & Plan (1) Systolic dysfunction with acute on chronic heart failure Assessment and Plan: will need IV diuretic therapy. Will stop aldactone and attempt to increase betablocker and loop diuretic therapy. Status: Acute (2) CHF (NYHA class III, ACC/AHA stage C) Assessment and Plan: I have discussed further treatment options with the patient which include possible referral to heart failure transplant eval. Status: Acute
[2018-11-16] MEDS: Insulin Lispro (humaLOG) 100 Units/ml Inj SC SCH ×4 (06:13→23:35)
--- NOTE | 2018-11-16 16:47 | CP.PCM.PN ---
Subjective - Date & Time of Evaluation Date of Evaluation: 11/16/18 Time of Evaluation: 15:50 - Subjective Subjective: patient has less dyspnea Objective - Vital Signs/Intake and Output Vital Signs (last 24 hours): Temp Pulse Resp BP Pulse Ox 98.4 F 97 H 16 108/78 97 11/16/18 16:27 11/16/18 16:27 11/16/18 16:27 11/16/18 16:27 11/16/18 16:27 - Medications Medications: Current Medications Aspirin (Aspirin Chewable) 81 mg PO DAILY [facility] Last Admin: 11/16/18 08:54 Dose: 81 mg Carvedilol (Coreg) 6.25 mg PO Q12 [facility] Furosemide (Lasix) 20 mg IVP BID [facility] Last Admin: 11/16/18 08:57 Dose: 20 mg Heparin Sodium (Porcine) (Heparin) 5,000 units SC Q12 [facility]; Protocol Last Admin: 11/16/18 08:55 Dose: 5,000 units Insulin Human Lispro (Humalog) 0 units SC ACCU-CHECK [facility]; Protocol Last Admin: 11/16/18 13:03 Dose: 3 units Zolpidem Tartrate (Ambien) 5 mg PO HS PRN PRN Reason: Insomnia - Labs Labs: 11/14/18 16:18 11/14/18 15:08 - Constitutional Appears: Non-toxic - Head Exam Head Exam: NORMAL INSPECTION - Eye Exam Eye Exam: Normal appearance - ENT Exam ENT Exam: Mucous Membranes Moist - Neck Exam Neck Exam: Full ROM - Respiratory Exam Respiratory Exam: Decreased Breath Sounds - Cardiovascular Exam Cardiovascular Exam: REGULAR RHYTHM - GI/Abdominal Exam GI & Abdominal Exam: Normal Bowel Sounds - Rectal Exam Rectal Exam: Deferred - Extremities Exam Extremities Exam: Pedal Edema - Back Exam Back Exam: NORMAL INSPECTION - Neurological Exam Neurological Exam: Alert - Psychiatric Exam Psychiatric exam: Normal Affect - Skin Skin Exam: Normal Color Assessment and Plan (1) Systolic dysfunction with acute on chronic heart failure Assessment & Plan: continue diuretic therapy Status: Acute (2) CHF (NYHA class III, ACC/AHA stage C) Assessment & Plan: options discussed in detail Status: Acute
--- NOTE | 2018-11-17 06:06 | HP ---
Late entry done on 11/15/2018. HISTORY OF PRESENT ILLNESS: The patient is a 48-year-old male with history of multiple medical problems including dilated cardiomyopathy, status post ICD placement, was seen by physical security manager on the day of admission. The patient was found to have exacerbation of congestive heart failure with exertional shortness of breath and orthopnea. The patient was advised to come to emergency room for evaluation. The patient was evaluated and found to have congestive heart failure exacerbation, both systolic and diastolic acute on chronic with proBNP 12,700. The patient was admitted to telemetry floor, and cardiology consultation was requested. Other review of systems is negative. ALLERGIES: NO KNOWN ALLERGY. MEDICATIONS: Reviewed as per MAR and ordered. SOCIAL HISTORY: No history of smoking, EtOH, or substance abuse. FAMILY HISTORY: Noncontributory. PAST MEDICAL HISTORY: Dilated cardiomyopathy, status post ICD placement, type 2 diabetes mellitus. PHYSICAL EXAMINATION: GENERAL: The patient is in bed, not in any cardiopulmonary distress at the time of this examination where he also was diuresed. VITAL SIGNS: Blood pressure 124/73, temperature 98.4, respiratory rate are 18, and pulse 100. HEENT: Pupils equal and reactive to light. Normal-appearing mucosa of the conjunctivae, oropharynx, and nasal membrane mucosa. NECK: Supple. No JVD. No carotid bruit. No lymph node. No thyromegaly. CHEST AND LUNGS: Bilateral symmetrical expansion. Few basilar rales. CARDIOVASCULAR SYSTEM: PMI not localized. S1, S2. No additional sounds. ABDOMEN: Normoactive bowel sounds. No tenderness. No organomegaly. No masses. EXTREMITIES: No cyanosis, no clubbing, no edema. CENTRAL NERVOUS SYSTEM: Alert, awake, oriented x2. No neurological deficit could be appreciated. ASSESSMENT: Exacerbation of congestive heart failure, acute on chronic systolic heart failure, type 2 diabetes mellitus, status post implantable cardioverter defibrillator placement. PLAN: Continue current diuretics and follow cardiology recommendations. Harry Gutierrez MD
[2018-11-17] MEDS: Insulin Lispro (humaLOG) 100 Units/ml Inj SC SCH ×3 (07:17→16:47)
--- NOTE | 2018-11-17 21:52 | PQF ---
PROVIDER RESPONSE TEXT: Acute on chronic systolic and diastolic HF REVIEWER QUERY TEXT: Conflicting Documentation Clarification Please clarify the type of Acute on Chronic CHF: the H and P includes: HPI: found to have congestive heart failure exacerbation, both systolic and diastolic acute on chronic versus the Assessment:Exacer bation of congestive heart failure, acute on chronic systolic heart failure -- Other, please specify ER Additional Complaint(s): with history of dilated cardiomyopathy (EF 10-15%) 11/15: Cardiology consult: includes: Systolic dysfunction with acute on chronic heart failure -Lasix 20 mg IVP BID,Coreg Q12 The patient's Clinical Indicators include: -- Query created by: Rhiannon Rodriguez on 11/17/2018 1:53 PM Electronically signed by: Harry Gutierrez MD 11/17/2018 9:49 PM
--- NOTE | 2018-11-18 02:09 | PN ---
DATE: 11/17/2018 SUBJECTIVE: The patient is seen today, 11/17/2018. He is still having exertional shortness of breath and bilateral lower extremity edema. OBJECTIVE: VITAL SIGNS: Blood pressure is 108/77, temperature 97.3, respiratory rate 18, and pulse 110. HEENT: Pupils equal and reactive to light. Normal-appearing mucosa of the conjunctivae, oropharynx, and nasal membrane mucosa. NECK: Supple. No JVD. No carotid bruit. No lymph node. No thyromegaly. CHEST AND LUNGS: Bilateral symmetrical expansion. Good air exchange. No rales, no rhonchi. CARDIOVASCULAR SYSTEM: PMI not localized. S1, S2. No additional sounds. ABDOMEN: Normoactive bowel sounds. No tenderness. No organomegaly. No masses. EXTREMITIES: No cyanosis, no clubbing, +1 edema of both lower extremities. CENTRAL NERVOUS SYSTEM: Alert, awake, oriented x2. No neurological deficit could be appreciated. ASSESSMENT: 1. Acute exacerbation of congestive heart failure, acute on chronic systolic heart failure. 2. Type 2 diabetes mellitus. 3. Status post implantable cardioverter defibrillator placement. PLAN: We will increase Lasix to 20 mg IV push every 8 hours. We will stop Accu-Cheks as patient is complaining of frequent needle sticks. Monitor electrolytes. Debra MD Matt
[2018-11-18 06:06] LABS: ALBUMIN 3.5 g/dL (3.5-5.0); ALT/SGPT 70 U/L (21-72); AST/SGOT 62 U/L (17-59); BLOOD UREA NITROGEN 42 mg/dl (9-20); CALCIUM 9.2 mg/dL (8.4-10.2); GFR NON-AFRICAN AMERICAN > 60
--- NOTE | 2018-11-18 08:00 | CP.PCM.PN ---
Subjective - Date & Time of Evaluation Date of Evaluation: 11/18/18 Time of Evaluation: 07:50 - Subjective Subjective: patient remains dyspneic. lasix has been held because his blood pressure cannot tolerate. Objective - Vital Signs/Intake and Output Vital Signs (last 24 hours): Temp Pulse Resp BP Pulse Ox 98.1 F 99 H 20 101/71 97 11/18/18 05:22 11/18/18 05:22 11/18/18 05:22 11/18/18 05:22 11/18/18 05:22 - Medications Medications: Current Medications Aspirin (Aspirin Chewable) 81 mg PO DAILY [facility] Last Admin: 11/17/18 09:25 Dose: 81 mg Carvedilol (Coreg) 6.25 mg PO Q12 [facility] Last Admin: 11/17/18 21:19 Dose: Not Given Furosemide (Lasix) 20 mg IVP TID [facility] Last Admin: 11/17/18 21:20 Dose: 20 mg Heparin Sodium (Porcine) (Heparin) 5,000 units SC Q12 [facility]; Protocol Last Admin: 11/17/18 21:18 Dose: 5,000 units Midodrine (Proamatine) 5 mg PO BID [facility] Stop: 11/18/18 07:58 - Labs Labs: 11/14/18 16:18 11/18/18 05:05 - Constitutional Appears: Chronically Ill - Head Exam Head Exam: NORMAL INSPECTION - Eye Exam Eye Exam: Normal appearance - ENT Exam ENT Exam: Mucous Membranes Moist - Neck Exam Neck Exam: Full ROM - Respiratory Exam Respiratory Exam: Decreased Breath Sounds - Cardiovascular Exam Cardiovascular Exam: REGULAR RHYTHM - GI/Abdominal Exam GI & Abdominal Exam: Normal Bowel Sounds - Rectal Exam Rectal Exam: Deferred - Extremities Exam Extremities Exam: Pedal Edema - Back Exam Back Exam: NORMAL INSPECTION - Neurological Exam Neurological Exam: Alert - Psychiatric Exam Psychiatric exam: Normal Affect - Skin Skin Exam: Normal Color Assessment and Plan (1) Systolic dysfunction with acute on chronic heart failure Assessment & Plan: patient remains volume overloaded. I recommend placement of PICC line after which patient will be started on inotropic support (swapnaley milrinone.) I have discussed transfer to [facility] for heart failure transplant evaluation. Status: Acute (2) CHF (NYHA class III, ACC/AHA stage C) Assessment & Plan: as above, mikelnet will be started on inotropic therapy. Status: Acute
[2018-11-18] MEDS ORDERED: Lidocaine Hydrochloride 5 ML INJ ONE (11:22)
--- NOTE | 2018-11-18 12:02 | PCM.SURG1 ---
Surgeon's Initial Post Op Note - Surgeon's Notes Surgeon: Janell Blending Tank Helper: None Type of Anesthesia: Local Pre-Operative Diagnosis: Cadiomyopathy Operative Findings: Patent right basilic vein Post-Operative Diagnosis: Cadiomyopathy Operation Performed: Right basilic vein 5F DL 38cm PICC placed with the tip in the RA Specimen/Specimens Removed: None Estimated Blood Loss: EBL {In ML}: 1 Date of Surgery/Procedure: 11/18/18 Time of Surgery/Procedure: 11:45
[2018-11-18] MEDS: Milrinone 20mg/100ml D5W 100 ML IV SCH ×2 (13:35→19:32)
--- NOTE | 2018-11-19 02:23 | PN ---
DATE: 11/18/2018 DAILY PROGRESS NOTE SUBJECTIVE: The patient is seen today, 11/18/2018. He is still having shortness of breath and bilateral lower leg edema. LABORATORY DATA: BUN is 42 and creatinine 1.2. PHYSICAL EXAMINATION: VITAL SIGNS: Blood pressure is 103/60, temperature 98.4, respiratory rate 18, and pulse 109. HEENT: Pupils equal, reactive to light. Normal-appearing mucosa of the conjunctivae, oropharynx and nasal membrane mucosa. NECK: Supple. No JVD. No carotid bruit. No lymph node. No thyromegaly. CHEST AND LUNGS: Bilateral symmetrical expansion. Good air exchange. No rales. No rhonchi. CARDIOVASCULAR SYSTEM: PMI not localized. S1 and S2. No additional sounds. ABDOMEN: Normoactive bowel sounds. No tenderness. No organomegaly. No masses. EXTREMITIES: No cyanosis, no clubbing, no edema. CENTRAL NERVOUS SYSTEM: Alert, awake, oriented x2. No neurological deficit could be appreciated. ASSESSMENT: 1. Dilated cardiomyopathy, status post implantable cardioverter-defibrillator placement. 2. Exacerbation of acute on chronic systolic and diastolic heart failure. 3. Type 2 diabetes mellitus. PLAN: The patient had a PICC line inserted and started on milrinone. Discussed the patient's condition with Dr. Martinez. The patient is being even referred to be transferred with [facility] in [facility]. Harry Gutierrez MD
[2018-11-19 05:26] LABS: HEMOGLOBIN 12.5 g/dL (12.0-18.0); MEAN CELL VOLUME 74.2 fl (80.0-94.0); MEAN CORPUSCULAR HEMOGLOBIN 23.3 pg (27.0-31.0); MEAN CORPUSCULAR HGB CONC 31.4 g/dL (33.0-37.0); RBC 5.37 Mil/uL (4.40-5.90); RED CELL DISTRIBUTION WIDTH 18.1 % (11.5-14.5); WHITE BLOOD COUNT 7.8 K/uL (4.8-10.8)
[2018-11-19 06:47] LABS: ALBUMIN 3.4 g/dL (3.5-5.0); ALT/SGPT 83 U/L (21-72); AST/SGOT 59 U/L (17-59); BLOOD UREA NITROGEN 47 mg/dl (9-20); GFR NON-AFRICAN AMERICAN 54
--- NOTE | 2018-11-19 09:34 | CP.PCM.PCO ---
Assessment/Plan - Assessment and Plan (Free Text) Assessment: pt. for transfer to [facility] under for heart tsplant. pt. s/p picc, on Milrinone gtt last echo was done on 10/28/18 in office; results discussed with ; EF 15-20% severely reduced LV fx, severe LV dilitation, resting regional wall motion abnormalities of the inferolateral wall. Resting regional wall motion abnormalities of the inf wall pending transfer to [facility]
--- NOTE | 2018-11-19 15:05 | CP.PCM.PN ---
Subjective - Date & Time of Evaluation Date of Evaluation: 11/19/18 Time of Evaluation: 15:03 - Subjective Subjective: pt with continued raymon. decreased orthopnea. now on milrinone with picc line placed. denies cp, palp. Objective - Vital Signs/Intake and Output Vital Signs (last 24 hours): Temp Pulse Resp BP Pulse Ox 98.3 F 116 H 20 114/81 99 11/19/18 12:04 11/19/18 12:04 11/19/18 12:04 11/19/18 12:04 11/19/18 12:04 Intake and Output: 11/19/18 11/19/18 06:59 18:59 Intake Total 505 Output Total 275 Balance 230 - Medications Medications: Current Medications Aspirin (Aspirin Chewable) 81 mg PO DAILY [facility] Last Admin: 11/19/18 09:49 Dose: 81 mg Clotrimazole (Lotrimin 1% Cream) 1 applic TOP BID [facility] Last Admin: 11/19/18 09:49 Dose: 1 applic Furosemide (Lasix) 40 mg IVP BID [facility] Last Admin: 11/19/18 09:53 Dose: Not Given Heparin Sodium (Porcine) (Heparin) 5,000 units SC Q12 [facility]; Protocol Last Admin: 11/19/18 09:49 Dose: 5,000 units Milrinone Lactate/Dextrose (Primacor 20mg/100ml D5w) 100 mls @ 12.084 mls/hr IV .[id number] [facility]; Protocol Last Admin: 11/18/18 19:32 Dose: Not Given - Labs Labs: 11/19/18 04:10 11/19/18 04:10 - Constitutional Appears: Non-toxic - Head Exam Head Exam: ATRAUMATIC, NORMAL INSPECTION, NORMOCEPHALIC - Eye Exam Eye Exam: EOMI, Normal appearance, PERRL. absent: Conjunctival injection, Nystagmus, Periorbital swelling, Periorbital tenderness, Scleral icterus Pupil Exam: NORMAL ACCOMODATION, PERRL - ENT Exam ENT Exam: Mucous Membranes Dry, Normal Exam. absent: Mucous Membranes Moist, Normal External Ear Exam, Normal Oropharynx, TM's Normal Bilaterally - Neck Exam Neck Exam: Full ROM, Normal Inspection. absent: Lymphadenopathy, Meningismus, Tenderness, Thyromegaly - Respiratory Exam Respiratory Exam: Decreased Breath Sounds, Rales, NORMAL BREATHING PATTERN. absent: Accessory Muscle Use, Chest Wall Tenderness, Clear to Ausculation Bilateral, Prolonged Expiratory Phase, Rhonchi, Wheezes, Respiratory Distress, Stridor - Cardiovascular Exam Cardiovascular Exam: REGULAR RHYTHM, +S1, +S2, Murmur. absent: Bradycardia, Tachycardia, Clicks, Diastolic murmur, Gallop, Irregular Rhythm, JVD, RRR, Rubs, +S4 - GI/Abdominal Exam GI & Abdominal Exam: Distended, Soft, Normal Bowel Sounds. absent: Bruit, Firm, Guarding, Rigid, Tenderness, Diminished Bowel Sounds, Hernia, Hyperactive Bowel Sounds, Hypoactive Bowel Sounds, Mass, Organomegaly, Pulsatile Mass, Rebound - Rectal Exam Rectal Exam: Deferred - Extremities Exam Extremities Exam: Normal Capillary Refill Additional comments: 3+ pitting edema - Back Exam Back Exam: NORMAL INSPECTION. absent: CVA tenderness (L), CVA tenderness (R), Full ROM, muscle spasm, paraspinal tenderness, rash noted, tenderness, vertebral tenderness - Neurological Exam Neurological Exam: Alert, Awake, CN II-XII Intact, Normal Gait, Oriented x3. absent: Abnormal Gait, Altered, Motor Sensory Deficit, Reflexes Normal - Psychiatric Exam Psychiatric exam: Normal Affect, Normal Mood. absent: Agitated, Anxious, Depressed, Flat Affect, Homicidal Ideation, Manic, Suicidal Ideation - Skin Skin Exam: Dry, Intact, Normal Color, Warm. absent: Abrasion, Cyanosis, Diaphoretic, Erythema, Mottled, Pallor, Pallor, Petechiae, Rash, Urticaria, Vesicles Assessment and Plan (1) Acute on chronic combined systolic and diastolic CHF, NYHA class 4 Status: Acute (2) AICD (automatic cardioverter/defibrillator) present Status: Acute (3) Hypotension Status: Acute - Assessment and Plan (Free Text) Plan: continue milrinone. monitor on tele. close bp monitoring. lasix held due to bp. pt awaiting transfer to [facility] for heart transplant eval. 45 min total care time.
[2018-11-19] MEDS: Milrinone 20mg/100ml D5W 100 ML IV SCH (21:24)
[2018-11-20 00:14] VITALS: BP 101/67; PULSE 104; RESP 16; TEMP 97.8; O2SAT 95
--- NOTE | 2018-11-20 09:48 | PN ---
DATE: 11/19/2018 SUBJECTIVE: The patient was seen on 11/19/2018. He was still having shortness of breath both exertional and at rest and bilateral lower extremity edema. PHYSICAL EXAMINATION: VITAL SIGNS: Blood pressure was 106/69, temperature 98.2, respiratory rate 18, and pulse 111. HEENT: Pupils equal and reactive to light. Normal-appearing mucosa of the conjunctivae, oropharyngeal, and nasal membrane mucosa. NECK: Supple. No JVD. No carotid bruits. No lymph node. No thyromegaly. CHEST AND LUNGS: Bilateral symmetrical expansion. Good air exchange. Bilateral basal rales. CARDIOVASCULAR SYSTEM: PMI not localized. S1 and S2 with no additional sounds could be appreciated. ABDOMEN: Normoactive bowel sounds. No tenderness. No organomegaly. No masses. EXTREMITIES: Bilateral lower extremity +2 edema. CENTRAL NERVOUS SYSTEM: Alert, awake, oriented x3. No neurological deficit could be appreciated. ASSESSMENT: Dilated cardiomyopathy. Acute on chronic systolic and diastolic heart failure, status post implantable cardioverter-defibrillator placement, type 2 diabetes mellitus. PLAN: Continue current medications including milrinone. Discussed with Dr. Martinez, who is arranging to transfer the patient to [facility] for possibly placing the patient on heart transplant list. Harry Gutierrez MD
--- NOTE | 2018-11-20 14:03 | VASCULAR ---
Procedure: Ultrasound and fluoroscopically placed Right upper extremity PICC. Clinical indication: Long-term IV for continuous medication. Technique: The relative risks and indications of the procedure were explained to the patient and written informed consent obtained. The patient was placed supine on the angiographic table and the right arm prepped and draped in the usual sterile fashion. A tourniquet was applied to the right axilla. 1% lidocaine was used to anesthetize the skin and soft tissues at the puncture site above the elbow. The right basilic vein was punctured under direct ultrasound guidance with a micropuncture set. A permanent image was stored. A 0.018 guidewire was advanced centrally and used to measure the length to the SVC/RA junction. A 5 [place]oc[place] double lumen PICC, size 38 cm, was advanced to the SVC/RA junction under fluoroscopic guidance. The catheter was flushed and secured. The patient tolerated the procedure well. Postprocedure chest image was obtained to ensure location of the catheter tip at the SVC right atrial junction. Impression: Ultrasound and fluoroscopically placed right upper extremity PICC. A 5 [place]oc[place] double-lumen PICC, size 38 cm was advanced to the SVC/RA junction. PICC ready for use.
--- NOTE | 2018-11-21 02:37 | DS ---
REASON FOR ADMISSION: This is a 48-year-old male with history of dilated cardiomyopathy, congestive heart failure status post ICD placement, was admitted for exacerbation of congestive heart failure. COURSE OF HOSPITALIZATION: The patient was admitted to telemetry floor and he was started on diuretics, continued on beta blockers. The patient's blood pressure was not and beta tiffany was held many times. The patient continued to be in failure. Cardiology consult was called, Dr. Martinez, and placed the patient on milrinone. Arrangement was done to transfer the patient to [facility] for possible placement on a heart transplant center in the heart transplant list. The patient was transferred to [facility] in a stable condition by ACLS. FINAL DIAGNOSES: [id number] systolic and diastolic heart failure, dilated cardiomyopathy status post implantable cardioverter-defibrillator placement, type 2 diabetes mellitus. Debra MD Matt
== END 2018-11-20 01:00 | disposition short-term general hospital (02) | DRG 127 ==
LOC: H.ER 13:29 → H.ERHOLD 16:03 → OBSVTOIN 16:03 → H.TEL 17:27
PROVIDERS: ADMIT Internal Medicine; ATTEND Internal Medicine
PROC: 02HV33Z Insertion of Infusion Device into Superior Vena Cava, Percutaneous Approach (ICD-10-PCS; principal; 2018-11-18)
PROC: B518ZZA Fluoroscopy of Superior Vena Cava, Guidance (ICD-10-PCS; 2018-11-18)
PROC: B548ZZA Ultrasonography of Superior Vena Cava, Guidance (ICD-10-PCS; 2018-11-18)
DX: I11.0 Hypertensive heart disease with heart failure (principal); I42.0 Dilated cardiomyopathy; I50.43 Acute on chronic combined systolic (congestive) and diastolic (congestive) heart failure; I95.9 Hypotension, unspecified; Z95.810 Presence of automatic (implantable) cardiac defibrillator; E11.9 Type 2 diabetes mellitus without complications; Z86.73 Personal history of transient ischemic attack (TIA), and cerebral infarction without residual deficits